=== PATIENT | female | born 1930 | race Caucasian/White ===

== ENCOUNTER 2016-10-25 15:52 | Emergency (ER) | payer MEDICARE, OTHER ==
[~2016-10-25 15:52] MED LIST: AMIT24CA5 PO; AMLO25TA PO; AMLO5TAB2 PO; BIMA01SOL OU; CARD120C3 PO; CEFD1CAP8 PO; COMB0.2S OU; COSO1SOL3 OU; DESM10SP; DILT120C82 PO; DOXY-278 PO; FERR32TA PO; FLON0.054; FLUT11IN INH; FURO20TA2 PO; FURO40TA2 PO; LEVO100T5 PO; LISI-538 PO; LISI-542 PO; MAG400TA PO; MIAC1SPR; NORT10CA2 PO; OMEP20CA3 PO; PAME25CA PO; PRED10TA PO; REQU0.5T PO; REST0.05 OU; SYMB80INH INH; SYNT88TA2 PO; TYLE325T5 PO; ULTR37.52 PO; VITA10002 PO; VITA100037 PO; [UNRECOGNIZED DRUG - CODE]; [UNRECOGNIZED DRUG - CODE] EX; [UNRECOGNIZED DRUG - CODE] OP; [UNRECOGNIZED DRUG - CODE] OS
[2016-10-25] MEDS ORDERED: traMADol 50 MG TAB As Ordered ONE (17:57)
--- NOTE | 2016-10-25 19:29 | REP ---
Left knee series: Five views. History: Anterior trauma. Findings: Five views of the left knee demonstrate a transversely oriented nondisplaced fracture of the patella. There is diffuse osteoporosis. No other fracture is seen. Impression: Transverse nondisplaced patellar fracture. Diffuse osteoporosis. Signed by Jayant Magana MD 10/25/2016 08:00 P
[2016-10-25] MEDS ORDERED: ACETAMINOPHEN/CODEINE #3 TABLET (BULK) As Ordered ONE (21:16)
--- NOTE | 2016-10-25 21:39 | EDDOCDS ---
Physician Documentation [facility] Name: Hilda Garcia Age: 85 yrs Sex: Female : 1930 Arrival Date: 10/25/2016 Time: 15:52 Bed PR Private MD: Jessica Chambers E Disposition: 10/25/16 20:59 Discharged to Home/Self Care. Impression: Other fracture of left patella - TRANVERSE, NONDISPLACED. - Condition is Stable. - Discharge Instructions: Patellar Fracture, Adult. - Prescriptions for Colace 100 mg Oral Tablet - take 1 tablet by ORAL route every 12 hours; 14 tablet. Tylenol- Codeine #3 300-30 mg Oral Tablet - take 2 tablet by ORAL route every 6 hours As needed MDD: 4 tabs; 30 tablet. - Medication Reconciliation, Local Pharmacy Hours form. - Follow up: [facility]; When: 2 - 3 days; Reason: Recheck today's complaints, Continuance of care. - Problem is new. - Symptoms have improved. - Notes: PLEASE CALL [facility] TOMORROW, PLEASE ADVISE THEM THAT YOU HAVE A NONDISPLACED PATELLA FRACTURE, THAT DR HEIN WAS CONSULTED AND THAT HE RECOMMENDED FOLLOW UP IN THE CLINIC TOMORROW. PLEASE USE MEDICATION AND COLACE INSTRUCTED, RETURN TO THE ER IF THE SYMPTOMS WORSEN OR BECOME CONCERNING Historical: - Allergies: Augmentin; Ciprofloxacin (Rash); Clindamycin (Rash); CT Dye (Rash); Diltiazem (heart block); GABAPENTIN (Rash); Ibuprofen (fluid retention); meloxicam (Rash); - Home Meds: 1. amlodipine 5 mg Oral tab 1 tab twice a day 2. Flovent Inhl 110 mcg twice a day 3. Lasix 40 mg Oral tab 1 tab once daily 4. levothyroxine 88 mcg Oral tab 1 tab once daily 5. lisinopril 20 mg Oral tab 1 tab 2 x daily 6. magnesium oxide 400 mg Oral tab 7. nortriptyline 25 mg Oral cap 1 cap daily 8. omeprazole 20 mg Oral cpDR 1 cap 2 times per day 9. Vitamin D Oral 1000 unit daily - PMHx: Depression; GERD; Hypertension; Hypothyroidism; - PSHx: Tonsillectomy; Hysterectomy; - Social history: Smoking status: Patient states former smoker of tobacco. No barriers to communication noted, The patient speaks fluent Ethiopian, Speaks appropriately for age. - Family history: Not pertinent. - : The pt / caregiver states he / she is not on anticoagulants. Home medication list is obtained from the patient. - Exposure Risk Screening:: None identified. Vital Signs: 10/25 15:58 BP 143 / 79; Pulse 76; Resp 18 S; Temp 96.7(O); Pulse Ox 97% on R/A; Weight 68.04 kg / gr2 150 lbs (R); Height 5 ft. 6 in. (167.64 cm) (R); Pain 8/10; 21:28 BP 152 / 89; Pulse 90; Resp 18; Temp 99.1(TE); Pulse Ox 97% on R/A; Pain 10/10; kmg1 15:58 Body Mass Index 24.21 (68.04 kg, 167.64 cm) gr2 Procedures: 20:58 Fracture care/splinting: Splint applied to left leg using knee immobilizer, applied by ck7 nurse. Examined by me, post splint application: neurovascular intact, 2+ distal pulses palpable, brisk capillary refill noted, Patient tolerated well. MDM: 17:49 traMADol 50 mg PO once ordered. ar2 17:50 Knee, Complete Ordered. EDMS 18:29 Financial registration complete. [facility] 18:38 [facility] Payment Agreement was scanned into [employer] and attached to record. b 20:29 Knee Immobilizer ordered. ck7 20:59 Knee, Complete Reviewed. ck7 21:00 Acetaminophen-Codeine, 4 pack- 300 mg-30 mg 1 packets PO once; Dispense with patient. ck7 Take per package instructions. ordered. Administered Medications: 18:01 Drug: traMADol 50 mg [tramadol 50 mg tablet (1 tabs)] Route: PO; ck1 21:37 Drug: Acetaminophen-Codeine, 4 pack- 1 packets [acetaminophen 300 mg-codeine 30 mg kmg1 tablet (1 tabs)] {Co-Signature: ttb (Uzma Wheeler RN).} Route: PO; Signatures: Dispatcher [employer]Host EDMS Tamera Mansfield RN RN kmg1 Shavon Hamm RN RN ck1 Isac Butt PA-C PA-C ar2 Sharon Lund RN RN hs1 Raymond Park, RPA-C RPA-Cck7 Awa López RN ttb The chart was reviewed and I authenticate all verbal orders and agree with the evaluation and treatment provided.Corrections: (The following items were deleted from the chart) 21:14 20:29 Crutches ordered. ck7 kmg1 Attachments: 18:38 [facility] [place] gjfrank MTDD
--- NOTE | 2016-10-25 21:39 | EDDOCDS ---
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 Patient states pain has continued to get worse. Adult Sepsis Screening: The patient does not have new or worsening altered mentation. Patient's respiratory rate is less than 22. Systolic blood pressure is greater than 100. Patient has a qSOFA score of 0- Negative Sepsis Screen. Suicide/Homicide risk assessment- the patient denies having any suicidal and/or homicidal ideations and does not present with any other emotional, behavioral or mental health complaints. Status: Patient is not a immigration services officer or dependent. Transition of care: patient was not received from another setting of care. 16:00 Acuity: NINOSKA Level 4 hs1 16:00 Method Of Arrival: Walkin/Carried/Asstd hs1 Triage Assessment: 16:08 General: Appears in no apparent distress, Behavior is appropriate for age, cooperative. hs1 Pain: Location: right knee and left knee Pain currently is 10 out of 10 on a pain scale. Neurological: No deficits noted. Respiratory: Airway is patent Respiratory effort is even, unlabored, Respiratory pattern is regular, symmetrical. Historical: - Allergies: Augmentin; Ciprofloxacin (Rash); Clindamycin (Rash); CT Dye (Rash); Diltiazem (heart block); GABAPENTIN (Rash); Ibuprofen (fluid retention); meloxicam (Rash); - Home Meds: 1. amlodipine 5 mg Oral tab 1 tab twice a day 2. Flovent Inhl 110 mcg twice a day 3. Lasix 40 mg Oral tab 1 tab once daily 4. levothyroxine 88 mcg Oral tab 1 tab once daily 5. lisinopril 20 mg Oral tab 1 tab 2 x daily 6. magnesium oxide 400 mg Oral tab 7. nortriptyline 25 mg Oral cap 1 cap daily 8. omeprazole 20 mg Oral cpDR 1 cap 2 times per day 9. Vitamin D Oral 1000 unit daily - PMHx: Depression; GERD; Hypertension; Hypothyroidism; - PSHx: Tonsillectomy; Hysterectomy; - Social history: Smoking status: Patient states former smoker of tobacco. No barriers to communication noted, The patient speaks fluent Khmer, Speaks appropriately for age. - Family history: Not pertinent. - : The pt / caregiver states he / she is not on anticoagulants. Home medication list is obtained from the patient. - Exposure Risk Screening:: None identified. Screenin:09 Screening information is obtained from the patient. Fall risk: No risks identified. hs1 Assistance ADL's: requires no assistance with activities of daily living. Abuse/DV Screen: The patient / caregiver reports he/she is: not in a situation that causes fear, pain or injury. Nutritional screening: No deficits noted. Advance Directives: There is no active DNR order. home support is adequate. Assessment: 18:01 General: Appears in no apparent distress, comfortable, Behavior is appropriate for age, ck1 cooperative. Pain: Location: left leg Pain currently is 10 out of 10 on a pain scale. Respiratory: No deficits noted. Derm: Skin is intact, Skin is pink, warm & dry. Musculoskeletal: Circulation, motion, and sensation intact. 21:28 Reassessment: Patient appears in no apparent distress at this time. Placed knee kmg1 immobilizer on LLE. Ambulated with walker and tolerated well. . Vital Signs: 15:58 BP 143 / 79; Pulse 76; Resp 18 S; Temp 96.7(O); Pulse Ox 97% on R/A; Weight 68.04 kg gr2 (R); Height 5 ft. 6 in. (167.64 cm) (R); Pain 8/10; 21:28 BP 152 / 89; Pulse 90; Resp 18; Temp 99.1(TE); Pulse Ox 97% on R/A; Pain 10/10; kmg1 15:58 Body Mass Index 24.21 (68.04 kg, 167.64 cm) gr2 Vitals: 15:58 Log In Time: October 25, 2016 at 15:58. gr2 ED Course: 15:57 Patient visited by Jackeline Shaw. gr2 15:57 Patient moved to Waiting gr2 15:58 Jessica Chambers is Private Physician. gr2 15:58 Patient visited by Jackeline Shaw. gr2 15:59 Patient moved to Pre RCE gr2 16:03 Triage Initiated hs1 17:28 Patient moved to Triage 2 ct3 17:39 Patient visited by Shavon Hamm,LEATHA. ck1 17:42 Isac Butt PA-C is PHCP. ar2 17:42 Kenji Metzger MD is Attending Physician. ar2 17:42 Patient visited by Isac Butt PA-C. ar2 18:00 Patient moved to TR1 ct3 18:01 Patient visited by Shavon Hamm,LEATHA. ck1 18:01 The patient / caregiver is instructed regarding the plan of care and ED course. ck1 18:23 PHCP role handed off by Isac Butt PA-C ck7 18:23 Raymond Park RPA-C is PHCP. ck7 18:38 [facility] Payment Agreement was scanned into Archive and attached to record. gjb 18:41 Patient visited by Raymond Park RPA-C. ck7 19:08 Patient name changed from Hilda\S\\S\Jose\S\ to Hilda\S\ \S\Jose. EDMS 19:11 Patient moved to PR 26 mo1 19:12 Patient visited by Raymond Park RPA-C. ck7 19:57 Patient visited by Raymond Park RPA-C. ck7 20:16 Knee, Complete Returned. EDMS 20:29 Patient visited by Raymond Park RPA-C. ck7 20:59 [facility] is Referral Physician. ck7 21:28 No IV's were initiated during this patient's visit. No procedures done that require kmg1 assistance. Knee immobilizer applied on left knee. Patient with positive distal sensation and brisk distal capillary refill after application. Administered Medications: 18:01 Drug: traMADol 50 mg [tramadol 50 mg tablet (1 tabs)] Route: PO; ck1 21:37 Drug: Acetaminophen-Codeine, 4 pack- 1 packets [acetaminophen 300 mg-codeine 30 mg kmg1 tablet (1 tabs)] {Co-Signature: ttb (Uzma Wheeler RN).} Route: PO; Output: 20:29 Urine: 100.00ml (Voided); Total: 100.00ml. dsf Order Results: Radiology Order: Knee, Complete Test: Knee, Complete REASON FOR EXAMINATION: anterior trauma; Left knee series: Five views.; ; History: Anterior trauma.; ; Findings: Five views of the left knee demonstrate a transversely oriented; nondisplaced fracture of the patella. There is diffuse osteoporosis. No other; fracture is seen.; ; Impression:; ; Transverse nondisplaced patellar fracture. Diffuse osteoporosis.; ; ; Signed by; Jayant Magana MD 10/25/2016 08:00 P; Outcome: 20:59 Discharge ordered by Provider. ck7 21:28 Discharge Assessment: Patient awake, alert and oriented x 3. No cognitive and/or kmg1 functional deficits noted. Patient verbalized understanding of disposition instructions. Patient awake and alert. patient administered narcotics - yes. Pt provided with safe discharge. The following High Risk Discharge criteria are identified: None. Discharged to home via wheelchair, with family. Condition: stable. Discharge instructions given to patient, family, Instructed on discharge instructions, follow up and referral plans. medication usage, Demonstrated understanding of instructions, medications, Pt was receptive of discharge instructions/ teaching. Prescriptions given X 1. No special radiology studies were completed. Property sent home with patient. 21:38 Patient left the ED. kmg1 Signatures: Dispatcher MedHost EDMS Tamera Mansfield, RN LEATHA kmg1 Shavon Hamm RN RN ck1 Isac Butt, PA-C PA-C ar2 Sharon Lund RN RN hs1 Catherine Torres, CYDNEY CASH REGISTER SERVICER ct3 Lorrie Perry RN RN dsf Raymond Park, RPA-C RPA-Cck7 Jackeline Shaw gr2 Ab Grant PA PA mo1 Awa López RN ttb [facility]
--- NOTE | 2016-10-27 22:40 | EDDOCDS ---
Physician Documentation [facility] Name: Hilda Garcia Age: 85 yrs Sex: Female : 1930 Arrival Date: 10/25/2016 Time: 15:52 Bed PR Private MD: Jessica Chambers E Disposition: 10/25/16 20:59 Discharged to Home/Self Care. Impression: Other fracture of left patella - TRANVERSE, NONDISPLACED. - Condition is Stable. - Discharge Instructions: Patellar Fracture, Adult. - Prescriptions for Colace 100 mg Oral Tablet - take 1 tablet by ORAL route every 12 hours; 14 tablet. Tylenol- Codeine #3 300-30 mg Oral Tablet - take 2 tablet by ORAL route every 6 hours As needed MDD: 4 tabs; 30 tablet. - Medication Reconciliation, Local Pharmacy Hours form. - Follow up: [facility]; When: 2 - 3 days; Reason: Recheck today's complaints, Continuance of care. - Problem is new. - Symptoms have improved. - Notes: PLEASE CALL [facility] TOMORROW, PLEASE ADVISE THEM THAT YOU HAVE A NONDISPLACED PATELLA FRACTURE, THAT DR HEIN WAS CONSULTED AND THAT HE RECOMMENDED FOLLOW UP IN THE CLINIC TOMORROW. PLEASE USE MEDICATION AND COLACE INSTRUCTED, RETURN TO THE ER IF THE SYMPTOMS WORSEN OR BECOME CONCERNING Historical: - Allergies: Augmentin; Ciprofloxacin (Rash); Clindamycin (Rash); CT Dye (Rash); Diltiazem (heart block); GABAPENTIN (Rash); Ibuprofen (fluid retention); meloxicam (Rash); - Home Meds: 1. amlodipine 5 mg Oral tab 1 tab twice a day 2. Flovent Inhl 110 mcg twice a day 3. Lasix 40 mg Oral tab 1 tab once daily 4. levothyroxine 88 mcg Oral tab 1 tab once daily 5. lisinopril 20 mg Oral tab 1 tab 2 x daily 6. magnesium oxide 400 mg Oral tab 7. nortriptyline 25 mg Oral cap 1 cap daily 8. omeprazole 20 mg Oral cpDR 1 cap 2 times per day 9. Vitamin D Oral 1000 unit daily - PMHx: Depression; GERD; Hypertension; Hypothyroidism; - PSHx: Tonsillectomy; Hysterectomy; - Social history: Smoking status: Patient states former smoker of tobacco. No barriers to communication noted, The patient speaks fluent Zambian, Speaks appropriately for age. - Family history: Not pertinent. - : The pt / caregiver states he / she is not on anticoagulants. Home medication list is obtained from the patient. - Exposure Risk Screening:: None identified. Vital Signs: 10/25 15:58 BP 143 / 79; Pulse 76; Resp 18 S; Temp 96.7(O); Pulse Ox 97% on R/A; Weight 68.04 kg / gr2 150 lbs (R); Height 5 ft. 6 in. (167.64 cm) (R); Pain 8/10; 21:28 BP 152 / 89; Pulse 90; Resp 18; Temp 99.1(TE); Pulse Ox 97% on R/A; Pain 10/10; kmg1 15:58 Body Mass Index 24.21 (68.04 kg, 167.64 cm) gr2 Procedures: 20:58 Fracture care/splinting: Splint applied to left leg using knee immobilizer, applied by ck7 nurse. Examined by me, post splint application: neurovascular intact, 2+ distal pulses palpable, brisk capillary refill noted, Patient tolerated well. MDM: 17:49 traMADol 50 mg PO once ordered. ar2 17:50 Knee, Complete Ordered. EDMS 18:29 Financial registration complete. [facility] 18:38 [facility] Payment Agreement was scanned into Pow[employer] and attached to record. b 20:29 Knee Immobilizer ordered. ck7 20:59 Knee, Complete Reviewed. ck7 21:00 Acetaminophen-Codeine, 4 pack- 300 mg-30 mg 1 packets PO once; Dispense with patient. ck7 Take per package instructions. ordered. 10/26 11:59 T-Sheet-- Draft Copy was scanned into Powered and attached to record. gb Administered Medications: 10/25 18:01 Drug: traMADol 50 mg [tramadol 50 mg tablet (1 tabs)] Route: PO; ck1 21:37 Drug: Acetaminophen-Codeine, 4 pack- 1 packets [acetaminophen 300 mg-codeine 30 mg kmg1 tablet (1 tabs)] {Co-Signature: ttb (Uzma Wheeler RN).} Route: PO; Signatures: Dispatcher MedHost EDAR Tamera Mansfield RN RN [facility] [place] Mary Falcon, Reg Reg gb Shavon HammRN RN ck1 Isac Butt PA-C PAJavier ar2 Sharon Lund RN RN hs1 Raymond Park RPA-C RPA-Demetrius7 Awa López b Uzma Wheeler RN ttb The chart was reviewed and I authenticate all verbal orders and agree with the evaluation and treatment provided.Corrections: (The following items were deleted from the chart) 21:14 20:29 Crutches ordered. ck7 kmg1 Attachments: 18:38 [facility] Payment Agreement gjb 10/26 11:59 T-Sheet-- Draft Copy gb Chart Complete MTDD
--- NOTE | 2016-10-27 22:40 | EDDOCDS ---
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 Patient states pain has continued to get worse. Adult Sepsis Screening: The patient does not have new or worsening altered mentation. Patient's respiratory rate is less than 22. Systolic blood pressure is greater than 100. Patient has a qSOFA score of 0- Negative Sepsis Screen. Suicide/Homicide risk assessment- the patient denies having any suicidal and/or homicidal ideations and does not present with any other emotional, behavioral or mental health complaints. Status: Patient is not a marine services technician or dependent. Transition of care: patient was not received from another setting of care. 16:00 Acuity: NINOSKA Level 4 hs1 16:00 Method Of Arrival: Walkin/Carried/Asstd hs1 Triage Assessment: 16:08 General: Appears in no apparent distress, Behavior is appropriate for age, cooperative. hs1 Pain: Location: right knee and left knee Pain currently is 10 out of 10 on a pain scale. Neurological: No deficits noted. Respiratory: Airway is patent Respiratory effort is even, unlabored, Respiratory pattern is regular, symmetrical. Historical: - Allergies: Augmentin; Ciprofloxacin (Rash); Clindamycin (Rash); CT Dye (Rash); Diltiazem (heart block); GABAPENTIN (Rash); Ibuprofen (fluid retention); meloxicam (Rash); - Home Meds: 1. amlodipine 5 mg Oral tab 1 tab twice a day 2. Flovent Inhl 110 mcg twice a day 3. Lasix 40 mg Oral tab 1 tab once daily 4. levothyroxine 88 mcg Oral tab 1 tab once daily 5. lisinopril 20 mg Oral tab 1 tab 2 x daily 6. magnesium oxide 400 mg Oral tab 7. nortriptyline 25 mg Oral cap 1 cap daily 8. omeprazole 20 mg Oral cpDR 1 cap 2 times per day 9. Vitamin D Oral 1000 unit daily - PMHx: Depression; GERD; Hypertension; Hypothyroidism; - PSHx: Tonsillectomy; Hysterectomy; - Social history: Smoking status: Patient states former smoker of tobacco. No barriers to communication noted, The patient speaks fluent Sami, Speaks appropriately for age. - Family history: Not pertinent. - : The pt / caregiver states he / she is not on anticoagulants. Home medication list is obtained from the patient. - Exposure Risk Screening:: None identified. Screenin:09 Screening information is obtained from the patient. Fall risk: No risks identified. hs1 Assistance ADL's: requires no assistance with activities of daily living. Abuse/DV Screen: The patient / caregiver reports he/she is: not in a situation that causes fear, pain or injury. Nutritional screening: No deficits noted. Advance Directives: There is no active DNR order. home support is adequate. Assessment: 18:01 General: Appears in no apparent distress, comfortable, Behavior is appropriate for age, ck1 cooperative. Pain: Location: left leg Pain currently is 10 out of 10 on a pain scale. Respiratory: No deficits noted. Derm: Skin is intact, Skin is pink, warm & dry. Musculoskeletal: Circulation, motion, and sensation intact. 21:28 Reassessment: Patient appears in no apparent distress at this time. Placed knee kmg1 immobilizer on LLE. Ambulated with walker and tolerated well. . Vital Signs: 15:58 BP 143 / 79; Pulse 76; Resp 18 S; Temp 96.7(O); Pulse Ox 97% on R/A; Weight 68.04 kg gr2 (R); Height 5 ft. 6 in. (167.64 cm) (R); Pain 8/10; 21:28 BP 152 / 89; Pulse 90; Resp 18; Temp 99.1(TE); Pulse Ox 97% on R/A; Pain 10/10; kmg1 15:58 Body Mass Index 24.21 (68.04 kg, 167.64 cm) gr2 Vitals: 15:58 Log In Time: October 25, 2016 at 15:58. gr2 ED Course: 15:57 Patient visited by Jackeline Shaw. gr2 15:57 Patient moved to Waiting gr2 15:58 Jessica Chambers is Private Physician. gr2 15:58 Patient visited by Jackeline Shaw. gr2 15:59 Patient moved to Pre RCE gr2 16:03 Triage Initiated hs1 17:28 Patient moved to Triage 2 ct3 17:39 Patient visited by Shavon Hamm,RN. ck1 17:42 Isac Butt PA-C is PHCP. ar2 17:42 Kenji Metzger MD is Attending Physician. ar2 17:42 Patient visited by Isac Butt PA-C. ar2 18:00 Patient moved to TR1 ct3 18:01 Patient visited by Shavon Hamm,LEATHA. ck1 18:01 The patient / caregiver is instructed regarding the plan of care and ED course. ck1 18:23 PHCP role handed off by Isac Butt PA-C ck7 18:23 Raymond Park RPA-C is PHCP. ck7 18:38 [facility] Payment Agreement was scanned into [employer] and attached to record. gjb 18:41 Patient visited by Raymond Park RPA-C. ck7 19:08 Patient name changed from Hilda\S\\S\Jose\S\ to Hilda\S\ \S\Jose. EDMS 19:11 Patient moved to PR mo1 19:12 Patient visited by Raymond Park RPA-C. ck7 19:57 Patient visited by Raymond Park RPA-C. ck7 20:16 Knee, Complete Returned. EDMS 20:29 Patient visited by Raymond Park RPA-C. ck7 20:59 [facility] is Referral Physician. ck7 21:28 No IV's were initiated during this patient's visit. No procedures done that require kmg1 assistance. Knee immobilizer applied on left knee. Patient with positive distal sensation and brisk distal capillary refill after application. 10/26 11:59 T-Sheet-- Draft Copy was scanned into [employer] and attached to record. gb Administered Medications: 10/25 18:01 Drug: traMADol 50 mg [tramadol 50 mg tablet (1 tabs)] Route: PO; ck1 21:37 Drug: Acetaminophen-Codeine, 4 pack- 1 packets [acetaminophen 300 mg-codeine 30 mg kmg1 tablet (1 tabs)] {Co-Signature: ttb (Uzma Wheeler RN).} Route: PO; Output: 20:29 Urine: 100.00ml (Voided); Total: 100.00ml. dsf Order Results: Radiology Order: Knee, Complete Test: Knee, Complete REASON FOR EXAMINATION: anterior trauma; Left knee series: Five views.; ; History: Anterior trauma.; ; Findings: Five views of the left knee demonstrate a transversely oriented; nondisplaced fracture of the patella. There is diffuse osteoporosis. No other; fracture is seen.; ; Impression:; ; Transverse nondisplaced patellar fracture. Diffuse osteoporosis.; ; ; Signed by; Jayant Magana MD 10/25/2016 08:00 P; Outcome: 20:59 Discharge ordered by Provider. ck7 21:28 Discharge Assessment: Patient awake, alert and oriented x 3. No cognitive and/or kmg1 functional deficits noted. Patient verbalized understanding of disposition instructions. Patient awake and alert. patient administered narcotics - yes. Pt provided with safe discharge. The following High Risk Discharge criteria are identified: None. Discharged to home via wheelchair, with family. Condition: stable. Discharge instructions given to patient, family, Instructed on discharge instructions, follow up and referral plans. medication usage, Demonstrated understanding of instructions, medications, Pt was receptive of discharge instructions/ teaching. Prescriptions given X 1. No special radiology studies were completed. Property sent home with patient. 21:38 Patient left the ED. kmg1 Signatures: Dispatcher [employer]Host EDMS Tamera Mansfield RN RN kmg1 Mary Falcon, Reg Reg gb Shavon Hamm RN RN ck1 Isac Butt, PA-C PA-C ar2 Sharon Lund RN RN hs1 Catherine Torres, COTTON GINNER COTTON GINNER ct3 Lorrie Perry RN RN dsf Raymond Park, RPA-C RPA-Cck7 Jackeline Shaw gr2 Ab Grant PA PA mo1 Awa López RN ttfrank Chart Complete MTDD
--- NOTE | 2016-10-27 22:40 | EDDOCDS ---
Physician Documentation [facility] Name: Hilda Garcia Age: 85 yrs Sex: Female : 1930 Arrival Date: 10/25/2016 Time: 15:52 Bed PR Private MD: Jessica Chambers E Disposition: 10/25/16 20:59 Discharged to Home/Self Care. Impression: Other fracture of left patella - TRANVERSE, NONDISPLACED. - Condition is Stable. - Discharge Instructions: Patellar Fracture, Adult. - Prescriptions for Colace 100 mg Oral Tablet - take 1 tablet by ORAL route every 12 hours; 14 tablet. Tylenol- Codeine #3 300-30 mg Oral Tablet - take 2 tablet by ORAL route every 6 hours As needed MDD: 4 tabs; 30 tablet. - Medication Reconciliation, Local Pharmacy Hours form. - Follow up: [facility]; When: 2 - 3 days; Reason: Recheck today's complaints, Continuance of care. - Problem is new. - Symptoms have improved. - Notes: PLEASE CALL [facility] TOMORROW, PLEASE ADVISE THEM THAT YOU HAVE A NONDISPLACED PATELLA FRACTURE, THAT DR HEIN WAS CONSULTED AND THAT HE RECOMMENDED FOLLOW UP IN THE CLINIC TOMORROW. PLEASE USE MEDICATION AND COLACE INSTRUCTED, RETURN TO THE ER IF THE SYMPTOMS WORSEN OR BECOME CONCERNING Historical: - Allergies: Augmentin; Ciprofloxacin (Rash); Clindamycin (Rash); CT Dye (Rash); Diltiazem (heart block); GABAPENTIN (Rash); Ibuprofen (fluid retention); meloxicam (Rash); - Home Meds: 1. amlodipine 5 mg Oral tab 1 tab twice a day 2. Flovent Inhl 110 mcg twice a day 3. Lasix 40 mg Oral tab 1 tab once daily 4. levothyroxine 88 mcg Oral tab 1 tab once daily 5. lisinopril 20 mg Oral tab 1 tab 2 x daily 6. magnesium oxide 400 mg Oral tab 7. nortriptyline 25 mg Oral cap 1 cap daily 8. omeprazole 20 mg Oral cpDR 1 cap 2 times per day 9. Vitamin D Oral 1000 unit daily - PMHx: Depression; GERD; Hypertension; Hypothyroidism; - PSHx: Tonsillectomy; Hysterectomy; - Social history: Smoking status: Patient states former smoker of tobacco. No barriers to communication noted, The patient speaks fluent Palestinian, Speaks appropriately for age. - Family history: Not pertinent. - : The pt / caregiver states he / she is not on anticoagulants. Home medication list is obtained from the patient. - Exposure Risk Screening:: None identified. Vital Signs: 10/25 15:58 BP 143 / 79; Pulse 76; Resp 18 S; Temp 96.7(O); Pulse Ox 97% on R/A; Weight 68.04 kg / gr2 150 lbs (R); Height 5 ft. 6 in. (167.64 cm) (R); Pain 8/10; 21:28 BP 152 / 89; Pulse 90; Resp 18; Temp 99.1(TE); Pulse Ox 97% on R/A; Pain 10/10; kmg1 15:58 Body Mass Index 24.21 (68.04 kg, 167.64 cm) gr2 Procedures: 20:58 Fracture care/splinting: Splint applied to left leg using knee immobilizer, applied by ck7 nurse. Examined by me, post splint application: neurovascular intact, 2+ distal pulses palpable, brisk capillary refill noted, Patient tolerated well. MDM: 17:49 traMADol 50 mg PO once ordered. ar2 17:50 Knee, Complete Ordered. EDMS 18:29 Financial registration complete. [facility] 18:38 [facility] Payment Agreement was scanned into [employer] and attached to record. b 20:29 Knee Immobilizer ordered. ck7 20:59 Knee, Complete Reviewed. ck7 21:00 Acetaminophen-Codeine, 4 pack- 300 mg-30 mg 1 packets PO once; Dispense with patient. ck7 Take per package instructions. ordered. 10/26 11:59 T-Sheet-- Draft Copy was scanned into [employer] and attached to record. gb Administered Medications: 10/25 18:01 Drug: traMADol 50 mg [tramadol 50 mg tablet (1 tabs)] Route: PO; ck1 21:37 Drug: Acetaminophen-Codeine, 4 pack- 1 packets [acetaminophen 300 mg-codeine 30 mg kmg1 tablet (1 tabs)] {Co-Signature: ttb (Uzma Wheeler RN).} Route: PO; Signatures: Dispatcher [employer] EDVA Tamera Mansfield RN RN [facility] [place], Reg Reg gb Shavon HammRN RN ck1 Isac Butt PA-C PAJavier ar2 Sharon Lund RN RN hs1 Raymond aPrk RPA-C [id number] Awa López b Uzma Wheeler RN ttb The chart was reviewed and I authenticate all verbal orders and agree with the evaluation and treatment provided.Corrections: (The following items were deleted from the chart) 21:14 20:29 Crutches ordered. ck7 kmg1 Attachments: 18:38 [facility] Payment Agreement gjb 10/26 11:59 T-Sheet-- Draft Copy gb Chart Complete MTDD
== END 2016-10-25 21:38 | disposition home or self-care (01) ==
LOC: M ED 15:52
DX: S82.035A Nondisplaced transverse fracture of left patella, initial encounter for closed fracture (principal); W18.30XA Fall on same level, unspecified, initial encounter; Y92.018 Other place in single-family (private) house as the place of occurrence of the external cause; Y93.89 Activity, other specified; Y99.8 Other external cause status; I10 Essential (primary) hypertension; E03.9 Hypothyroidism, unspecified; K21.9 Gastro-esophageal reflux disease without esophagitis; F32.9 Major depressive disorder, single episode, unspecified; Z79.899 Other long term (current) drug therapy; Z79.52 Long term (current) use of systemic steroids; Z79.51 Long term (current) use of inhaled steroids; Z88.0 Allergy status to penicillin; Z88.1 Allergy status to other antibiotic agents; Z88.6 Allergy status to analgesic agent; Z88.8 Allergy status to other drugs, medicaments and biological substances; Z87.891 Personal history of nicotine dependence

== ENCOUNTER → 2016-11-03 | Outpatient (CLI) | payer MEDICARE, OTHER ==
--- NOTE | 2016-11-03 18:57 | REP ---
Clinical: Pain and swelling. Recent patellar fracture. Technique: Lerma scale and color Doppler evaluation using linear high frequency transducer. Findings: Ultrasound examination of the left lower extremity deep venous structures from the common femoral vein to the popliteal vein demonstrates normal compressibility flow and wave patterns in response to respiration and augmentation. There is a small focus of nonocclusive thrombus in the mid superficial femoral vein which may reflect chronic DVT. Impression: Small focus of nonocclusive thrombus in the mid superficial femoral vein possibly chronic. Flow throughout the deep venous structures is not compromised and no further or contiguous areas of acute thrombus are identified. Signed by Arie Briones MD 11/03/2016 06:48 P
== END ==
LOC: M RAD 17:29
PROVIDERS: ATTEND Physician Assistant Surgical
DX: S82.035D Nondisplaced transverse fracture of left patella, subsequent encounter for closed fracture with routine healing (principal); M79.662 Pain in left lower leg; I74.3 Embolism and thrombosis of arteries of the lower extremities; X58.XXXD Exposure to other specified factors, subsequent encounter; Y93.9 Activity, unspecified; Y92.9 Unspecified place or not applicable; Y99.8 Other external cause status

== ENCOUNTER 2017-08-20 14:54 | Emergency (ER) | payer MEDICARE, OTHER ==
[~2017-08-20] VITALS: Ht 165.1 cm; Wt 63.6 kg
[2017-08-20 14:54] VITALS: BP 146/78
[~2017-08-20 14:54] MED LIST changes: -AMIT24CA5 PO; +AMIT24CA7 PO; -MIAC1SPR; +MIAC200S2; -REQU0.5T PO; +REQU1TAB15 PO; -ULTR37.52 PO; +ULTR37.54 PO; -VITA100037 PO; +VITA100067 PO
[2017-08-20] MEDS ORDERED: ONDANSETRON 4 MG ORAL DISINTEGRATING TAB (S0181) PO ONE (17:00)
[2017-08-20] MEDS ORDERED: ACETAMINOPH W/CODEINE #3 TAB UD PO ONE (17:00)
[2017-08-20] MEDS ORDERED: ADACEL/BOOSTRIX VACCINE (DIPHTH/PERTUSS/ACELL/TETANUS)0.5ML SYR (90715) IM ONE (17:00)
[2017-08-20] MEDS ORDERED: DERMABOND TOPICAL SKIN ADHESIVE TOP ONE (18:30)
== END 2017-08-20 19:10 | disposition home or self-care (01) ==
LOC: M ED 14:54
DX: S61.402A Unspecified open wound of left hand, initial encounter (principal); W01.198A Fall on same level from slipping, tripping and stumbling with subsequent striking against other object, initial encounter; Y92.094 Garage of other non-institutional residence as the place of occurrence of the external cause; Y93.01 Activity, walking, marching and hiking; Y99.9 Unspecified external cause status

== ENCOUNTER → 2017-11-08 | Outpatient (CLI) | payer MEDICARE, OTHER ==
[2017-11-08 16:12] LABS: BLOOD UREA NITROGEN 30 MG/DL (7-18)
[2017-11-08 16:12] LABS: CREATININE FOR GFR 1.18 MG/DL (0.55-1.30); GLOMERULAR FILTRATION RATE 46.5 (>32)
== END ==
LOC: M LAB 15:20
DX: M51.35 Other intervertebral disc degeneration, thoracolumbar region (principal)
CPT/HCPCS: 82565

== ENCOUNTER → 2017-11-19 | Outpatient (REF) | payer MEDICARE, OTHER ==
[2017-11-19 19:04] LABS: FERRITIN 88 NG/ML (8-252); IRON (FE) 96 UG/DL (50-170); PERCENT SATURATION 27.8 % (13.2-45.0); TOTAL IRON BINDING CAPACITY 345 UG/DL (250-450)
== END ==
LOC: M LAB REF 17:21
DX: D50.9 Iron deficiency anemia, unspecified (principal); M70.61 Trochanteric bursitis, right hip; M51.35 Other intervertebral disc degeneration, thoracolumbar region; M25.551 Pain in right hip
CPT/HCPCS: A9576

== ENCOUNTER → 2017-11-19 | Outpatient (CLI) | payer MEDICARE, OTHER ==
[~2017-11-19] MED LIST changes: -AMIT24CA7 PO; -AMLO25TA PO; -AMLO5TAB2 PO; -BIMA01SOL OU; -CARD120C3 PO; -CEFD1CAP8 PO; -COMB0.2S OU; -COSO1SOL3 OU; -DESM10SP; -DILT120C82 PO; -DOXY-278 PO; -FERR32TA PO; -FLON0.054; -FLUT11IN INH; -FURO20TA2 PO; -FURO40TA2 PO; -LEVO100T5 PO; -LISI-538 PO; -LISI-542 PO; -MAG400TA PO; -MIAC200S2; -NORT10CA2 PO; -OMEP20CA3 PO; -PAME25CA PO; -PRED10TA PO; +PROHANCE 279.3MG/ML 5ML VIAL (A9576) As Ordered; -REQU1TAB15 PO; -REST0.05 OU; -SYMB80INH INH; -SYNT88TA2 PO; -TYLE325T5 PO; -ULTR37.54 PO; -VITA10002 PO; -VITA100067 PO; -[UNRECOGNIZED DRUG - CODE]; -[UNRECOGNIZED DRUG - CODE] EX; -[UNRECOGNIZED DRUG - CODE] OP; -[UNRECOGNIZED DRUG - CODE] OS
== END ==
LOC: M RAD 10:18
DX: M70.61 Trochanteric bursitis, right hip (principal); M25.551 Pain in right hip; M51.35 Other intervertebral disc degeneration, thoracolumbar region

== ENCOUNTER → 2017-11-21 | Outpatient (CLI) | payer MEDICARE, OTHER ==
[~2017-11-21] MED LIST changes: +PROHANCE 279.3MG/ML 15ML VIAL (A9576) As Ordered; -PROHANCE 279.3MG/ML 5ML VIAL (A9576) As Ordered
== END ==
LOC: M RAD 10:25
DX: M51.37 Other intervertebral disc degeneration, lumbosacral region (principal); M51.35 Other intervertebral disc degeneration, thoracolumbar region; M25.551 Pain in right hip; I10 Essential (primary) hypertension
CPT/HCPCS: A9576

== ENCOUNTER 2018-01-28 07:59 | Outpatient (RCR) | payer MEDICARE, OTHER | END 2018-02-14 | LOC: M PT 07:59 | DX: Z51.89 Encounter for other specified aftercare (principal); M70.61 Trochanteric bursitis, right hip; M51.35 Other intervertebral disc degeneration, thoracolumbar region; M47.895 Other spondylosis, thoracolumbar region; M51.25 Other intervertebral disc displacement, thoracolumbar region; M51.37 Other intervertebral disc degeneration, lumbosacral region; M47.897 Other spondylosis, lumbosacral region | CPT/HCPCS: 97110 ==

== ENCOUNTER 2018-02-18 08:27 | Outpatient (RCR) | payer MEDICARE, OTHER | END 2018-03-16 | LOC: M PT 08:27 | DX: Z51.89 Encounter for other specified aftercare (principal); M51.35 Other intervertebral disc degeneration, thoracolumbar region; M47.895 Other spondylosis, thoracolumbar region; M51.25 Other intervertebral disc displacement, thoracolumbar region; M51.37 Other intervertebral disc degeneration, lumbosacral region; M47.897 Other spondylosis, lumbosacral region; M70.61 Trochanteric bursitis, right hip | CPT/HCPCS: 97110 ==

== ENCOUNTER 2018-02-23 10:05 | Emergency (ER) | payer MEDICARE, OTHER ==
[2018-02-23] MEDS: ASPIRIN 81 MG CHEW TABLET PO (11:00)
[2018-02-23 11:02] LABS: BASO % 0.4 % (0.0-1.0); EOS # 0.3 10^3/uL (0.0-0.50); EOS % 3.8 % (0.0-3.0); IMMATURE GRANULOCYTE % 0.3 % (0-3.0); LYMPH # 1.2 10^3/uL (1.5-4.5); LYMPH % 17.1 % (24.0-44.0); MEAN CORPUSCULAR HEMOGLOBIN 28.5 pg (27.0-33.0); MEAN CORPUSCULAR HGB CONC 32.5 g/dl (32.0-36.5); MEAN CORPUSCULAR VOLUME 87.7 fl (80.0-96.0); MONO # 0.8 10^3/uL (0.0-0.8); MONO % 11.2 % (0.0-5.0); NEUTROPHILS # 4.8 10^3/uL (1.8-7.7); NEUTROPHILS % 67.2 % (36.0-66.0); PLATELET COUNT, AUTOMATED 293 10^3/uL (150-450); RED BLOOD COUNT 4.56 10^6/uL (4.00-5.40); RED CELL DISTRIBUTION WIDTH 14.7 % (11.5-14.5); WHITE BLOOD COUNT 7.1 10^3/uL (4.0-10.0)
[2018-02-23 11:16] LABS: ALBUMIN 3.4 GM/DL (3.2-5.2); ALBUMIN/GLOBULIN RATIO 0.97 (1.00-1.93); ALKALINE PHOSPHATASE 83 U/L (45-117); ALT/SGPT 16 U/L (12-78); ANION GAP 6 MEQ/L (8-16); AST/SGOT 10 U/L (7-37); BILIRUBIN,DIRECT < 0.1 MG/DL (0.0-0.2); BILIRUBIN,TOTAL 0.4 MG/DL (0.2-1.0); BLOOD UREA NITROGEN 21 MG/DL (7-18); CALCIUM LEVEL 9.7 MG/DL (8.8-10.2); CARBON DIOXIDE LEVEL 26 MEQ/L (21-32); CHLORIDE LEVEL 108 MEQ/L (98-107); CK-MB VALUE MASS < 1.0 NG/ML (<3.6); CPK CREATINE PHOSPHOKINASE 46 U/L (26-192); CREATININE FOR GFR 0.87 MG/DL (0.55-1.30); GLOMERULAR FILTRATION RATE > 60.0 (>32); GLUCOSE, FASTING 97 MG/DL (70-100); MB/CK RELATIVE INDEX 2.17 (< OR =4); NT-PRO BNP 278 PG/ML (<450); POTASSIUM SERUM 4.3 MEQ/L (3.5-5.1); SODIUM LEVEL 140 MEQ/L (136-145); TOTAL PROTEIN 6.9 GM/DL (6.4-8.2); TROPONIN I < 0.02 NG/ML (< 0.10)
[2018-02-23] MEDS: NS 500 ML IV (12:47)
[2018-02-23] MEDS: NITROGLYCERIN 0.4 MG SUBL TABLET SL ×3 (12:54→13:05)
[2018-02-23] MEDS: MORPHINE 2 MG/ML 1ML SYRINGE (J2270) IV (13:42)
[2018-02-23 13:48] LABS: INR 1.06; PARTIAL THROMBOPLASTIN TIME 33.4 SECONDS (26.8-37.9); PROTHROMBIN TIME 13.9 SECONDS (12.4-14.5)
[2018-02-23] MEDS: NITROGLYCERIN 2% OINT 1 GM *U/D* PKT TOP (13:50)
[2018-02-23] MEDS: HEPARIN DRIP 25,000 UNITS in APPROPRIATE DILUENT 1 EA IV (13:50)
== END 2018-02-23 14:38 | disposition short-term general hospital (02) ==
LOC: M ED 10:05
DX: I20.0 Unstable angina (principal); R06.02 Shortness of breath; I12.9 Hypertensive chronic kidney disease with stage 1 through stage 4 chronic kidney disease, or unspecified chronic kidney disease; E78.5 Hyperlipidemia, unspecified; I25.2 Old myocardial infarction; N18.9 Chronic kidney disease, unspecified; C85.90 Non-Hodgkin lymphoma, unspecified, unspecified site; F32.9 Major depressive disorder, single episode, unspecified; H40.9 Unspecified glaucoma; K44.9 Diaphragmatic hernia without obstruction or gangrene; M48.00 Spinal stenosis, site unspecified; Z87.09 Personal history of other diseases of the respiratory system; Z87.891 Personal history of nicotine dependence; Z79.899 Other long term (current) drug therapy; Z91.041 Radiographic dye allergy status; Z88.0 Allergy status to penicillin; Z88.8 Allergy status to other drugs, medicaments and biological substances
CPT/HCPCS: 71045

== ENCOUNTER 2018-02-28 16:13 | Observation (INO) | payer MEDICARE, OTHER ==
[2018-02-28 17:45] LABS: BASO % 0.4 % (0.0-1.0); EOS # 0.4 10^3/uL (0.0-0.50); EOS % 5.1 % (0.0-3.0); HEMATOCRIT 41.7 % (36.0-47.0); HEMOGLOBIN 13.1 g/dl (12.0-15.5); IMMATURE GRANULOCYTE % 0.3 % (0-3.0); LYMPH # 1.6 10^3/uL (1.5-4.5); LYMPH % 20.1 % (24.0-44.0); MEAN CORPUSCULAR HEMOGLOBIN 28.1 pg (27.0-33.0); MEAN CORPUSCULAR HGB CONC 31.4 g/dl (32.0-36.5); MEAN CORPUSCULAR VOLUME 89.3 fl (80.0-96.0); MONO # 0.8 10^3/uL (0.0-0.8); MONO % 10.4 % (0.0-5.0); NEUTROPHILS % 63.7 % (36.0-66.0); PLATELET COUNT, AUTOMATED 249 10^3/uL (150-450); RED BLOOD COUNT 4.67 10^6/uL (4.00-5.40); RED CELL DISTRIBUTION WIDTH 15.1 % (11.5-14.5); WHITE BLOOD COUNT 7.9 10^3/uL (4.0-10.0)
[2018-02-28 18:27] LABS: ANION GAP 9 MEQ/L (8-16); BLOOD UREA NITROGEN 31 MG/DL (7-18); CALCIUM LEVEL 8.7 MG/DL (8.8-10.2); CARBON DIOXIDE LEVEL 26 MEQ/L (21-32); CHLORIDE LEVEL 108 MEQ/L (98-107); CPK CREATINE PHOSPHOKINASE 26 U/L (26-192); CREATININE FOR GFR 0.98 MG/DL (0.55-1.30); GLOMERULAR FILTRATION RATE 57.4 (>32); GLUCOSE, FASTING 95 MG/DL (70-100); LIPASE 277 U/L (73-393); POTASSIUM SERUM 4.8 MEQ/L (3.5-5.1); SODIUM LEVEL 143 MEQ/L (136-145); TROPONIN I < 0.02 NG/ML (< 0.10)
[2018-02-28 18:28] LABS: CK-MB VALUE MASS < 1.0 NG/ML (<3.6); MB/CK RELATIVE INDEX 3.84 (< OR =4); NT-PRO BNP 97 PG/ML (<450)
[2018-02-28] MEDS ORDERED: ACETAMINOPHEN TAB 650MG DOSE (2X325MG) PO ×3 (22:15)
[2018-02-28] MEDS ORDERED: ONDANSETRON 4MG/2ML VIAL (J2405) IV ×3 (22:15)
[2018-02-28] MEDS ORDERED: ALBUTEROL 90 MCG/ACT 8GM HFA INHALER INH ×3 (22:15)
[2018-02-28] MEDS ORDERED: NITROGLYCERIN 0.4 MG SUBL TABLET SL ×3 (22:15)
[2018-02-28 23:59] LABS: TROPONIN I < 0.02 NG/ML (< 0.10)
[2018-03-01] MEDS: LISINOPRIL 20 MG TAB PO ×9 (00:54→20:49)
[2018-03-01] MEDS: ATORVASTATIN 20 MG TAB PO ×6 (00:54→20:49)
[2018-03-01] MEDS: FERROUS GLUCONATE 324 MG TAB PO ×6 (00:55→20:49)
[2018-03-01] MEDS: NORTRIPTYLINE 25 MG CAP PO ×6 (01:25→20:49)
[2018-03-01 05:10] LABS: BASO % 0.4 % (0.0-1.0); EOS # 0.4 10^3/uL (0.0-0.50); EOS % 5.3 % (0.0-3.0); HEMATOCRIT 38.2 % (36.0-47.0); HEMOGLOBIN 12.3 g/dl (12.0-15.5); IMMATURE GRANULOCYTE % 0.3 % (0-3.0); LYMPH # 1.5 10^3/uL (1.5-4.5); LYMPH % 21.2 % (24.0-44.0); MEAN CORPUSCULAR HEMOGLOBIN 28.3 pg (27.0-33.0); MEAN CORPUSCULAR HGB CONC 32.2 g/dl (32.0-36.5); MONO # 0.8 10^3/uL (0.0-0.8); MONO % 10.5 % (0.0-5.0); NEUTROPHILS # 4.5 10^3/uL (1.8-7.7); NEUTROPHILS % 62.3 % (36.0-66.0); PLATELET COUNT, AUTOMATED 236 10^3/uL (150-450); RED BLOOD COUNT 4.34 10^6/uL (4.00-5.40); WHITE BLOOD COUNT 7.2 10^3/uL (4.0-10.0)
[2018-03-01] MEDS: LEVOTHYROXINE 88MCG TABLET (0.088 MG) PO ×3 (05:13)
[2018-03-01 05:14] LABS: ANION GAP 7 MEQ/L (8-16); BLOOD UREA NITROGEN 26 MG/DL (7-18); CALCIUM LEVEL 8.9 MG/DL (8.8-10.2); CARBON DIOXIDE LEVEL 27 MEQ/L (21-32); CHLORIDE LEVEL 108 MEQ/L (98-107); CREATININE FOR GFR 0.89 MG/DL (0.55-1.30); GLOMERULAR FILTRATION RATE > 60.0 (>32); GLUCOSE, FASTING 92 MG/DL (70-100); POTASSIUM SERUM 4.1 MEQ/L (3.5-5.1); SODIUM LEVEL 142 MEQ/L (136-145); TROPONIN I < 0.02 NG/ML (< 0.10)
[2018-03-01] MEDS: diphenhydrAMINE INJ 50MG/ML VIAL (J1200) IV ×6 (08:24→14:17)
[2018-03-01] MEDS ORDERED: ISOVUE-370 76% 100ML VIAL (Q9967) As Ordered ×3 (08:39)
[2018-03-01] MEDS: methylPREDNISolone INJ 40 MG/1 ML VIAL (J2920) IV ×9 (08:51→14:19)
[2018-03-01] MEDS: ENOXAPARIN 40 MG/0.4 ML SYRINGE (J1650) SC ×3 (09:26)
[2018-03-01] MEDS: ASPIRIN 81 MG ENTERIC TAB PO ×3 (09:27)
[2018-03-01] MEDS: CLOPIDOGREL 75 MG TAB PO ×3 (09:27)
[2018-03-01] MEDS: SPIRONOLACTONE 25 MG TAB PO ×3 (09:27)
[2018-03-01] MEDS: VITAMIN D 1,000 INTERNATIONAL UNITS TABLET PO ×3 (09:27)
[2018-03-01] MEDS ORDERED: SODIUM CHLORIDE 0.9% INJ 10 ML SYR IV ×3 (15:45)
[2018-03-01] MEDS: SODIUM CHLORIDE 0.9% INJ 10 ML SYR IV ×3 (16:14)
[2018-03-01] MEDS: TIMOLOL OU ×3 (20:49)
[2018-03-01] MEDS: DORZOLAMIDE OU ×3 (20:49)
[2018-03-01] MEDS: LUMIGAN (PATIENT'S OWN MED) OU ×3 (20:54)
[2018-03-02] MEDS: MAALOX 30 ML SUSP *UDC PO ×3 (02:23)
[2018-03-02] MEDS: LEVOTHYROXINE 88MCG TABLET (0.088 MG) PO ×3 (05:37)
[2018-03-02] MEDS: SODIUM CHLORIDE 0.9% INJ 10 ML SYR IV ×3 (05:37)
[2018-03-02 08:28] LABS: BASO % 0.3 % (0.0-1.0); EOS # 0.2 10^3/uL (0.0-0.50); EOS % 1.4 % (0.0-3.0); HEMATOCRIT 41.5 % (36.0-47.0); HEMOGLOBIN 13.3 g/dl (12.0-15.5); IMMATURE GRANULOCYTE % 0.4 % (0-3.0); LYMPH # 1.6 10^3/uL (1.5-4.5); LYMPH % 14.5 % (24.0-44.0); MEAN CORPUSCULAR HEMOGLOBIN 28.3 pg (27.0-33.0); MEAN CORPUSCULAR VOLUME 88.3 fl (80.0-96.0); MONO % 8.7 % (0.0-5.0); NEUTROPHILS # 8.3 10^3/uL (1.8-7.7); NEUTROPHILS % 74.7 % (36.0-66.0); PLATELET COUNT, AUTOMATED 303 10^3/uL (150-450); RED CELL DISTRIBUTION WIDTH 14.8 % (11.5-14.5); WHITE BLOOD COUNT 11.1 10^3/uL (4.0-10.0)
[2018-03-02] MEDS: ASPIRIN 81 MG ENTERIC TAB PO ×3 (08:52)
[2018-03-02] MEDS: LISINOPRIL 20 MG TAB PO ×3 (08:53)
[2018-03-02] MEDS: CLOPIDOGREL 75 MG TAB PO ×3 (08:53)
[2018-03-02] MEDS: VITAMIN D 1,000 INTERNATIONAL UNITS TABLET PO ×3 (08:53)
[2018-03-02] MEDS: SPIRONOLACTONE 25 MG TAB PO ×3 (08:53)
[2018-03-02] MEDS: ENOXAPARIN 40 MG/0.4 ML SYRINGE (J1650) SC ×3 (08:53)
[2018-03-02 08:54] LABS: ALBUMIN 3.4 GM/DL (3.2-5.2); ALBUMIN/GLOBULIN RATIO 1.03 (1.00-1.93); ALKALINE PHOSPHATASE 76 U/L (45-117); ALT/SGPT 18 U/L (12-78); ANION GAP 6 MEQ/L (8-16); AST/SGOT 9 U/L (7-37); BILIRUBIN,TOTAL 0.3 MG/DL (0.2-1.0); BLOOD UREA NITROGEN 30 MG/DL (7-18); CALCIUM LEVEL 9.6 MG/DL (8.8-10.2); CARBON DIOXIDE LEVEL 29 MEQ/L (21-32); CHLORIDE LEVEL 106 MEQ/L (98-107); CREATININE FOR GFR 0.97 MG/DL (0.55-1.30); GLOMERULAR FILTRATION RATE 58.1 (>32); GLUCOSE, FASTING 95 MG/DL (70-100); MAGNESIUM LEVEL 2.5 MG/DL (1.8-2.4); POTASSIUM SERUM 4.8 MEQ/L (3.5-5.1); SODIUM LEVEL 141 MEQ/L (136-145); TOTAL PROTEIN 6.7 GM/DL (6.4-8.2)
[2018-03-02] MEDS: TIMOLOL OU ×3 (08:54)
[2018-03-02] MEDS: DORZOLAMIDE OU ×3 (08:54)
== END 2018-03-02 18:40 | disposition home or self-care (01) ==
LOC: M ICU 03-01 00:48 → M ED 16:13 → M ED INP 22:13
DX: M54.2 Cervicalgia (principal); I25.10 Atherosclerotic heart disease of native coronary artery without angina pectoris; I11.9 Hypertensive heart disease without heart failure; Z98.61 Coronary angioplasty status; I50.30 Unspecified diastolic (congestive) heart failure; E78.4 Other hyperlipidemia; E03.9 Hypothyroidism, unspecified; J45.909 Unspecified asthma, uncomplicated; Z85.79 Personal history of other malignant neoplasms of lymphoid, hematopoietic and related tissues; Z92.21 Personal history of antineoplastic chemotherapy; F32.9 Major depressive disorder, single episode, unspecified; E55.9 Vitamin D deficiency, unspecified; E53.9 Vitamin B deficiency, unspecified; K21.9 Gastro-esophageal reflux disease without esophagitis; Z79.82 Long term (current) use of aspirin; Z79.01 Long term (current) use of anticoagulants; Z79.899 Other long term (current) drug therapy; Z88.1 Allergy status to other antibiotic agents; Z88.8 Allergy status to other drugs, medicaments and biological substances; Z87.891 Personal history of nicotine dependence
CPT/HCPCS: J1200

== ENCOUNTER 2018-06-06 08:27 | Inpatient (IN) | payer MEDICARE, OTHER ==
[2018-06-06 10:07] LABS: BASO # 0.1 10^3/uL (0.0-0.2); BASO % 0.4 % (0.0-1.0); EOS # 0.4 10^3/uL (0.0-0.50); EOS % 2.9 % (0.0-3.0); HEMATOCRIT 41.8 % (36.0-47.0); HEMOGLOBIN 13.1 g/dl (12.0-15.5); IMMATURE GRANULOCYTE % 0.5 % (0-3.0); LYMPH # 1.2 10^3/uL (1.5-4.5); LYMPH % 8.7 % (24.0-44.0); MEAN CORPUSCULAR HGB CONC 31.3 g/dl (32.0-36.5); MEAN CORPUSCULAR VOLUME 89.3 fl (80.0-96.0); MONO # 1.1 10^3/uL (0.0-0.8); MONO % 7.9 % (0.0-5.0); NEUTROPHILS # 11.1 10^3/uL (1.8-7.7); NEUTROPHILS % 79.6 % (36.0-66.0); PLATELET COUNT, AUTOMATED 314 10^3/uL (150-450); RED BLOOD COUNT 4.68 10^6/uL (4.00-5.40); RED CELL DISTRIBUTION WIDTH 14.3 % (11.5-14.5); WHITE BLOOD COUNT 13.9 10^3/uL (4.0-10.0)
[2018-06-06] MEDS: MORPHINE 2 MG/ML 1ML SYRINGE (J2270) IV ×2 (10:18→19:09)
[2018-06-06] MEDS: NITROGLYCERIN 0.4 MG SUBL TABLET SL ×2 (10:20→10:31)
[2018-06-06] MEDS: GI COCKTAIL 50ML BTL(HYOSCYAMINE/MAALOX/LIDOCAINE VISCOUS)(1:3:1) PO (10:57)
[2018-06-06] MEDS: LORazepam 2 MG/ML VIAL (J2060) IV (11:07)
[2018-06-06] MEDS: methylPREDNISolone INJ 125 MG/2 ML VIAL (J2930) IV (12:22)
[2018-06-06] MEDS ORDERED: ISOVUE-370 76% 100ML VIAL (Q9967) As Ordered (12:22)
[2018-06-06] MEDS: fentaNYL 100 MCG/2 ML INJECTION (J3010) IV (12:24)
[2018-06-06] MEDS: ONDANSETRON 4MG/2ML VIAL (J2405) IV (12:31)
[2018-06-06] MEDS: diphenhydrAMINE INJ 50MG/ML VIAL (J1200) IV (12:31)
[2018-06-06 12:54] LABS: ANION GAP 6 MEQ/L (8-16); BLOOD UREA NITROGEN 26 MG/DL (7-18); CALCIUM LEVEL 9.4 MG/DL (8.8-10.2); CARBON DIOXIDE LEVEL 27 MEQ/L (21-32); CHLORIDE LEVEL 108 MEQ/L (98-107); CK-MB VALUE MASS < 1.0 NG/ML (<3.6); CPK CREATINE PHOSPHOKINASE 34 U/L (26-192); CREATININE FOR GFR 0.99 MG/DL (0.55-1.30); GLOMERULAR FILTRATION RATE 56.8 (>32); GLUCOSE, FASTING 85 MG/DL (70-100); MB/CK RELATIVE INDEX 2.94 (< OR =4); NT-PRO BNP 435 PG/ML (<450); POTASSIUM SERUM 4.3 MEQ/L (3.5-5.1); SODIUM LEVEL 141 MEQ/L (136-145); TROPONIN I < 0.02 NG/ML (< 0.10)
[2018-06-06] MEDS: HYDROMORPHONE HCL 0.5 MG/ 0.5 ML SYRINGE (J1170 PER 1) IV ×2 (13:59→15:40)
[2018-06-06 16:33] LABS: CK-MB VALUE MASS < 1.0 NG/ML (<3.6); CPK CREATINE PHOSPHOKINASE 64 U/L (26-192); MB/CK RELATIVE INDEX 1.56 (< OR =4); TROPONIN I < 0.02 NG/ML (< 0.10)
[2018-06-06] MEDS ORDERED: NITROGLYCERIN 2% OINT 1 GM *U/D* PKT TOP (19:45)
[2018-06-06] MEDS ORDERED: ONDANSETRON 4MG/2ML VIAL (J2405) IV (19:45)
[2018-06-06] MEDS: NITROGLYCERIN 2% OINT 1 GM *U/D* PKT TOP (20:15)
[2018-06-06] MEDS ORDERED: INFLUENZA VIRUS VACCINE HIGH DOSE 0.5 ML SYRINGE (90662) IM (23:00)
[2018-06-06] MEDS: LISINOPRIL 20 MG TAB PO (23:04)
[2018-06-06] MEDS: FERROUS GLUCONATE 324 MG TAB PO (23:04)
[2018-06-06] MEDS: ATORVASTATIN 20 MG TAB PO (23:04)
[2018-06-06] MEDS: NORTRIPTYLINE 25 MG CAP PO (23:04)
[2018-06-07 02:42] LABS: CK-MB VALUE MASS < 1.0 NG/ML (<3.6); CPK CREATINE PHOSPHOKINASE 37 U/L (26-192); TROPONIN I < 0.02 NG/ML (< 0.10)
[2018-06-07 04:55] LABS: HEMATOCRIT 36.7 % (36.0-47.0); HEMOGLOBIN 11.9 g/dl (12.0-15.5); MEAN CORPUSCULAR HEMOGLOBIN 28.1 pg (27.0-33.0); MEAN CORPUSCULAR HGB CONC 32.4 g/dl (32.0-36.5); MEAN CORPUSCULAR VOLUME 86.6 fl (80.0-96.0); PLATELET COUNT, AUTOMATED 272 10^3/uL (150-450); RED BLOOD COUNT 4.24 10^6/uL (4.00-5.40); RED CELL DISTRIBUTION WIDTH 14.5 % (11.5-14.5); WHITE BLOOD COUNT 13.3 10^3/uL (4.0-10.0)
[2018-06-07 05:22] LABS: ANION GAP 8 MEQ/L (8-16); BLOOD UREA NITROGEN 22 MG/DL (7-18); CALCIUM LEVEL 8.8 MG/DL (8.8-10.2); CARBON DIOXIDE LEVEL 25 MEQ/L (21-32); CHLORIDE LEVEL 106 MEQ/L (98-107); CREATININE FOR GFR 0.89 MG/DL (0.55-1.30); GLOMERULAR FILTRATION RATE > 60.0 (>32); GLUCOSE, FASTING 132 MG/DL (70-100); MAGNESIUM LEVEL 2.4 MG/DL (1.8-2.4); POTASSIUM SERUM 4.6 MEQ/L (3.5-5.1); SODIUM LEVEL 139 MEQ/L (136-145)
[2018-06-07] MEDS: VITAMIN D 1,000 INTERNATIONAL UNITS TABLET PO (08:14)
[2018-06-07] MEDS: CLOPIDOGREL 75 MG TAB PO (08:14)
[2018-06-07] MEDS: ASPIRIN 81 MG ENTERIC TAB PO (08:14)
[2018-06-07] MEDS: METOPROLOL TART 25 MG TABLET PO ×2 (08:15→22:52)
[2018-06-07] MEDS: SPIRONOLACTONE 12.5MG PER 1/2 TABLET PO (08:15)
[2018-06-07] MEDS: LISINOPRIL 20 MG TAB PO ×2 (08:15→22:53)
[2018-06-07 09:03] LABS: CK-MB VALUE MASS < 1.0 NG/ML (<3.6); CPK CREATINE PHOSPHOKINASE 32 U/L (26-192); MB/CK RELATIVE INDEX 3.12 (< OR =4); TROPONIN I < 0.02 NG/ML (< 0.10)
[2018-06-07] MEDS: DOCUSATE SODIUM 100 MG CAP PO ×2 (10:56→22:51)
[2018-06-07] MEDS: LEVOTHYROXINE 88MCG TABLET (0.088 MG) PO (10:56)
[2018-06-07 11:00] LABS: THYROID STIMULATING HORMONE 0.311 uIU/ML (0.358-3.740)
[2018-06-07] MEDS: FERROUS GLUCONATE 324 MG TAB PO (22:50)
[2018-06-07] MEDS: NORTRIPTYLINE 25 MG CAP PO (22:50)
[2018-06-07] MEDS: ATORVASTATIN 20 MG TAB PO (22:50)
[2018-06-08 05:29] LABS: HEMOGLOBIN 12.3 g/dl (12.0-15.5); MEAN CORPUSCULAR HEMOGLOBIN 28.4 pg (27.0-33.0); MEAN CORPUSCULAR HGB CONC 32.4 g/dl (32.0-36.5); MEAN CORPUSCULAR VOLUME 87.8 fl (80.0-96.0); PLATELET COUNT, AUTOMATED 300 10^3/uL (150-450); RED BLOOD COUNT 4.33 10^6/uL (4.00-5.40); RED CELL DISTRIBUTION WIDTH 14.6 % (11.5-14.5); WHITE BLOOD COUNT 9.4 10^3/uL (4.0-10.0)
[2018-06-08] MEDS: LEVOTHYROXINE 88MCG TABLET (0.088 MG) PO (06:00)
[2018-06-08 06:07] LABS: ANION GAP 8 MEQ/L (8-16); BLOOD UREA NITROGEN 22 MG/DL (7-18); CARBON DIOXIDE LEVEL 25 MEQ/L (21-32); CHLORIDE LEVEL 109 MEQ/L (98-107); CREATININE FOR GFR 0.84 MG/DL (0.55-1.30); FREE THYROXINE INDEX 3.1 % (1.3-4.8); GLOMERULAR FILTRATION RATE > 60.0 (>32); GLUCOSE, FASTING 88 MG/DL (70-100); MAGNESIUM LEVEL 2.5 MG/DL (1.8-2.4); POTASSIUM SERUM 4.6 MEQ/L (3.5-5.1); SODIUM LEVEL 142 MEQ/L (136-145); T UPTAKE 36 % (30-39); THYROXINE (T4) 8.5 UG/DL (4.5-12.0)
[2018-06-08] MEDS: INFLUENZA VIRUS VACCINE HIGH DOSE 0.5 ML SYRINGE (90662) IM (07:35)
[2018-06-08] MEDS: LISINOPRIL 20 MG TAB PO ×2 (08:48→22:43)
[2018-06-08] MEDS: SPIRONOLACTONE 12.5MG PER 1/2 TABLET PO (08:48)
[2018-06-08] MEDS: ASPIRIN 81 MG ENTERIC TAB PO (08:48)
[2018-06-08] MEDS: VITAMIN D 1,000 INTERNATIONAL UNITS TABLET PO (08:48)
[2018-06-08] MEDS: CLOPIDOGREL 75 MG TAB PO (08:49)
[2018-06-08] MEDS: DOCUSATE SODIUM 100 MG CAP PO ×2 (08:49→22:44)
[2018-06-08] MEDS: METOPROLOL TART 25 MG TABLET PO ×2 (08:49→22:43)
[2018-06-08] MEDS: ACETAMINOPHEN TAB 650MG DOSE (2X325MG) PO (19:59)
[2018-06-08] MEDS ORDERED: NITROGLYCERIN 0.3 MG SUBL TAB SL (20:35)
[2018-06-08 20:50] LABS: CPK CREATINE PHOSPHOKINASE 48 U/L (26-192); MB/CK RELATIVE INDEX 3.96 (< OR =4); TROPONIN I 0.43 NG/ML (< 0.10)
[2018-06-08] MEDS: NITROGLYCERIN 0.4 MG SUBL TABLET SL ×2 (20:53→21:01)
[2018-06-08 21:18] LABS: INR 1.07
[2018-06-08 21:19] LABS: PARTIAL THROMBOPLASTIN TIME 32.6 SECONDS (25.4-37.6)
[2018-06-08] MEDS: FERROUS GLUCONATE 324 MG TAB PO (22:43)
[2018-06-08] MEDS: ENOXAPARIN 80 MG/0.8 ML SYRINGE (J1650) SC (22:44)
[2018-06-08] MEDS: ATORVASTATIN 20 MG TAB PO (22:44)
[2018-06-08] MEDS: NORTRIPTYLINE 25 MG CAP PO (22:44)
[2018-06-09 01:07] LABS: CPK CREATINE PHOSPHOKINASE 35 U/L (26-192); MB/CK RELATIVE INDEX 5.71 (< OR =4); TROPONIN I 0.55 NG/ML (< 0.10)
[2018-06-09 04:37] LABS: HEMATOCRIT 40.3 % (36.0-47.0); HEMOGLOBIN 12.8 g/dl (12.0-15.5); MEAN CORPUSCULAR HGB CONC 31.8 g/dl (32.0-36.5); MEAN CORPUSCULAR VOLUME 88.2 fl (80.0-96.0); PLATELET COUNT, AUTOMATED 305 10^3/uL (150-450); RED BLOOD COUNT 4.57 10^6/uL (4.00-5.40); RED CELL DISTRIBUTION WIDTH 14.5 % (11.5-14.5); WHITE BLOOD COUNT 7.5 10^3/uL (4.0-10.0)
[2018-06-09 05:08] LABS: ANION GAP 5 MEQ/L (8-16); BLOOD UREA NITROGEN 23 MG/DL (7-18); CALCIUM LEVEL 9.2 MG/DL (8.8-10.2); CARBON DIOXIDE LEVEL 29 MEQ/L (21-32); CHLORIDE LEVEL 107 MEQ/L (98-107); CREATININE FOR GFR 0.82 MG/DL (0.55-1.30); GLOMERULAR FILTRATION RATE > 60.0 (>32); GLUCOSE, FASTING 87 MG/DL (70-100); MAGNESIUM LEVEL 2.4 MG/DL (1.8-2.4); POTASSIUM SERUM 4.1 MEQ/L (3.5-5.1); SODIUM LEVEL 141 MEQ/L (136-145); TROPONIN I 0.44 NG/ML (< 0.10)
[2018-06-09] MEDS: SPIRONOLACTONE 12.5MG PER 1/2 TABLET PO (07:53)
[2018-06-09] MEDS: DOCUSATE SODIUM 100 MG CAP PO ×2 (07:53→21:10)
[2018-06-09] MEDS: ENOXAPARIN 80 MG/0.8 ML SYRINGE (J1650) SC ×2 (07:53→21:09)
[2018-06-09] MEDS: CLOPIDOGREL 75 MG TAB PO (07:53)
[2018-06-09] MEDS: LISINOPRIL 20 MG TAB PO ×2 (07:54→21:10)
[2018-06-09] MEDS: VITAMIN D 1,000 INTERNATIONAL UNITS TABLET PO (07:54)
[2018-06-09] MEDS: LEVOTHYROXINE 88MCG TABLET (0.088 MG) PO (07:54)
[2018-06-09] MEDS: METOPROLOL TART 25 MG TABLET PO ×2 (07:54→21:10)
[2018-06-09] MEDS: ASPIRIN 81 MG ENTERIC TAB PO (07:54)
[2018-06-09] MEDS ORDERED: CLOPIDOGREL 75 MG TAB PO (09:15)
[2018-06-09 12:30] LABS: CPK CREATINE PHOSPHOKINASE 53 U/L (26-192); MB/CK RELATIVE INDEX 2.45 (< OR =4); TROPONIN I 0.27 NG/ML (< 0.10)
[2018-06-09] MEDS: NITROGLYCERIN 0.4 MG SUBL TABLET SL (14:06)
[2018-06-09 18:49] LABS: CK-MB VALUE MASS < 1.0 NG/ML (<3.6); CPK CREATINE PHOSPHOKINASE 25 U/L (26-192); TROPONIN I 0.28 NG/ML (< 0.10)
[2018-06-09] MEDS: ATORVASTATIN 20 MG TAB PO (21:10)
[2018-06-09] MEDS: FERROUS GLUCONATE 324 MG TAB PO (21:10)
[2018-06-09] MEDS: NORTRIPTYLINE 25 MG CAP PO (22:03)
[2018-06-09] MEDS ORDERED: SLF 3 ML SYR IV (23:45)
[2018-06-10 03:08] LABS: BEDSIDE GLUCOSE 82 MG/DL (83-110)
[2018-06-10] MEDS: NITROGLYCERIN 0.4 MG SUBL TABLET SL ×5 (03:17→22:01)
[2018-06-10] MEDS: LEVOTHYROXINE 88MCG TABLET (0.088 MG) PO (05:46)
[2018-06-10] MEDS: SLF 3 ML SYR IV ×3 (05:46→22:14)
[2018-06-10 05:55] LABS: HEMOGLOBIN 12.2 g/dl (12.0-15.5); MEAN CORPUSCULAR HEMOGLOBIN 27.6 pg (27.0-33.0); MEAN CORPUSCULAR HGB CONC 31.3 g/dl (32.0-36.5); MEAN CORPUSCULAR VOLUME 88.2 fl (80.0-96.0); PLATELET COUNT, AUTOMATED 330 10^3/uL (150-450); RED BLOOD COUNT 4.42 10^6/uL (4.00-5.40); RED CELL DISTRIBUTION WIDTH 14.3 % (11.5-14.5); WHITE BLOOD COUNT 8.1 10^3/uL (4.0-10.0)
[2018-06-10 06:40] LABS: CK-MB VALUE MASS < 1.0 NG/ML (<3.6); CPK CREATINE PHOSPHOKINASE 22 U/L (26-192); MB/CK RELATIVE INDEX 4.55 (< OR =4); TROPONIN I 0.13 NG/ML (< 0.10)
[2018-06-10 06:59] LABS: ANION GAP 7 MEQ/L (8-16); BLOOD UREA NITROGEN 19 MG/DL (7-18); CARBON DIOXIDE LEVEL 29 MEQ/L (21-32); CHLORIDE LEVEL 106 MEQ/L (98-107); CK-MB VALUE MASS < 1.0 NG/ML (<3.6); CPK CREATINE PHOSPHOKINASE 26 U/L (26-192); CREATININE FOR GFR 0.86 MG/DL (0.55-1.30); GLOMERULAR FILTRATION RATE > 60.0 (>32); GLUCOSE, FASTING 91 MG/DL (70-100); MAGNESIUM LEVEL 2.2 MG/DL (1.8-2.4); MB/CK RELATIVE INDEX 3.85 (< OR =4); POTASSIUM SERUM 4.3 MEQ/L (3.5-5.1); SODIUM LEVEL 142 MEQ/L (136-145); TROPONIN I 0.12 NG/ML (< 0.10)
[2018-06-10] MEDS: SPIRONOLACTONE 12.5MG PER 1/2 TABLET PO (08:50)
[2018-06-10] MEDS: VITAMIN D 1,000 INTERNATIONAL UNITS TABLET PO (08:50)
[2018-06-10] MEDS: LISINOPRIL 20 MG TAB PO ×2 (08:50→20:21)
[2018-06-10] MEDS: ASPIRIN 81 MG ENTERIC TAB PO (08:50)
[2018-06-10] MEDS: METOPROLOL TART 25 MG TABLET PO ×2 (08:51→20:21)
[2018-06-10] MEDS: CLOPIDOGREL 75 MG TAB PO (08:51)
[2018-06-10] MEDS: DOCUSATE SODIUM 100 MG CAP PO ×2 (08:51→20:12)
[2018-06-10] MEDS: ENOXAPARIN 80 MG/0.8 ML SYRINGE (J1650) SC ×2 (08:52→20:14)
[2018-06-10 13:06] LABS: CK-MB VALUE MASS < 1.0 NG/ML (<3.6); CPK CREATINE PHOSPHOKINASE 38 U/L (26-192); MB/CK RELATIVE INDEX 2.63 (< OR =4); TROPONIN I 0.07 NG/ML (< 0.10)
[2018-06-10 19:03] LABS: CK-MB VALUE MASS < 1.0 NG/ML (<3.6); CPK CREATINE PHOSPHOKINASE 21 U/L (26-192); MB/CK RELATIVE INDEX 4.76 (< OR =4); TROPONIN I 0.05 NG/ML (< 0.10)
[2018-06-10] MEDS: FERROUS GLUCONATE 324 MG TAB PO (20:12)
[2018-06-10] MEDS: ATORVASTATIN 20 MG TAB PO (20:12)
[2018-06-10] MEDS: NORTRIPTYLINE 25 MG CAP PO (20:21)
[2018-06-10] MEDS: NS 1,000 ML IV (22:14)
[2018-06-10 22:51] LABS: CK-MB VALUE MASS < 1.0 NG/ML (<3.6); CPK CREATINE PHOSPHOKINASE 20 U/L (26-192); TROPONIN I 0.05 NG/ML (< 0.10)
[2018-06-10] MEDS: MORPHINE 4 MG/ML 1ML VIAL/SYRINGE (J2270) IV (22:59)
[2018-06-10] MEDS: NITROGLYCERIN/D5W 100MCG/ML 25 MG in APPROPRIATE DILUENT 1 EA IV (23:29)
[2018-06-11 05:55] LABS: HEMATOCRIT 38.4 % (36.0-47.0); MEAN CORPUSCULAR HGB CONC 31.3 g/dl (32.0-36.5); MEAN CORPUSCULAR VOLUME 89.5 fl (80.0-96.0); PLATELET COUNT, AUTOMATED 310 10^3/uL (150-450); RED BLOOD COUNT 4.29 10^6/uL (4.00-5.40); RED CELL DISTRIBUTION WIDTH 14.1 % (11.5-14.5); WHITE BLOOD COUNT 7.2 10^3/uL (4.0-10.0)
[2018-06-11 06:17] LABS: ANION GAP 4 MEQ/L (8-16); BLOOD UREA NITROGEN 15 MG/DL (7-18); CALCIUM LEVEL 8.8 MG/DL (8.8-10.2); CARBON DIOXIDE LEVEL 29 MEQ/L (21-32); CHLORIDE LEVEL 109 MEQ/L (98-107); CK-MB VALUE MASS < 1.0 NG/ML (<3.6); CPK CREATINE PHOSPHOKINASE 16 U/L (26-192); CREATININE FOR GFR 0.78 MG/DL (0.55-1.30); GLOMERULAR FILTRATION RATE > 60.0 (>32); GLUCOSE, FASTING 106 MG/DL (70-100); MB/CK RELATIVE INDEX 6.25 (< OR =4); POTASSIUM SERUM 4.1 MEQ/L (3.5-5.1); SODIUM LEVEL 142 MEQ/L (136-145); TROPONIN I 0.04 NG/ML (< 0.10)
[2018-06-11] MEDS: LEVOTHYROXINE 88MCG TABLET (0.088 MG) PO (06:50)
[2018-06-11] MEDS: SLF 3 ML SYR IV (06:51)
[2018-06-11] MEDS: LISINOPRIL 20 MG TAB PO (08:45)
[2018-06-11] MEDS: METOPROLOL TART 25 MG TABLET PO (08:45)
[2018-06-11] MEDS: ASPIRIN 81 MG ENTERIC TAB PO (08:45)
[2018-06-11] MEDS: SPIRONOLACTONE 12.5MG PER 1/2 TABLET PO (08:45)
[2018-06-11] MEDS: DOCUSATE SODIUM 100 MG CAP PO (08:45)
[2018-06-11] MEDS: VITAMIN D 1,000 INTERNATIONAL UNITS TABLET PO (08:45)
[2018-06-11] MEDS: CLOPIDOGREL 75 MG TAB PO (08:45)
[2018-06-11] MEDS: ENOXAPARIN 80 MG/0.8 ML SYRINGE (J1650) SC (08:46)
== END 2018-06-11 12:04 | disposition short-term general hospital (02) | DRG 315 ==
LOC: M MSPAV 06-08 16:16 → M PCU 06-07 18:43 → M ED 08:27 → M ED INP 19:33 → M ICU 22:09
DX: T82.855A Stenosis of coronary artery stent, initial encounter (principal); I25.110 Atherosclerotic heart disease of native coronary artery with unstable angina pectoris; I13.0 Hypertensive heart and chronic kidney disease with heart failure and stage 1 through stage 4 chronic kidney disease, or unspecified chronic kidney disease; I50.32 Chronic diastolic (congestive) heart failure; I31.3 Pericardial effusion (noninflammatory); I71.2 Thoracic aortic aneurysm, without rupture; J44.9 Chronic obstructive pulmonary disease, unspecified; K21.9 Gastro-esophageal reflux disease without esophagitis; E03.9 Hypothyroidism, unspecified; D50.9 Iron deficiency anemia, unspecified; E78.5 Hyperlipidemia, unspecified; N18.3 Chronic kidney disease, stage 3 (moderate); Z85.72 Personal history of non-Hodgkin lymphomas; Z90.710 Acquired absence of both cervix and uterus; I25.2 Old myocardial infarction; Z95.0 Presence of cardiac pacemaker; Z79.82 Long term (current) use of aspirin; Z79.51 Long term (current) use of inhaled steroids; Z88.1 Allergy status to other antibiotic agents; Z91.041 Radiographic dye allergy status; Z88.6 Allergy status to analgesic agent; Z88.8 Allergy status to other drugs, medicaments and biological substances; Z98.41 Cataract extraction status, right eye; Z98.42 Cataract extraction status, left eye; Z79.02 Long term (current) use of antithrombotics/antiplatelets; Z79.899 Other long term (current) drug therapy; Y82.9 Unspecified medical devices associated with adverse incidents

== ENCOUNTER 2018-06-22 15:55 | Inpatient (IN) | payer MEDICARE, OTHER ==
[2018-06-22 16:37] LABS: BASO % 0.3 % (0.0-1.0); EOS # 0.1 10^3/uL (0.0-0.50); EOS % 0.8 % (0.0-3.0); HEMATOCRIT 38.5 % (36.0-47.0); HEMOGLOBIN 12.3 g/dl (12.0-15.5); IMMATURE GRANULOCYTE % 0.4 % (0-3.0); LYMPH # 1.1 10^3/uL (1.5-4.5); LYMPH % 7.2 % (24.0-44.0); MEAN CORPUSCULAR HEMOGLOBIN 28.3 pg (27.0-33.0); MEAN CORPUSCULAR HGB CONC 31.9 g/dl (32.0-36.5); MEAN CORPUSCULAR VOLUME 88.5 fl (80.0-96.0); MONO # 1.6 10^3/uL (0.0-0.8); MONO % 10.4 % (0.0-5.0); NEUTROPHILS # 12.7 10^3/uL (1.8-7.7); NEUTROPHILS % 80.9 % (36.0-66.0); PLATELET COUNT, AUTOMATED 440 10^3/uL (150-450); RED BLOOD COUNT 4.35 10^6/uL (4.00-5.40); RED CELL DISTRIBUTION WIDTH 14.4 % (11.5-14.5); WHITE BLOOD COUNT 15.7 10^3/uL (4.0-10.0)
[2018-06-22] MEDS: GI COCKTAIL 50ML BTL(HYOSCYAMINE/MAALOX/LIDOCAINE VISCOUS)(1:3:1) PO (16:44)
[2018-06-22 16:50] LABS: INR 1.11; PROTHROMBIN TIME 14.5 SECONDS (12.1-14.4)
[2018-06-22 16:51] LABS: PARTIAL THROMBOPLASTIN TIME 31.9 SECONDS (25.4-37.6)
[2018-06-22 16:53] LABS: D-DIMER QUANT 3092.6 ng/ml (<500)
[2018-06-22 16:58] LABS: ALBUMIN/GLOBULIN RATIO 0.79 (1.00-1.93); ALKALINE PHOSPHATASE 95 U/L (45-117); ALT/SGPT 12 U/L (12-78); ANION GAP 7 MEQ/L (8-16); AST/SGOT 9 U/L (7-37); BILIRUBIN,DIRECT < 0.1 MG/DL (0.0-0.2); BILIRUBIN,TOTAL 0.4 MG/DL (0.2-1.0); BLOOD UREA NITROGEN 19 MG/DL (7-18); CALCIUM LEVEL 8.6 MG/DL (8.8-10.2); CARBON DIOXIDE LEVEL 30 MEQ/L (21-32); CHLORIDE LEVEL 104 MEQ/L (98-107); CK-MB VALUE MASS < 1.0 NG/ML (<3.6); CPK CREATINE PHOSPHOKINASE 20 U/L (26-192); CREATININE FOR GFR 1.43 MG/DL (0.55-1.30); GLOMERULAR FILTRATION RATE 37.1 (>32); GLUCOSE, FASTING 101 MG/DL (70-100); LIPASE 118 U/L (73-393); POTASSIUM SERUM 4.6 MEQ/L (3.5-5.1); SODIUM LEVEL 141 MEQ/L (136-145); TOTAL PROTEIN 6.8 GM/DL (6.4-8.2); TROPONIN I < 0.02 NG/ML (< 0.10)
[2018-06-22] MEDS: diphenhydrAMINE INJ 50MG/ML VIAL (J1200) IV (17:36)
[2018-06-22] MEDS: methylPREDNISolone INJ 125 MG/2 ML VIAL (J2930) IV (17:36)
[2018-06-22] MEDS ORDERED: ISOVUE-370 76% 100ML VIAL (Q9967) As Ordered (17:37)
[2018-06-22] MEDS ORDERED: zolPIDEM TARTRATE 5 MG TAB PO (20:30)
[2018-06-22] MEDS: NS 1,000 ML IV (23:08)
[2018-06-22] MEDS: ACETAMINOPHEN TAB 650MG DOSE (2X325MG) PO (23:08)
[2018-06-22] MEDS: MAGNESIUM OXIDE 400 MG TAB (MAG-OX) PO (23:09)
[2018-06-22] MEDS: FERROUS GLUCONATE 324 MG TAB PO (23:09)
[2018-06-22] MEDS: ATORVASTATIN 20 MG TAB PO (23:09)
[2018-06-22] MEDS: COLCHICINE 0.6 MG TAB PO (23:09)
[2018-06-22] MEDS: NORTRIPTYLINE 25 MG CAP PO (23:10)
[2018-06-23 05:26] LABS: TROPONIN I < 0.02 NG/ML (< 0.10)
[2018-06-23] MEDS: HEPARIN SOD (PORCINE) 5000 UNITS/ML VIAL SC ×3 (05:26→21:32)
[2018-06-23] MEDS: LEVOTHYROXINE 88MCG TABLET (0.088 MG) PO (05:26)
[2018-06-23] MEDS: NS 1,000 ML IV ×2 (09:46→18:26)
[2018-06-23] MEDS: COLCHICINE 0.6 MG TAB PO ×2 (09:47→20:32)
[2018-06-23] MEDS: ISOSORBIDE MON. (IMDUR) 60 MG XR TAB PO (09:47)
[2018-06-23] MEDS: SPIRONOLACTONE 12.5MG PER 1/2 TABLET PO (09:47)
[2018-06-23] MEDS: LISINOPRIL 20 MG TAB PO (09:47)
[2018-06-23] MEDS: PANTOPRAZOLE 40MG TAB (PROTONIX) PO (09:47)
[2018-06-23] MEDS: VITAMIN D 1,000 INTERNATIONAL UNITS TABLET PO (09:48)
[2018-06-23] MEDS: CLOPIDOGREL 75 MG TAB PO (09:48)
[2018-06-23] MEDS: ASPIRIN 81 MG ENTERIC TAB PO (09:48)
[2018-06-23] MEDS: MAGNESIUM OXIDE 400 MG TAB (MAG-OX) PO ×2 (09:48→20:32)
[2018-06-23] MEDS: MORPHINE 4 MG/ML 1ML VIAL/SYRINGE (J2270) IV (10:48)
[2018-06-23 11:25] LABS: HEMATOCRIT 36.8 % (36.0-47.0); HEMOGLOBIN 11.6 g/dl (12.0-15.5); MEAN CORPUSCULAR HEMOGLOBIN 28.1 pg (27.0-33.0); MEAN CORPUSCULAR HGB CONC 31.5 g/dl (32.0-36.5); MEAN CORPUSCULAR VOLUME 89.1 fl (80.0-96.0); PLATELET COUNT, AUTOMATED 410 10^3/uL (150-450); RED BLOOD COUNT 4.13 10^6/uL (4.00-5.40); RED CELL DISTRIBUTION WIDTH 14.5 % (11.5-14.5); WHITE BLOOD COUNT 13.9 10^3/uL (4.0-10.0)
[2018-06-23 11:55] LABS: ANION GAP 7 MEQ/L (8-16); BLOOD UREA NITROGEN 14 MG/DL (7-18); CALCIUM LEVEL 8.7 MG/DL (8.8-10.2); CARBON DIOXIDE LEVEL 28 MEQ/L (21-32); CHLORIDE LEVEL 108 MEQ/L (98-107); GLOMERULAR FILTRATION RATE 56.1 (>32); GLUCOSE, FASTING 107 MG/DL (70-100); POTASSIUM SERUM 4.2 MEQ/L (3.5-5.1); SODIUM LEVEL 143 MEQ/L (136-145); TROPONIN I < 0.02 NG/ML (< 0.10)
[2018-06-23] MEDS: ATORVASTATIN 20 MG TAB PO (20:32)
[2018-06-23] MEDS: FERROUS GLUCONATE 324 MG TAB PO (20:32)
[2018-06-23] MEDS: NORTRIPTYLINE 25 MG CAP PO (20:32)
[2018-06-24] MEDS ORDERED: SLF 3 ML SYR IV
[2018-06-24] MEDS: SLF 3 ML SYR IV ×3 (05:09→22:00)
[2018-06-24] MEDS: LEVOTHYROXINE 88MCG TABLET (0.088 MG) PO (05:23)
[2018-06-24] MEDS: HEPARIN SOD (PORCINE) 5000 UNITS/ML VIAL SC ×3 (05:24→22:00)
[2018-06-24] MEDS: ACETAMINOPHEN TAB 650MG DOSE (2X325MG) PO ×4 (07:36→22:18)
[2018-06-24] MEDS: MIRALAX *UNIT DOSE* 17GM PACKET PO (09:04)
[2018-06-24] MEDS: MAGNESIUM OXIDE 400 MG TAB (MAG-OX) PO ×2 (09:05→20:52)
[2018-06-24] MEDS: COLCHICINE 0.6 MG TAB PO ×2 (09:06→20:52)
[2018-06-24] MEDS: PANTOPRAZOLE 40MG TAB (PROTONIX) PO (09:06)
[2018-06-24] MEDS: LISINOPRIL 20 MG TAB PO (09:06)
[2018-06-24] MEDS: SPIRONOLACTONE 12.5MG PER 1/2 TABLET PO (09:06)
[2018-06-24] MEDS: ASPIRIN 81 MG ENTERIC TAB PO (09:07)
[2018-06-24] MEDS: VITAMIN D 1,000 INTERNATIONAL UNITS TABLET PO (09:07)
[2018-06-24] MEDS: ISOSORBIDE MON. (IMDUR) 60 MG XR TAB PO (09:07)
[2018-06-24] MEDS: CLOPIDOGREL 75 MG TAB PO (09:08)
[2018-06-24 09:33] LABS: HEMOGLOBIN 11.5 g/dl (12.0-15.5); MEAN CORPUSCULAR HEMOGLOBIN 27.8 pg (27.0-33.0); MEAN CORPUSCULAR HGB CONC 31.1 g/dl (32.0-36.5); MEAN CORPUSCULAR VOLUME 89.4 fl (80.0-96.0); PLATELET COUNT, AUTOMATED 398 10^3/uL (150-450); RED BLOOD COUNT 4.14 10^6/uL (4.00-5.40); RED CELL DISTRIBUTION WIDTH 14.6 % (11.5-14.5); WHITE BLOOD COUNT 10.9 10^3/uL (4.0-10.0)
[2018-06-24 10:13] LABS: ANION GAP 8 MEQ/L (8-16); BLOOD UREA NITROGEN 20 MG/DL (7-18); CALCIUM LEVEL 8.6 MG/DL (8.8-10.2); CARBON DIOXIDE LEVEL 24 MEQ/L (21-32); CHLORIDE LEVEL 110 MEQ/L (98-107); CREATININE FOR GFR 1.06 MG/DL (0.55-1.30); GLOMERULAR FILTRATION RATE 52.4 (>32); GLUCOSE, FASTING 100 MG/DL (70-100); POTASSIUM SERUM 4.9 MEQ/L (3.5-5.1); SODIUM LEVEL 142 MEQ/L (136-145)
[2018-06-24] MEDS: NORTRIPTYLINE 25 MG CAP PO (20:52)
[2018-06-24] MEDS: ATORVASTATIN 20 MG TAB PO (20:52)
[2018-06-24] MEDS: FERROUS GLUCONATE 324 MG TAB PO (20:52)
[2018-06-25] MEDS: SLF 3 ML SYR IV ×3 (05:39→21:08)
[2018-06-25] MEDS: HEPARIN SOD (PORCINE) 5000 UNITS/ML VIAL SC ×3 (05:40→21:08)
[2018-06-25] MEDS: LEVOTHYROXINE 88MCG TABLET (0.088 MG) PO (05:40)
[2018-06-25 06:03] LABS: HEMATOCRIT 39.5 % (36.0-47.0); HEMOGLOBIN 12.3 g/dl (12.0-15.5); MEAN CORPUSCULAR HEMOGLOBIN 27.8 pg (27.0-33.0); MEAN CORPUSCULAR HGB CONC 31.1 g/dl (32.0-36.5); MEAN CORPUSCULAR VOLUME 89.2 fl (80.0-96.0); PLATELET COUNT, AUTOMATED 419 10^3/uL (150-450); RED BLOOD COUNT 4.43 10^6/uL (4.00-5.40); RED CELL DISTRIBUTION WIDTH 14.5 % (11.5-14.5); WHITE BLOOD COUNT 12.7 10^3/uL (4.0-10.0)
[2018-06-25] MEDS: MORPHINE 4 MG/ML 1ML VIAL/SYRINGE (J2270) IV (06:03)
[2018-06-25 06:32] LABS: ANION GAP 4 MEQ/L (8-16); BLOOD UREA NITROGEN 18 MG/DL (7-18); CALCIUM LEVEL 9.5 MG/DL (8.8-10.2); CARBON DIOXIDE LEVEL 27 MEQ/L (21-32); CHLORIDE LEVEL 109 MEQ/L (98-107); CREATININE FOR GFR 0.94 MG/DL (0.55-1.30); GLOMERULAR FILTRATION RATE > 60.0 (>32); GLUCOSE, FASTING 91 MG/DL (70-100); POTASSIUM SERUM 4.7 MEQ/L (3.5-5.1); SODIUM LEVEL 140 MEQ/L (136-145)
[2018-06-25] MEDS: NITROGLYCERIN 0.4 MG SUBL TABLET SL (07:50)
[2018-06-25 09:08] LABS: CK-MB VALUE MASS < 1.0 NG/ML (<3.6); CPK CREATINE PHOSPHOKINASE 23 U/L (26-192); MB/CK RELATIVE INDEX 4.35 (< OR =4); TROPONIN I < 0.02 NG/ML (< 0.10)
[2018-06-25] MEDS: PANTOPRAZOLE 40MG TAB (PROTONIX) PO (09:34)
[2018-06-25] MEDS: MIRALAX *UNIT DOSE* 17GM PACKET PO (09:34)
[2018-06-25] MEDS: ISOSORBIDE MON. (IMDUR) 60 MG XR TAB PO (09:35)
[2018-06-25] MEDS: SPIRONOLACTONE 12.5MG PER 1/2 TABLET PO (09:35)
[2018-06-25] MEDS: COLCHICINE 0.6 MG TAB PO ×2 (09:35→21:07)
[2018-06-25] MEDS: LISINOPRIL 20 MG TAB PO (09:36)
[2018-06-25] MEDS: MAGNESIUM OXIDE 400 MG TAB (MAG-OX) PO ×2 (09:38→21:07)
[2018-06-25] MEDS: CLOPIDOGREL 75 MG TAB PO (09:38)
[2018-06-25] MEDS: ASPIRIN 81 MG ENTERIC TAB PO (09:38)
[2018-06-25] MEDS: VITAMIN D 1,000 INTERNATIONAL UNITS TABLET PO (09:39)
[2018-06-25] MEDS: hydrOXYzine 50 MG TAB PO ×2 (11:32→16:50)
[2018-06-25 15:17] LABS: CK-MB VALUE MASS < 1.0 NG/ML (<3.6); CPK CREATINE PHOSPHOKINASE 35 U/L (26-192); MB/CK RELATIVE INDEX 2.86 (< OR =4); TROPONIN I < 0.02 NG/ML (< 0.10)
[2018-06-25] MEDS: FERROUS GLUCONATE 324 MG TAB PO (21:07)
[2018-06-25] MEDS: ATORVASTATIN 20 MG TAB PO (21:07)
[2018-06-25] MEDS: NORTRIPTYLINE 25 MG CAP PO (21:07)
[2018-06-26] MEDS: LEVOTHYROXINE 88MCG TABLET (0.088 MG) PO (05:35)
[2018-06-26] MEDS: HEPARIN SOD (PORCINE) 5000 UNITS/ML VIAL SC ×3 (05:36→21:23)
[2018-06-26] MEDS: SLF 3 ML SYR IV ×3 (05:41→21:23)
[2018-06-26 06:20] LABS: HEMATOCRIT 38.6 % (36.0-47.0); HEMOGLOBIN 12.4 g/dl (12.0-15.5); MEAN CORPUSCULAR HGB CONC 32.1 g/dl (32.0-36.5); MEAN CORPUSCULAR VOLUME 87.1 fl (80.0-96.0); PLATELET COUNT, AUTOMATED 465 10^3/uL (150-450); RED BLOOD COUNT 4.43 10^6/uL (4.00-5.40); RED CELL DISTRIBUTION WIDTH 14.4 % (11.5-14.5); WHITE BLOOD COUNT 11.6 10^3/uL (4.0-10.0)
[2018-06-26 06:45] LABS: ANION GAP 6 MEQ/L (8-16); BLOOD UREA NITROGEN 23 MG/DL (7-18); CALCIUM LEVEL 9.6 MG/DL (8.8-10.2); CARBON DIOXIDE LEVEL 27 MEQ/L (21-32); CHLORIDE LEVEL 108 MEQ/L (98-107); CREATININE FOR GFR 1.02 MG/DL (0.55-1.30); GLOMERULAR FILTRATION RATE 54.8 (>32); GLUCOSE, FASTING 91 MG/DL (70-100); POTASSIUM SERUM 4.6 MEQ/L (3.5-5.1); SODIUM LEVEL 141 MEQ/L (136-145)
[2018-06-26] MEDS: PANTOPRAZOLE 40MG TAB (PROTONIX) PO (08:28)
[2018-06-26] MEDS: ISOSORBIDE MON. (IMDUR) 60 MG XR TAB PO (08:29)
[2018-06-26] MEDS: COLCHICINE 0.6 MG TAB PO (08:29)
[2018-06-26] MEDS: VITAMIN D 1,000 INTERNATIONAL UNITS TABLET PO (08:29)
[2018-06-26] MEDS: CLOPIDOGREL 75 MG TAB PO (08:29)
[2018-06-26] MEDS: SPIRONOLACTONE 12.5MG PER 1/2 TABLET PO (08:29)
[2018-06-26] MEDS: ASPIRIN 81 MG ENTERIC TAB PO (08:29)
[2018-06-26] MEDS: MAGNESIUM OXIDE 400 MG TAB (MAG-OX) PO ×2 (08:29→21:22)
[2018-06-26] MEDS: MIRALAX *UNIT DOSE* 17GM PACKET PO (08:29)
[2018-06-26] MEDS: LISINOPRIL 20 MG TAB PO (08:29)
[2018-06-26] MEDS: hydrOXYzine 25 MG TAB PO ×4 (09:13→21:23)
[2018-06-26] MEDS: ACETAMINOPHEN TAB 650MG DOSE (2X325MG) PO ×2 (14:15→21:23)
[2018-06-26] MEDS: NORTRIPTYLINE 25 MG CAP PO (21:22)
[2018-06-26] MEDS: FERROUS GLUCONATE 324 MG TAB PO (21:22)
[2018-06-26] MEDS: ATORVASTATIN 20 MG TAB PO (21:22)
[2018-06-26] MEDS: CALCIUM CARBONATE 500 MG CHEW U/D PO (23:04)
[2018-06-27] MEDS: hydrOXYzine 25 MG TAB PO ×6 (01:00→21:40)
[2018-06-27] MEDS: HEPARIN SOD (PORCINE) 5000 UNITS/ML VIAL SC ×3 (05:27→21:39)
[2018-06-27] MEDS: SLF 3 ML SYR IV ×3 (05:28→21:41)
[2018-06-27] MEDS: ACETAMINOPHEN TAB 650MG DOSE (2X325MG) PO ×3 (05:28→21:41)
[2018-06-27] MEDS: LEVOTHYROXINE 88MCG TABLET (0.088 MG) PO (05:28)
[2018-06-27 06:22] LABS: HEMATOCRIT 37.7 % (36.0-47.0); HEMOGLOBIN 12.2 g/dl (12.0-15.5); MEAN CORPUSCULAR HGB CONC 32.4 g/dl (32.0-36.5); MEAN CORPUSCULAR VOLUME 86.5 fl (80.0-96.0); PLATELET COUNT, AUTOMATED 478 10^3/uL (150-450); RED BLOOD COUNT 4.36 10^6/uL (4.00-5.40); RED CELL DISTRIBUTION WIDTH 14.6 % (11.5-14.5)
[2018-06-27 06:48] LABS: ANION GAP 7 MEQ/L (8-16); BLOOD UREA NITROGEN 23 MG/DL (7-18); CALCIUM LEVEL 9.2 MG/DL (8.8-10.2); CARBON DIOXIDE LEVEL 26 MEQ/L (21-32); CHLORIDE LEVEL 104 MEQ/L (98-107); GLOMERULAR FILTRATION RATE 45.5 (>32); GLUCOSE, FASTING 107 MG/DL (70-100); POTASSIUM SERUM 4.5 MEQ/L (3.5-5.1); SODIUM LEVEL 137 MEQ/L (136-145)
[2018-06-27] MEDS: LISINOPRIL 20 MG TAB PO (08:19)
[2018-06-27] MEDS: VITAMIN D 1,000 INTERNATIONAL UNITS TABLET PO (08:20)
[2018-06-27] MEDS: PANTOPRAZOLE 40MG TAB (PROTONIX) PO (08:20)
[2018-06-27] MEDS: CLOPIDOGREL 75 MG TAB PO (08:20)
[2018-06-27] MEDS: MAGNESIUM OXIDE 400 MG TAB (MAG-OX) PO ×2 (08:20→21:40)
[2018-06-27] MEDS: SPIRONOLACTONE 12.5MG PER 1/2 TABLET PO (08:20)
[2018-06-27] MEDS: ASPIRIN 81 MG ENTERIC TAB PO (08:21)
[2018-06-27] MEDS: MIRALAX *UNIT DOSE* 17GM PACKET PO (08:21)
[2018-06-27] MEDS: ISOSORBIDE MON. (IMDUR) 60 MG XR TAB PO (08:21)
[2018-06-27 08:33] LABS: C REACTIVE PROTEIN QUANTITATIV 4.97 MG/DL (0.00-0.30)
[2018-06-27 08:43] LABS: BASO % 0.2 % (0.0-1.0); EOS # 0.2 10^3/uL (0.0-0.50); EOS % 0.9 % (0.0-3.0); IMMATURE GRANULOCYTE # 0.1 10^3/uL (0-0); IMMATURE GRANULOCYTE % 0.4 % (0-3.0); LYMPH # 1.1 10^3/uL (1.5-4.5); LYMPH % 6.2 % (24.0-44.0); MONO # 1.6 10^3/uL (0.0-0.8); MONO % 8.6 % (0.0-5.0); NEUTROPHILS # 15.5 10^3/uL (1.8-7.7); NEUTROPHILS % 83.7 % (36.0-66.0)
[2018-06-27 08:54] LABS: DIFF SLIDE NUMBER 42
[2018-06-27] MEDS: cefTRIAXone SOD 1 GM in D5W MINI-BAG PLUS 50 ML IV (10:51)
[2018-06-27] MEDS: DOXYCYCLINE HYCLATE 100 MG in D5W MINI-BAG PLUS 100 ML IV ×2 (11:49→22:54)
[2018-06-27] MEDS: CALCIUM CARBONATE 500 MG CHEW U/D PO (17:29)
[2018-06-27] MEDS: NORTRIPTYLINE 25 MG CAP PO (21:40)
[2018-06-27] MEDS: ATORVASTATIN 20 MG TAB PO (21:40)
[2018-06-27] MEDS: FERROUS GLUCONATE 324 MG TAB PO (21:41)
[2018-06-28] MEDS: hydrOXYzine 25 MG TAB PO ×6 (00:09→20:28)
[2018-06-28 05:53] LABS: HEMATOCRIT 37.9 % (36.0-47.0); HEMOGLOBIN 12.2 g/dl (12.0-15.5); MEAN CORPUSCULAR HEMOGLOBIN 27.8 pg (27.0-33.0); MEAN CORPUSCULAR HGB CONC 32.2 g/dl (32.0-36.5); MEAN CORPUSCULAR VOLUME 86.3 fl (80.0-96.0); PLATELET COUNT, AUTOMATED 506 10^3/uL (150-450); RED BLOOD COUNT 4.39 10^6/uL (4.00-5.40); RED CELL DISTRIBUTION WIDTH 14.6 % (11.5-14.5); WHITE BLOOD COUNT 15.4 10^3/uL (4.0-10.0)
[2018-06-28] MEDS: SLF 3 ML SYR IV ×3 (06:00→21:56)
[2018-06-28] MEDS: HEPARIN SOD (PORCINE) 5000 UNITS/ML VIAL SC ×3 (06:01→21:19)
[2018-06-28] MEDS: LEVOTHYROXINE 88MCG TABLET (0.088 MG) PO (06:01)
[2018-06-28 06:14] LABS: ANION GAP 6 MEQ/L (8-16); BLOOD UREA NITROGEN 30 MG/DL (7-18); C REACTIVE PROTEIN QUANTITATIV 9.18 MG/DL (0.00-0.30); CALCIUM LEVEL 9.7 MG/DL (8.8-10.2); CARBON DIOXIDE LEVEL 26 MEQ/L (21-32); CHLORIDE LEVEL 108 MEQ/L (98-107); CREATININE FOR GFR 1.19 MG/DL (0.55-1.30); GLOMERULAR FILTRATION RATE 45.9 (>32); GLUCOSE, FASTING 106 MG/DL (70-100); SODIUM LEVEL 140 MEQ/L (136-145)
[2018-06-28] MEDS: ISOSORBIDE MON. (IMDUR) 60 MG XR TAB PO (08:31)
[2018-06-28] MEDS: ACETAMINOPHEN TAB 650MG DOSE (2X325MG) PO ×2 (08:31→21:58)
[2018-06-28] MEDS: LISINOPRIL 20 MG TAB PO (08:31)
[2018-06-28] MEDS: SPIRONOLACTONE 12.5MG PER 1/2 TABLET PO (08:32)
[2018-06-28] MEDS: MAGNESIUM OXIDE 400 MG TAB (MAG-OX) PO ×2 (08:32→20:28)
[2018-06-28] MEDS: MIRALAX *UNIT DOSE* 17GM PACKET PO (08:32)
[2018-06-28] MEDS: ASPIRIN 81 MG ENTERIC TAB PO (08:32)
[2018-06-28] MEDS: PANTOPRAZOLE 40MG TAB (PROTONIX) PO (08:32)
[2018-06-28] MEDS: VITAMIN D 1,000 INTERNATIONAL UNITS TABLET PO (08:32)
[2018-06-28] MEDS: CLOPIDOGREL 75 MG TAB PO (08:32)
[2018-06-28] MEDS: cefTRIAXone SOD 1 GM in D5W MINI-BAG PLUS 50 ML IV (10:00)
[2018-06-28] MEDS: DOXYCYCLINE HYCLATE 100 MG in D5W MINI-BAG PLUS 100 ML IV ×2 (11:17→22:17)
[2018-06-28] MEDS: ATORVASTATIN 20 MG TAB PO (20:28)
[2018-06-28] MEDS: FERROUS GLUCONATE 324 MG TAB PO (20:28)
[2018-06-28] MEDS: NORTRIPTYLINE 25 MG CAP PO (20:28)
[2018-06-28] MEDS: CALCIUM CARBONATE 500 MG CHEW U/D PO (21:38)
[2018-06-29] MEDS: hydrOXYzine 25 MG TAB PO ×3 (01:01→12:02)
[2018-06-29 05:18] LABS: HEMATOCRIT 34.1 % (36.0-47.0); MEAN CORPUSCULAR HEMOGLOBIN 27.6 pg (27.0-33.0); MEAN CORPUSCULAR HGB CONC 32.3 g/dl (32.0-36.5); MEAN CORPUSCULAR VOLUME 85.7 fl (80.0-96.0); PLATELET COUNT, AUTOMATED 474 10^3/uL (150-450); RED BLOOD COUNT 3.98 10^6/uL (4.00-5.40); RED CELL DISTRIBUTION WIDTH 14.8 % (11.5-14.5); WHITE BLOOD COUNT 11.9 10^3/uL (4.0-10.0)
[2018-06-29] MEDS: LEVOTHYROXINE 88MCG TABLET (0.088 MG) PO (05:24)
[2018-06-29] MEDS: SLF 3 ML SYR IV (05:25)
[2018-06-29] MEDS: HEPARIN SOD (PORCINE) 5000 UNITS/ML VIAL SC (05:25)
[2018-06-29 05:36] LABS: ANION GAP 8 MEQ/L (8-16); BLOOD UREA NITROGEN 36 MG/DL (7-18); CALCIUM LEVEL 9.6 MG/DL (8.8-10.2); CARBON DIOXIDE LEVEL 24 MEQ/L (21-32); CHLORIDE LEVEL 108 MEQ/L (98-107); CREATININE FOR GFR 1.19 MG/DL (0.55-1.30); GLOMERULAR FILTRATION RATE 45.9 (>32); GLUCOSE, FASTING 103 MG/DL (70-100); POTASSIUM SERUM 4.9 MEQ/L (3.5-5.1); SODIUM LEVEL 140 MEQ/L (136-145)
[2018-06-29 07:56] LABS: C REACTIVE PROTEIN QUANTITATIV 6.84 MG/DL (0.00-0.30)
[2018-06-29] MEDS: SPIRONOLACTONE 12.5MG PER 1/2 TABLET PO (08:45)
[2018-06-29] MEDS: PANTOPRAZOLE 40MG TAB (PROTONIX) PO (08:45)
[2018-06-29] MEDS: MIRALAX *UNIT DOSE* 17GM PACKET PO (08:45)
[2018-06-29] MEDS: cefTRIAXone SOD 1 GM in D5W MINI-BAG PLUS 50 ML IV (08:45)
[2018-06-29] MEDS: LISINOPRIL 20 MG TAB PO (08:46)
[2018-06-29] MEDS: CLOPIDOGREL 75 MG TAB PO (08:46)
[2018-06-29] MEDS: ASPIRIN 81 MG ENTERIC TAB PO (08:46)
[2018-06-29] MEDS: MAGNESIUM OXIDE 400 MG TAB (MAG-OX) PO (08:46)
[2018-06-29] MEDS: ISOSORBIDE MON. (IMDUR) 60 MG XR TAB PO (08:46)
[2018-06-29] MEDS: VITAMIN D 1,000 INTERNATIONAL UNITS TABLET PO (08:46)
[2018-06-29] MEDS: DOXYCYCLINE HYCLATE 100 MG in D5W MINI-BAG PLUS 100 ML IV (09:46)
[2018-06-29 14:11] LABS: BODY FLUID CULTURE Not Indicated (.); LEGIONELLA ANTIGEN URINE Negative (Negative); ORGANISM ID Not indicated. (.); SPECIMEN SOURCE Urine (.); URINE STREP PNEUMONIAE ANTIGEN Negative (Negative)
== END 2018-06-29 12:37 | disposition home or self-care (01) | DRG 311 ==
LOC: M ED 15:55 → M ED INP 20:27 → M PCU 22:38
DX: I20.1 Angina pectoris with documented spasm (principal); N17.9 Acute kidney failure, unspecified; I13.0 Hypertensive heart and chronic kidney disease with heart failure and stage 1 through stage 4 chronic kidney disease, or unspecified chronic kidney disease; I50.32 Chronic diastolic (congestive) heart failure; C85.90 Non-Hodgkin lymphoma, unspecified, unspecified site; E78.5 Hyperlipidemia, unspecified; Z95.0 Presence of cardiac pacemaker; E03.9 Hypothyroidism, unspecified; G47.00 Insomnia, unspecified; K21.9 Gastro-esophageal reflux disease without esophagitis; I25.2 Old myocardial infarction; Z95.2 Presence of prosthetic heart valve; Z79.899 Other long term (current) drug therapy; Z79.82 Long term (current) use of aspirin; Z91.041 Radiographic dye allergy status; Z88.8 Allergy status to other drugs, medicaments and biological substances; Z87.891 Personal history of nicotine dependence; Z88.0 Allergy status to penicillin; E86.0 Dehydration; N18.9 Chronic kidney disease, unspecified; D72.829 Elevated white blood cell count, unspecified; F41.9 Anxiety disorder, unspecified

== ENCOUNTER 2018-07-06 16:26 | Emergency (ER) | payer MEDICARE, OTHER ==
[2018-07-06] MEDS: NITROGLYCERIN 0.4 MG SUBL TABLET SL ×4 (18:35→21:54)
[2018-07-06] MEDS: NS 1,000 ML IV (18:49)
[2018-07-06 18:53] LABS: BASO # 0.1 10^3/uL (0.0-0.2); BASO % 0.5 % (0.0-1.0); EOS # 0.2 10^3/uL (0.0-0.50); EOS % 2.2 % (0.0-3.0); HEMATOCRIT 40.3 % (36.0-47.0); IMMATURE GRANULOCYTE % 0.7 % (0-3.0); LYMPH # 1.3 10^3/uL (1.5-4.5); LYMPH % 12.2 % (24.0-44.0); MEAN CORPUSCULAR HEMOGLOBIN 28.3 pg (27.0-33.0); MEAN CORPUSCULAR HGB CONC 32.3 g/dl (32.0-36.5); MEAN CORPUSCULAR VOLUME 87.8 fl (80.0-96.0); MONO # 1.1 10^3/uL (0.0-0.8); MONO % 10.6 % (0.0-5.0); NEUTROPHILS # 7.8 10^3/uL (1.8-7.7); NEUTROPHILS % 73.8 % (36.0-66.0); PLATELET COUNT, AUTOMATED 497 10^3/uL (150-450); RED BLOOD COUNT 4.59 10^6/uL (4.00-5.40); RED CELL DISTRIBUTION WIDTH 14.5 % (11.5-14.5); WHITE BLOOD COUNT 10.6 10^3/uL (4.0-10.0)
[2018-07-06 19:40] LABS: ALBUMIN 2.8 GM/DL (3.2-5.2); ALBUMIN/GLOBULIN RATIO 0.74 (1.00-1.93); ALKALINE PHOSPHATASE 108 U/L (45-117); ALT/SGPT 19 U/L (12-78); ANION GAP 8 MEQ/L (8-16); AST/SGOT 16 U/L (7-37); BILIRUBIN,DIRECT < 0.1 MG/DL (0.0-0.2); BILIRUBIN,TOTAL 0.3 MG/DL (0.2-1.0); BLOOD UREA NITROGEN 34 MG/DL (7-18); CALCIUM LEVEL 9.5 MG/DL (8.8-10.2); CARBON DIOXIDE LEVEL 24 MEQ/L (21-32); CHLORIDE LEVEL 106 MEQ/L (98-107); CK-MB VALUE MASS < 1.0 NG/ML (<3.6); CPK CREATINE PHOSPHOKINASE 41 U/L (26-192); CREATININE FOR GFR 1.25 MG/DL (0.55-1.30); GLOMERULAR FILTRATION RATE 43.4 (>32); GLUCOSE, FASTING 90 MG/DL (70-100); LIPASE 230 U/L (73-393); MB/CK RELATIVE INDEX 2.44 (< OR =4); NT-PRO BNP 360 PG/ML (<450); POTASSIUM SERUM 5.6 MEQ/L (3.5-5.1); SODIUM LEVEL 138 MEQ/L (136-145); TOTAL PROTEIN 6.6 GM/DL (6.4-8.2); TROPONIN I < 0.02 NG/ML (< 0.10)
[2018-07-06 22:18] LABS: CK-MB VALUE MASS < 1.0 NG/ML (<3.6); CPK CREATINE PHOSPHOKINASE 14 U/L (26-192); MB/CK RELATIVE INDEX 7.14 (< OR =4); TROPONIN I < 0.02 NG/ML (< 0.10)
== END 2018-07-06 23:22 | disposition home or self-care (01) ==
LOC: M ED 16:26
DX: I20.8 Other forms of angina pectoris (principal); I45.10 Unspecified right bundle-branch block; I44.4 Left anterior fascicular block; I25.10 Atherosclerotic heart disease of native coronary artery without angina pectoris; I50.9 Heart failure, unspecified; I25.2 Old myocardial infarction; I10 Essential (primary) hypertension; E78.5 Hyperlipidemia, unspecified; N18.9 Chronic kidney disease, unspecified; G43.909 Migraine, unspecified, not intractable, without status migrainosus; J44.9 Chronic obstructive pulmonary disease, unspecified; Z95.0 Presence of cardiac pacemaker; Z95.5 Presence of coronary angioplasty implant and graft; Z87.891 Personal history of nicotine dependence; Z79.82 Long term (current) use of aspirin; Z79.899 Other long term (current) drug therapy; Z88.0 Allergy status to penicillin; Z88.1 Allergy status to other antibiotic agents; Z88.6 Allergy status to analgesic agent; Z88.8 Allergy status to other drugs, medicaments and biological substances; Z91.041 Radiographic dye allergy status
CPT/HCPCS: 71045

== ENCOUNTER 2018-07-22 15:32 | Emergency (ER) | payer MEDICARE, OTHER ==
[2018-07-22 16:05] LABS: BASO % 0.2 % (0.0-1.0); EOS # 0.2 10^3/uL (0.0-0.50); EOS % 1.4 % (0.0-3.0); HEMATOCRIT 38.5 % (36.0-47.0); HEMOGLOBIN 12.4 g/dl (12.0-15.5); IMMATURE GRANULOCYTE % 0.4 % (0-3.0); LYMPH # 1.1 10^3/uL (1.5-4.5); LYMPH % 7.4 % (24.0-44.0); MEAN CORPUSCULAR HEMOGLOBIN 27.7 pg (27.0-33.0); MEAN CORPUSCULAR HGB CONC 32.2 g/dl (32.0-36.5); MEAN CORPUSCULAR VOLUME 86.1 fl (80.0-96.0); MONO # 1.4 10^3/uL (0.0-0.8); NEUTROPHILS # 12.4 10^3/uL (1.8-7.7); NEUTROPHILS % 81.6 % (36.0-66.0); PLATELET COUNT, AUTOMATED 356 10^3/uL (150-450); RED BLOOD COUNT 4.47 10^6/uL (4.00-5.40); RED CELL DISTRIBUTION WIDTH 15.2 % (11.5-14.5); WHITE BLOOD COUNT 15.2 10^3/uL (4.0-10.0)
[2018-07-22 16:19] LABS: INR 1.13; PROTHROMBIN TIME 14.7 SECONDS (12.1-14.4)
[2018-07-22] MEDS: ASPIRIN 325 MG TAB PO (16:30)
[2018-07-22 16:32] LABS: ALBUMIN/GLOBULIN RATIO 0.94 (1.00-1.93); ALKALINE PHOSPHATASE 111 U/L (45-117); ALT/SGPT 17 U/L (12-78); ANION GAP 6 MEQ/L (8-16); AST/SGOT 13 U/L (7-37); BILIRUBIN,DIRECT 0.1 MG/DL (0.0-0.2); BILIRUBIN,TOTAL 0.4 MG/DL (0.2-1.0); BLOOD UREA NITROGEN 24 MG/DL (7-18); CALCIUM LEVEL 9.6 MG/DL (8.8-10.2); CARBON DIOXIDE LEVEL 28 MEQ/L (21-32); CHLORIDE LEVEL 103 MEQ/L (98-107); CK-MB VALUE MASS < 1.0 NG/ML (<3.6); CPK CREATINE PHOSPHOKINASE 23 U/L (26-192); CREATININE FOR GFR 1.14 MG/DL (0.55-1.30); FREE T4 1.08 NG/DL (0.76-1.46); GLOMERULAR FILTRATION RATE 48.2 (>32); GLUCOSE, FASTING 97 MG/DL (70-100); LIPASE 156 U/L (73-393); MB/CK RELATIVE INDEX 4.35 (< OR =4); NT-PRO BNP 307 PG/ML (<450); POTASSIUM SERUM 4.9 MEQ/L (3.5-5.1); SODIUM LEVEL 137 MEQ/L (136-145); TOTAL PROTEIN 6.2 GM/DL (6.4-8.2); TROPONIN I < 0.02 NG/ML (< 0.10)
[2018-07-22 17:24] LABS: KETONE, URINE AUTO RFX NEGATIVE (NEGATIVE); MUCUS, URINE RFX SMALL (NEGATIVE); RBC, URINE AUTO RFX 6 /HPF (0-3); SPECIFIC GRAVITY UR AUTO RFX 1.018 (1.002-1.035); SQUAM EPITHELIAL CELL UR AURFX 1 /HPF (0-6)
[2018-07-22 17:25] LABS: LEUKOCYTE ESTERASE UR AUTO RFX 2+ (NEGATIVE); NITRITE, URINE AUTO RFX POSITIVE (NEGATIVE); WBC, URINE AUTO RFX 85 /HPF (0-3)
[2018-07-22] MEDS: cefTRIAXone SOD 1 GM in D5W MINI-BAG PLUS 50 ML IV (18:03)
== END 2018-07-22 19:00 | disposition home or self-care (01) ==
LOC: M ED 15:32
DX: I20.8 Other forms of angina pectoris (principal); N39.0 Urinary tract infection, site not specified; I12.9 Hypertensive chronic kidney disease with stage 1 through stage 4 chronic kidney disease, or unspecified chronic kidney disease; E78.5 Hyperlipidemia, unspecified; N18.3 Chronic kidney disease, stage 3 (moderate); Z88.0 Allergy status to penicillin; Z85.72 Personal history of non-Hodgkin lymphomas; Z95.0 Presence of cardiac pacemaker; Z79.899 Other long term (current) drug therapy; Z79.890 Hormone replacement therapy; Z79.82 Long term (current) use of aspirin; Z88.1 Allergy status to other antibiotic agents; Z88.8 Allergy status to other drugs, medicaments and biological substances; Z91.041 Radiographic dye allergy status; Z87.891 Personal history of nicotine dependence
CPT/HCPCS: J0696

== ENCOUNTER → 2018-08-02 | Outpatient (REF) | payer MEDICARE, OTHER | LOC: M LAB REF 15:54 | DX: N39.0 Urinary tract infection, site not specified (principal) | CPT/HCPCS: 87086 ==

== ENCOUNTER → 2018-09-20 | Outpatient (CLI) | payer MEDICARE, OTHER ==
[~2018-09-20] MED LIST changes: +ACET1TAB55 PO; +AMIT24CA7 PO; +AMLO2.5T3 PO; +AMLO25TA PO; +AMLO5TAB6 PO; +ASPI1TAB PO; +ASPI81CH PO; +ATOR1TAB21 PO; +BIMA01SOL OU; +CARD120C3 PO; +CEFD1CAP8 PO; +CLOP75TA2 PO; +COLA100C5 PO; +COMB0.2S OU; +COSO1SOL3 OU; +CRES10TA32 PO; +DESM10SP; +DILT120C77 PO; +DILT120C82 PO; +DILT60TA PO; +DORZ2OPD OU; +DORZ2SOL5 OU; +DOXY-350 PO; +FERR32TA PO; +FLON0.054; +FLUC150T PO; +FLUT11IN INH; +FURO20TA2 PO; +FURO40TA2 PO; +HYDR-3363 PO; +HYDR50TA70 PO; +ISOS60TA2 PO; +KEFL500C17 PO; +LEVO100T5 PO; +LISI-538 PO; +LISI-542 PO; +LOVE0.6I2 SC; +MAG400TA PO; +MAGN1TAB25 PO; +MAGN250T7 PO; +META1TAB19 PO; +METO1TAB87 PO; +MIAC200S2; +NITR4TASL SL; +NORT10CA2 PO; +OMEP20CA3 PO; +PAME25CA PO; +PANT-23 PO; +PRED10TA PO; +PRED10TA2 PO; +PRESCAP6 PO; +PROAAER10 INH; -PROHANCE 279.3MG/ML 15ML VIAL (A9576) As Ordered; +REQU0.5T PO; +REST0.05 OU; +SKEL800T97 PO; +SPIR-10 PO; +SYMB80INH INH; +SYNT88TA2 PO; +TYLE325T5 PO; +ULTR37.54 PO; +VITA10002 PO; +VITA100067 PO; +[UNRECOGNIZED DRUG - CODE]; +[UNRECOGNIZED DRUG - CODE] EX; +[UNRECOGNIZED DRUG - CODE] OP; +[UNRECOGNIZED DRUG - CODE] OS
--- NOTE | 2018-09-20 16:44 | REP ---
Chest two views HISTORY: Cough Comparison: 07/22/2018 An increase in interstitial markings is present in the lungs consistent with chronic interstitial fibrosis. Patchy density is present in the lower lobes consistent with infiltrates. As blunting of the costophrenic angles due to small pleural effusions. The heart is upper limits of normal in size. The pulmonary vasculature is normal in appearance. The bony structure is intact. A cardiac pacemaker is present. IMPRESSION: 1. Chronic interstitial fibrosis. 2. Bibasilar infiltrates. 3. Small bilateral pleural effusions. Electronically Signed by Og Briones MD 09/20/2018 04:35 P
== END ==
LOC: M WUC 16:14
PROVIDERS: ATTEND Physician Assistant
DX: J90 Pleural effusion, not elsewhere classified (principal); J20.9 Acute bronchitis, unspecified

== ENCOUNTER → 2018-11-07 | Outpatient (REF) | payer MEDICARE, OTHER ==
[2018-11-07 14:26] LABS: FOLATE > 24.0 NG/ML; VITAMIN B12 LEVEL 394 PG/ML
[2018-11-12 08:26] LABS: VITAMIN B1 LEVEL WHOLE BLOOD 141.3 nmol/L (66.5-200.0); VITAMIN B6,PYRIDOXAL PHOSPHATE 9.9 ug/L (2.0-32.8)
== END ==
LOC: M LABNEURO 13:17
PROVIDERS: ATTEND Psychiatry & Neurology Neurology
DX: R26.89 Other abnormalities of gait and mobility (principal); E53.8 Deficiency of other specified B group vitamins; E51.9 Thiamine deficiency, unspecified

== ENCOUNTER → 2018-11-11 | Outpatient (CLI) | payer MEDICARE, OTHER ==
[2018-11-14 10:18] LABS: VITAMIN E(GAMMA TOCOPHEROL) 0.3 mg/L (0.5-4.9)
== END ==
LOC: M LAB 14:24
PROVIDERS: ATTEND Psychiatry & Neurology Neurology
DX: E51.9 Thiamine deficiency, unspecified (principal); E53.8 Deficiency of other specified B group vitamins; R26.9 Unspecified abnormalities of gait and mobility

== ENCOUNTER → 2018-12-24 | Outpatient (REF) | payer MEDICARE, OTHER ==
[~2018-12-24] MED LIST changes: -ASPI1TAB PO; -ASPI81CH PO; +ASPI81CH49 PO; +ASPI81TA26 PO; +CRES10TA PO; -CRES10TA32 PO; -DILT120C82 PO; +DILT1CAP2 PO; -MAGN1TAB25 PO; +MAGN1TAB26 PO; -META1TAB19 PO; +META400T PO; +PRED-351 PO; -PRED10TA PO
[2018-12-24 18:01] LABS: PERCENT SATURATION 28.4 % (13.2-45.0)
== END ==
LOC: M LAB REF 17:05
PROVIDERS: ATTEND Internal Medicine
DX: D50.9 Iron deficiency anemia, unspecified (principal)

== ENCOUNTER → 2019-04-29 | Outpatient (REF) | payer MEDICARE, OTHER ==
[~2019-04-29] MED LIST changes: +CYAN100049 PO; +MIRA0.12 PO; +MIRA0.5T PO; -OMEP20CA3 PO; +OMEP20CA4 PO; +PRES10CA2 PO; +PRIL20TA2 PO; +SINE25TA5 PO; -VITA10002 PO; +VITA30004 PO; +VYZU0.02
== END ==
LOC: M LAB REF 17:22
PROVIDERS: ATTEND Internal Medicine
DX: D50.9 Iron deficiency anemia, unspecified (principal); N18.3 Chronic kidney disease, stage 3 (moderate)

== ENCOUNTER 2019-05-02 11:31 | Inpatient (IN) | payer MEDICARE, OTHER ==
[~2019-05-02] VITALS: Ht 167.6 cm; Wt 65.4 kg
[~2019-05-02 11:31] MED LIST changes: -MIRA0.12 PO; -MIRA0.5T PO; -PRES10CA2 PO; -PRIL20TA2 PO; -SINE25TA5 PO; -VITA30004 PO; -VYZU0.02
[2019-05-02] MEDS ORDERED: NS 1,000 ML IV ONE ×2 (12:45→14:45)
[2019-05-02] MEDS ORDERED: ONDANSETRON 4MG/2ML VIAL (J2405) IV ONE (12:45)
[2019-05-02] MEDS ORDERED: SPIR-10 PO (13:50)
[2019-05-02] MEDS ORDERED: HYDR-3363 PO (13:50)
[2019-05-02] MEDS ORDERED: MIRA0.12 PO (13:52)
[2019-05-02] MEDS ORDERED: SINE25TA5 PO ×2 (13:52→19:50)
[2019-05-02] MEDS ORDERED: DILT60TA PO (13:52)
[2019-05-02] MEDS ORDERED: PRIL20TA2 PO (13:52)
[2019-05-02 13:58] LABS: BASO % 0.4 % (0.0-1.0); EOS # 0.1 10^3/uL (0.0-0.50); EOS % 0.9 % (0.0-3.0); HEMATOCRIT 44.4 % (36.0-47.0); HEMOGLOBIN 14.8 g/dl (12.0-15.5); LYMPH # 0.7 10^3/uL (1.5-4.5); LYMPH % 9.8 % (24.0-44.0); MEAN CORPUSCULAR HGB CONC 33.3 g/dl (32.0-36.5); MEAN CORPUSCULAR VOLUME 90.1 fl (80.0-96.0); MONO # 0.6 10^3/uL (0.0-0.8); MONO % 8.4 % (0.0-5.0); NEUTROPHILS # 6.1 10^3/uL (1.8-7.7); NEUTROPHILS % 80.1 % (36.0-66.0); PLATELET COUNT, AUTOMATED 259 10^3/uL (150-450); RED BLOOD COUNT 4.93 10^6/uL (4.00-5.40); WHITE BLOOD COUNT 7.6 10^3/uL (4.0-10.0)
[2019-05-02 14:28] LABS: ALBUMIN 3.4 GM/DL (3.2-5.2); ALT/SGPT 6 U/L (12-78); AMYLASE 79 U/L (25-115); BILIRUBIN,DIRECT 0.1 MG/DL (0.0-0.2); BILIRUBIN,TOTAL 0.7 MG/DL (0.2-1.0); CK-MB VALUE MASS < 1.0 NG/ML (<3.6); CPK CREATINE PHOSPHOKINASE 77 U/L (26-192); LDH LACTATE DEHYDROGENASE 305 U/L (84-246); LIPASE 708 U/L (73-393); TOTAL PROTEIN 6.4 GM/DL (6.4-8.2); TROPONIN I < 0.02 NG/ML (< 0.10)
--- NOTE | 2019-05-02 15:01 | REP ---
HISTORY: Weakness. COMPARISON: 09/20/2018 The technique utilized in obtaining the radiograph has magnified the cardiac silhouette and accentuated the interstitial markings. There is interstitial fibrosis with basilar predominance, left greater than right, status quo. There is cardiomegaly accentuated by technique. The dual chamber bipolar pacemaker is unchanged. The osseous structure is stable. IMPRESSION: Stable appearing chronic changes without plain radiographic evidence of acute cardiopulmonary disease. Electronically Signed by Christian Queen DO 05/02/2019 03:20 P
[2019-05-02] MEDS ORDERED: methylPREDNISolone INJ 125 MG/2 ML VIAL (J2930) IV ONE (15:45)
[2019-05-02] MEDS ORDERED: diphenhydrAMINE INJ 50MG/ML VIAL (J1200) IV ONE (15:45)
[2019-05-02] MEDS ORDERED: ISOVUE-370 76% 100ML VIAL (Q9967) As Ordered ONE (16:24)
--- NOTE | 2019-05-02 18:00 | REP ---
CT abdomen and pelvis with IV without oral contrast: History: Elevated lipase. Malaise. No comparison abdomen CT. CT contrast dose: 100 ml of intravenous Isovue [address] findings: Preliminary digital nursing administrator radiograph demonstrates moderate stool throughout the colon. There is evidence of chronic atelectasis and pleuroparenchymal fibrosis in the left lower lobe. There is extensive calcific pleural plaquing along the left diaphragm. These findings are chronic and unchanged from June 27, [address] Mild interstitial fibrosis is seen in both lung bases. No adrenal lesion is observed. There is an accessory splenule in the left upper quadrant. There are three to four small hepatic cysts. The largest of these is in the right lobe posteriorly measuring 2.2 cm in diameter. Kidneys enhance symmetrically and appeared somewhat atrophic but otherwise morphologically intact. No mass or hydronephrosis is seen. There is an infrarenal abdominal aortic aneurysm measuring 4.1 cm in greatest anteroposterior dimension. There is fairly heavy vascular calcification. No retroperitoneal mass or adenopathy is seen. Small and large intestinal bowel loops are normal in the upper abdomen. No pancreatic abnormality is noted. No abnormalities noted in the gallbladder. There is moderate stool throughout the colon as seen on the nursing administrator view. A normal appendix is seen medial to the cecum. There is no evidence of large or small bowel obstruction. No free air is seen. Uterus is surgically absent. Urinary bladder is unremarkable. No abdominal wall defect is seen. Bone window settings show degenerative spondylosis changes in the spine. Impression: Pleural plaquing and calcification in the left lung base. Small hepatic cysts. 4.1 cm infrarenal abdominal aortic aneurysm. Moderate stool throughout the colon. Otherwise negative. Electronically Signed by Jayant Magana MD 05/05/2019 08:23 A
[2019-05-02] MEDS ORDERED: MIRA0.5T PO (19:50)
[2019-05-02] MEDS ORDERED: PRES10CA2 PO (19:50)
[2019-05-02] MEDS ORDERED: VYZU0.02 (19:50)
[2019-05-02] MEDS ORDERED: VITA30004 PO (19:50)
[2019-05-02] MEDS ORDERED: ISOS60TA2 PO (19:50)
[2019-05-02] MEDS ORDERED: ASPI81TA26 PO (19:50)
--- NOTE | 2019-05-02 20:06 | HPEPDOC ---
[facility] Medical History & Physical Date of Admission May 02, 2019 Date of Service: May 02, 2019 Primary Care Physician: LEYLA SZYMANSKI DO Attending Physician: MARY PATEL MD History and Physical Time of service 11:54 PM CHIEF COMPLAINT: Weakness HISTORY OF PRESENT ILLNESS: This patient is a poor historian. The majority of history was obtained from the ED attending. This is a patient who when asked why she came to the hospital said "I really don't know I felt so sick...I could hardly stand up..." Per discussion with the ED attending she was started on Mirapex this week and shortly thereafter developed weeakness, malise, anorexia. Orthostats were positive and she was symptomatic despite receiving 2 L of IV fluids. Lipase was high, but she did not complain of abdominal pain and the CT of the abdomen was negative REVIEW OF SYSTEMS: Unobtainable because patient is a poor historian PAST MEDICAL / SURGERY HISTORY: 1. Coronary artery disease status post KEN in RCA 2. Chronic Hypertension. 3. Dyslipidemia. 4. 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 5. Chronic diastolic congestive heart failure (CHF). 6. NHL 7. Hysterectomy. 8. Tonsillectomy. SOCIAL HISTORY: Quit smoking FAMILY HISTORY: brain cancer and lung cancer. ALLERGIES: Please see below. HOME MEDICATIONS: Please see below. PHYSICAL EXAMINATION: VITAL SIGNS: Please see below GENERAL APPEARANCE: Well-nourished, well-developed, not in apparent distress HEENT: Normocephalic, atraumatic. Mucous members moist and pink CARDIOVASCULAR: Regular rate and rhythm. No murmurs, rubs or gallops LUNGS: Clear to escalation bilaterally on room air ABDOMEN: Positive bowel sounds, soft and nontender on palpation INTEGUMENT: Varicose veins NEUROLOGICAL: CN II to 12 grossly intact. Speech not dysarthric PSYCHIATRIC: Alert and oriented, able to answer some questions appropriately LABORATORY DATA: See below. IMAGING: Chest x-ray unremarkable CT of the abdomen and pelvis unremarkable MICROBIOLOGY: Please see below. ASSESSMENT: Ms. Garcia is an 88 old female the past medical history of chronic coronary artery disease, chronic hypertension, chronic diastolic congestive heart failure dyslipidemia, and non-Hodgkin's lymphoma who will be admitted for evaluation of weakness. . PLAN: 1. Weakness/ Malaise / Anorexia Suspect this may be secondary to medications Plan: admit to general medical floor/hold statin & 2 Orthostatic Hypotension 2/2 pramipexol Plan: c/w IVF / monitor vitals 3 Hyperkalemia EKG showed paced rhythm Plan: repeat BMP tonight 4 Elevated Lipase cause TBD Plan: Serial abdominal exams 5. Chronic HTN / Chronic diastolic congestive heart failure. Clinically compensated Plan: Continue with home meds 6 NHL Plan: Follow-up with fast food shift supervisor oncologist on an outpatient basis 7. Chronic Coronary artery disease / dyslipidemia Plan: Continue with home meds DVT prophylaxis Heparin Disposition pending clinical course Late entry 6:20 AM Called the lab to inquire about BMP that was ordered at 8 PM p.m. last night. They said the specimen that was collected yesterday was done on hemolyzed blood. Vital Signs Vital Signs Date Time Temp Pulse Resp B/P (MAP) Pulse Ox O2 Delivery O2 Flow Rate FiO2 05/02/19 19:02 89 170/77 (108) 92 182/90 (120) 111 177/103 (127) 05/02/19 18:01 95 05/02/19 12:44 99.1 05/02/19 11:46 18 Room Air Laboratory Data CBC/BMP Laboratory Tests 05/02/19 12:40 Red Blood Count 4.93, Mean Corpuscular Volume 90.1, Mean Corpuscular Hemoglobin 30.0, Mean Corpuscular Hemoglobin Concent 33.3, Red Cell Distribution Width 14.4, Neutrophils (%) (Auto) 80.1 H, Lymphocytes (%) (Auto) 9.8 L, Monocytes (%) (Auto) 8.4 H, Eosinophils (%) (Auto) 0.9, Basophils (%) (Auto) 0.4, Neutrophils # (Auto) 6.1, Lymphocytes # (Auto) 0.7 L, Monocytes # (Auto) 0.6, Eosinophils # (Auto) 0.1, Basophils # (Auto) 0.0 Home Medications Scheduled Aspirin (Aspirin EC) 81 Mg Tablet.dr, 81 MG PO DAILY Atorvastatin Calcium (Atorvastatin Calcium) 20 Mg Tab, 20 MG PO DAILY Carbidopa/Levodopa (Sinemet 25-100 mg Tablet) 1 Each Tablet, 1.5 TAB PO QID Cholecalciferol (Vitamin D3) (Vitamin D3) 3,000 Unit Tablet, 3,000 UNIT PO DAILY Cyclosporine (Restasis) 0.05 % Emu, 1 DROP OU BID Diltiazem Hcl (Diltiazem HCl) 60 Mg Tablet, 60 MG PO TID Dorzolamide HCl/Timolol Maleat (Dorzolamide-Timolol Eye Drops) 1 Nenita Nenita, 1 DROP OU BID Furosemide (Furosemide) 20 Mg Tab, 20 MG PO DAILY Hydroxyzine HCl (Hydroxyzine HCl) 25 Mg Tablet, 25 MG PO TID Isosorbide Mononitrate (Isosorbide Mononitrate ER) 60 Mg Tab.er.24h, 120 MG PO DAILY Latanoprostene Bunod (Vyzulta) 0.024% 5ML Drops, 1 DROP QHS Levothyroxine Sodium (Synthroid) 88 Mcg Tab, 88 MCG PO DAILY Nortriptyline Hcl (Pamelor) 25 Mg Cap, 25 MG PO DAILY Omeprazole Magnesium (Prilosec Otc) 20 Mg Tablet.dr, 20 MG PO DAILY Pramipexole Di-HCl (Mirapex) 0.5 Mg Tablet, 0.5 MG PO BID Spironolactone (Spironolactone) 25 Mg Tablet, 12.5 MG PO DAILY Vit C/E/Zn/Coppr/Lutein/Zeaxan (Preservision Areds 2 Softgel) 1 Each Capsule, 1 EACH PO BID Scheduled PRN Acetaminophen (Acetaminophen) 325 Mg Tab, 650 MG PO Q4H PRN for PAIN Albuterol Sulfate (Proair Hfa) 108 Mcg/Act Aer, 2 PUFF INH QID PRN for SHORTNESS OF BREATH Nitroglycerin (Nitrostat) 0.4 Mg Subl, 0.4 MG SL NITRO PRN for CHEST PAIN Allergies Coded Allergies: clindamycin (Verified Allergy, Severe, Chest pressure, 01/14/19) Contrast Media (Verified Allergy, Intermediate, HIVES, 11/30/14) ciprofloxacin (Verified Allergy, Intermediate, ERYTHEMA, 01/14/19) gabapentin (Verified Allergy, Intermediate, ERYTHEMA, 01/14/19) ketoconazole (Verified Allergy, Intermediate, 05/02/19) meloxicam (Verified Allergy, Intermediate, ERYTHEMA, 01/14/19) amoxicillin (Verified Adverse Reaction, Severe, Renal Failure, 01/14/19) clavulanic acid (Verified Adverse Reaction, Severe, Renal Failure, 01/14/19) ibuprofen (Verified Adverse Reaction, Severe, MS, 01/14/19) A-FIB/CHADSVASC A-FIB History Current/History of A-Fib/PAF?: No Current PO Anticoag Therapy: No MARY PATEL MD May 02, 2019 20:06
[2019-05-02] MEDS ORDERED: ONDANSETRON 4MG/2ML VIAL (J2405) IV PRN (20:15)
--- NOTE | 2019-05-02 20:16 | ECGEPIP ---
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
[2019-05-02] MEDS ORDERED: NS 1,000 ML IV SCH (21:00)
[2019-05-02 22:45] VITALS: BP 140/97
[2019-05-02] MEDS: HEPARIN SOD (PORCINE) 5000 UNITS/ML VIAL SC SCH (23:10)
[2019-05-03] VITALS (10 sets, daily range): BP systolic 106–152; BP diastolic 55–90
[2019-05-03] MEDS ORDERED: ACETAMINOPHEN TAB 650MG DOSE (2X325MG) PO PRN (06:15)
[2019-05-03] MEDS ORDERED: ALBUTEROL 90 MCG/ACT 8GM HFA INHALER INH PRN (06:15)
[2019-05-03] MEDS ORDERED: CALCIUM GLUCONATE 1,000 MG in D5W MINI-BAG PLUS 100 ML IV ONE (06:30)
[2019-05-03 07:17] LABS: HEMATOCRIT 40.9 % (36.0-47.0); HEMOGLOBIN 13.5 g/dl (12.0-15.5); MEAN CORPUSCULAR HEMOGLOBIN 29.1 pg (27.0-33.0); MEAN CORPUSCULAR VOLUME 88.1 fl (80.0-96.0); PLATELET COUNT, AUTOMATED 296 10^3/uL (150-450); RED BLOOD COUNT 4.64 10^6/uL (4.00-5.40)
[2019-05-03 07:40] LABS: BLOOD UREA NITROGEN 18 MG/DL (7-18); CARBON DIOXIDE LEVEL 22 MEQ/L (21-32); CHLORIDE LEVEL 107 MEQ/L (98-107); CREATININE FOR GFR 0.87 MG/DL (0.55-1.30); GLOMERULAR FILTRATION RATE > 60.0 (>32); GLUCOSE, FASTING 107 MG/DL (70-100); SODIUM LEVEL 141 MEQ/L (136-145)
[2019-05-03] MEDS ORDERED: PRAMIPEXOLE 0.25 MG TAB PO SCH (09:00)
[2019-05-03] MEDS: SPIRONOLACTONE 25 MG TAB PO SCH (09:57)
[2019-05-03] MEDS: hydrOXYzine 25 MG TAB PO SCH ×3 (09:58→21:50)
[2019-05-03] MEDS: VITAMIN D 1,000 INTERNATIONAL UNITS TABLET PO SCH (09:58)
[2019-05-03] MEDS: NORTRIPTYLINE 25 MG CAP PO SCH (09:59)
[2019-05-03] MEDS: SINEMET 25-100 MG TAB PO SCH ×4 (09:59→21:49)
[2019-05-03] MEDS: ISOSORBIDE MON. (IMDUR) 60 MG XR TAB PO SCH (10:00)
[2019-05-03] MEDS: FUROSEMIDE 20 MG TAB PO SCH (10:00)
[2019-05-03] MEDS: LEVOTHYROXINE 88MCG TABLET (0.088 MG) PO SCH (10:00)
[2019-05-03] MEDS: OMEPRAZOLE 20 MG CAP PO SCH (10:01)
[2019-05-03] MEDS: HEPARIN SOD (PORCINE) 5000 UNITS/ML VIAL SC SCH ×2 (10:01→21:50)
--- NOTE | 2019-05-03 13:33 | IPNPDOC ---
Subjective Date Seen The patient was seen on 05/03/19. Subjective Chief Complaint/HPI She says she is very weak and dizzy when she gets up. Her walking has been getting bad. She also complained of pounding of her heart after getting up which last for several hours. Says she cannot eat any thing in the morning as all the mediations make her feel nauseous . She eats better in the afternoon. she also complained of tingling and numbess of ther feet and soreness in the low legs. She complained of puffiness of her finders so Gastrointestinal: Denies: Nausea, Vomiting, Abdominal Pain, Diarrhea, Constipation Genitourinary: Denies: Dysuria, Frequency, Incontinence Objective Physical Examination General Exam: Positive: Alert, Cooperative, No Acute Distress Eye Exam: Positive: PERRLA, Conjunctiva & lids normal, EOMI; Negative: Sclera icteric ENT Exam: Positive: Atraumatic, Mucous membr. moist/pink, Pharynx Normal Neck Exam: Positive: Supple; Negative: JVD, thyromegaly Chest Exam: Positive: Normal air movement, Diminished, Other (basal crackles.) Heart Exam: Positive: Rate Normal, Regular Rhythm, Normal S1, Normal S2; Negative: Murmurs, Rubs Abdomen Exam: Positive: Normal bowel sounds, Soft; Negative: Tenderness, Hepatospenomegaly Extremity Exam: Negative: Clubbing, Cyanosis, Edema Skin Exam: Positive: Nl turgor and temperature; Negative: Rash, Breakdown Psych Exam: Positive: Anxiety, Memory Intact, Oriented x 3 Assessment /Plan Assessment 88 year old frail lady wit PMH of Coronary artery disease status post KEN in RCA , Hypertension, Dyslipidemia, 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 She was found to have orthostatic hypotension which did not improve even after 2 l of fluids. She was admitted for further evalua tion. She also complained of pounding of her heart after getting up which last for several hours. Says she cannot eat any thing in the morning as all the mediations make her feel nauseous . She eats better in the afternoon. Weakness/ Malaise / Anorexia Suspect this may be secondary to medications Orthostatic Hypotension 2/2 pramipexol improved Hyperkalemia resolved Elevated Lipase could be due to gastritis/ duodenitis no abdominal signs of pancreatitis. HTN / Chronic diastolic congestive heart failure. mild fluid overload will give 1 dose of lasix continue lasix and spironolactone on verapamil Vit b12 deficiency willl give IM and oral supplementation NHL Follow-up with analog ic design engineer oncologist prn on an outpatient basis Chronic Coronary artery disease / dyslipidemia asa, statin, verapamil hypothyroid Synthroid Parkinson disease sinemet PT eval GERD PPI Plan/VTE VTE Prophylaxis Ordered?: Yes VS, I&O, 24H, Fishbone Vital Signs/I&O Vital Signs Date Time Temp Pulse Resp B/P (MAP) Pulse Ox O2 Delivery O2 Flow Rate FiO2 05/03/19 10:00 98.3 86 17 152/60 (90) 96 05/02/19 11:46 Room Air I&O- Last 24 Hours up to 6 AM 05/03/19 05:59 Intake Total 2360 ml Output Total 400 ml Balance 1960 ml Laboratory Data 24H LABS Laboratory Tests 2 05/02/19 13:51: POC Glucose (Misc Panel) 82, POC Sodium (Misc Panel) 133L, POC Potassium (Misc Panel) 6.1*H, POC Chloride (Misc Panel) 100, POC Total CO2 (Misc Panel) 24.0, POC Blood Urea Nitrogen (Misc Panel 22, POC Ionized Calcium (Misc Panel) 4.5, POC Creatinine (Misc Panel) 1.1, POC Hematocrit (Misc Panel) 44.0 05/03/19 06:11: Nucleated Red Blood Cells % (auto) 0.0, Anion Gap 12, Glomerular Filtration Rate > 60.0, Blood Urea Nitrogen 18, Creatinine 0.87, Sodium Level 141, Potassium Level 4.0, Chloride Level 107, Carbon Dioxide Level 22, Calcium Level 9.0 CBC/BMP Laboratory Tests 05/03/19 06:11 Red Blood Count 4.64, Mean Corpuscular Volume 88.1, Mean Corpuscular Hemoglobin 29.1, Mean Corpuscular Hemoglobin Concent 33.0, Red Cell Distribution Width 14.4, Calcium Level 9.0 FOZIA LOPEZ MD May 03, 2019 13:33
[2019-05-03] MEDS: ASPIRIN 81 MG ENTERIC TAB PO SCH (13:46)
[2019-05-03] MEDS: ATORVASTATIN 20 MG TAB PO SCH (13:46)
[2019-05-03] MEDS ORDERED: FUROSEMIDE 40 MG/4 ML VIAL (J1940) IV ONE (14:00)
[2019-05-03] MEDS: CYANOCOBALAMIN 1,000 MCG/ML VIAL (J3420) IM SCH (17:32)
[2019-05-04] VITALS (12 sets, daily range): BP systolic 107–137; BP diastolic 59–85
[2019-05-04 07:50] LABS: BASO % 0.6 % (0.0-1.0); EOS # 0.1 10^3/uL (0.0-0.50); EOS % 0.8 % (0.0-3.0); HEMATOCRIT 41.5 % (36.0-47.0); HEMOGLOBIN 13.8 g/dl (12.0-15.5); LYMPH # 1.2 10^3/uL (1.5-4.5); LYMPH % 16.3 % (24.0-44.0); MEAN CORPUSCULAR HEMOGLOBIN 30.1 pg (27.0-33.0); MEAN CORPUSCULAR HGB CONC 33.3 g/dl (32.0-36.5); MEAN CORPUSCULAR VOLUME 90.4 fl (80.0-96.0); MONO # 0.8 10^3/uL (0.0-0.8); MONO % 10.6 % (0.0-5.0); NEUTROPHILS # 5.1 10^3/uL (1.8-7.7); NEUTROPHILS % 71.4 % (36.0-66.0); PLATELET COUNT, AUTOMATED 250 10^3/uL (150-450); RED BLOOD COUNT 4.59 10^6/uL (4.00-5.40); WHITE BLOOD COUNT 7.2 10^3/uL (4.0-10.0)
[2019-05-04 08:27] LABS: CALCIUM LEVEL 9.3 MG/DL (8.8-10.2); CREATININE FOR GFR 1.04 MG/DL (0.55-1.30); GLOMERULAR FILTRATION RATE 53.5 (>32)
[2019-05-04] MEDS: CYANOCOBALAMIN 1,000 MCG/ML VIAL (J3420) IM SCH (09:04)
[2019-05-04] MEDS: SINEMET 25-100 MG TAB PO SCH ×4 (09:06→21:48)
[2019-05-04] MEDS: ASPIRIN 81 MG ENTERIC TAB PO SCH (09:07)
[2019-05-04] MEDS: ATORVASTATIN 20 MG TAB PO SCH (09:08)
[2019-05-04] MEDS: SPIRONOLACTONE 25 MG TAB PO SCH (09:08)
[2019-05-04] MEDS: FUROSEMIDE 20 MG TAB PO SCH (09:08)
[2019-05-04] MEDS: OMEPRAZOLE 20 MG CAP PO SCH (09:08)
[2019-05-04] MEDS: hydrOXYzine 25 MG TAB PO SCH ×3 (09:09→21:48)
[2019-05-04] MEDS: LEVOTHYROXINE 88MCG TABLET (0.088 MG) PO SCH (09:09)
[2019-05-04] MEDS: VITAMIN D 1,000 INTERNATIONAL UNITS TABLET PO SCH (09:09)
[2019-05-04] MEDS: ISOSORBIDE MON. (IMDUR) 60 MG XR TAB PO SCH (09:09)
[2019-05-04] MEDS: NORTRIPTYLINE 25 MG CAP PO SCH (09:09)
[2019-05-04] MEDS: CYANOCOBALAMIN 500 MCG TAB PO SCH (09:09)
[2019-05-04] MEDS: HEPARIN SOD (PORCINE) 5000 UNITS/ML VIAL SC SCH ×2 (09:10→21:49)
--- NOTE | 2019-05-04 12:37 | IPNPDOC ---
Subjective Date Seen The patient was seen on 05/04/19. Subjective Chief Complaint/HPI Continues to complain of weakness, difficulty in walking. also complains of poor appetite, food does not taste good, complains of soreness in both the lower legs. No fever or chills, no chest pain. does complain of intermittent p alpitation but notachycardia documented here. Objective Physical Examination General Exam: Positive: Alert, Cooperative, No Acute Distress Eye Exam: Positive: PERRLA, Conjunctiva & lids normal, EOMI; Negative: Sclera icteric ENT Exam: Positive: Atraumatic, Mucous membr. moist/pink, Pharynx Normal Neck Exam: Positive: Supple; Negative: JVD, thyromegaly Chest Exam: Positive: Normal air movement, Diminished, Other (basal crackles.) Heart Exam: Positive: Rate Normal, Regular Rhythm, Normal S1, Normal S2; Negative: Murmurs, Rubs Abdomen Exam: Positive: Normal bowel sounds, Soft; Negative: Tenderness, Hepatospenomegaly Extremity Exam: Negative: Clubbing, Cyanosis, Edema Skin Exam: Positive: Nl turgor and temperature; Negative: Rash, Breakdown Psych Exam: Positive: Memory Intact, Oriented x 3 Assessment /Plan Assessment 88 year old frail lady wit H of Coronary artery disease status post KEN in RCA , Hypertension, Dyslipidemia, 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 She was found to have orthostatic hypotension which did not improve even after 2 l of fluids. She was admitted for further evaluation. She also complained of pounding of her heart after getting up which last for several hours. Says she cannot eat any thing in the morning as all the mediations make her feel nauseous . She eats better in the afternoon. Weakness/ Malaise / Anorexia Suspect this may be secondary to medications Orthostatic Hypotension 2/2 pramipexol Now improved. pramipexole stopped. Hyperkalemia resolved Elevated Lipase could be due to gastritis/ duodenitis no abdominal signs of pancreatitis. HTN / Chronic diastolic congestive heart failure. mild fluid overload will give 1 dose of lasix continue lasix and spironolactone on verapamil Vit b12 deficiency willl give IM and oral supplementation NHL Follow-up with portfolio mgr oncologist prn on an outpatient basis Chronic Coronary artery disease / dyslipidemia asa, statin, verapamil hypothyroid Synthroid Parkinson disease sinemet PT eval GERD PPI Plan/VTE VTE Prophylaxis Ordered?: Yes VS, I&O, 24H, Fishbone Vital Signs/I&O Vital Signs Date Time Temp Pulse Resp B/P (MAP) Pulse Ox O2 Delivery O2 Flow Rate FiO2 05/04/19 05:41 68 126/69 (88) 71 131/72 (91) 81 130/83 (99) 05/03/19 22:00 97.1 18 95 05/02/19 11:46 Room Air I&O- Last 24 Hours up to 6 AM 05/04/19 06:00 Intake Total 560 ml Output Total 2100 ml Balance -1540 ml FOZIA LOPEZ MD May 04, 2019 06:59
[2019-05-05] MEDS: SENNA 8.6 MG TAB (SENOKOT) PO SCH ×2 (00:08→21:12)
[2019-05-05 06:00] VITALS: BP 117/68
[2019-05-05 06:10] VITALS: BP_SYST 127; BP_SYST 129; BP_SYST 132; BP_DIAS 70; BP_DIAS 72; BP_DIAS 88
[2019-05-05 06:14] LABS: BASO # 0.1 10^3/uL (0.0-0.2); BASO % 0.7 % (0.0-1.0); EOS # 0.2 10^3/uL (0.0-0.50); HEMATOCRIT 41.5 % (36.0-47.0); HEMOGLOBIN 13.3 g/dl (12.0-15.5); LYMPH # 1.5 10^3/uL (1.5-4.5); LYMPH % 21.6 % (24.0-44.0); MEAN CORPUSCULAR HEMOGLOBIN 28.7 pg (27.0-33.0); MEAN CORPUSCULAR VOLUME 89.4 fl (80.0-96.0); MONO # 0.7 10^3/uL (0.0-0.8); MONO % 10.5 % (0.0-5.0); NEUTROPHILS # 4.3 10^3/uL (1.8-7.7); NEUTROPHILS % 63.8 % (36.0-66.0); PLATELET COUNT, AUTOMATED 267 10^3/uL (150-450); RED BLOOD COUNT 4.64 10^6/uL (4.00-5.40); WHITE BLOOD COUNT 6.8 10^3/uL (4.0-10.0)
[2019-05-05 06:36] LABS: CALCIUM LEVEL 9.5 MG/DL (8.8-10.2); CREATININE FOR GFR 1.1 MG/DL (0.55-1.30); GLOMERULAR FILTRATION RATE 50.1 (>32); POTASSIUM SERUM 3.8 MEQ/L (3.5-5.1)
[2019-05-05] MEDS: VITAMIN D 1,000 INTERNATIONAL UNITS TABLET PO SCH (08:31)
[2019-05-05] MEDS: NORTRIPTYLINE 25 MG CAP PO SCH (08:32)
[2019-05-05] MEDS: FUROSEMIDE 20 MG TAB PO SCH (08:32)
[2019-05-05] MEDS: LEVOTHYROXINE 88MCG TABLET (0.088 MG) PO SCH (08:32)
[2019-05-05] MEDS: ASPIRIN 81 MG ENTERIC TAB PO SCH (08:32)
[2019-05-05] MEDS: SINEMET 25-100 MG TAB PO SCH ×4 (08:33→21:11)
[2019-05-05] MEDS: OMEPRAZOLE 20 MG CAP PO SCH (08:33)
[2019-05-05] MEDS: ISOSORBIDE MON. (IMDUR) 60 MG XR TAB PO SCH (08:33)
[2019-05-05] MEDS: SPIRONOLACTONE 25 MG TAB PO SCH (08:33)
[2019-05-05] MEDS: CYANOCOBALAMIN 500 MCG TAB PO SCH (08:34)
[2019-05-05] MEDS: HEPARIN SOD (PORCINE) 5000 UNITS/ML VIAL SC SCH ×2 (08:34→21:11)
[2019-05-05] MEDS: CYANOCOBALAMIN 1,000 MCG/ML VIAL (J3420) IM SCH (08:34)
[2019-05-05] MEDS: ATORVASTATIN 20 MG TAB PO SCH (08:34)
[2019-05-05] MEDS: hydrOXYzine 25 MG TAB PO SCH ×3 (08:34→21:12)
[2019-05-05 10:00] VITALS: BP 133/71
--- NOTE | 2019-05-05 11:16 | IPNPDOC ---
Subjective Date Seen The patient was seen on 05/05/19. Subjective Chief Complaint/HPI Feels a little better today, working with PT. Still does not have much appetite. No fevr or chills, orthostats now negative. Objective Physical Examination General Exam: Positive: Alert, Cooperative, No Acute Distress Eye Exam: Positive: PERRLA, Conjunctiva & lids normal, EOMI; Negative: Sclera icteric ENT Exam: Positive: Atraumatic, Mucous membr. moist/pink, Pharynx Normal Neck Exam: Positive: Supple; Negative: JVD, thyromegaly Chest Exam: Positive: Normal air movement, Diminished, Other (basal crackles.) Heart Exam: Positive: Rate Normal, Regular Rhythm, Normal S1, Normal S2; Negative: Murmurs, Rubs Abdomen Exam: Positive: Normal bowel sounds, Soft; Negative: Tenderness, Hepatospenomegaly Extremity Exam: Negative: Clubbing, Cyanosis, Edema Skin Exam: Positive: Nl turgor and temperature; Negative: Rash, Breakdown Psych Exam: Positive: Anxiety, Memory Intact, Oriented x 3 Assessment /Plan Assessment 88 year old frail lady wit PMH of Coronary artery disease status post KEN in RCA , Hypertension, Dyslipidemia, 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 She was found to have orthostatic hypotension which did not improve even after 2 l of fluids. She was admitted for further melvi luation. She also complained of pounding of her heart after getting up which last for several hours. Says she cannot eat any thing in the morning as all the mediations make her feel nauseous . She eats better in the afternoon. Weakness/ Malaise / Anorexia Suspect this may be secondary to medications now improving. Orthostatic Hypotension 2/2 pramipexole Now improved. pramipexole stopped. Hyperkalemia resolved Elevated Lipase could be due to gastritis/ duodenitis no abdominal signs of pancreatitis. HTN / Chronic diastolic congestive heart failure. continue lasix and spironolactone on verapamil dose reduced as bp lowish Vit b12 deficiency willl give IM and oral supplementation NHL Follow-up with linux systems administrator oncologist prn on an outpatient basis Chronic Coronary artery disease / dyslipidemia asa, statin, verapamil hypothyroid Synthroid Parkinson disease sinemet PT eval GERD PPI infrarenal AAA 4.1 cm in diameter. Plan/VTE VTE Prophylaxis Ordered?: Yes VS, I&O, 24H, Fishbone Vital Signs/I&O Vital Signs Date Time Temp Pulse Resp B/P (MAP) Pulse Ox O2 Delivery O2 Flow Rate FiO2 05/05/19 08:32 76 132/88 05/05/19 06:00 96.7 17 96 05/02/19 11:46 Room Air I&O- Last 24 Hours up to 6 AM 05/05/19 06:00 Intake Total 1040 ml Output Total 1860 ml Balance -820 ml Laboratory Data 24H LABS Laboratory Tests 2 05/05/19 05:34: Immature Granulocyte % (Auto) 0.4, White Blood Count 6.8, Red Blood Count 4.64, Hemoglobin 13.3, Hematocrit 41.5, Mean Corpuscular Volume 89.4, Mean Corpuscular Hemoglobin 28.7, Mean Corpuscular Hemoglobin Concent 32.0, Red Cell Distribution Width 15.3H, Platelet Count 267, Neutrophils (%) (Auto) 63.8, Lymphocytes (%) (Auto) 21.6L, Monocytes (%) (Auto) 10.5H, Eosinophils (%) (Auto) 3.0, Basophils (%) (Auto) 0.7, Neutrophils # (Auto) 4.3, Lymphocytes # (Auto) 1.5, Monocytes # (Auto) 0.7, Eosinophils # (Auto) 0.2, Basophils # (Auto) 0.1, Nucleated Red Blood Cells % (auto) 0.0, Anion Gap 5L, Glomerular Filtration Rate 50.1, Blood Urea Nitrogen 20H, Creatinine 1.10, Sodium Level 145, Potassium Level 3.8, Chloride Level 110H, Carbon Dioxide Level 30, Calcium Level 9.5 CBC/BMP Laboratory Tests 05/05/19 05:34 Red Blood Count 4.64, Mean Corpuscular Volume 89.4, Mean Corpuscular Hemoglobin 28.7, Mean Corpuscular Hemoglobin Concent 32.0, Red Cell Distribution Width 15.3 H, Neutrophils (%) (Auto) 63.8, Lymphocytes (%) (Auto) 21.6 L, Monocytes (%) (Auto) 10.5 H, Eosinophils (%) (Auto) 3.0, Basophils (%) (Auto) 0.7, Neutrophils # (Auto) 4.3, Lymphocytes # (Auto) 1.5, Monocytes # (Auto) 0.7, Eosinophils # (Auto) 0.2, Basophils # (Auto) 0.1, Calcium Level 9.5 FOZIA LOPEZ MD May 05, 2019 11:16
[2019-05-05 14:00] VITALS: BP 130/72
[2019-05-05] MEDS ORDERED: GABAPENTIN 100 MG CAP PO SCH (21:00)
[2019-05-05] MEDS: PREGABALIN 75 MG CAP(LYRICA) PO SCH (21:11)
[2019-05-05 22:00] VITALS: BP 107/69
[2019-05-06 06:00] VITALS: BP 124/68
[2019-05-06 06:14] LABS: BASO % 0.5 % (0.0-1.0); EOS # 0.3 10^3/uL (0.0-0.50); EOS % 4.6 % (0.0-3.0); HEMATOCRIT 39.7 % (36.0-47.0); HEMOGLOBIN 13.1 g/dl (12.0-15.5); LYMPH # 1.3 10^3/uL (1.5-4.5); LYMPH % 21.5 % (24.0-44.0); MEAN CORPUSCULAR HEMOGLOBIN 30.3 pg (27.0-33.0); MEAN CORPUSCULAR VOLUME 91.7 fl (80.0-96.0); MONO # 0.7 10^3/uL (0.0-0.8); MONO % 11.3 % (0.0-5.0); NEUTROPHILS # 3.7 10^3/uL (1.8-7.7); NEUTROPHILS % 61.6 % (36.0-66.0); PLATELET COUNT, AUTOMATED 238 10^3/uL (150-450); RED BLOOD COUNT 4.33 10^6/uL (4.00-5.40)
[2019-05-06 06:40] LABS: CALCIUM LEVEL 9.3 MG/DL (8.8-10.2); CREATININE FOR GFR 1.06 MG/DL (0.55-1.30); GLOMERULAR FILTRATION RATE 52.3 (>32); POTASSIUM SERUM 3.8 MEQ/L (3.5-5.1)
[2019-05-06] MEDS: NITROGLYCERIN 0.4 MG SUBL TABLET SL PRN ×2 (08:05→08:57)
[2019-05-06 08:06] VITALS: BP 143/86
[2019-05-06 08:45] VITALS: BP 141/81
[2019-05-06] MEDS: HEPARIN SOD (PORCINE) 5000 UNITS/ML VIAL SC SCH ×2 (08:57→20:57)
[2019-05-06] MEDS: ASPIRIN 81 MG ENTERIC TAB PO SCH (08:58)
[2019-05-06] MEDS: OMEPRAZOLE 20 MG CAP PO SCH (08:58)
[2019-05-06] MEDS: hydrOXYzine 25 MG TAB PO SCH ×3 (08:58→20:56)
[2019-05-06] MEDS: PREGABALIN 75 MG CAP(LYRICA) PO SCH (08:58)
[2019-05-06] MEDS: ISOSORBIDE MON. (IMDUR) 60 MG XR TAB PO SCH (08:58)
[2019-05-06] MEDS: SPIRONOLACTONE 25 MG TAB PO SCH (08:59)
[2019-05-06] MEDS: CYANOCOBALAMIN 500 MCG TAB PO SCH (09:00)
[2019-05-06] MEDS: LEVOTHYROXINE 88MCG TABLET (0.088 MG) PO SCH (09:00)
[2019-05-06] MEDS: FUROSEMIDE 20 MG TAB PO SCH (09:00)
[2019-05-06] MEDS: ATORVASTATIN 20 MG TAB PO SCH (09:00)
[2019-05-06] MEDS: VITAMIN D 1,000 INTERNATIONAL UNITS TABLET PO SCH (09:01)
[2019-05-06] MEDS: NORTRIPTYLINE 25 MG CAP PO SCH (09:01)
[2019-05-06] MEDS: SINEMET 25-100 MG TAB PO SCH ×4 (09:01→20:57)
[2019-05-06 10:29] LABS: CK-MB VALUE MASS 1.3 NG/ML (<3.6); CPK CREATINE PHOSPHOKINASE 65 U/L (26-192); TROPONIN I < 0.02 NG/ML (< 0.10)
[2019-05-06 14:00] VITALS: BP 134/79
--- NOTE | 2019-05-06 14:31 | IPNPDOC ---
Subjective Date Seen The patient was seen on 05/06/19. Subjective Chief Complaint/HPI last night she was feeling very goood and was feeling almost ready to go home. This morning she was feeling a little weak and was haivng some difficulty in walking . her legs feeling very weak. the she complain of jaw pain and pain going to the left and right arms and she felt she was confused and felt very weak. No fever orchills, no chest pain or son. Noabdominal pain , nausea or vomiting . Objective Physical Examination General Exam: Positive: Alert, Cooperative, No Acute Distress Eye Exam: Positive: PERRLA, Conjunctiva & lids normal, EOMI; Negative: Sclera icteric ENT Exam: Positive: Atraumatic, Mucous membr. moist/pink, Pharynx Normal Neck Exam: Positive: Supple; Negative: JVD, thyromegaly Chest Exam: Positive: Normal air movement, Diminished, Other (basal crackles.) Heart Exam: Positive: Rate Normal, Regular Rhythm, Normal S1, Normal S2; Negative: Murmurs, Rubs Abdomen Exam: Positive: Normal bowel sounds, Soft; Negative: Tenderness, Hepatospenomegaly Extremity Exam: Negative: Clubbing, Cyanosis, Edema Skin Exam: Positive: Nl turgor and temperature; Negative: Rash, Breakdown Psych Exam: Positive: Anxiety, Memory Intact, Oriented x 3 Assessment /Plan Assessment 88 year old frail lady wit H of Coronary artery disease status post KEN in RCA , Hypertension, Dyslipidemia, 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 She was found to have orthostatic hypotension which did not improve even after 2 l of fluids. She was admitted for further evaluation. She also complained of pounding of her heart after getting up which last for several hours. Says she cannot eat any thing in the morning as all the mediations make her feel nauseous . She eats better in the afternoon. Jaw pain and arm pain this am probably angina EKG no acute changes, Cardiac enzymes first set nagative will repeat EKFg and cardiac enzymes in 6 hours. improved with 2 doses of nitro. Chronic Coronary artery disease / dyslipidemia Coronary artery disease with DUS of the RCA in february 2018 with stable angina asa, statin, verapamil, on imdur and nitro prn. Weakness/ Malaise / Anorexia Suspect this may be secondary to medications now improved. Orthostatic Hypotension 2/2 pramipexole Now improved. pramipexole stopped. Hyperkalemia resolved Elevated Lipase could be due to gastritis/ duodenitis no abdominal signs of pancreatitis. HTN / Chronic diastolic congestive heart failure. 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 History of AVB with pacemaker placement in February 2018 hypothyroid Synthroid Parkinson disease sinemet PT eval GERD PPI Thoracic aortic aneurysm 4 cm infrarenal AAA 4.1 cm in diameter. Plan/VTE VTE Prophylaxis Ordered?: Yes VS, I&O, 24H, Fishbone Vital Signs/I&O Vital Signs Date Time Temp Pulse Resp B/P (MAP) Pulse Ox O2 Delivery O2 Flow Rate FiO2 05/06/19 08:57 141/84 05/06/19 08:45 97.8 71 20 95 05/02/19 11:46 Room Air I&O- Last 24 Hours up to 6 AM 05/06/19 05:59 Intake Total 1480 ml Output Total 325 ml Balance 1155 ml Laboratory Data 24H LABS Laboratory Tests 2 05/06/19 05:49: Immature Granulocyte % (Auto) 0.5, White Blood Count 6.0, Red Blood Count 4.33, Hemoglobin 13.1, Hematocrit 39.7, Mean Corpuscular Volume 91.7, Mean Corpuscular Hemoglobin 30.3, Mean Corpuscular Hemoglobin Concent 33.0, Red Cell Distribution Width 15.0H, Platelet Count 238, Neutrophils (%) (Auto) 61.6, Lymphocytes (%) (Auto) 21.5L, Monocytes (%) (Auto) 11.3H, Eosinophils (%) (Auto) 4.6H, Basophils (%) (Auto) 0.5, Neutrophils # (Auto) 3.7, Lymphocytes # (Auto) 1.3L, Monocytes # (Auto) 0.7, Eosinophils # (Auto) 0.3, Basophils # (Auto) 0.0, Nucleated Red Blood Cells % (auto) 0.0, Anion Gap 6L, Glomerular Filtration Rate 52.3, Blood Urea Nitrogen 25H, Creatinine 1.06, Sodium Level 142, Potassium Level 3.8, Chloride Level 107, Carbon Dioxide Level 29, Calcium Level 9.3 05/06/19 09:34: Total Creatine Kinase 65, Creatine Kinase MB 1.3, Creatine Kinase MB Relative Index 2.00, Troponin I < 0.02 CBC/BMP Laboratory Tests 05/06/19 05:49 Red Blood Count 4.33, Mean Corpuscular Volume 91.7, Mean Corpuscular Hemoglobin 30.3, Mean Corpuscular Hemoglobin Concent 33.0, Red Cell Distribution Width 15.0 H, Neutrophils (%) (Auto) 61.6, Lymphocytes (%) (Auto) 21.5 L, Monocytes (%) (Auto) 11.3 H, Eosinophils (%) (Auto) 4.6 H, Basophils (%) (Auto) 0.5, Neutro phils # (Auto) 3.7, Lymphocytes # (Auto) 1.3 L, Monocytes # (Auto) 0.7, Eosinophils # (Auto) 0.3, Basophils # (Auto) 0.0, Calcium Level 9.3 FOZIA LOPEZ MD May 06, 2019 14:31
[2019-05-06 16:47] LABS: CK-MB VALUE MASS 1.5 NG/ML (<3.6); CPK CREATINE PHOSPHOKINASE 54 U/L (26-192); MB/CK RELATIVE INDEX 2.78 (< OR =4); TROPONIN I < 0.02 NG/ML (< 0.10)
--- NOTE | 2019-05-06 17:57 | ECGEPIP ---
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
--- NOTE | 2019-05-06 17:58 | ECGEPIP ---
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
[2019-05-06] MEDS: AMITRIPTYLINE 10 MG TAB PO SCH (20:56)
[2019-05-06] MEDS: SENNA 8.6 MG TAB (SENOKOT) PO SCH (20:57)
[2019-05-06 22:00] VITALS: BP 126/70
[2019-05-07 05:56] LABS: BASO % 0.3 % (0.0-1.0); EOS # 0.3 10^3/uL (0.0-0.50); HEMATOCRIT 40.4 % (36.0-47.0); HEMOGLOBIN 12.9 g/dl (12.0-15.5); LYMPH # 1.2 10^3/uL (1.5-4.5); LYMPH % 19.9 % (24.0-44.0); MEAN CORPUSCULAR HEMOGLOBIN 28.8 pg (27.0-33.0); MEAN CORPUSCULAR HGB CONC 31.9 g/dl (32.0-36.5); MEAN CORPUSCULAR VOLUME 90.2 fl (80.0-96.0); MONO # 0.6 10^3/uL (0.0-0.8); MONO % 9.9 % (0.0-5.0); NEUTROPHILS % 64.4 % (36.0-66.0); PLATELET COUNT, AUTOMATED 262 10^3/uL (150-450); RED BLOOD COUNT 4.48 10^6/uL (4.00-5.40); WHITE BLOOD COUNT 6.2 10^3/uL (4.0-10.0)
[2019-05-07 06:00] VITALS: BP 130/68
[2019-05-07 06:17] LABS: CALCIUM LEVEL 9.5 MG/DL (8.8-10.2); CREATININE FOR GFR 1.03 MG/DL (0.55-1.30); GLOMERULAR FILTRATION RATE 54.1 (>32); POTASSIUM SERUM 3.9 MEQ/L (3.5-5.1)
[2019-05-07] MEDS: HEPARIN SOD (PORCINE) 5000 UNITS/ML VIAL SC SCH ×2 (09:26→20:56)
[2019-05-07] MEDS: VITAMIN D 1,000 INTERNATIONAL UNITS TABLET PO SCH (09:31)
[2019-05-07] MEDS: NORTRIPTYLINE 25 MG CAP PO SCH (09:31)
[2019-05-07] MEDS: ASPIRIN 81 MG ENTERIC TAB PO SCH (09:31)
[2019-05-07] MEDS: hydrOXYzine 25 MG TAB PO SCH ×3 (09:32→20:56)
[2019-05-07] MEDS: FUROSEMIDE 20 MG TAB PO SCH (09:32)
[2019-05-07] MEDS: LEVOTHYROXINE 88MCG TABLET (0.088 MG) PO SCH (09:32)
[2019-05-07] MEDS: SINEMET 25-100 MG TAB PO SCH ×4 (09:32→20:57)
[2019-05-07] MEDS: ISOSORBIDE MON. (IMDUR) 60 MG XR TAB PO SCH (09:33)
[2019-05-07] MEDS: CYANOCOBALAMIN 500 MCG TAB PO SCH (09:33)
[2019-05-07] MEDS: ATORVASTATIN 20 MG TAB PO SCH (09:33)
[2019-05-07] MEDS: OMEPRAZOLE 20 MG CAP PO SCH (09:36)
[2019-05-07] MEDS: SPIRONOLACTONE 25 MG TAB PO SCH (09:36)
[2019-05-07] MEDS: MIRALAX *UNIT DOSE* 17GM PACKET PO SCH (12:30)
[2019-05-07 14:00] VITALS: BP 110/63
[2019-05-07] MEDS: SENNA 8.6 MG TAB (SENOKOT) PO SCH (20:53)
[2019-05-07] MEDS: AMITRIPTYLINE 10 MG TAB PO SCH (20:57)
--- NOTE | 2019-05-07 21:45 | IPNPDOC ---
Subjective Date Seen The patient was seen on 05/07/19. 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 She was found to have orthostatic hypotension which did not improve even after 2 l of fluids. She was admitted for further evalua tion. She also complained of pounding of her heart after getting up which last for several hours. Says she cannot eat any thing in the morning as all the mediations make her feel nauseous . She eats better in the afternoon. Today patient saying that she is feeling much better.No more jaw pain.Also reporting that she did good with physical therapy.She will like to go to rehab. Constitutional: Denies: Chills, Fever, Night Sweats Eyes: Denies: Pain, Vision change Pulmonary: Denies: Dyspnea, Cough Cardiovascular: Denies: Chest Pain, Palpitations, Orthopnea, Paroxysmal Noc. Dyspnea, Lt Headedness Gastrointestinal: Reports: Constipation Musculoskeletal: Denies: Neck Pain, Back Pain, Joint Pain, Muscle Pain, Spasms Neurological: Denies: Weakness, Numbness, Change in speech, Confusion Psych: Reports: Mood Normal; Denies: Depression, Memory Issues Objective Physical Examination General Exam: Positive: Alert, Cooperative, No Acute Distress Eye Exam: Positive: PERRLA, Conjunctiva & lids normal, EOMI; Negative: Sclera icteric ENT Exam: Positive: Atraumatic, Mucous membr. moist/pink, Pharynx Normal Neck Exam: Positive: Supple; Negative: JVD, thyromegaly Chest Exam: Positive: Normal air movement, Diminished, Other (basal crackles.) Heart Exam: Positive: Rate Normal, Regular Rhythm, Normal S1, Normal S2; Negative: Murmurs, Rubs Abdomen Exam: Positive: Normal bowel sounds, Soft; Negative: Tenderness, Hepatospenomegaly Extremity Exam: Negative: Clubbing, Cyanosis, Edema Skin Exam: Positive: Nl turgor and temperature; Negative: Rash, Breakdown Psych Exam: Positive: Anxiety, Memory Intact, Oriented x 3 Assessment /Plan Problems (1) Jaw pain Problem Text: Resolved.Suspected of being angina.EKG and cardiac enzymes without evidence of acute process. 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 (4) Thoracic aortic aneurysm Problem Text: Stable,4.1 (5) Hyperkalemia Problem Text: resolved (6) Weakness Problem Text: Improved,tolerating PT and feeling better today (7) Parkinson disease Problem Text: Continue sinemet.Satble (8) Vitamin B12 deficiency Problem Text: Supplementing (9) Chronic diastolic (congestive) heart failure Problem Text: On lasix,Stable (10) Orthostatic hypotension Status: Acute Problem Text: Due to pramipexole which has been stopped.Now BP improved. Plan/VTE VTE Prophylaxis Ordered?: Yes Plan Diet: Continue Current Rehab vs SNF Disposition POSSIBLY TOMORROW VS, I&O, 24H, [facility] Vital Signs/I&O Vital Signs Date Time Temp Pulse Resp B/P (MAP) Pulse Ox O2 Delivery O2 Flow Rate FiO2 05/07/19 20:56 88 100/68 05/07/19 14:00 98.2 18 97 05/02/19 11:46 Room Air I&O- Last 24 Hours up to 6 AM 05/07/19 06:00 Intake Total 1810 ml Output Total 2250 ml Balance -440 ml Laboratory Data 24H LABS Laboratory Tests 2 05/07/19 05:30: Immature Granulocyte % (Auto) 0.5, White Blood Count 6.2, Red Blood Count 4.48, Hemoglobin 12.9, Hematocrit 40.4, Mean Corpuscular Volume 90.2, Mean Corpuscular Hemoglobin 28.8, Mean Corpuscular Hemoglobin Concent 31.9L, Red Cell Distribution Width 15.2H, Platelet Count 262, Neutrophils (%) (Auto) 64.4, Lymphocytes (%) (Auto) 19.9L, Monocytes (%) (Auto) 9.9H, Eosinophils (%) (Auto) 5.0H, Basophils (%) (Auto) 0.3, Neutrophils # (Auto) 4.0, Lymphocytes # (Auto) 1.2L, Monocytes # (Auto) 0.6, Eosinophils # (Auto) 0.3, Basophils # (Auto) 0.0, Nucleated Red Blood Cells % (auto) 0.0, Anion Gap 5L, Glomerular Filtration Rate 54.1, Blood Urea Nitrogen 23H, Creatinine 1.03, Sodium Level 142, Potassium Level 3.9, Chloride Level 106, Carbon Dioxide Level 31, Calcium Level 9.5 CBC/BMP Laboratory Tests 05/07/19 05:30 Red Blood Count 4.48, Mean Corpuscular Volume 90.2, Mean Corpuscular Hemoglobin 28.8, Mean Corpuscular Hemoglobin Concent 31.9 L, Red Cell Distribution Width 15.2 H, Neutrophils (%) (Auto) 64.4, Lymphocytes (%) (Auto) 19.9 L, Monocytes (%) (Auto) 9.9 H, Eosinophils (%) (Auto) 5.0 H, Basophils (%) (Auto) 0.3, Neutrophils # (Auto) 4.0, Lymphocytes # (Auto) 1.2 L, Monocytes # (Auto) 0.6, Eosinophils # (Auto) 0.3, Basophils # (Auto) 0.0, Calcium Level 9.5 ROSA PARRY MD May 07, 2019 21:45
[2019-05-07 22:00] VITALS: BP 105/61
[2019-05-08 06:00] VITALS: BP 121/66
[2019-05-08 06:41] LABS: BASO % 0.5 % (0.0-1.0); EOS # 0.4 10^3/uL (0.0-0.50); EOS % 5.3 % (0.0-3.0); LYMPH # 1.4 10^3/uL (1.5-4.5); LYMPH % 19.3 % (24.0-44.0); MEAN CORPUSCULAR HEMOGLOBIN 29.1 pg (27.0-33.0); MEAN CORPUSCULAR HGB CONC 31.7 g/dl (32.0-36.5); MEAN CORPUSCULAR VOLUME 91.9 fl (80.0-96.0); MONO # 0.8 10^3/uL (0.0-0.8); MONO % 10.8 % (0.0-5.0); NEUTROPHILS # 4.7 10^3/uL (1.8-7.7); NEUTROPHILS % 63.7 % (36.0-66.0); PLATELET COUNT, AUTOMATED 256 10^3/uL (150-450); RED BLOOD COUNT 4.46 10^6/uL (4.00-5.40); WHITE BLOOD COUNT 7.4 10^3/uL (4.0-10.0)
[2019-05-08 07:00] LABS: CALCIUM LEVEL 9.2 MG/DL (8.8-10.2); CREATININE FOR GFR 1.19 MG/DL (0.55-1.30); GLOMERULAR FILTRATION RATE 45.8 (>32); POTASSIUM SERUM 4.1 MEQ/L (3.5-5.1)
[2019-05-08] MEDS: FUROSEMIDE 20 MG TAB PO SCH (09:00)
[2019-05-08] MEDS: VITAMIN D 1,000 INTERNATIONAL UNITS TABLET PO SCH (09:14)
[2019-05-08] MEDS: ASPIRIN 81 MG ENTERIC TAB PO SCH (09:15)
[2019-05-08] MEDS: NORTRIPTYLINE 25 MG CAP PO SCH (09:15)
[2019-05-08] MEDS: hydrOXYzine 25 MG TAB PO SCH (09:15)
[2019-05-08] MEDS: CYANOCOBALAMIN 500 MCG TAB PO SCH (09:15)
[2019-05-08] MEDS: SINEMET 25-100 MG TAB PO SCH ×2 (09:15→13:47)
[2019-05-08] MEDS: OMEPRAZOLE 20 MG CAP PO SCH (09:15)
[2019-05-08] MEDS: ATORVASTATIN 20 MG TAB PO SCH (09:15)
[2019-05-08] MEDS: SPIRONOLACTONE 25 MG TAB PO SCH (09:16)
[2019-05-08] MEDS: MIRALAX *UNIT DOSE* 17GM PACKET PO SCH (09:17)
[2019-05-08] MEDS: HEPARIN SOD (PORCINE) 5000 UNITS/ML VIAL SC SCH (09:17)
[2019-05-08] MEDS: LEVOTHYROXINE 88MCG TABLET (0.088 MG) PO SCH (09:17)
[2019-05-08 09:19] VITALS: BP 107/62
[2019-05-08] MEDS: ISOSORBIDE MON. (IMDUR) 60 MG XR TAB PO SCH (09:19)
--- NOTE | 2019-05-08 12:42 | DS.PDOC ---
Discharge Summary General Date of Admission May 04, 2019 at 07:13 Date of Discharge 05/08/19 at 12:44 Primary Care Physician: LEYLA SZYMANSKI DO Attending Physician: ROSA PARRY MD Discharge Summary PROCEDURES PERFORMED DURING STAY: [None]. 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 She was found to have orthostatic hypotension which did not improve even after 2 l of fluids. She was admitted for further evaluation. She also complained of pounding of her heart after getting up which last for several hours. Says she cannot eat any thing in the morning as all the mediations make her feel nauseous . She eats better in the afternoon. 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 She was found to have orthostatic hypotension which did not improve even after 2 l of fluids. She was admitted for further evaluation.It wasa determined that the hypotension was due to pramipexole which was discontinued and since then patient's bloopd pressure has improved.Patient also complained of poor appetite however this has improved during her hospitalization.Patient complained of jaw pain on 05/04.Cardiac work-up was initiated and the was no evidence of acute cardiac event.The jaw pain has since resolved.Physical therapy has worked with patient and patient has progressively done well.Today she is clinically stable,feeling stronger,walking around without difficulty.She will be discharged home and will continue with outpatient physical therapy. DISCHARGE MEDICATIONS: Please see below. ALLERGIES: Please see below. PHYSICAL EXAMINATION ON DISCHARGE: VITAL SIGNS: Please see below. GENERAL:well nourished,well; built HEENT:at/nc,mouth moist NECK:supple,no jvd CARDIOVASCULAR EXAMINATION:s1s2 nl,no m/g RESPIRATORY EXAMINATION:ctab ABDOMINAL EXAMINATION:soft,not tender EXTREMITIES:no edema. SKIN:no rash NEUROLOGICAL EXAMINATION:aaox3,grossly intact PSYCHIATRIC EXAMINATION:calm,not anxious LABORATORY DATA: Please see below. PROGNOSIS:good ACTIVITY: [As tolerated]. DIET:cardiac diet DISCHARGE PLAN: Follow up with pcp Takes medications as prescribed Seek medical attention if recurrence of symptoms DISPOSITION: . DISCHARGE INSTRUCTIONS: 1. . DISCHARGE CONDITION: [Stable]. TIME SPENT ON DISCHARGE: Greater than 35 minutes. Vital Signs/I&Os Vital Signs Date Time Temp Pulse Resp B/P (MAP) Pulse Ox O2 Delivery O2 Flow Rate FiO2 05/08/19 09:19 107/62 05/08/19 09:00 75 05/08/19 06:00 97.3 15 97 05/02/19 11:46 Room Air I&O- Last 24 Hours up to 6 AM 05/08/19 06:00 Intake Total 770 ml Output Total 600 ml Balance 170 ml Laboratory Data Labs 24H Laboratory Tests 2 05/08/19 06:21: Immature Granulocyte % (Auto) 0.4, White Blood Count 7.4, Red Blood Count 4.46, Hemoglobin 13.0, Hematocrit 41.0, Mean Corpuscular Volume 91.9, Mean Corpuscular Hemoglobin 29.1, Mean Corpuscular Hemoglobin Concent 31.7L, Red Cell Distribution Width 15.2H, Platelet Count 256, Neutrophils (%) (Auto) 63.7, Lymphocytes (%) (Auto) 19.3L, Monocytes (%) (Auto) 10.8H, Eosinophils (%) (Auto) 5.3H, Basophils (%) (Auto) 0.5, Neutrophils # (Auto) 4.7, Lymphocytes # (Auto) 1.4L, Monocytes # (Auto) 0.8, Eosinophils # (Auto) 0.4, Basophils # (Auto) 0.0, Nucleated Red Blood Cells % (auto) 0.0, Anion Gap 7L, Glomerular Filtration Rate 45.8, Blood Urea Nitrogen 34H, Creatinine 1.19, Sodium Level 142, Potassium Level 4.1, Chloride Level 107, Carbon Dioxide Level 28, Calcium Level 9.2 CBC/BMP Laboratory Tests 05/08/19 06:21 Red Blood Count 4.46, Mean Corpuscular Volume 91.9, Mean Corpuscular Hemoglobin 29.1, Mean Corpuscular Hemoglobin Concent 31.7 L, Red Cell Distribution Width 15.2 H, Neutrophils (%) (Auto) 63.7, Lymphocytes (%) (Auto) 19.3 L, Monocytes (%) (Auto) 10.8 H, Eosinophils (%) (Auto) 5.3 H, Basophils (%) (Auto) 0.5, Neutrophils # (Auto) 4.7, Lymphocytes # (Auto) 1.4 L, Monocytes # (Auto) 0.8, Eosinophils # (Auto) 0.4, Basophils # (Auto) 0.0, Calcium Level 9.2 Discharge Medications Scheduled Aspirin (Aspirin EC) 81 Mg Tablet.dr, 81 MG PO DAILY, (Reported) Atorvastatin Calcium (Atorvastatin Calcium) 20 Mg Tab, 20 MG PO DAILY, (Reported) Carbidopa/Levodopa (Sinemet 25-100 mg Tablet) 1 Each Tablet, 1.5 TAB PO QID, (Reported) Cholecalciferol (Vitamin D3) (Vitamin D3) 3,000 Unit Tablet, 3,000 UNIT PO DAILY, (Reported) Cyclosporine (Restasis) 0.05 % Emu, 1 DROP OU BID, (Reported) Diltiazem Hcl (Diltiazem HCl) 60 Mg Tablet, 60 MG PO TID, (Reported) Dorzolamide HCl/Timolol Maleat (Dorzolamide-Timolol Eye Drops) 1 Nenita Nenita, 1 DROP OU BID, (Reported) Furosemide (Furosemide) 20 Mg Tab, 20 MG PO DAILY, (Reported) Hydroxyzine HCl (Hydroxyzine HCl) 25 Mg Tablet, 25 MG PO TID, (Reported) Isosorbide Mononitrate (Isosorbide Mononitrate ER) 60 Mg Tab.er.24h, 120 MG PO DAILY, (Reported) Latanoprostene Bunod (Vyzulta) 0.024% 5ML Drops, 1 DROP QHS, (Reported) Levothyroxine Sodium (Synthroid) 88 Mcg Tab, 88 MCG PO DAILY, (Reported) Nortriptyline Hcl (Pamelor) 25 Mg Cap, 25 MG PO DAILY, (Reported) Omeprazole Magnesium (Prilosec Otc) 20 Mg Tablet.dr, 20 MG PO DAILY, (Reported) Spironolactone (Spironolactone) 25 Mg Tablet, 12.5 MG PO DAILY, (Reported) Vit C/E/Zn/Coppr/Lutein/Zeaxan (Preservision Areds 2 Softgel) 1 Each Capsule, 1 EACH PO BID, (Reported) Scheduled PRN Acetaminophen (Acetaminophen) 325 Mg Tab, 650 MG PO Q4H PRN for PAIN, (Reported) Albuterol Sulfate (Proair Hfa) 108 Mcg/Act Aer, 2 PUFF INH QID PRN for SHORTNESS OF BREATH, (Reported) Nitroglycerin (Nitrostat) 0.4 Mg Subl, 0.4 MG SL NITRO PRN for CHEST PAIN, (Reported) Allergies Coded Allergies: clindamycin (Verified Allergy, Severe, Chest pressure, 01/14/19) Contrast Media (Verified Allergy, Intermediate, HIVES, 11/30/14) ciprofloxacin (Verified Allergy, Intermediate, ERYTHEMA, 01/14/19) gabapentin (Verified Allergy, Intermediate, ERYTHEMA, 01/14/19) ketoconazole (Verified Allergy, Intermediate, 05/02/19) meloxicam (Verified Allergy, Intermediate, ERYTHEMA, 01/14/19) amoxicillin (Verified Adverse Reaction, Severe, Renal Failure, 01/14/19) clavulanic acid (Verified Adverse Reaction, Severe, Renal Failure, 01/14/19) ibuprofen (Verified Adverse Reaction, Severe, GA, 01/14/19) ROSA PARRY MD May 08, 2019 12:42
[2019-05-08 14:00] VITALS: BP 101/59
== END 2019-05-08 14:55 | disposition home or self-care (01) | DRG 312 ==
LOC: M ED 11:31 → M ED INP 11:32 → M MSPAV 22:53 → OBSVTOIN 05-04 07:13
PROVIDERS: ADMIT Internal Medicine; ATTEND Internal Medicine
DX: I95.1 Orthostatic hypotension (principal); I50.32 Chronic diastolic (congestive) heart failure; I11.0 Hypertensive heart disease with heart failure; E78.5 Hyperlipidemia, unspecified; E03.9 Hypothyroidism, unspecified; I83.90 Asymptomatic varicose veins of unspecified lower extremity; T44.995A Adverse effect of other drug primarily affecting the autonomic nervous system, initial encounter; I71.2 Thoracic aortic aneurysm, without rupture; R63.0 Anorexia; G20 Parkinson's disease; R26.2 Difficulty in walking, not elsewhere classified; R53.1 Weakness; E53.8 Deficiency of other specified B group vitamins; G62.9 Polyneuropathy, unspecified; R53.81 Other malaise; I25.119 Atherosclerotic heart disease of native coronary artery with unspecified angina pectoris; E87.5 Hyperkalemia; Z79.82 Long term (current) use of aspirin; Z79.899 Other long term (current) drug therapy; Z85.79 Personal history of other malignant neoplasms of lymphoid, hematopoietic and related tissues; Z95.0 Presence of cardiac pacemaker; Z92.3 Personal history of irradiation

== ENCOUNTER 2019-05-11 14:41 | Observation (INO) | payer MEDICARE, OTHER ==
[~2019-05-11] VITALS: Ht 167.6 cm; Wt 65.4 kg
[~2019-05-11 14:41] MED LIST changes: +MIRA0.12 PO; +MIRA0.5T PO; +PRES10CA2 PO; +PRIL20TA2 PO; +SINE25TA5 PO; +VITA30004 PO; +VYZU0.02
[2019-05-11] MEDS ORDERED: NS 1,000 ML IV ONE (17:45)
[2019-05-11 17:56] LABS: BASO % 0.6 % (0.0-1.0); EOS # 0.2 10^3/uL (0.0-0.50); EOS % 3.1 % (0.0-3.0); HEMATOCRIT 48.5 % (36.0-47.0); HEMOGLOBIN 15.8 g/dl (12.0-15.5); LYMPH # 1.3 10^3/uL (1.5-4.5); LYMPH % 18.5 % (24.0-44.0); MEAN CORPUSCULAR HEMOGLOBIN 29.9 pg (27.0-33.0); MEAN CORPUSCULAR HGB CONC 32.6 g/dl (32.0-36.5); MEAN CORPUSCULAR VOLUME 91.9 fl (80.0-96.0); MONO # 0.8 10^3/uL (0.0-0.8); NEUTROPHILS # 4.4 10^3/uL (1.8-7.7); NEUTROPHILS % 65.2 % (36.0-66.0); PLATELET COUNT, AUTOMATED 296 10^3/uL (150-450); RED BLOOD COUNT 5.28 10^6/uL (4.00-5.40); WHITE BLOOD COUNT 6.8 10^3/uL (4.0-10.0)
[2019-05-11 18:25] LABS: BLOOD UREA NITROGEN 21 MG/DL (7-18); CALCIUM LEVEL 10.1 MG/DL (8.8-10.2); CARBON DIOXIDE LEVEL 29 MEQ/L (21-32); CHLORIDE LEVEL 100 MEQ/L (98-107); CK-MB VALUE MASS < 1.0 NG/ML (<3.6); CPK CREATINE PHOSPHOKINASE 30 U/L (26-192); CREATININE FOR GFR 1.13 MG/DL (0.55-1.30); FREE T4 1.19 NG/DL (0.76-1.46); GLOMERULAR FILTRATION RATE 48.6 (>32); GLUCOSE, FASTING 91 MG/DL (70-100); MAGNESIUM LEVEL 2.8 MG/DL (1.8-2.4); MB/CK RELATIVE INDEX 3.33 (< OR =4); POTASSIUM SERUM 4.6 MEQ/L (3.5-5.1); SODIUM LEVEL 137 MEQ/L (136-145); TROPONIN I < 0.02 NG/ML (< 0.10)
[2019-05-11] MEDS ORDERED: FUROSEMIDE 20 MG TAB PO SCH (21:00)
[2019-05-11] MEDS ORDERED: ACETAMINOPHEN TAB 650MG DOSE (2X325MG) PO PRN (21:15)
[2019-05-11] MEDS ORDERED: NITROGLYCERIN 0.4 MG SUBL TABLET SL PRN (22:30)
[2019-05-11] MEDS ORDERED: OMEPRAZOLE 20 MG CAP PO PRN (22:30)
[2019-05-11] MEDS ORDERED: PILL CUTTER 1 EACH XX PRN (23:00)
--- NOTE | 2019-05-11 23:09 | HPEPDOC ---
[facility] Medical History & Physical Date of Admission May 11, 2019 Date of Service: May 11, 2019 History and Physical CHIEF COMPLAINT: [lower extremity weakness HISTORY OF PRESENT ILLNESS: [This is an 88 yo female who recently was discharged home, who presented to the ed for weakness below her knees with hypersensitivity to her skin with numbness and tingling. She said she feels as if she is going to fall when she stands because her legs feel so weak. ] PAST MEDICAL / SURGERY HISTORY: 1. Coronary artery disease status post KEN in RCA 2. Chronic Hypertension. 3. Dyslipidemia. 4. 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 5. Chronic diastolic congestive heart failure (CHF). 6. NHL 7. Hysterectomy. 8. Tonsillectomy. SOCIAL HISTORY: Quit smoking FAMILY HISTORY: brain cancer and lung cancer. ALLERGIES: Please see below. HOME MEDICATIONS: Please see below. LABORATORY DATA: See below. IMAGING: MICROBIOLOGY: Please see below. ROS - all 10 point review of system is negative except for whats listed in HPI Physical exam Gen: NAD, healthy appearing , HEENT: normocephalic, atraumatic, no discharge from ears or nose, no oropharyngeal erythema or exudate, neck is supple, no lymphadenopathy, trachea midline CVS: RRR, normal S1n S2, no murmur, rubs, or gallops, no edema, no jvd Resp: LCTAB, no rhonchi, or crackles Abd : soft nontender, normal bowel sounds, no rebound tenderness or guarding MSK: no swelling, or deformity, full range of motion, strength 5/5, very sensitive to touch below the knees b/l Neuro: AOA, no confusion, no focal deficit Psych: normal mood and affect, good judgment ASSESSMENT and plan weakness and possibly peripheral neuropathy -PT eval ordered -orthostatic positive in ed per endorsement -gentle hydration - hold lasix for now -allergic to gabapentin -f/u ua c/w home meds Vital Signs Vital Signs Date Time Temp Pulse Resp B/P (MAP) Pulse Ox O2 Delivery O2 Flow Rate FiO2 05/11/19 21:23 96.1 79 20 143/73 (96) 97 Room Air Laboratory Data Labs 24H Laboratory Tests 2 05/11/19 17:47: Immature Granulocyte % (Auto) 0.6, White Blood Count 6.8, Red Blood Count 5.28, Hemoglobin 15.8H, Hematocrit 48.5H, Mean Corpuscular Volume 91.9, Mean Corpuscular Hemoglobin 29.9, Mean Corpuscular Hemoglobin Concent 32.6, Red Cell Distribution Width 14.9H, Platelet Count 296, Neutrophils (%) (Auto) 65.2, Lymphocytes (%) (Auto) 18.5L, Monocytes (%) (Auto) 12.0H, Eosinophils (%) (Auto) 3.1H, Basophils (%) (Auto) 0.6, Neutrophils # (Auto) 4.4, Lymphocytes # (Auto) 1.3L, Monocytes # (Auto) 0.8, Eosinophils # (Auto) 0.2, Basophils # (Auto) 0.0, Nucleated Red Blood Cells % (auto) 0.0, D-Dimer, Quantitative 1531.87H, Anion Gap 8, Glomerular Filtration Rate 48.6, Blood Urea Nitrogen 21H, Creatinine 1.1 3, Sodium Level 137, Potassium Level 4.6, Chloride Level 100, Carbon Dioxide Level 29, Calcium Level 10.1, Total Creatine Kinase 30, Magnesium Level 2.8H, Creatine Kinase MB < 1.0, Creatine Kinase MB Relative Index 3.33, Troponin I < 0.02, Thyroid Stimulating Hormone (TSH) 1.460, Free Thyroxine 1.19 05/11/19 20:39: Bedside Glucose (Misc Panel) 82L CBC/BMP Laboratory Tests 05/11/19 17:47 Red Blood Count 5.28, Mean Corpuscular Volume 91.9, Mean Corpuscular Hemoglobin 29.9, Mean Corpuscular Hemoglobin Concent 32.6, Red Cell Distribution Width 14.9 H, Neutrophils (%) (Auto) 65.2, Lymphocytes (%) (Auto) 18.5 L, Monocytes (%) (Auto) 12.0 H, Eosinophils (%) (Auto) 3.1 H, Basophils (%) (Auto) 0.6, Neutrophils # (Auto) 4.4, Lymphocytes # (Auto) 1.3 L, Monocytes # (Auto) 0.8, Eosinophils # (Auto) 0.2, Basophils # (Auto) 0.0, Calcium Level 10.1, Total Creatine Kinase 30 Microbiology Microbiology 05/11/19 Blood Culture, Received Pending 05/11/19 Blood Culture, Received Pending Home Medications Scheduled Aspirin (Aspirin EC) 81 Mg Tablet.dr, 81 MG PO DAILY Atorvastatin Calcium (Atorvastatin Calcium) 20 Mg Tab, 20 MG PO DAILY Carbidopa/Levodopa (Sinemet 25-100 mg Tablet) 1 Each Tablet, 1.5 TAB PO QID Cholecalciferol (Vitamin D3) (Vitamin D3) 3,000 Unit Tablet, 3,000 UNIT PO DAILY Cyclosporine (Restasis) 0.05 % Emu, 1 DROP OU BID Diltiazem Hcl (Diltiazem HCl) 60 Mg Tablet, 60 MG PO TID Dorzolamide HCl/Timolol Maleat (Dorzolamide-Timolol Eye Drops) 1 Nenita Nenita, 1 DROP OU BID Furosemide (Furosemide) 20 Mg Tab, 20 MG PO QHS Isosorbide Mononitrate (Isosorbide Mononitrate ER) 60 Mg Tab.er.24h, 120 MG PO DAILY Latanoprostene Bunod (Vyzulta) 0.024% 5ML Drops, 1 DROP QHS Levothyroxine Sodium (Synthroid) 88 Mcg Tab, 88 MCG PO DAILY Nortriptyline Hcl (Pamelor) 25 Mg Cap, 25 MG PO DAILY Spironolactone (Spironolactone) 25 Mg Tablet, 12.5 MG PO DAILY Vit C/E/Zn/Coppr/Lutein/Zeaxan (Preservision Areds 2 Softgel) 1 Each Capsule, 1 EACH PO BID Scheduled PRN Acetaminophen (Acetaminophen) 325 Mg Tab, 650 MG PO Q4H PRN for PAIN Albuterol Sulfate (Proair Hfa) 108 Mcg/Act Aer, 2 PUFF INH QID PRN for SHORTNESS OF BREATH Nitroglycerin (Nitrostat) 0.4 Mg Subl, 0.4 MG SL NITRO PRN for CHEST PAIN Omeprazole Magnesium (Prilosec Otc) 20 Mg Tablet.dr, 20 MG PO DAILY PRN for INDIGESTION Allergies Coded Allergies: Contrast Media (Verified Allergy, Intermediate, HIVES, 05/11/19) ciprofloxacin (Verified Allergy, Intermediate, ERYTHEMA, 05/11/19) gabapentin (Verified Allergy, Intermediate, ERYTHEMA, 05/11/19) ketoconazole (Verified Allergy, Intermediate, 05/11/19) meloxicam (Verified Allergy, Intermediate, ERYTHEMA, 05/11/19) pramipexole (Verified Allergy, Unknown, 05/11/19) amoxicillin (Verified Adverse Reaction, Severe, Renal Failure, 05/11/19) clavulanic acid (Verified Adverse Reaction, Severe, Renal Failure, 05/11/19) clindamycin (Verified Adverse Reaction, Severe, Chest pressure, 05/11/19) ibuprofen (Verified Adverse Reaction, Severe, PR, 05/11/19) A-FIB/CHADSVASC A-FIB History Current/History of A-Fib/PAF?: No Age/Risk Factor Scoring CHADSVASC: CHADSVASC Response (Comments) Value Age Risk Factor Age >/= 75 years old 2 Gender Risk Factor Female 1 Hx of CHF Yes 1 Hx of HTN Yes 1 Hx of Stroke/TIA/or VTE No 0 Hx of Diabetes No 0 Hx of Vascular Disease No 0 Total 5 Treatment Treatment ordered: NONE Reason Anticoagulant not given: Not indicated/[id number] TAMMI WYNN MD May 11, 2019 22:55
[2019-05-12 00:05] VITALS: BP 127/69
[2019-05-12] MEDS: SINEMET 25-100 MG TAB PO SCH ×5 (00:11→21:00)
[2019-05-12 06:00] VITALS: BP 138/65
[2019-05-12] MEDS: HEPARIN SOD (PORCINE) 5000 UNITS/ML VIAL SC SCH ×2 (06:05→17:13)
[2019-05-12] MEDS: LEVOTHYROXINE 88MCG TABLET (0.088 MG) PO SCH (06:05)
[2019-05-12 06:51] LABS: HEMATOCRIT 45.7 % (36.0-47.0); MEAN CORPUSCULAR HEMOGLOBIN 30.3 pg (27.0-33.0); MEAN CORPUSCULAR HGB CONC 32.8 g/dl (32.0-36.5); MEAN CORPUSCULAR VOLUME 92.3 fl (80.0-96.0); PLATELET COUNT, AUTOMATED 280 10^3/uL (150-450); RED BLOOD COUNT 4.95 10^6/uL (4.00-5.40); WHITE BLOOD COUNT 6.6 10^3/uL (4.0-10.0)
[2019-05-12 07:17] LABS: CALCIUM LEVEL 9.5 MG/DL (8.8-10.2); CREATININE FOR GFR 1.02 MG/DL (0.55-1.30); GLOMERULAR FILTRATION RATE 54.7 (>32); MAGNESIUM LEVEL 2.4 MG/DL (1.8-2.4); POTASSIUM SERUM 4.3 MEQ/L (3.5-5.1)
[2019-05-12] MEDS: NORTRIPTYLINE 25 MG CAP PO SCH (09:43)
[2019-05-12] MEDS: ATORVASTATIN 20 MG TAB PO SCH (09:43)
[2019-05-12] MEDS: DOCUSATE SODIUM 100 MG CAP PO SCH ×2 (09:43→21:00)
[2019-05-12] MEDS: SPIRONOLACTONE 12.5MG PER 1/2 TABLET PO SCH (09:44)
[2019-05-12] MEDS: ISOSORBIDE MON. (IMDUR) 60 MG XR TAB PO SCH (09:46)
[2019-05-12] MEDS: ASPIRIN 81 MG ENTERIC TAB PO SCH (09:50)
[2019-05-12 14:00] VITALS: BP 127/75
[2019-05-12] MEDS ORDERED: VANICREAM MOISTURIZING SKIN CREAM 113GM TUBE TOP PRN (16:30)
--- NOTE | 2019-05-12 20:11 | ECGEPIP ---
[facility] - ED Test Date: 2019-05-11 Pat Name: ANDREW FAN Department: Room: - Gender: Female Rn Recruitment: BLAIR : 1930 Requested By: DANA Sarabia Order Number: [id number] Reading MD: Deacon Armando Measurements Intervals Blanco Rate: 68 P: 73 MD: 184 QRS: -73 QRSD: 186 T: 105 QT: 439 QTc: 469 Interpretive Statements ELECTRONIC VENTRICULAR PACEMAKER SIMILAR TO 05/06/19 Electronically Signed on 05-12-2019 20:10:45 EDT by Deacon Armando
--- NOTE | 2019-05-12 21:39 | IPNPDOC ---
Text Note Date of Service The patient was seen on 05/12/19. NOTE SUBJECTIVE: States she feels weak and still has b/l knee pain with numbness/tingling. OBJECTIVE: See vital signs below General: Awake, speaking freely, NAD HENT: Neck is supple to passive motion Cardiovascular: RRR, S1/S2 present. Respiratory: CTA b/l, good air entry. Abdomen: Soft, non-tender, non-distended. Bowel sounds present. Extremities: b/l knee tenderness to palpation, moving all extremities spontaneously, good ROM. Pedal pulses are palpable and there is no distal pedal edema. Skin: distal skin varicosities. Psych: Normal mood/affect. ASSESSMENT/PLAN: This is an 88 yo female who recently was discharged home, who presented to the ed for weakness below her knees with hypersensitivity to her skin with numbness and tingling. weakness and possibly peripheral neuropathy -PT and OT eval ordered, will follow up -orthostatic positive in ED, continue IVF hydration, encourage PO intake. - hold lasix for now -allergic to gabapentin Continue chronic home medications. Vital Signs Date Time Temp Pulse Resp B/P (MAP) Pulse Ox O2 Delivery O2 Flow Rate FiO2 05/12/19 21:01 80 110/64 05/12/19 17:11 83 112/69 05/12/19 14:00 97.6 78 18 127/75 (92) 97 05/12/19 09:46 124/69 05/12/19 09:45 77 124/69 05/12/19 06:00 97.0 69 19 138/65 (89) 94 05/12/19 00:54 72 127/69 05/12/19 00:05 96.9 72 18 127/69 (88) 96 05/11/19 23:48 96.1 71 18 139/82 (101) 95 Room Air Intake & Output 05/12/19 06:00 Intake Total 300 ml Output Total 0 ml Balance 300 ml Laboratory Tests 05/12/19 06:38: White Blood Count 6.6, Red Blood Count 4.95, Hemoglobin 15.0, Hematocrit 45.7, Mean Corpuscular Volume 92.3, Mean Corpuscular Hemoglobin 30.3, Mean Corpuscular Hemoglobin Concent 32.8, Red Cell Distribution Width 14.8H, Platelet Count 280, Nucleated Red Blood Cells % (auto) 0.0, Blood Urea Nitrogen 18, Creatinine 1.02, Sodium Level 139, Potassium Level 4.3, Chloride Level 103, Carbon Dioxide Level 30, Calcium Level 9.5, Anion Gap 6L, Glomerular Filtration Rate 54.7, Fasting Glucose 90, Magnesium Level 2.4 Current Medications Medications (Trade) Dose Ordered Sig/Lázaro Route PRN Reason Start Time Stop Time Status Last Admin Dose Admin Aspirin (Ecotrin) 81 mg DAILY PO 05/12/19 09:00 05/12/19 09:50 81 MG Atorvastatin Calcium (Lipitor) 20 mg DAILY PO 05/12/19 09:00 05/12/19 09:43 20 MG Carbidopa/Levodopa (Sinemet 25/100) 1.5 tab QID PO 05/11/19 21:00 05/12/19 21:00 1.5 TAB Diltiazem HCl (Cardizem) 60 mg TID PO 05/11/19 21:00 05/12/19 21:01 60 MG Docusate Sodium (Colace) 100 mg BID PO 05/12/19 09:00 05/12/19 21:00 100 MG Heparin Sodium (Porcine) (Heparin) 5,000 units Q12H SC 05/12/19 06:00 05/12/19 17:13 5,000 UNITS Isosorbide Mononitrate (Imdur) 120 mg DAILY PO 05/12/19 09:00 05/12/19 09:46 120 MG Levothyroxine Sodium (Synthroid) 88 mcg DAILY@0600 PO 05/12/19 06:00 05/12/19 06:05 88 MCG Nortriptyline HCl (Pamelor) 25 mg DAILY PO 05/12/19 09:00 05/12/19 09:43 25 MG Spironolactone (Aldactone) 12.5 mg DAILY PO 05/12/19 09:00 05/12/19 09:44 12.5 MG VS,Fishbone, I+O VS, Fishbone, I+O Laboratory Tests 05/12/19 06:38 Red Blood Count 4.95, Mean Corpuscular Volume 92.3, Mean Corpuscular Hemoglobin 30.3, Mean Corpuscular Hemoglobin Concent 32.8, Red Cell Distribution Width 14.8 H, Calcium Level 9.5 Vital Signs Date Time Temp Pulse Resp B/P (MAP) Pulse Ox O2 Delivery O2 Flow Rate FiO2 05/12/19 21:01 80 110/64 05/12/19 14:00 97.6 18 97 05/11/19 23:48 Room Air I&O- Last 24 Hours up to 6 AM 05/12/19 06:00 Intake Total 300 ml Output Total 0 ml Balance 300 ml GABBIE CLARK MD May 12, 2019 21:39
[2019-05-12 22:00] VITALS: BP 110/64
[2019-05-13] MEDS: LEVOTHYROXINE 88MCG TABLET (0.088 MG) PO SCH (05:49)
[2019-05-13] MEDS: HEPARIN SOD (PORCINE) 5000 UNITS/ML VIAL SC SCH ×2 (05:50→17:01)
[2019-05-13 06:00] VITALS: BP 129/72
--- NOTE | 2019-05-13 08:37 | REP ---
Portable chest, AP view with the patient sitting, 04:22 p.m.: Comparisons are 07/22/2018, 09/20/2018, and 05/02/2019. There is chronic effacement of the left costophrenic angle, possibly pleural adhesion. There is chronic diffuse interstitial coarsening compatible with chronic interstitial lung disease. There is a dual-chamber pacemaker, unchanged. Cardiac size is upper normal, unchanged. The kim, mediastinum, skeletal structures are unremarkable. Impression: There are chronic findings as described. There are no acute cardiopulmonary findings. Electronically Signed by Justin Hughes MD 05/11/2019 04:50 P
[2019-05-13] MEDS: SPIRONOLACTONE 12.5MG PER 1/2 TABLET PO SCH (09:49)
[2019-05-13] MEDS: ASPIRIN 81 MG ENTERIC TAB PO SCH (09:49)
[2019-05-13] MEDS: ISOSORBIDE MON. (IMDUR) 60 MG XR TAB PO SCH (09:50)
[2019-05-13] MEDS: ATORVASTATIN 20 MG TAB PO SCH (09:50)
[2019-05-13] MEDS: SINEMET 25-100 MG TAB PO SCH ×4 (09:50→20:22)
[2019-05-13] MEDS: NORTRIPTYLINE 25 MG CAP PO SCH (09:51)
[2019-05-13] MEDS: DOCUSATE SODIUM 100 MG CAP PO SCH ×2 (09:51→20:21)
[2019-05-13 14:00] VITALS: BP 140/68
--- NOTE | 2019-05-13 19:07 | IPNPDOC ---
Text Note Date of Service The patient was seen on 05/13/19. NOTE S: patient states she is feeling stronger. walked with nursing staff and PT today using walker. Daughter is preparing patient home to fit walker. She states no more hypersensitivity to skin, numbness or tingling. O: Vitals as below General: pleasant NAD AAOx3 HRRR LCTA Ext: no edema, no skin mottling A/P: weakness and possibly peripheral neuropathy - improving -PT and OT eval ordered, possible d/c in AM with home services Orthostatic hypotension - IVF initially, now euvolemic - d/c IVF; lasix on hold Continue chronic home medications. VS,Fishbone, I+O VS, Fishbone, I+O Vital Signs Date Time Temp Pulse Resp B/P (MAP) Pulse Ox O2 Delivery O2 Flow Rate FiO2 05/13/19 14:00 97.1 78 20 140/68 (92) 99 05/11/19 23:48 Room Air I&O- Last 24 Hours up to 6 AM 05/13/19 06:00 Intake Total 1260 ml Balance 1260 ml LACEY SAWN DO May 13, 2019 19:07
[2019-05-13 22:00] VITALS: BP 125/71
[2019-05-14] MEDS: LEVOTHYROXINE 88MCG TABLET (0.088 MG) PO SCH (05:39)
[2019-05-14] MEDS: HEPARIN SOD (PORCINE) 5000 UNITS/ML VIAL SC SCH (05:40)
[2019-05-14 06:00] VITALS: BP 144/80
[2019-05-14] MEDS: ISOSORBIDE MON. (IMDUR) 60 MG XR TAB PO SCH (09:03)
[2019-05-14] MEDS: SPIRONOLACTONE 12.5MG PER 1/2 TABLET PO SCH (09:03)
[2019-05-14] MEDS: ATORVASTATIN 20 MG TAB PO SCH (09:03)
[2019-05-14] MEDS: DOCUSATE SODIUM 100 MG CAP PO SCH (09:03)
[2019-05-14] MEDS: ASPIRIN 81 MG ENTERIC TAB PO SCH (09:03)
[2019-05-14 09:04] VITALS: BP 138/70
[2019-05-14] MEDS: NORTRIPTYLINE 25 MG CAP PO SCH (09:04)
[2019-05-14] MEDS: SINEMET 25-100 MG TAB PO SCH ×2 (09:04→12:23)
--- NOTE | 2019-05-14 17:40 | DS.PDOC ---
Discharge Summary General Date of Admission May 11, 2019 at 14:42 Date of Discharge 05/14/19 Primary Care Physician: LEYLA SZYMANSKI DO Discharge Summary PROCEDURES PERFORMED DURING STAY: none ADMITTING DIAGNOSES: weakness and possibly peripheral neuropathy DISCHARGE DIAGNOSES: weakness / debility peripheral neuropathy Orthostatic hypotension COMPLICATIONS/CHIEF COMPLAINT: Weakness. HISTORY OF PRESENT ILLNESS: This is an 88 yo female who recently was discharged home, who presented to the ed for weakness below her knees with hypersensitivity to her skin with numbness and tingling. She said she feels as if she is going to fall when she stands because her legs feel so weak. See H&P for details. HOSPITAL COURSE: patient placed under observation, lab evaluation negative. Given IVF and PT/OT consulted. She continued to improved and cleared by PT/OT for home . She is being discharge in stable condition with a wheeled walker DISCHARGE MEDICATIONS: Please see below. ALLERGIES: Please see below. PHYSICAL EXAMINATION ON DISCHARGE: VITAL SIGNS: Please see below. GENERAL: Pleasant NAD AAOx3 HRRR LCTA LABORATORY DATA: Please see below. ACTIVITY: as tolerated DIET: regular DISCHARGE PLAN: discharge home DISCHARGE INSTRUCTIONS: 1. follow up with Dr Szymanski as previous scheduled 2. Resume outpatient physical therapy 3. use wheeled walker in house at all times DISCHARGE CONDITION: stable TIME SPENT ON DISCHARGE: 20 minutes. Vital Signs/I&Os Vital Signs Date Time Temp Pulse Resp B/P (MAP) Pulse Ox O2 Delivery O2 Flow Rate FiO2 05/14/19 09:04 82 138/70 05/14/19 06:00 96.7 18 98 05/11/19 23:48 Room Air I&O- Last 24 Hours up to 6 AM 05/14/19 05:59 Intake Total 1186 ml Balance 1186 ml Microbiology Microbiology 05/11/19 Blood Culture - Preliminary, Resulted No Growth after 48 hours. All Specime... 05/11/19 Blood Culture - Preliminary, Resulted No Growth after 48 hours. All Specime... Discharge Medications Scheduled Aspirin (Aspirin EC) 81 Mg Tablet., 81 MG PO DAILY, (Reported) Atorvastatin Calcium (Atorvastatin Calcium) 20 Mg Tab, 20 MG PO DAILY, (Reported) Carbidopa/Levodopa (Sinemet 25-100 mg Tablet) 1 Each Tablet, 1.5 TAB PO QID, (Reported) Cholecalciferol (Vitamin D3) (Vitamin D3) 3,000 Unit Tablet, 3,000 UNIT PO DAILY, (Reported) Cyclosporine (Restasis) 0.05 % Emu, 1 DROP OU BID, (Reported) Diltiazem Hcl (Diltiazem HCl) 60 Mg Tablet, 60 MG PO TID, (Reported) Dorzolamide HCl/Timolol Maleat (Dorzolamide-Timolol Eye Drops) 1 Nenita Nenita, 1 DROP OU BID, (Reported) Furosemide (Furosemide) 20 Mg Tab, 20 MG PO QHS, (Reported) Isosorbide Mononitrate (Isosorbide Mononitrate ER) 60 Mg Tab.er.24h, 120 MG PO DAILY, (Reported) Latanoprostene Bunod (Vyzulta) 0.024% 5ML Drops, 1 DROP QHS, (Reported) Levothyroxine Sodium (Synthroid) 88 Mcg Tab, 88 MCG PO DAILY, (Reported) Nortriptyline Hcl (Pamelor) 25 Mg Cap, 25 MG PO DAILY, (Reported) Spironolactone (Spironolactone) 25 Mg Tablet, 12.5 MG PO DAILY, (Reported) Vit C/E/Zn/Coppr/Lutein/Zeaxan (Preservision Areds 2 Softgel) 1 Each Capsule, 1 EACH PO BID, (Reported) Scheduled PRN Acetaminophen (Acetaminophen) 325 Mg Tab, 650 MG PO Q4H PRN for PAIN, (Reported) Albuterol Sulfate (Proair Hfa) 108 Mcg/Act Aer, 2 PUFF INH QID PRN for SHORTNESS OF BREATH, (Reported) Nitroglycerin (Nitrostat) 0.4 Mg Subl, 0.4 MG SL NITRO PRN for CHEST PAIN, (Reported) Omeprazole Magnesium (Prilosec Otc) 20 Mg Tablet.dr, 20 MG PO DAILY PRN for INDIGESTION, (Reported) Allergies Coded Allergies: Contrast Media (Verified Allergy, Intermediate, HIVES, 05/11/19) ciprofloxacin (Verified Allergy, Intermediate, ERYTHEMA, 05/11/19) gabapentin (Verified Allergy, Intermediate, ERYTHEMA, 05/11/19) ketoconazole (Verified Allergy, Intermediate, 05/11/19) meloxicam (Verified Allergy, Intermediate, ERYTHEMA, 05/11/19) pramipexole (Verified Allergy, Unknown, 05/11/19) amoxicillin (Verified Adverse Reaction, Severe, Renal Failure, 05/11/19) clavulanic acid (Verified Adverse Reaction, Severe, Renal Failure, 05/11/19) clindamycin (Verified Adverse Reaction, Severe, Chest pressure, 05/11/19) ibuprofen (Verified Adverse Reaction, Severe, MD, 05/11/19) LACEY SWAN DO May 14, 2019 13:07
== END 2019-05-14 16:13 | disposition home health service (06) ==
LOC: M ED 14:41 → M ED INP 14:42 → M MSPAV 23:56
PROVIDERS: ADMIT Internal Medicine; ATTEND Family Medicine
DX: R53.1 Weakness (principal); R53.81 Other malaise; G62.9 Polyneuropathy, unspecified; I95.1 Orthostatic hypotension; I11.0 Hypertensive heart disease with heart failure; E78.5 Hyperlipidemia, unspecified; I44.2 Atrioventricular block, complete; Z95.0 Presence of cardiac pacemaker; I50.32 Chronic diastolic (congestive) heart failure; C85.90 Non-Hodgkin lymphoma, unspecified, unspecified site; Z87.891 Personal history of nicotine dependence; Z79.899 Other long term (current) drug therapy; Z79.82 Long term (current) use of aspirin; Z91.041 Radiographic dye allergy status; Z88.1 Allergy status to other antibiotic agents; Z88.8 Allergy status to other drugs, medicaments and biological substances; Z88.0 Allergy status to penicillin; Z88.6 Allergy status to analgesic agent
CPT/HCPCS: 36415; 71045; 80048; 82550; 82553; 83735; 84439; 84443; 84484; 85025; 85027; 85379; 87040; 93005; 93041; 94760; 96372; 97116; 97161; 97530; 99285; G0378

== ENCOUNTER 2019-05-15 14:05 | Outpatient (RCR) | payer MEDICARE, OTHER | END 2019-05-17 | LOC: M PT 14:05 | PROVIDERS: ATTEND Internal Medicine | DX: Z51.89 Encounter for other specified aftercare (principal); R26.89 Other abnormalities of gait and mobility ==

== ENCOUNTER 2019-06-11 13:00 | Outpatient (RCR) | payer MEDICARE, OTHER | END 2019-06-16 | LOC: M PT 13:00 | PROVIDERS: ATTEND Internal Medicine | DX: Z51.89 Encounter for other specified aftercare (principal); R26.89 Other abnormalities of gait and mobility; M62.81 Muscle weakness (generalized) ==

== ENCOUNTER 2019-07-10 13:45 | Outpatient (RCR) | payer MEDICARE, OTHER | END 2019-07-17 | LOC: M PT 13:45 | PROVIDERS: ATTEND Internal Medicine | DX: M62.81 Muscle weakness (generalized) (principal) ==

== ENCOUNTER 2019-07-22 12:34 | Inpatient (IN) | payer MEDICARE, OTHER ==
[~2019-07-22] VITALS: Ht 167.6 cm; Wt 62.8 kg
[~2019-07-22 12:34] MED LIST changes: -VYZU0.02; +VYZU0.02 OU
--- NOTE | 2019-07-22 13:35 | REP ---
PORTABLE CHEST X-RAY: Single view. HISTORY: Dyspnea and cough. COMPARISON STUDY: May 11, 2019. FINDINGS: Monitoring electrodes overlie the chest. Bipolar pacemaker is seen in place. There is evidence of a hiatal hernia behind the heart. The lungs are symmetrically aerated and free of focal infiltrate. Interstitial markings are somewhat prominent diffusely. Heart is not enlarged unchanged. IMPRESSION: Hiatal hernia. Mildly prominent heart unchanged with pacemaker. No acute infiltrate is appreciated. Electronically Signed by Jayant Magana MD 07/22/2019 03:30 P
[2019-07-22] MEDS ORDERED: CVS5000S2 PO (13:41)
[2019-07-22] MEDS ORDERED: IPRATROPIUM 0.5MG/ALBUTEROL 2.5MG INH SOL UD 3ML (DUONEB)(J7620) NEB ONE (13:45)
[2019-07-22 15:19] LABS: BASO # 0.1 10^3/uL (0.0-0.2); BASO % 0.4 % (0.0-1.0); EOS % 0.1 % (0.0-3.0); HEMOGLOBIN 15.2 g/dl (12.0-15.5); LYMPH # 0.9 10^3/uL (1.5-5.0); LYMPH % 4.7 % (24.0-44.0); MEAN CORPUSCULAR HEMOGLOBIN 29.6 pg (27.0-33.0); MEAN CORPUSCULAR HGB CONC 31.7 g/dl (32.0-36.5); MEAN CORPUSCULAR VOLUME 93.4 fl (80.0-96.0); MONO # 1.7 10^3/uL (0.0-0.8); MONO % 8.4 % (0.0-5.0); NEUTROPHILS # 16.9 10^3/uL (1.5-8.5); NEUTROPHILS % 85.9 % (36.0-66.0); PLATELET COUNT, AUTOMATED 303 10^3/uL (150-450); RED BLOOD COUNT 5.14 10^6/uL (4.00-5.40); WHITE BLOOD COUNT 19.7 10^3/uL (4.0-10.0)
[2019-07-22 15:32] LABS: INR 1.22; PROTHROMBIN TIME 15.1 SECONDS (11.8-14.0)
[2019-07-22 15:46] LABS: ALBUMIN 3.5 GM/DL (3.2-5.2); ALT/SGPT 7 U/L (12-78); BILIRUBIN,DIRECT 0.2 MG/DL (0.0-0.2); BILIRUBIN,TOTAL 1.1 MG/DL (0.2-1.0); BLOOD UREA NITROGEN 21 MG/DL (7-18); CALCIUM LEVEL 10.3 MG/DL (8.8-10.2); CARBON DIOXIDE LEVEL 23 MEQ/L (21-32); CHLORIDE LEVEL 102 MEQ/L (98-107); CK-MB VALUE MASS < 1.0 NG/ML (<3.6); CPK CREATINE PHOSPHOKINASE 52 U/L (26-192); CREATININE FOR GFR 1.17 MG/DL (0.55-1.30); GLOMERULAR FILTRATION RATE 46.7 (>32); GLUCOSE, FASTING 100 MG/DL (70-100); MB/CK RELATIVE INDEX 1.92 (< OR =4); POTASSIUM SERUM 4.8 MEQ/L (3.5-5.1); SODIUM LEVEL 136 MEQ/L (136-145); TOTAL PROTEIN 7.3 GM/DL (6.4-8.2); TROPONIN I < 0.02 NG/ML (< 0.10)
[2019-07-22 16:55] LABS: VENOUS BASE EXCESS 0.5 (-2.0-2.0); VENOUS HCO3 21.8 MEQ/L (23.0-27.0); VENOUS O2 SATURATION 99.3 % (60.0-80.0); VENOUS PARTIAL PRESSURE CO2 27.2 mmHg (38.0-50.0); VENOUS PARTIAL PRESSURE O2 181.5 mmHg (30.0-50.0); VENOUS PH 7.521 UNITS (7.330-7.430); VENOUS TOTAL CO2 22.6 MEQ/L (24.0-28.0)
--- NOTE | 2019-07-22 17:00 | REP ---
CT of the chest without IV contrast for chest pain and shortness of breath: Comparison is 06/27/2018. There is chronic consolidation inferomedially in the lobe and a small left pleural effusion. There are calcifications within the chronic consolidation. These left lower lobe findings are unchanged from the prior study. There is a new infiltrate in the lateral, posterior and medial basilar segments of the right lower lobe, not present previously. There is a large calcific pleural plaque anteriorly in the left upper lobe, unchanged. There are small calcific pleural plaques posteriorly bilaterally, unchanged. The ascending thoracic aorta measures 3.7 cm in diameter at the level of the pulmonary bifurcation and is not dilated. There is calcified atheroma in the aortic isthmus. The descending thoracic aorta maximally measures 3.8 cm short axis diameter. This is at the diaphragm. There is no aneurysmal dilatation of the descending thoracic aorta. There is no periaortic hematoma. Cardiac size is enlarged. This is unchanged. There is no pericardial effusion. There is no mediastinal adenopathy or mass. No axillary adenopathy or mass. The study is insensitive for hilar adenopathy in the absence of IV contrast. There is a pacemaker. This is unchanged. Impression: There are chronic changes as described. In addition, there is a new right lower lobe infiltrate. Electronically Signed by Justin Hughes MD 07/22/2019 04:52 P
[2019-07-22] MEDS ORDERED: cefTRIAXone SOD 2 GM in D5W MINI-BAG PLUS 50 ML IV ONE (18:00)
[2019-07-22] MEDS ORDERED: VANCOMYCIN HCL 1,000 MG, VIAL MATE ADAPTER 1 EACH in D5W 250 ML IV ONE (18:30)
[2019-07-22] MEDS ORDERED: NS 1,000 ML IV SCH (18:30)
--- NOTE | 2019-07-22 18:34 | HPEPDOC ---
[facility] [place] Medical History & Physical Date of Admission Jul 22, 2019 Date of Service: Jul 22, 2019 Attending Physician: FAIZA QUEZADA MD History and Physical CHIEF COMPLAINT: Shortness of breath, cough HISTORY OF PRESENT ILLNESS: 88-year-old female with past medical history of Parkinson's disease, coronary artery disease status post stent 1, [place], hypothyroidism, GERD, presents with shortness of breath and coughing for the past few days. She reports her symptoms started 4 days ago with cough, nonpro ductive, followed by shortness of breath with associated chills, fatigue, and arthralgia over the past few nights. She had a doctor's appointment earlier today, but felt so poorly that she decided to come to the emergency room instead. In the ED, she's found to have a right lower lobe infiltrate along with respiratory viral panel positive for human rhinovirus. She denies any chest pain, vomiting, abdominal pain or diarrhea. PAST MEDICAL HISTORY: 1. Parkinson's disease. 2. Coronary artery disease. 3. NM. 4. Hypothyroidism 5. GERD PAST SURGICAL HISTORY: 1. Hysterectomy. 2. Tonsillectomy. SOCIAL HISTORY: Never smoker. Denies alcohol Denies drug use FAMILY HISTORY: Noncontributory ALLERGIES: Please see below. HOME MEDICATIONS: Please see below. PHYSICAL EXAMINATION: VITAL SIGNS: Please see below. GENERAL: No distress, frail HEENT: Normocephalic, atraumatic, moist mucous membranes NECK: Supple CARDIOVASCULAR EXAMINATION: Tachycardic RESPIRATORY EXAMINATION: Bibasilar rhonchi, no wheezing ABDOMINAL EXAMINATION: Soft, nontender, nondistended, positive bowel sounds EXTREMITIES: Range of motion intact SKIN: No rash NEUROLOGICAL EXAMINATION: Alert and oriented 3, no focal deficits PSYCHIATRIC EXAMINATION: Calm and cooperative LABORATORY DATA: See below. IMAGING: CT with right lower lobe infiltrate MICROBIOLOGY: Please see below. ASSESSMENT: 88-year-old female with past medical history of Parkinson's disease, coronary artery disease, GERD and hypothyroidism presents with human rhino virus infection with superimposed bacterial pneumonia. . PLAN: 1. Community-acquired pneumonia. Respiratory viral panel positive for human rhinovirus, CT with right lower lobe infiltrate, likely superimposed bacterial infection. Ceftriaxone and Zithromax for community-acquired pneumonia, add vancomycin for MRSA coverage until MRSA PCR is negative. Supplemental oxygen as needed to maintain O2 sats of 90%. 2. Coronary artery disease. Status post [place], stent placement 1, 1-2 years ago. Continue optimal medical management with aspirin, statin, beta sam. 3. Parkinson's disease. Continue levodopa carbidopa. 4. Hypothyroidism. Continue levothyroxine. 5. GERD. Continue Protonix. DVT prophylaxis: Heparin subcutaneous GI prophylaxis: Home Protonix Vital Signs Vital Signs Date Time Temp Pulse Resp B/P (MAP) Pulse Ox O2 Delivery O2 Flow Rate FiO2 07/22/19 17:34 95 18 92 07/22/19 17:30 144/62 (89) 07/22/19 14:49 97.6 07/22/19 13:44 Room Air Laboratory Data Labs 24H Laboratory Tests 2 07/22/19 14:57: Immature Granulocyte % (Auto) 0.5, Neutrophils (%) (Auto) 85.9H, Lymphocytes (%) (Auto) 4.7L, Monocytes (%) (Auto) 8.4H, Eosinophils (%) (Auto) 0.1, Basophils (%) (Auto) 0.4, Neutrophils # (Auto) 16.9H, Lymphocytes # (Auto) 0.9L, Monocytes # (Auto) 1.7H, Eosinophils # (Auto) 0.0, Basophils # (Auto) 0.1, Nucleated Red Blood Cells % (auto) 0.0, Prothrombin Time 15.1H, Prothromb Time International Ratio 1.22, Lactic Acid Level 1.5 07/22/19 14:58: Anion Gap 11, Glomerular Filtration Rate 46.7, Calcium Level 10.3H, Total Bilirubin 1.1H, Direct Bilirubin 0.2, Aspartate Amino Transf (AST/SGOT) 14, Alanine Aminotransferase (ALT/SGPT) 7L, Alkaline Phosphatase 143H, Total Creatine Kinase 52, Creatine Kinase MB < 1.0, Creatine Kinase MB Relative Index 1.92, Troponin I < 0.02, Total Protein 7.3, Albumin 3.5, Albumin/Globulin Ratio 0.92L, Thyroid Stimulating Hormone (TSH) 0.230L 07/22/19 16:48: Blood Gas Bicarbonate Standard 25.0, Venous Blood pH 7.521H, Venous Blood Partial Pressure CO2 27.2L, Venous Blood Partial Pressure O2 181.5H, Venous Blood Total Carbon Dioxide 22.6L, Venous Blood HCO3 21.8L, Venous Blood Oxygen Saturation 99.3H, Venous Blood Base Excess 0.5 CBC/BMP Laboratory Tests 07/22/19 14:57 07/22/19 14:58 Microbiology Microbiology 07/22/19 Blood Culture, Received Pending 07/22/19 Blood Culture, Received Pending 07/22/19 Respiratory Virus Panel (PCR) ([facility]) - Final, Complete Human Rhinovirus/Enterovirus Home Medications Scheduled Aspirin (Aspirin EC) 81 Mg Tablet.dr, 81 MG PO DAILY Atorvastatin Calcium (Atorvastatin Calcium) 20 Mg Tab, 20 MG PO DAILY Carbidopa/Levodopa (Sinemet 25-100 mg Tablet) 1 Each Tablet, 1.5 TAB PO QID Cholecalciferol (Vitamin D3) (Vitamin D3) 3,000 Unit Tablet, 3,000 UNIT PO DAILY Cyanocobalamin (Vitamin B-12) (Vitamin B12) 5,000 Mcg Tab.rapdis, 1 TAB PO DAILY Cyclosporine (Restasis) 0.05 % Emu, 1 DROP OU BID Diltiazem Hcl (Diltiazem HCl) 60 Mg Tablet, 60 MG PO TID Dorzolamide HCl/Timolol Maleat (Dorzolamide-Timolol Eye Drops) 1 Nenita Nenita, 1 DROP OU BID Furosemide (Furosemide) 20 Mg Tab, 20 MG PO QHS Isosorbide Mononitrate (Isosorbide Mononitrate ER) 60 Mg Tab.er.24h, 120 MG PO DAILY Latanoprostene Bunod (Vyzulta) 0.024% 5ML Drops, 1 DROP QHS Levothyroxine Sodium (Synthroid) 88 Mcg Tab, 88 MCG PO DAILY Nortriptyline Hcl (Pamelor) 25 Mg Cap, 25 MG PO DAILY Spironolactone (Spironolactone) 25 Mg Tablet, 12.5 MG PO DAILY Vit C/E/Zn/Coppr/Lutein/Zeaxan (Preservision Areds 2 Softgel) 1 Each Capsule, 1 EACH PO BID Scheduled PRN Acetaminophen (Acetaminophen) 325 Mg Tab, 650 MG PO Q4H PRN for PAIN Albuterol Sulfate (Proair Hfa) 108 Mcg/Act Aer, 2 PUFF INH QID PRN for SHORTNESS OF BREATH Nitroglycerin (Nitrostat) 0.4 Mg Subl, 0.4 MG SL NITRO PRN for CHEST PAIN Omeprazole Magnesium (Prilosec Otc) 20 Mg Tablet.dr, 20 MG PO DAILY PRN for INDIGESTION Allergies Coded Allergies: Contrast Media (Verified Allergy, Intermediate, HIVES, 05/11/19) ciprofloxacin (Verified Allergy, Intermediate, ERYTHEMA, 05/11/19) gabapentin (Verified Allergy, Intermediate, ERYTHEMA, 05/11/19) ketoconazole (Verified Allergy, Intermediate, 05/11/19) meloxicam (Verified Allergy, Intermediate, ERYTHEMA, 05/11/19) pramipexole (Verified Allergy, Unknown, 05/11/19) amoxicillin (Verified Adverse Reaction, Severe, Renal Failure, 05/11/19) clavulanic acid (Verified Adverse Reaction, Severe, Renal Failure, 05/11/19) clindamycin (Verified Adverse Reaction, Severe, Chest pressure, 05/11/19) ibuprofen (Verified Adverse Reaction, Severe, NM, 05/11/19) A-FIB/CHADSVASC A-FIB History Current/History of A-Fib/PAF?: No FAIZA QUEZADA MD Jul 22, 2019 18:34
[2019-07-22] MEDS ORDERED: FLUT11IN INH (18:58)
[2019-07-22] MEDS ORDERED: OMEP-221 PO (18:58)
[2019-07-22] MEDS ORDERED: NS 1,000 ML IV ONE (20:15)
[2019-07-22] MEDS: cefTRIAXone SOD 1 GM in D5W MINI-BAG PLUS 50 ML IV SCH (20:49)
[2019-07-22 20:50] VITALS: BP 132/74
[2019-07-22] MEDS ORDERED: ACETAMINOPHEN TAB 650MG DOSE (2X325MG) PO ONE (21:15)
[2019-07-22 21:59] VITALS: BP 109/57
[2019-07-22] MEDS ORDERED: FUROSEMIDE 20 MG TAB PO SCH (22:15)
[2019-07-22] MEDS ORDERED: PILL CUTTER 1 EACH XX PRN (22:30)
[2019-07-22 22:59] VITALS: BP 115/57
[2019-07-22] MEDS: ISOSORBIDE MON. (IMDUR) 60 MG XR TAB PO SCH (22:59)
[2019-07-22] MEDS: SINEMET 25-100 MG TAB PO SCH (22:59)
[2019-07-22] MEDS: AZITHROMYCIN INJ 500 MG, VIAL MATE ADAPTER 1 EACH in D5W 250 ML IV SCH (23:00)
[2019-07-22] MEDS ORDERED: MAALOX 30 ML SUSP *UDC PO PRN (23:30)
[2019-07-23] VITALS (12 sets, daily range): BP systolic 90–120; BP diastolic 51–57
[2019-07-23] MEDS ORDERED: ACETAMINOPHEN TAB 650MG DOSE (2X325MG) PO ONE (02:00)
--- NOTE | 2019-07-23 05:40 | ECGEPIP ---
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
[2019-07-23] MEDS: LEVOTHYROXINE 88MCG TABLET (0.088 MG) PO SCH (05:41)
[2019-07-23 05:56] LABS: HEMATOCRIT 38.4 % (36.0-47.0); MEAN CORPUSCULAR HEMOGLOBIN 28.8 pg (27.0-33.0); MEAN CORPUSCULAR HGB CONC 31.8 g/dl (32.0-36.5); MEAN CORPUSCULAR VOLUME 90.8 fl (80.0-96.0); PLATELET COUNT, AUTOMATED 284 10^3/uL (150-450); RED BLOOD COUNT 4.23 10^6/uL (4.00-5.40); WHITE BLOOD COUNT 19.7 10^3/uL (4.0-10.0)
[2019-07-23 06:01] LABS: HEMOGLOBIN 12.2 g/dl (12.0-15.5)
[2019-07-23 06:29] LABS: ALBUMIN 2.5 GM/DL (3.2-5.2); CALCIUM LEVEL 8.9 MG/DL (8.8-10.2); CREATININE FOR GFR 1.17 MG/DL (0.55-1.30); GLOMERULAR FILTRATION RATE 46.7 (>32); MAGNESIUM LEVEL 1.9 MG/DL (1.8-2.4); PHOSPHORUS LEVEL 3.2 MG/DL (2.5-4.9); POTASSIUM SERUM 4.2 MEQ/L (3.5-5.1); TOTAL PROTEIN 5.6 GM/DL (6.4-8.2)
[2019-07-23] MEDS ORDERED: SODIUM CHLORIDE 0.9% 1000ML IV ONE (08:00)
--- NOTE | 2019-07-23 08:07 | REP ---
Single view chest: 07/23/2019. Indication: Dyspnea. Comparison: Yesterday. Findings: Compared to the previous study, no significant changes are present. Borderline prominent cardiac silhouette, aortic atherosclerotic disease and mildly increased interstitial markings are stable. Left-sided dual lead pacer is unchanged. Small left pleural effusion is present. Impression: Stable examination compared to the previous day. Electronically Signed by Nico Serra DO 07/23/2019 07:58 A
[2019-07-23] MEDS: OMEPRAZOLE 20 MG CAP PO SCH (10:09)
[2019-07-23] MEDS: SPIRONOLACTONE 25 MG TAB PO SCH (10:09)
[2019-07-23] MEDS: NS 1,000 ML IV SCH ×3 (10:09→20:10)
[2019-07-23] MEDS: ATORVASTATIN 20 MG TAB PO SCH (10:09)
[2019-07-23] MEDS: SINEMET 25-100 MG TAB PO SCH ×4 (10:10→20:11)
[2019-07-23] MEDS: ISOSORBIDE MON. (IMDUR) 60 MG XR TAB PO SCH ×2 (10:10→14:17)
[2019-07-23] MEDS: HEPARIN SOD (PORCINE) 5000 UNITS/ML VIAL SC SCH ×2 (10:11→20:11)
--- NOTE | 2019-07-23 11:51 | IPNPDOC ---
Date Seen The patient was seen on 07/23/19. Progress Note HISTORY OF PRESENT ILLNESS: 88-year-old female with past medical history of Parkinson's disease, coronary artery disease status post stent 1, [place], hypothyroidism, GERD, presents with shortness of breath and coughing for the past few days. She reports her symptoms started 4 days ago with cough, n onproductive, followed by shortness of breath with associated chills, fatigue, and arthralgia over the past few nights. She had a doctor's appointment earlier today, but felt so poorly that she decided to come to the emergency room instead. In the ED, she's found to have a right lower lobe infiltrate along with respiratory viral panel positive for human rhinovirus. She denies any chest pain, vomiting, abdominal pain or diarrhea. 07/23/2019 Respiratory the ICU overnight due to hypoxemia and hypotension. Patient doing well in the morning, reports improvement in dyspnea from last night, continues to have dry cough and arthralgia. She denies any chest pain, vomiting, abdominal pain or diarrhea 10 point review of systems negative except for above HOME MEDICATIONS: Please see below. PHYSICAL EXAMINATION: VITAL SIGNS: Please see below. GENERAL: No distress, frail HEENT: Normocephalic, atraumatic, moist mucous membranes NECK: Supple CARDIOVASCULAR EXAMINATION: S1, S2 RESPIRATORY EXAMINATION: Bibasilar rhonchi, no wheezing ABDOMINAL EXAMINATION: Soft, nontender, nondistended, positive bowel sounds EXTREMITIES: Range of motion intact SKIN: No rash NEUROLOGICAL EXAMINATION: Alert and oriented 3, no focal deficits PSYCHIATRIC EXAMINATION: Calm and cooperative LABORATORY DATA: See below. IMAGING: CT with right lower lobe infiltrate MICROBIOLOGY: Please see below. ASSESSMENT: 88-year-old female with past medical history of Parkinson's disease, coronary artery disease, GERD and hypothyroidism presents with human rhino virus infection with likely superimposed bacterial pneumonia. PLAN: 1. Community-acquired pneumonia. Respiratory viral panel positive for human rhinovirus, CT with right lower lobe infiltrate, likely superimposed bacterial infection. Ceftriaxone and Zithromax for community-acquired pneumonia Supplemental oxygen as needed to maintain O2 sats of 90%. Continue IV fluids, clinically dry. Pro-calcitonin blood cultures pending. 2. Coronary artery disease. Status post [place], stent placement 1, 1-2 years ago. Continue optimal medical management with aspirin, statin, beta sam. 3. Parkinson's disease. Continue levodopa carbidopa. 4. Hypothyroidism. Continue levothyroxine. 5. GERD. Continue Protonix. DVT prophylaxis: Heparin subcutaneous GI prophylaxis: Home Protonix VS, I&O, 24H, Trevor Vital Signs/I&O Vital Signs Date Time Temp Pulse Resp B/P (MAP) Pulse Ox O2 Delivery O2 Flow Rate FiO2 07/23/19 10:10 91 109/54 07/23/19 09:23 100.1 07/23/19 09:00 22 93 Nasal Cannula 4.0 I&O- Last 24 Hours up to 6 AM 07/23/19 05:59 Intake Total 815 ml Output Total 250 ml Balance 565 ml Laboratory Data 24H LABS Laboratory Tests 2 07/22/19 14:57: Immature Granulocyte % (Auto) 0.5, Neutrophils (%) (Auto) 85.9H, Lymphocytes (%) (Auto) 4.7L, Monocytes (%) (Auto) 8.4H, Eosinophils (%) (Auto) 0.1, Basophils (%) (Auto) 0.4, Neutrophils # (Auto) 16.9H, Lymphocytes # (Auto) 0.9L, Monocytes # (Auto) 1.7H, Eosinophils # (Auto) 0.0, Basophils # (Auto) 0.1, Nucleated Red Blood Cells % (auto) 0.0, Prothrombin Time 15.1H, Prothromb Time International Ratio 1.22, Lactic Acid Level 1.5 07/22/19 14:58: Anion Gap 11, Glomerular Filtration Rate 46.7, Calcium Level 10.3H, Total Bilirubin 1.1H, Direct Bilirubin 0.2, Aspartate Amino Transf (AST/SGOT) 14, Alanine Aminotransferase (ALT/SGPT) 7L, Alkaline Phosphatase 143H, Total Creatine Kinase 52, Creatine Kinase MB < 1.0, Creatine Kinase MB Relative Index 1.92, Troponin I < 0.02, Total Protein 7.3, Albumin 3.5, Albumin/Globulin Ratio 0.92L, Thyroid Stimulating Hormone (TSH) 0.230L 07/22/19 16:48: Blood Gas Bicarbonate Standard 25.0, Venous Blood pH 7.521H, Venous Blood Par tial Pressure CO2 27.2L, Venous Blood Partial Pressure O2 181.5H, Venous Blood Total Carbon Dioxide 22.6L, Venous Blood HCO3 21.8L, Venous Blood Oxygen Saturation 99.3H, Venous Blood Base Excess 0.5 07/22/19 21:14: Methicillin-Resist S.aureus DNA PCR NOT DETECTED 07/22/19 21:50: JZ-Xhr-D-Type Natriuretic Peptide 793H 07/23/19 05:39: Nucleated Red Blood Cells % (auto) 0.0, Anion Gap 9, Glomerular Filtration Rate 46.7, Calcium Level 8.9, Phosphorus Level 3.2, Magnesium Level 1.9, Total Bilirubin 1.0, Aspartate Amino Transf (AST/SGOT) 10, Alanine Aminotransferase (ALT/SGPT) 6L, Alkaline Phosphatase 105, Total Protein 5.6#L, Albumin 2.5#L, Albumin/Globulin Ratio 0.81L CBC/BMP Laboratory Tests 07/22/19 14:57 07/22/19 14:58 07/23/19 05:39 Microbiology Microbiology 07/22/19 Blood Culture, Received Pending 07/22/19 Blood Culture, Received Pending 07/22/19 Respiratory Virus Panel (PCR) ([facility]) - Final, Complete Human Rhinovirus/Enterovirus FAIZA QUEZADA MD Jul 23, 2019 11:50
[2019-07-23] MEDS ORDERED: cefTRIAXone SOD 1 GM in D5W MINI-BAG PLUS 50 ML IV SCH (20:00)
[2019-07-23] MEDS: cefTRIAXone SOD 1 GM in D5W MINI-BAG PLUS 50 ML IV SCH (20:09)
[2019-07-23] MEDS: ACETAMINOPHEN TAB 650MG DOSE (2X325MG) PO PRN (20:45)
[2019-07-23] MEDS: AZITHROMYCIN INJ 500 MG, VIAL MATE ADAPTER 1 EACH in D5W 250 ML IV SCH (21:21)
[2019-07-24 03:00] VITALS: BP 115/72
[2019-07-24] MEDS: SODIUM CHLORIDE 0.9% INJ 10 ML SYR IV PRN ×2 (05:59→22:39)
[2019-07-24] MEDS: LEVOTHYROXINE 88MCG TABLET (0.088 MG) PO SCH (05:59)
[2019-07-24] MEDS: SODIUM CHLORIDE 0.9% INJ 10 ML SYR IV SCH ×3 (05:59→22:38)
[2019-07-24 06:00] VITALS: BP 114/66
[2019-07-24 06:22] LABS: HEMATOCRIT 34.8 % (36.0-47.0); HEMOGLOBIN 11.3 g/dl (12.0-15.5); MEAN CORPUSCULAR HEMOGLOBIN 29.5 pg (27.0-33.0); MEAN CORPUSCULAR HGB CONC 32.5 g/dl (32.0-36.5); MEAN CORPUSCULAR VOLUME 90.9 fl (80.0-96.0); PLATELET COUNT, AUTOMATED 264 10^3/uL (150-450); RED BLOOD COUNT 3.83 10^6/uL (4.00-5.40); WHITE BLOOD COUNT 14.6 10^3/uL (4.0-10.0)
[2019-07-24 06:55] LABS: BLOOD UREA NITROGEN 17 MG/DL (7-18); CALCIUM LEVEL 8.3 MG/DL (8.8-10.2); CARBON DIOXIDE LEVEL 25 MEQ/L (21-32); CHLORIDE LEVEL 108 MEQ/L (98-107); CREATININE FOR GFR 0.81 MG/DL (0.55-1.30); GLOMERULAR FILTRATION RATE > 60.0 (>32); GLUCOSE, FASTING 101 MG/DL (70-100); MAGNESIUM LEVEL 2.1 MG/DL (1.8-2.4); PHOSPHORUS LEVEL 2.2 MG/DL (2.5-4.9); POTASSIUM SERUM 4.1 MEQ/L (3.5-5.1); SODIUM LEVEL 140 MEQ/L (136-145)
[2019-07-24] MEDS: ATORVASTATIN 20 MG TAB PO SCH (10:11)
[2019-07-24] MEDS: HEPARIN SOD (PORCINE) 5000 UNITS/ML VIAL SC SCH ×2 (10:11→21:07)
[2019-07-24] MEDS: OMEPRAZOLE 20 MG CAP PO SCH (10:11)
[2019-07-24] MEDS: SINEMET 25-100 MG TAB PO SCH ×4 (10:12→21:07)
[2019-07-24] MEDS: ISOSORBIDE MON. (IMDUR) 60 MG XR TAB PO SCH (10:15)
[2019-07-24] MEDS: SPIRONOLACTONE 25 MG TAB PO SCH (10:16)
[2019-07-24 11:05] VITALS: BP 118/72
[2019-07-24] MEDS: K-PHOS NEUTRAL 250MG TABLET (SOD.PHOSPHATE/POT.PHOSPHATE) PO SCH ×2 (11:29→15:02)
--- NOTE | 2019-07-24 13:28 | IPNPDOC ---
Date Seen The patient was seen on 07/24/19. Progress Note HISTORY OF PRESENT ILLNESS: 88-year-old female with past medical history of Parkinson's disease, coronary artery disease status post stent 1, [place], hypothyroidism, GERD, presents with shortness of breath and coughing for the past few days. She reports her symptoms started 4 days ago with cough, n onproductive, followed by shortness of breath with associated chills, fatigue, and arthralgia over the past few nights. She had a doctor's appointment earlier today, but felt so poorly that she decided to come to the emergency room instead. In the ED, she's found to have a right lower lobe infiltrate along with respiratory viral panel positive for human rhinovirus. She denies any chest pain, vomiting, abdominal pain or diarrhea. 07/23/2019 Respiratory the ICU overnight due to hypoxemia and hypotension. Patient doing well in the morning, reports improvement in dyspnea from last night, continues to have dry cough and arthralgia. She denies any chest pain, vomiting, abdominal pain or diarrhea 07/24/2019 Diverticular regular floor, reports improvement in dyspnea and cough, slight improvement in ambulation compared to yesterday, continues to have cough with green sputum production. She denies any chest pain, vomiting, abdominal pain or diarrhea. 10 point review of systems negative except for above HOME MEDICATIONS: Please see below. PHYSICAL EXAMINATION: VITAL SIGNS: Please see below. GENERAL: No distress, frail HEENT: Normocephalic, atraumatic, moist mucous membranes NECK: Supple CARDIOVASCULAR EXAMINATION: S1, S2 RESPIRATORY EXAMINATION: Bibasilar rhonchi, no wheezing ABDOMINAL EXAMINATION: Soft, nontender, nondistended, positive bowel sounds EXTREMITIES: Range of motion intact SKIN: No rash NEUROLOGICAL EXAMINATION: Alert and oriented 3, no focal deficits PSYCHIATRIC EXAMINATION: Calm and cooperative LABORATORY DATA: See below. IMAGING: CT with right lower lobe infiltrate MICROBIOLOGY: Please see below. ASSESSMENT: 88-year-old female with past medical history of Parkinson's disease, coronary artery disease, GERD and hypothyroidism presents with human rhino virus infection with likely superimposed bacterial pneumonia. PLAN: 1. Community-acquired pneumonia. Respiratory viral panel positive for human rhinovirus, CT with right lower lobe infiltrate, likely superimposed bacterial infection. Ceftriaxone and Zithromax for community-acquired pneumonia Supplemental oxygen as needed to maintain O2 sats of 90%. Pro-calcitonin and blood cultures pending. Having pleuritic right mid back pain, will get chest x-ray to evaluate for pleural effusion. 2. Coronary artery disease. Status post [place], stent placement 1, 1-2 years ago. Continue optimal medical management with aspirin, statin, beta sam. 3. Parkinson's disease. Continue levodopa carbidopa. 4. Hypothyroidism. Continue levothyroxine. 5. GERD. Continue Protonix. DVT prophylaxis: Heparin subcutaneous GI prophylaxis: Home Protonix VS, I&O, 24H, Fishbone Vital Signs/I&O Vital Signs Date Time Temp Pulse Resp B/P (MAP) Pulse Ox O2 Delivery O2 Flow Rate FiO2 07/24/19 11:05 98.0 80 24 118/72 (87) 94 Nasal Cannula 1.0 I&O- Last 24 Hours up to 6 AM 07/24/19 06:00 Intake Total 3040 ml Output Total 1250 ml Balance 1790 ml Laboratory Data 24H LABS Laboratory Tests 2 07/24/19 06:08: Anion Gap 7L, Glomerular Filtration Rate > 60.0, Calcium Level 8.3L, Phosphorus Level 2.2#L, Magnesium Level 2.1 07/24/19 06:09: Nucleated Red Blood Cells % (auto) 0.0 CBC/BMP Laboratory Tests 07/24/19 06:08 07/24/19 06:09 Microbiology Microbiology 07/22/19 Blood Culture - Preliminary, Resulted No growth after 24 hours . All specim... 07/22/19 Blood Culture - Preliminary, Resulted No growth after 24 hours . All specim... 07/22/19 Respiratory Virus Panel (PCR) ([facility]) - Final, Complete Human Rhinovirus/Enterovirus FAIZA QUEZADA MD Jul 24, 2019 13:28
[2019-07-24 14:00] VITALS: BP 115/62
[2019-07-24] MEDS: cefTRIAXone SOD 1 GM in D5W MINI-BAG PLUS 50 ML IV SCH (21:07)
[2019-07-24] MEDS: ACETAMINOPHEN TAB 650MG DOSE (2X325MG) PO PRN (21:08)
[2019-07-24 22:00] VITALS: BP 113/62
[2019-07-24] MEDS: AZITHROMYCIN INJ 500 MG, VIAL MATE ADAPTER 1 EACH in D5W 250 ML IV SCH (22:07)
[2019-07-25] MEDS: SODIUM CHLORIDE 0.9% INJ 10 ML SYR IV PRN ×3 (00:27→05:29)
[2019-07-25] MEDS: SODIUM CHLORIDE 0.9% INJ 10 ML SYR IV SCH ×2 (05:25→14:58)
[2019-07-25] MEDS: LEVOTHYROXINE 88MCG TABLET (0.088 MG) PO SCH (05:40)
[2019-07-25 06:00] VITALS: BP 128/69
[2019-07-25 06:10] LABS: HEMATOCRIT 34.8 % (36.0-47.0); HEMOGLOBIN 11.2 g/dl (12.0-15.5); MEAN CORPUSCULAR HEMOGLOBIN 29.4 pg (27.0-33.0); MEAN CORPUSCULAR HGB CONC 32.2 g/dl (32.0-36.5); MEAN CORPUSCULAR VOLUME 91.3 fl (80.0-96.0); PLATELET COUNT, AUTOMATED 296 10^3/uL (150-450); RED BLOOD COUNT 3.81 10^6/uL (4.00-5.40); WHITE BLOOD COUNT 10.4 10^3/uL (4.0-10.0)
[2019-07-25 06:27] LABS: BLOOD UREA NITROGEN 12 MG/DL (7-18); CALCIUM LEVEL 8.5 MG/DL (8.8-10.2); CARBON DIOXIDE LEVEL 26 MEQ/L (21-32); CHLORIDE LEVEL 110 MEQ/L (98-107); CREATININE FOR GFR 0.75 MG/DL (0.55-1.30); GLOMERULAR FILTRATION RATE > 60.0 (>32); GLUCOSE, FASTING 94 MG/DL (70-100); PHOSPHORUS LEVEL 2.7 MG/DL (2.5-4.9); POTASSIUM SERUM 4.1 MEQ/L (3.5-5.1); SODIUM LEVEL 142 MEQ/L (136-145)
[2019-07-25] MEDS: ISOSORBIDE MON. (IMDUR) 60 MG XR TAB PO SCH (10:12)
[2019-07-25] MEDS: SPIRONOLACTONE 25 MG TAB PO SCH (10:13)
[2019-07-25] MEDS: ATORVASTATIN 20 MG TAB PO SCH (10:13)
[2019-07-25] MEDS: OMEPRAZOLE 20 MG CAP PO SCH (10:13)
[2019-07-25] MEDS: SINEMET 25-100 MG TAB PO SCH ×4 (10:13→20:46)
[2019-07-25] MEDS: HEPARIN SOD (PORCINE) 5000 UNITS/ML VIAL SC SCH ×2 (10:14→20:46)
[2019-07-25] MEDS: CEFDINIR 300 MG CAP (OMNICEF) PO SCH ×2 (12:55→20:44)
[2019-07-25 14:00] VITALS: BP 126/69
--- NOTE | 2019-07-25 15:25 | REP ---
Chest x-ray: Two views. History: Assess for pleural effusion. Comparison chest x-ray July 23, 2019. Findings: There is a fairly large dense infiltrate in the left lower lobe consistent with pneumonia. Very slight blunting of the pleural angles is visible on the lateral radiograph and the left pleural angle is slightly blunted on the frontal view as before. No significant effusion is seen. There are increased markings in the right base as well. These are more prominent than on the earlier chest x-ray. Impression: Increased density right base new from the prior study. Persistent infiltrate left base. Slight blunting of the left lateral and posterior pleural angles. Pacemaker in place. Electronically Signed by Jayant Magana MD 07/25/2019 03:16 P
--- NOTE | 2019-07-25 17:16 | IPNPDOC ---
Date Seen The patient was seen on 07/25/19. Progress Note HISTORY OF PRESENT ILLNESS: 88-year-old female with past medical history of Parkinson's disease, coronary artery disease status post stent 1, [place], hypothyroidism, GERD, presents with shortness of breath and coughing for the past few days. She reports her symptoms started 4 days ago with cough, n onproductive, followed by shortness of breath with associated chills, fatigue, and arthralgia over the past few nights. She had a doctor's appointment earlier today, but felt so poorly that she decided to come to the emergency room instead. In the ED, she's found to have a right lower lobe infiltrate along with respiratory viral panel positive for human rhinovirus. She denies any chest pain, vomiting, abdominal pain or diarrhea. 07/23/2019 Respiratory the ICU overnight due to hypoxemia and hypotension. Patient doing well in the morning, reports improvement in dyspnea from last night, continues to have dry cough and arthralgia. She denies any chest pain, vomiting, abdominal pain or diarrhea 07/24/2019 Downgraded to regular floor, reports improvement in dyspnea and cough, slight improvement in ambulation compared to yesterday, continues to have cough with green sputum production. She denies any chest pain, vomiting, abdominal pain or diarrhea. 07/25/2019 Patient reports improvement in dyspnea, continues to have cough with productive sputum, worked with physical therapy, improving daily. 10 point review of systems negative except for above HOME MEDICATIONS: Please see below. PHYSICAL EXAMINATION: VITAL SIGNS: Please see below. GENERAL: No distress, frail HEENT: Normocephalic, atraumatic, moist mucous membranes NECK: Supple CARDIOVASCULAR EXAMINATION: S1, S2 RESPIRATORY EXAMINATION: Bibasilar rhonchi, no wheezing ABDOMINAL EXAMINATION: Soft, nontender, nondistended, positive bowel sounds EXTREMITIES: Range of motion intact SKIN: No rash NEUROLOGICAL EXAMINATION: Alert and oriented 3, no focal deficits PSYCHIATRIC EXAMINATION: Calm and cooperative LABORATORY DATA: See below. IMAGING: CT with right lower lobe infiltrate MICROBIOLOGY: Please see below. ASSESSMENT: 88-year-old female with past medical history of Parkinson's disease, coronary artery disease, GERD and hypothyroidism presents with human rhino virus infection with likely superimposed bacterial pneumonia. PLAN: 1. Community-acquired pneumonia. Respiratory viral panel positive for human rhinovirus, CT with right lower lobe infiltrate, likely superimposed bacterial infection. Switch antibiotics to Cefdinir Supplemental oxygen as needed to maintain O2 sats of 90%. Blood cultures negative Chest x-ray with left pleural effusion, CT to assess for loculated effusion/empyema. 2. Coronary artery disease. Status post [place], stent placement 1, 1-2 years ago. Continue optimal medical management with aspirin, statin, beta sam. 3. Parkinson's disease. Continue levodopa carbidopa. 4. Hypothyroidism. Continue levothyroxine. 5. GERD. Continue Protonix. DVT prophylaxis: Heparin subcutaneous GI prophylaxis: Home Protonix VS, I&O, 24H, Fishbone Vital Signs/I&O Vital Signs Date Time Temp Pulse Resp B/P (MAP) Pulse Ox O2 Delivery O2 Flow Rate FiO2 07/25/19 10:12 125/55 07/25/19 10:12 75 07/25/19 08:33 2.0 07/25/19 06:00 97.4 22 94 Nasal Cannula I&O- Last 24 Hours up to 6 AM 07/25/19 06:00 Intake Total 1060 ml Output Total 1800 ml Balance -740 ml Laboratory Data 24H LABS Laboratory Tests 2 07/25/19 05:48: Nucleated Red Blood Cells % (auto) 0.0, Anion Gap 6L, Glomerular Filtration Rate > 60.0, Calcium Level 8.5L, Phosphorus Level 2.7# CBC/BMP Laboratory Tests 07/25/19 05:48 Microbiology Microbiology 07/22/19 Blood Culture - Preliminary, Resulted No Growth after 72 hours. All specime... 07/22/19 Blood Culture - Preliminary, Resulted No Growth after 72 hours. All specime... 07/22/19 Respiratory Virus Panel (PCR) ([facility]) - Final, Complete Human Rhinovirus/Enterovirus FAIZA QUEZADA MD Jul 25, 2019 17:16
--- NOTE | 2019-07-25 18:41 | REPVR ---
PROCEDURE INFORMATION: Exam: CT Chest Without Contrast Exam date and time: 07/25/2019 5:14 PM Clinical history: 88 years old, female; Other: Pleural effusion; Additional info: Assess for loculated pleural effusion TECHNIQUE: Imaging protocol: Computed tomography of the chest without contrast. 3D rendering: MIP reconstructed images were created and reviewed. Radiation optimization: All CT scans at this facility use at least one of these dose optimization techniques: automated exposure control; mA and/or kV adjustment per patient size (includes targeted exams where dose is matched to clinical indication); or iterative reconstruction. COMPARISON: CT Chest without contrast 07/22/2019 4:24 PM FINDINGS: Lungs: There is alveolar infiltrate right upper lung following the major fissure and this has increased in 3 days. 4.5 CM multilobular area of alveolar infiltrate at the right lung base and this has developed in 3 days. There is a small right pleural effusion that is new. Continued consolidation of lung left lower lobe contiguous with the heart. Heart: The heart is top normal in size. Mediastinum: There is a small hiatal hernia. 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 Lymph nodes: Unremarkable. No enlarged lymph nodes. Liver: There is a 2.8 CM low density lesion in the posterior aspect of the liver very similar to the examination of 2018. Adrenals: There is a 1.6 CM nodular area of the left adrenal gland and this is seen on the examination of the 2018 probably an adrenal adenoma. There are pleural plaques with calcification anterior left thorax similar to the prior exams. Bones/joints: Unremarkable. No acute fracture. Soft tissues: Unremarkable. IMPRESSION: 1. 4.5 CM area of lobulated round alveolar pneumonic infiltrate at the right lung base new over a 3 day interval. Small right pleural effusion as well. 2. Continued extensive consolidation of lung in the left lower lobe contiguous with the aorta. Electronically signed by: Tevin Razo On 07/25/2019 18:41:15 PM
[2019-07-25 22:00] VITALS: BP 127/69
[2019-07-26] MEDS: LEVOTHYROXINE 88MCG TABLET (0.088 MG) PO SCH (05:47)
[2019-07-26 06:00] VITALS: BP 128/71
[2019-07-26 06:09] LABS: HEMATOCRIT 38.2 % (36.0-47.0); HEMOGLOBIN 12.1 g/dl (12.0-15.5); MEAN CORPUSCULAR HEMOGLOBIN 29.6 pg (27.0-33.0); MEAN CORPUSCULAR HGB CONC 31.7 g/dl (32.0-36.5); MEAN CORPUSCULAR VOLUME 93.4 fl (80.0-96.0); PLATELET COUNT, AUTOMATED 214 10^3/uL (150-450); RED BLOOD COUNT 4.09 10^6/uL (4.00-5.40); WHITE BLOOD COUNT 8.9 10^3/uL (4.0-10.0)
[2019-07-26 06:28] LABS: BLOOD UREA NITROGEN 11 MG/DL (7-18); CALCIUM LEVEL 9.2 MG/DL (8.8-10.2); CARBON DIOXIDE LEVEL 22 MEQ/L (21-32); CHLORIDE LEVEL 111 MEQ/L (98-107); CREATININE FOR GFR 0.63 MG/DL (0.55-1.30); GLOMERULAR FILTRATION RATE > 60.0 (>32); GLUCOSE, FASTING 92 MG/DL (70-100); MAGNESIUM LEVEL 1.9 MG/DL (1.8-2.4); PHOSPHORUS LEVEL 2.9 MG/DL (2.5-4.9); POTASSIUM SERUM 4.1 MEQ/L (3.5-5.1); SODIUM LEVEL 139 MEQ/L (136-145)
[2019-07-26] MEDS: SINEMET 25-100 MG TAB PO SCH ×4 (09:51→22:05)
[2019-07-26] MEDS: ACETAMINOPHEN TAB 650MG DOSE (2X325MG) PO PRN ×2 (09:51→16:49)
[2019-07-26] MEDS: HEPARIN SOD (PORCINE) 5000 UNITS/ML VIAL SC SCH ×2 (09:51→22:05)
[2019-07-26] MEDS: CEFDINIR 300 MG CAP (OMNICEF) PO SCH ×2 (09:52→22:05)
[2019-07-26] MEDS: OMEPRAZOLE 20 MG CAP PO SCH (09:52)
[2019-07-26] MEDS: ATORVASTATIN 20 MG TAB PO SCH (09:52)
[2019-07-26] MEDS: SPIRONOLACTONE 25 MG TAB PO SCH (09:53)
[2019-07-26] MEDS: ISOSORBIDE MON. (IMDUR) 60 MG XR TAB PO SCH (09:56)
[2019-07-26 14:00] VITALS: BP 105/56
--- NOTE | 2019-07-26 14:20 | IPNPDOC ---
Date Seen The patient was seen on 07/26/19. Progress Note HISTORY OF PRESENT ILLNESS: 88-year-old female with past medical history of Parkinson's disease, coronary artery disease status post stent 1, [place], hypothyroidism, GERD, presents with shortness of breath and coughing for the past few days. She reports her symptoms started 4 days ago with cough, n onproductive, followed by shortness of breath with associated chills, fatigue, and arthralgia over the past few nights. She had a doctor's appointment earlier today, but felt so poorly that she decided to come to the emergency room instead. In the ED, she's found to have a right lower lobe infiltrate along with respiratory viral panel positive for human rhinovirus. She denies any chest pain, vomiting, abdominal pain or diarrhea. 07/23/2019 Respiratory the ICU overnight due to hypoxemia and hypotension. Patient doing well in the morning, reports improvement in dyspnea from last night, continues to have dry cough and arthralgia. She denies any chest pain, vomiting, abdominal pain or diarrhea 07/24/2019 Downgraded to regular floor, reports improvement in dyspnea and cough, slight improvement in ambulation compared to yesterday, continues to have cough with green sputum production. She denies any chest pain, vomiting, abdominal pain or diarrhea. 07/25/2019 Patient reports improvement in dyspnea, continues to have cough with productive sputum, worked with physical therapy, improving daily. 07/26/2019 Patient comfortable in chair, reports improvement in dyspnea, continues to have cough productive of yellow sputum, ambulating with physical therapy, reports that she lives alone, is not close to baseline yet, would like to gain more strength prior to discharge. CT scan yesterday with new right lower lobe lesion, no significant pleural effusion is appreciated. Patient denies any chest pain, nausea, vomiting, abdominal pain or Diarrhea 10 point review of systems negative except for above HOME MEDICATIONS: Please see below. PHYSICAL EXAMINATION: VITAL SIGNS: Please see below. GENERAL: No distress, frail HEENT: Normocephalic, atraumatic, moist mucous membranes NECK: Supple CARDIOVASCULAR EXAMINATION: S1, S2 RESPIRATORY EXAMINATION: Bibasilar rhonchi, no wheezing ABDOMINAL EXAMINATION: Soft, nontender, nondistended, positive bowel sounds EXTREMITIES: Range of motion intact SKIN: No rash NEUROLOGICAL EXAMINATION: Alert and oriented 3, no focal deficits PSYCHIATRIC EXAMINATION: Calm and cooperative LABORATORY DATA: See below. IMAGING: CT with right lower lobe infiltrate MICROBIOLOGY: Please see below. ASSESSMENT: 88-year-old female with past medical history of Parkinson's disease, coronary artery disease, GERD and hypothyroidism presents with human rhino virus infection with likely superimposed bacterial pneumonia. PLAN: 1. Community-acquired pneumonia. Respiratory viral panel positive for human rhinovirus, CT with bibasilar infiltrates, likely superimposed bacterial infection. Continue Cefdinir Supplemental oxygen as needed to maintain O2 sats of 90%. Blood cultures negative Tentatively plan for discharge tomorrow 2. Coronary artery disease. Status post [place], stent placement 1, 1-2 years ago. Continue optimal medical management with aspirin, statin, beta sam. 3. Parkinson's disease. Continue levodopa carbidopa. 4. Hypothyroidism. Continue levothyroxine. 5. GERD. Continue Protonix. DVT prophylaxis: Heparin subcutaneous GI prophylaxis: Home Protonix VS, I&O, 24H, Fishbone Vital Signs/I&O Vital Signs Date Time Temp Pulse Resp B/P (MAP) Pulse Ox O2 Delivery O2 Flow Rate FiO2 07/26/19 09:56 128/73 07/26/19 09:55 75 07/26/19 06:00 98.1 17 93 Room Air 07/25/19 08:33 2.0 I&O- Last 24 Hours up to 6 AM 07/26/19 06:00 Intake Total 820 ml Output Total 450 ml Balance 370 ml Laboratory Data 24H LABS Laboratory Tests 2 07/26/19 05:31: Nucleated Red Blood Cells % (auto) 0.0, Anion Gap 6L, Glomerular Filtration Rate > 60.0, Calcium Level 9.2, Phosphorus Level 2.9, Magnesium Level 1.9 CBC/BMP Laboratory Tests 07/26/19 05:31 Microbiology Microbiology 07/22/19 Blood Culture - Preliminary, Resulted No Growth after 72 hours. All specime... 07/22/19 Blood Culture - Preliminary, Resulted No Growth after 72 hours. All specime... 07/22/19 Respiratory Virus Panel (PCR) ([facility]) - Final, Complete Human Rhinovirus/Enterovirus FAIZA QUEZADA MD Jul 26, 2019 14:20
[2019-07-26 22:00] VITALS: BP 125/72
[2019-07-27 05:56] LABS: HEMATOCRIT 40.1 % (36.0-47.0); HEMOGLOBIN 12.2 g/dl (12.0-15.5); MEAN CORPUSCULAR HEMOGLOBIN 28.6 pg (27.0-33.0); MEAN CORPUSCULAR HGB CONC 30.4 g/dl (32.0-36.5); MEAN CORPUSCULAR VOLUME 94.1 fl (80.0-96.0); PLATELET COUNT, AUTOMATED 263 10^3/uL (150-450); RED BLOOD COUNT 4.26 10^6/uL (4.00-5.40); WHITE BLOOD COUNT 10.4 10^3/uL (4.0-10.0)
[2019-07-27 06:00] VITALS: BP 132/74
[2019-07-27] MEDS: LEVOTHYROXINE 88MCG TABLET (0.088 MG) PO SCH (06:19)
[2019-07-27 06:23] LABS: BLOOD UREA NITROGEN 13 MG/DL (7-18); CALCIUM LEVEL 9.5 MG/DL (8.8-10.2); CARBON DIOXIDE LEVEL 22 MEQ/L (21-32); CHLORIDE LEVEL 111 MEQ/L (98-107); CREATININE FOR GFR 0.78 MG/DL (0.55-1.30); GLOMERULAR FILTRATION RATE > 60.0 (>32); GLUCOSE, FASTING 97 MG/DL (70-100); MAGNESIUM LEVEL 1.9 MG/DL (1.8-2.4); PHOSPHORUS LEVEL 3.1 MG/DL (2.5-4.9); POTASSIUM SERUM 4.2 MEQ/L (3.5-5.1); SODIUM LEVEL 139 MEQ/L (136-145)
[2019-07-27] MEDS: ATORVASTATIN 20 MG TAB PO SCH (09:49)
[2019-07-27] MEDS: SPIRONOLACTONE 25 MG TAB PO SCH (09:49)
[2019-07-27] MEDS: OMEPRAZOLE 20 MG CAP PO SCH (09:49)
[2019-07-27 09:50] VITALS: BP 126/76
[2019-07-27] MEDS: HEPARIN SOD (PORCINE) 5000 UNITS/ML VIAL SC SCH (09:50)
[2019-07-27] MEDS: CEFDINIR 300 MG CAP (OMNICEF) PO SCH (09:50)
[2019-07-27] MEDS: SINEMET 25-100 MG TAB PO SCH ×2 (09:50→13:16)
[2019-07-27] MEDS: ISOSORBIDE MON. (IMDUR) 60 MG XR TAB PO SCH (09:50)
[2019-07-27] MEDS: ACETAMINOPHEN TAB 650MG DOSE (2X325MG) PO PRN (09:51)
[2019-07-27] MEDS ORDERED: CEFD300CAP PO (11:38)
--- NOTE | 2019-07-27 12:06 | DS.PDOC ---
Discharge Summary General Date of Admission Jul 22, 2019 at 18:22 Date of Discharge 07/27/2019 Attending Physician: FAIZA QUEZADA MD Discharge Summary PROCEDURES PERFORMED DURING STAY: None. ADMITTING DIAGNOSES: 1. Multifocal pneumonia. DISCHARGE DIAGNOSES: 1. Multifocal pneumonia. COMPLICATIONS/CHIEF COMPLAINT: Chronic Diastolic Chf Cad Pneumonia. HISTORY OF PRESENT ILLNESS: 88-year-old female with past medical history of CHF, coronary artery disease and hypertension who was admitted for multifocal pneumonia. Patient likely had an initial viral pneumonia (respiratory viral panel was positive for human rhinovirus), with superimposed bacterial pneumonia in bilateral lower lobes. She was treated with supplemental oxygen, ceftriaxone, azithromycin, which were later switched to Cefdinir due to lack of IV access. She has improved significantly over the past few days, no longer requiring supplemental oxygen, ambulating at her baseline with physical therapy, continues to have cough, which is expected, and patient is advised to cough may linger for weeks. She is clinically hemodynamically stable for discharge home with outpatient follow-up. HOSPITAL COURSE: As above. DISCHARGE MEDICATIONS: Please see below. PHYSICAL EXAMINATION: VITAL SIGNS: Please see below. GENERAL: No distress, frail HEENT: Normocephalic, atraumatic, moist mucous membranes NECK: Supple CARDIOVASCULAR EXAMINATION: S1, S2 RESPIRATORY EXAMINATION: Bibasilar rhonchi, no wheezing ABDOMINAL EXAMINATION: Soft, nontender, nondistended, positive bowel sounds EXTREMITIES: Range of motion intact SKIN: No rash NEUROLOGICAL EXAMINATION: Alert and oriented 3, no focal deficits PSYCHIATRIC EXAMINATION: Calm and cooperative ALLERGIES: Please see below. LABORATORY DATA: Please see below. IMAGING: CT with multifocal pneumonia PROGNOSIS: Fair ACTIVITY: As tolerated. DIET: Cardiac DISCHARGE PLAN: Patient will follow with PCP 1-2 weeks DISPOSITION: Home. DISCHARGE INSTRUCTIONS: 1. As above. DISCHARGE CONDITION: Stable. TIME SPENT ON DISCHARGE: Greater than 35 minutes. Vital Signs/I&Os Vital Signs Date Time Temp Pulse Resp B/P (MAP) Pulse Ox O2 Delivery O2 Flow Rate FiO2 07/27/19 09:50 76 126/76 07/27/19 06:00 98.2 17 93 Room Air 07/25/19 08:33 2.0 I&O- Last 24 Hours up to 6 AM 07/27/19 05:59 Intake Total 1060 ml Output Total 0 ml Balance 1060 ml Laboratory Data Labs 24H Laboratory Tests 2 07/27/19 05:39: Nucleated Red Blood Cells % (auto) 0.0, Anion Gap 6L, Glomerular Filtration Rate > 60.0, Calcium Level 9.5, Phosphorus Level 3.1, Magnesium Level 1.9 CBC/BMP Laboratory Tests 07/27/19 05:39 Microbiology Microbiology 07/22/19 Blood Culture - Preliminary, Resulted No Growth after 72 hours. All specime... 07/22/19 Blood Culture - Preliminary, Resulted No Growth after 72 hours. All specime... 07/22/19 Respiratory Virus Panel (PCR) ([facility]) - Final, Complete Human Rhinovirus/Enterovirus Discharge Medications Scheduled Aspirin (Aspirin EC) 81 Mg Tablet.dr, 81 MG PO DAILY, (Reported) Atorvastatin Calcium (Atorvastatin Calcium) 20 Mg Tab, 20 MG PO DAILY, (Reported) Carbidopa/Levodopa (Sinemet 25-100 mg Tablet) 1 Each Tablet, 1.5 TAB PO QID, (Reported) 0900, 1300, 1700, 2100 Cefdinir (Cefdinir) 300 Mg Capsule, 300 MG PO BID Cholecalciferol (Vitamin D3) (Vitamin D3) 3,000 Unit Tablet, 3,000 UNIT PO DAILY, (Reported) Cyanocobalamin (Vitamin B-12) (Vitamin B12) 5,000 Mcg Tab.rapdis, 5,000 TAB PO DAILY, (Reported) Cyclosporine (Restasis) 0.05 % Emu, 1 DROP OU BID, (Reported) Diltiazem Hcl (Diltiazem HCl) 60 Mg Tablet, 60 MG PO TID, (Reported) 0900, 1600, 2100 Dorzolamide HCl/Timolol Maleat (Dorzolamide-Timolol Eye Drops) 1 Nenita Nenita, 1 DROP OU BID, (Reported) Fluticasone Propionate (Flovent Hfa) 110 Mcg/Act Aer.w.adap, 2 PUFF INH BID, (Reported) Furosemide (Furosemide) 20 Mg Tab, 20 MG PO QHS, (Reported) Isosorbide Mononitrate (Isosorbide Mononitrate ER) 60 Mg Tab.er.24h, 120 MG PO DAILY, (Reported) Latanoprostene Bunod (Vyzulta) 0.024% 5ML Drops, 1 DROP OU QHS, (Reported) Levothyroxine Sodium (Synthroid) 88 Mcg Tab, 88 MCG PO DAILY, (Reported) Nortriptyline Hcl (Pamelor) 25 Mg Cap, 25 MG PO DAILY, (Reported) Spironolactone (Spironolactone) 25 Mg Tablet, 12.5 MG PO DAILY, (Reported) Vit C/E/Zn/Coppr/Lutein/Zeaxan (Preservision Areds 2 Softgel) 1 Each Capsule, 1 EACH PO BID, (Reported) Scheduled PRN Acetaminophen (Acetaminophen) 325 Mg Tab, 650 MG PO Q4H PRN for PAIN, (Reported) Albuterol Sulfate (Proair Hfa) 108 Mcg/Act Aer, 2 PUFF INH QID PRN for SHORTNESS OF BREATH, (Reported) Nitroglycerin (Nitrostat) 0.4 Mg Subl, 0.4 MG SL NITRO PRN for CHEST PAIN, (Reported) Omeprazole (Omeprazole) 40 Mg Capsule.dr, 40 MG PO DAILY PRN for HEARTBURN, (Reported) Allergies Coded Allergies: Contrast Media (Verified Allergy, Intermediate, HIVES, 05/11/19) ciprofloxacin (Verified Allergy, Intermediate, ERYTHEMA, 05/11/19) gabapentin (Verified Allergy, Intermediate, ERYTHEMA, 05/11/19) ketoconazole (Verified Allergy, Intermediate, 05/11/19) meloxicam (Verified Allergy, Intermediate, ERYTHEMA, 05/11/19) pramipexole (Verified Allergy, Unknown, 05/11/19) amoxicillin (Verified Adverse Reaction, Severe, Renal Failure, 05/11/19) clavulanic acid (Verified Adverse Reaction, Severe, Renal Failure, 05/11/19) clindamycin (Verified Adverse Reaction, Severe, Chest pressure, 05/11/19) ibuprofen (Verified Adverse Reaction, Severe, [place], 05/11/19) FAIZA QUEZADA MD Jul 27, 2019 12:06
== END 2019-07-27 15:21 | disposition home or self-care (01) | DRG 178 ==
LOC: M ED 12:34 → M ED INP 18:22 → M PCU 20:42 → M ICU 20:53 → M MSPAV 07-24 02:46
PROVIDERS: ADMIT Internal Medicine; ATTEND Internal Medicine
DX: J15.8 Pneumonia due to other specified bacteria (principal); I50.32 Chronic diastolic (congestive) heart failure; B34.8 Other viral infections of unspecified site; I25.10 Atherosclerotic heart disease of native coronary artery without angina pectoris; I11.0 Hypertensive heart disease with heart failure; Z79.899 Other long term (current) drug therapy; Z79.82 Long term (current) use of aspirin; Z91.041 Radiographic dye allergy status; Z88.0 Allergy status to penicillin; Z88.8 Allergy status to other drugs, medicaments and biological substances; G20 Parkinson's disease; Z95.2 Presence of prosthetic heart valve; I25.2 Old myocardial infarction; E03.9 Hypothyroidism, unspecified; K21.9 Gastro-esophageal reflux disease without esophagitis

== ENCOUNTER → 2019-07-31 | Outpatient (REF) | payer MEDICARE, OTHER ==
[~2019-07-31] MED LIST changes: +CEFD300CAP PO; +CVS5000S2 PO; +OMEP-221 PO; +PROA1AER2 INH
== END ==
LOC: M LAB REF 12:44
PROVIDERS: ATTEND Internal Medicine
DX: J18.9 Pneumonia, unspecified organism (principal)

== ENCOUNTER 2020-03-04 16:32 | Emergency (ER) | payer MEDICARE, OTHER ==
[~2020-03-04] VITALS: Ht 167.6 cm; Wt 64.1 kg
[~2020-03-04 16:32] MED LIST changes: +OMEP1CAP73 PO; -OMEP20CA4 PO
[2020-03-04] MEDS ORDERED: NORCO, ANEXSIA 5/325MG TABLET (HYDROcodone/ACETAMINOPHEN) PO ONE (18:45)
[2020-03-04] MEDS ORDERED: ACETAMINOPH W/CODEINE #3 TAB UD PO ONE (19:45)
[2020-03-04 20:13] VITALS: BP 121/69
--- NOTE | 2020-03-04 23:14 | REP ---
FOUR VIEWS LEFT WRIST, TWO VIEWS LEFT FOREARM, AND TWO VIEWS LEFT HUMERUS, 03/04/2020: INDICATION: Left arm pain following trauma. COMPARISON: None. FINDINGS: Nondisplaced distal radial and ulnar fractures are present without significant angulation or fracture extension to the articulating surface. No additional fractures are present. There is no evidence of subluxation or dislocation. No lytic or blastic lesions are present. IMPRESSION: Distal radial and ulnar fractures. Electronically Signed by Nico Serra DO 03/05/2020 08:44 A
== END 2020-03-04 20:15 | disposition home or self-care (01) ==
LOC: M ED 16:32
DX: S52.502A Unspecified fracture of the lower end of left radius, initial encounter for closed fracture (principal); S52.602A Unspecified fracture of lower end of left ulna, initial encounter for closed fracture; W19.XXXA Unspecified fall, initial encounter; Y92.099 Unspecified place in other non-institutional residence as the place of occurrence of the external cause; Y93.9 Activity, unspecified; Y99.9 Unspecified external cause status; I25.2 Old myocardial infarction; I11.0 Hypertensive heart disease with heart failure; E78.5 Hyperlipidemia, unspecified; F41.9 Anxiety disorder, unspecified; F32.9 Major depressive disorder, single episode, unspecified; G43.909 Migraine, unspecified, not intractable, without status migrainosus; J44.9 Chronic obstructive pulmonary disease, unspecified; N18.3 Chronic kidney disease, stage 3 (moderate); E03.9 Hypothyroidism, unspecified; M54.9 Dorsalgia, unspecified; Z85.72 Personal history of non-Hodgkin lymphomas; Z79.82 Long term (current) use of aspirin; Z79.899 Other long term (current) drug therapy; Z91.041 Radiographic dye allergy status; Z88.0 Allergy status to penicillin; Z88.1 Allergy status to other antibiotic agents; Z88.6 Allergy status to analgesic agent; Z88.8 Allergy status to other drugs, medicaments and biological substances

== ENCOUNTER 2020-03-06 13:01 | Emergency (ER) | payer MEDICARE, OTHER ==
[~2020-03-06] VITALS: Ht 167.6 cm; Wt 64.1 kg
[~2020-03-06 13:01] MED LIST changes: +AMLO1TAB24 PO; -AMLO5TAB6 PO
[2020-03-06] MEDS ORDERED: PYRI1TAB5 PO (14:09)
[2020-03-06] MEDS ORDERED: FOSFOMYCIN TROMETHAMINE 3 GM POWDER PACKET (MONUROL) PO ONE (14:15)
[2020-03-06] MEDS ORDERED: PHENAZOPYRIDINE 100 MG TAB PO ONE (14:15)
[2020-03-06 14:22] VITALS: BP 120/65
== END 2020-03-06 14:41 | disposition home or self-care (01) ==
LOC: M ED 13:01
DX: N39.0 Urinary tract infection, site not specified (principal); I50.9 Heart failure, unspecified; I25.2 Old myocardial infarction; Z79.82 Long term (current) use of aspirin; Z79.899 Other long term (current) drug therapy; Z91.040 Latex allergy status; Z88.0 Allergy status to penicillin; Z88.1 Allergy status to other antibiotic agents; Z88.6 Allergy status to analgesic agent; Z88.8 Allergy status to other drugs, medicaments and biological substances

== ENCOUNTER 2020-05-03 10:47 | Emergency (ER) | payer MEDICARE, OTHER ==
[~2020-05-03 10:47] MED LIST changes: +PYRI1TAB5 PO
[2020-05-03] MEDS ORDERED: NORCO, ANEXSIA 5/325MG TABLET (HYDROcodone/ACETAMINOPHEN) ONE (12:04)
[2020-05-03] MEDS ORDERED: ISOVUE-370 76% 100ML VIAL ONE (14:21)
[2020-05-03] MEDS ORDERED: methylPREDNISolone 125MG 2ML VIAL ONE (14:34)
[2020-05-03] MEDS ORDERED: diphenhydrAMINE 50MG/ML VIAL (J1200) ONE (14:34)
[2020-05-03] MEDS ORDERED: FAMOTIDINE INJ 20MG/2ML VIAL (S0028 PER 1) ONE (14:34)
--- NOTE | 2020-06-01 15:31 | ECGEPIP ---
[facility] - ED Test Date: 2020-05-03 Pat Name: ANDREW FAN Department: Room: - Gender: Female Senior Bi Developer: GINA : [id number] Requested By: Tiera Gasca Order Number: [id number] Reading MD: Tiera Gasca Measurements Intervals [place] Rate: 76 P: 69 [place]: 197 QRS: -71 QRSD: 180 T: 97 QT: 432 QTc: 488 Interpretive Statements ELECTRONIC VENTRICULAR PACEMAKER ABNORMAL RHYTHM ECG SEE SCANNED DOWNTIME REPORT
[2020-06-17 11:13] LABS: HEMATOCRIT 40.5 % (36.0-47.0); MEAN CORPUSCULAR HEMOGLOBIN 30.1 pg (27.0-33.0); MEAN CORPUSCULAR HGB CONC 32.1 g/dl (32.0-36.5); MEAN CORPUSCULAR VOLUME 93.8 fl (80.0-96.0); PLATELET COUNT, AUTOMATED 273 10^3/uL (150-450); RED BLOOD COUNT 4.32 10^6/uL (4.00-5.40); WHITE BLOOD COUNT 5.4 10^3/uL (4.0-10.0)
[2020-07-25 16:16] LABS: BLOOD UREA NITROGEN 28 MG/DL (7-18); CALCIUM LEVEL 9.4 MG/DL (8.8-10.2); CARBON DIOXIDE LEVEL 30 MEQ/L (21-32); CHLORIDE LEVEL 106 MEQ/L (98-107); CREATININE FOR GFR 1.03 MG/DL (0.55-1.30); GLUCOSE, FASTING 101 MG/DL (70-100); POTASSIUM SERUM 4.5 MEQ/L (3.5-5.1); SODIUM LEVEL 139 MEQ/L (136-145); TROPONIN I < 0.02 NG/ML (< 0.10)
[2020-07-29] MEDS ORDERED: ACET650T61 PO (13:30)
[2020-07-29] MEDS ORDERED: VITA500T40 PO (13:30)
[2020-07-29] MEDS ORDERED: LEVO112T2 PO (13:30)
[2020-07-29] MEDS ORDERED: RANO500T7 PO (13:41)
[2020-07-29] MEDS ORDERED: SM STAB3 PO (13:41)
[2020-07-29] MEDS ORDERED: VITA1CAP25 PO (13:41)
[2020-07-29] MEDS ORDERED: HYDR50TA70 PO (13:41)
[2020-07-29] MEDS ORDERED: MYSO50TA5 PO (13:41)
[2020-07-29] MEDS ORDERED: APAP325T4 PO (13:41)
== END 2020-05-03 16:40 | disposition home or self-care (01) ==
LOC: M ED 10:47
DX: B02.9 Zoster without complications (principal); I71.9 Aortic aneurysm of unspecified site, without rupture; R91.8 Other nonspecific abnormal finding of lung field; R94.31 Abnormal electrocardiogram [ECG] [EKG]; J44.9 Chronic obstructive pulmonary disease, unspecified; Q44.6 Cystic disease of liver; I70.0 Atherosclerosis of aorta; I25.10 Atherosclerotic heart disease of native coronary artery without angina pectoris; I10 Essential (primary) hypertension; E78.5 Hyperlipidemia, unspecified; Z95.5 Presence of coronary angioplasty implant and graft; Z95.0 Presence of cardiac pacemaker; Z87.448 Personal history of other diseases of urinary system; Z87.891 Personal history of nicotine dependence
CPT/HCPCS: 71046; 71250; 80048; 84484; 85027; 93005; 96374; 96375; 99284; J1200; J2930; Q9967

== ENCOUNTER → 2020-07-12 | Outpatient (CLI) | payer MEDICARE, OTHER ==
--- NOTE | 2020-07-12 12:55 | REP ---
INDICATION: PVD COMPARISON: None. TECHNIQUE: Real time lerma scale and Duplex Doppler evaluation of the bilateral lower extremity arterial vasculature using linear high frequency transducer. FINDINGS: Lerma scale and duplex doppler images demonstrate moderate to severe amounts of atheromatous plaquing bilaterally. MORAIMA bilaterally is 0.86. There are diffuse monophasic waveforms throughout the right lower extremity arterial structures. Diffuse biphasic waveforms are seen in the left lower extremity with monophasic waveforms in the profundus and distal posterior tibial artery.. Increased velocities seen in the common femoral artery on the right, and I suspect stenosis of the distal external iliac artery. Multilevel stenosis is suspected throughout the superficial femoral artery approximately 2-1. I suspect multifocal mild stenoses throughout the left superficial femoral artery and popliteal artery in the range of 2-1. Peak systolic velocities (cm/sec) Common femoral artery: Right 262; Left 157 Profunda femoris: Right 125; Left 230 SFA (proximal): Right 212; Left 117 SFA (mid): Right 198; Left 220 SFA (distal): Right 93; Left 67 Popliteal artery: Right 56; Left 58 RAFAEL (prox.): Right 30; Left 17 Tibioperoneal trunk: Right 26; Left 43 AUTOMOBILE BODY REPAIRER HELPER (prox.): Right 53; Left 83 AUTOMOBILE BODY REPAIRER HELPER (distal): Right 53; Left 43 RAFAEL (distal): Right 36; Left 55 IMPRESSION: Atheromatous changes with areas of narrowing and stenosis as discussed above.. <Electronically signed by Justin Lerma > 07/12/20 [id number]
== END ==
LOC: M RAD 10:28
PROVIDERS: ATTEND Podiatrist Foot & Ankle Surgery
DX: I73.9 Peripheral vascular disease, unspecified (principal)

== ENCOUNTER 2020-09-27 11:56 | Inpatient (IN) | payer MEDICARE, OTHER ==
[~2020-09-27] VITALS: Ht 167.6 cm; Wt 63.6 kg
[~2020-09-27 11:56] MED LIST changes: +ACET650T61 PO; +APAP325T4 PO; +LEVO112T2 PO; +MYSO50TA5 PO; +RANO500T7 PO; +SM STAB3 PO; +VITA1CAP25 PO; +VITA500T40 PO
[2020-09-27] MEDS ORDERED: MORPHINE 4 MG/ML 1ML VIAL/SYRINGE (J2270) IV ONE ×3 (12:45→17:45)
--- NOTE | 2020-09-27 13:24 | REP ---
INDICATION: fell/pain/dec rom COMPARISON: None. TECHNIQUE: Frontal view of the pelvis with neutral and frog lateral views of the right hip. FINDINGS: Visualized osseous structures demonstrate age-related degenerative changes. No evidence for acute fracture or dislocation. IMPRESSION: Age-related changes. No acute fracture or dislocation. <Electronically signed by Arie Briones > 09/27/20 [id number]
--- NOTE | 2020-09-27 13:28 | REP ---
INDICATION: fell/pain/dec rom COMPARISON: None. TECHNIQUE: AP, lateral, bilateral oblique views. FINDINGS: Lateral view demonstrates calcaneal fracture along with generalized soft tissue swelling. Ankle mortise appears intact. IMPRESSION: Acute nondisplaced calcaneal fracture. <Electronically signed by Arie Briones > 09/27/20 [id number]
--- NOTE | 2020-09-27 13:29 | REP ---
INDICATION: fell/pain/dec rom COMPARISON: None. TECHNIQUE: AP, lateral, bilateral oblique views right foot. FINDINGS: There is an acute nondisplaced fracture of the calcaneus with generalized soft tissue swelling through the ankle and hindfoot. Remainder of the examination demonstrates age-related osteopenia and degenerative changes. IMPRESSION: Acute nondisplaced fracture of the calcaneus with overlying soft tissue swelling. <Electronically signed by Arie Briones > 09/27/20 [id number]
--- NOTE | 2020-09-27 14:45 | REP ---
INDICATION: hip pain/fell down stairs. COMPARISON: None. TECHNIQUE: Axial noncontrast images through the right hip with coronal and sagittal reformations. FINDINGS: Osseous structures demonstrate age-related osteopenia and degenerative changes. There is no evidence for acute fracture or dislocation. Age-related atrophic changes to the surrounding musculature noted without hematoma or obvious effusion. Visualized subcutaneous tissues are relatively normal. IMPRESSION: No acute fracture or dislocation. <Electronically signed by Arie Briones > 09/27/20 [id number]
[2020-09-27] MEDS ORDERED: MORPHINE 4 MG/ML 1ML VIAL/SYRINGE (J2270) IV PRN (16:15)
--- OUTSIDE RECORDS SUMMARY | 2020-09-27 16:24 | CCD ---
Author Author [facility] Organization [facility] Address Unknown Phone Unavailable Care Team Providers Care Gallery Intern Name Role Phone Trish, Jsesica DO Unavailable Unavailable Trish, Jessica DO Unavailable Unavailable Trish, Jessica DO Unavailable Unavailable Trish, Jessica DO Unavailable Unavailable Trish, Jessica DO Unavailable Unavailable Trish, Jessica DO Unavailable Unavailable Trish, Jessica DO Unavailable Unavailable Trish, Jessica DO Unavailable Unavailable Trish, Jessica DO Unavailable Unavailable Trish, Jessica DO Unavailable Unavailable Trish, Jessica DO Unavailable Unavailable Trish, Jessica DO Unavailable Unavailable Trish, Jessica DO Unavailable Unavailable Trish, Jessica DO Unavailable Unavailable Trish, Jessica DO Unavailable Unavailable Trish, Jessica DO Unavailable Unavailable Trish, Jessica DO Unavailable Unavailable Trish, Jessica DO Unavailable Unavailable Trish, Jessica DO Unavailable Unavailable Trish, Jessica DO Unavailable Unavailable Trish, Jessica DO Unavailable Unavailable Trish, Jessica DO Unavailable Unavailable Trish, Jessica DO Unavailable Unavailable Trish, Jessica DO Unavailable Unavailable Trish, Jessica DO Unavailable Unavailable Trish, Jessica DO Unavailable Unavailable Trish, Jessica DO Unavailable Unavailable Trish, Jessica DO Unavailable Unavailable Trish, Jessica DO Unavailable Unavailable Trish, Jessica DO Unavailable Unavailable Trish, Jessica DO Unavailable Unavailable Trish, Jessica DO Unavailable Unavailable Trish, Jessica DO Unavailable Unavailable Trish, Jessica DO Unavailable Unavailable Trish, Jessica DO Unavailable Unavailable Trish, Jessica DO Unavailable Unavailable Trish, Jessica DO Unavailable Unavailable Trish, Jessica DO Unavailable Unavailable Trish, Jessica DO Unavailable Unavailable Trish, Jessica DO Unavailable Unavailable Trish, Jessica DO Unavailable Unavailable Trish, Jessica DO Unavailable Unavailable Trish, Jessica DO Unavailable Unavailable Trish, Jessica DO Unavailable Unavailable Trish, Jessica DO Unavailable Unavailable Trish, Jessica DO Unavailable Unavailable Trish, Jessica DO Unavailable Unavailable Trish, Jessica DO Unavailable Unavailable Trish, Jessica DO Unavailable Unavailable Trish, Jessica DO Unavailable Unavailable Trish, Jessica DO Unavailable Unavailable Trish, Jessica DO Unavailable Unavailable Trish, Jessica DO Unavailable Unavailable Trish, Jessica DO Unavailable Unavailable Trish, Jessica DO Unavailable Unavailable Trish, Jessica DO Unavailable Unavailable Trish, Jessica DO Unavailable Unavailable Trish, Jessica DO Unavailable Unavailable Trish, Jessica DO Unavailable Unavailable Trish, Jessica DO Unavailable Unavailable Trish, Jessica DO Unavailable Unavailable Trish, Jessica DO Unavailable Unavailable Trish, Jessica DO Unavailable Unavailable Trish, Jessica DO Unavailable Unavailable Trish, Jessica DO Unavailable Unavailable Trish, Jessica DO Unavailable Unavailable Trish, Jessica DO Unavailable Unavailable Trish, Jessica DO Unavailable Unavailable Trish, Jessica DO Unavailable Unavailable Trish, Jessica DO Unavailable Unavailable Trish, Jessica DO Unavailable Unavailable Trish, Jessica DO Unavailable Unavailable Fons, M Ludivina TABLE ATTENDANT Unavailable Unavailable Fons, M Ludivina TABLE ATTENDANT Unavailable Unavailable Fons, M Ludivina TABLE ATTENDANT Unavailable Unavailable Fons, M Ludivina TABLE ATTENDANT Unavailable Unavailable Fons, M Ludivina TABLE ATTENDANT Unavailable Unavailable Fons, M Ludivina TABLE ATTENDANT Unavailable Unavailable Fons, M Ludivina TABLE ATTENDANT Unavailable Unavailable Fons, M Ludivina TABLE ATTENDANT Unavailable Unavailable Fons, M Ludivina TABLE ATTENDANT Unavailable Unavailable Fons, M Ludivina TABLE ATTENDANT Unavailable Unavailable Fons, M Ludivina TABLE ATTENDANT Unavailable Unavailable Fons, M Ludivina TABLE ATTENDANT Unavailable Unavailable Fons, M Ludivina TABLE ATTENDANT Unavailable Unavailable Fons, M Ludivina TABLE ATTENDANT Unavailable Unavailable Fons, M Ludivina TABLE ATTENDANT Unavailable Unavailable Fons, M Ludivina TABLE ATTENDANT Unavailable Unavailable Fons, M Ludivina TABLE ATTENDANT Unavailable Unavailable Fons, M Ludivina TABLE ATTENDANT Unavailable Unavailable Fons, M Ludivina TABLE ATTENDANT Unavailable Unavailable Fons, M Ludivina TABLE ATTENDANT Unavailable Unavailable Fons, M Ludivina TABLE ATTENDANT Unavailable Unavailable Fons, M Ludivina TABLE ATTENDANT Unavailable Unavailable Fons, M Ludivina TABLE ATTENDANT Unavailable Unavailable Fons, M Ludivina TABLE ATTENDANT Unavailable Unavailable Fons, M Ludivina TABLE ATTENDANT Unavailable Unavailable Fons, M Ludivina TABLE ATTENDANT Unavailable Unavailable Fons, M Ludivina TABLE ATTENDANT Unavailable Unavailable Fons, M Ludivina TABLE ATTENDANT Unavailable Unavailable Fons, M Ludivina TABLE ATTENDANT Unavailable Unavailable Fons, M Ludivina TABLE ATTENDANT Unavailable Unavailable Fons, M Ludivina TABLE ATTENDANT Unavailable Unavailable Fons, M Ludivina TABLE ATTENDANT Unavailable Unavailable Fons, M Ludivina TABLE ATTENDANT Unavailable Unavailable Fons, M Ludivina TABLE ATTENDANT Unavailable Unavailable Fons, M Ludivina TABLE ATTENDANT Unavailable Unavailable Fons, M Ludivina TABLE ATTENDANT Unavailable Unavailable Fons, M Ludivina TABLE ATTENDANT Unavailable Unavailable Fons, M Ludivina TABLE ATTENDANT Unavailable Unavailable Fons, M Ludivina TABLE ATTENDANT Unavailable Unavailable Fons, M Ludivina TABLE ATTENDANT Unavailable Unavailable Fons, M Ludivina TABLE ATTENDANT Unavailable Unavailable Fons, M Ludivina TABLE ATTENDANT Unavailable Unavailable Fons, M Ludivina TABLE ATTENDANT Unavailable Unavailable Fons, M Ludivina TABLE ATTENDANT Unavailable Unavailable Fons, M Ludivina TABLE ATTENDANT Unavailable Unavailable Fons, M Ludivina TABLE ATTENDANT Unavailable Unavailable Fons, M Ludivina TABLE ATTENDANT Unavailable Unavailable Fons, M Ludivina TABLE ATTENDANT Unavailable Unavailable Fons, M Ludivina TABLE ATTENDANT Unavailable Unavailable Fons, M Ludivina TABLE ATTENDANT Unavailable Unavailable Fons, M Ludivina TABLE ATTENDANT Unavailable Unavailable Fons, M Ludivina TABLE ATTENDANT Unavailable Unavailable Fons, M Ludivina TABLE ATTENDANT Unavailable Unavailable Fons, M Ludivina TABLE ATTENDANT Unavailable Unavailable Yung BLAKELY DPM Unavailable Unavailable Yung BLAKELY DPM Unavailable Unavailable Yung BLAKELY DPM Unavailable Unavailable Yung BLAKELY DPM Unavailable Unavailable Yung BLAKELY DPM Unavailable Unavailable Yung BLAKELY DPM Unavailable Unavailable Yung BLAKELY DPM Unavailable Unavailable Yung BLAKELY DPM Unavailable Unavailable Yung BLAKELY DPM Unavailable Unavailable Yung BLAKELY DPM Unavailable Unavailable Yung BLAKELY DPM Unavailable Unavailable Yung BLAKELY DPM Unavailable Unavailable Yung BLAKELY DPM Unavailable Unavailable Yung BLAKELY DPM Unavailable Unavailable Yung BLAKELY DPM Unavailable Unavailable Yung BLAKELY DPM Unavailable Unavailable MAJAK, R CHILANGO DPM Unavailable Unavailable MAJAK, R CHILANGO DPM Unavailable Unavailable MAJAK, R CHILANGO DPM Unavailable Unavailable MAJAK, R CHILANGO DPM Unavailable Unavailable MAJAK, R CHILANGO DPM Unavailable Unavailable MAJAK, R CHILANGO DPM Unavailable Unavailable MAJAK, R CHILANGO DPM Unavailable Unavailable MAJAK, R CHILANGO DPM Unavailable Unavailable MAJAK, R CHILANGO DPM Unavailable Unavailable MAJAK, R CHILANGO DPM Unavailable Unavailable MAJAK, R CHILANGO DPM Unavailable Unavailable MAJAK, R CHILANGO DPM Unavailable Unavailable MAJAK, R CHILANGO DPM Unavailable Unavailable MAJAK, R CHILANGO DPM Unavailable Unavailable Trish, Jessica DO Unavailable Unavailable Trish, Jessica DO Unavailable Unavailable Trish, Jessica DO Unavailable Unavailable Trish, Jessica DO Unavailable Unavailable Trish, Jessica DO Unavailable Unavailable Trish, Jessica DO Unavailable Unavailable Trish, Jessica DO Unavailable Unavailable Trish, Jessica DO Unavailable Unavailable Trish, Jessica DO Unavailable Unavailable Trish, Jessica DO Unavailable Unavailable Trish, Jessica DO Unavailable Unavailable Trish, Jessica DO Unavailable Unavailable Trish, Jessica DO Unavailable Unavailable Trish, Jessica DO Unavailable Unavailable Trish, Jessica DO Unavailable Unavailable Trish, Jessica DO Unavailable Unavailable Trish, Jessica DO Unavailable Unavailable Trish, Jessica DO Unavailable Unavailable Trish, Jessica DO Unavailable Unavailable Trish, Jessica DO Unavailable Unavailable Trish, Jessica DO Unavailable Unavailable Trish, Jessica DO Unavailable Unavailable Trish, Jessica DO Unavailable Unavailable Trish, Jessica DO Unavailable Unavailable Trish, Jessica DO Unavailable Unavailable Trish, Jessica DO Unavailable Unavailable Trish, Jessica DO Unavailable Unavailable Trish, Jessica DO Unavailable Unavailable Trish, Jessica DO Unavailable Unavailable Trish, Jessica DO Unavailable Unavailable Trish, Jessica DO Unavailable Unavailable Trish, Jessica DO Unavailable Unavailable Trish, Jessica DO Unavailable Unavailable Trish, Jessica DO Unavailable Unavailable Trish, Jessica DO Unavailable Unavailable Trish, Jessica DO Unavailable Unavailable Trish, Jessica DO Unavailable Unavailable Trish, Jessica DO Unavailable Unavailable Trish, Jessica DO Unavailable Unavailable Trish, Jessica DO Unavailable Unavailable Trish, Jessica DO Unavailable Unavailable Trish, Jessica DO Unavailable Unavailable Trish, Jessica DO Unavailable Unavailable Trish, Jessica DO Unavailable Unavailable Trish, Jessica DO Unavailable Unavailable Trish, Jessica DO Unavailable Unavailable Trish, Jessica DO Unavailable Unavailable Trish, Jessica DO Unavailable Unavailable Trish, Jessica DO Unavailable Unavailable Trish, Jessica DO Unavailable Unavailable Trish, Jessica DO Unavailable Unavailable Trish, Jessica DO Unavailable Unavailable Trish, Jessica DO Unavailable Unavailable Trish, Jessica DO Unavailable Unavailable Trish, Jessica DO Unavailable Unavailable Trish, Jessica DO Unavailable Unavailable Trish, Jessica DO Unavailable Unavailable Trish, Jessica DO Unavailable Unavailable Trish, Jessica DO Unavailable Unavailable Trish, Jessica DO Unavailable Unavailable Trish, Jessica DO Unavailable Unavailable Trish, Jessica DO Unavailable Unavailable Trish, Jessica DO Unavailable Unavailable Trish, Jessica DO Unavailable Unavailable Trish, Jessica DO Unavailable Unavailable Trish, Jessica DO Unavailable Unavailable Trish, Jessica DO Unavailable Unavailable Trish, Jessica DO Unavailable Unavailable Trish, Jessica DO Unavailable Unavailable Trish, Jessica DO Unavailable Unavailable Trish, Jessica DO Unavailable Unavailable Trish, Jessica DO Unavailable Unavailable Jolley, L Tamica PA Unavailable Unavailable Jolley, L Tamica PA Unavailable Unavailable Jolley, L Tamica PA Unavailable Unavailable Jolley, L Tamica PA Unavailable Unavailable Jolley, L Tamica PA Unavailable Unavailable Jolley, L Tamica PA Unavailable Unavailable Jolley, L Tamica PA Unavailable Unavailable Jolley, L Tamica PA Unavailable Unavailable Jolley, L Tamica PA Unavailable Unavailable Jolley, L Tamica PA Unavailable Unavailable Jolley, L Tamica PA Unavailable Unavailable Jolley, L Tamica PA Unavailable Unavailable Jolley, L Tamica PA Unavailable Unavailable Jolley, L Tamica PA Unavailable Unavailable Jolley, L Tamica PA Unavailable Unavailable Jolley, L Tamica PA Unavailable Unavailable Jolley, L Tamica PA Unavailable Unavailable Jolley, L Tamica PA Unavailable Unavailable Jolley, L Tamica PA Unavailable Unavailable Jolley, L Tamica PA Unavailable Unavailable Jolley, L Tamica PA Unavailable Unavailable Jolley, L Tamica PA Unavailable Unavailable Jolley, L Tamica PA Unavailable Unavailable Jolley, L Tamica PA Unavailable Unavailable Jolley, L Tamica PA Unavailable Unavailable Jolley, L Tamica PA Unavailable Unavailable Jolley, L Tamica PA Unavailable Unavailable Jolley, L Tamica PA Unavailable Unavailable Jolley, L Tamica PA Unavailable Unavailable Jolley, L Tamica PA Unavailable Unavailable Jolley, L Tamica PA Unavailable Unavailable Jolley, L Tamica PA Unavailable Unavailable Jolley, L Tamica PA Unavailable Unavailable Jolley, L Tamica PA Unavailable Unavailable Jolley, L Tamica PA Unavailable Unavailable Jolley, L Tamica PA Unavailable Unavailable PICKERAL JR, J MIREYA PA-C Unavailable Unavailable PICKERAL JR, J MIREYA PA-C Unavailable Unavailable PICKERAL JR, J MIREYA PA-C Unavailable Unavailable PICKERAL JR, J MIREYA PA-C Unavailable Unavailable PICKERAL JR, J MIREYA PA-C Unavailable Unavailable PICKERAL JR, J MIREYA PA-C Unavailable Unavailable PICKERAL JR, J MIREYA PA-C Unavailable Unavailable PICKERAL JR, J MIREYA PA-C Unavailable Unavailable PICKERAL JR, J MIREYA PA-C Unavailable Unavailable PICKERAL JR, J MIREYA PA-C Unavailable Unavailable PICKERAL JR, J MIREYA PA-C Unavailable Unavailable PICKERAL JR, J MIREYA PA-C Unavailable Unavailable PICKERAL JR, J MIREYA PA-C Unavailable Unavailable PICKERAL JR, J MIREYA PA-C Unavailable Unavailable PICKERAL JR, J MIREYA PA-C Unavailable Unavailable PICKERAL JR, J MIREYA PA-C Unavailable Unavailable PICKERAL JR, J MIREYA PA-C Unavailable Unavailable PICKERAL JR, J MIREYA PA-C Unavailable Unavailable Antoine, M Barratt PA Unavailable Unavailable Antoine, M Barratt PA Unavailable Unavailable Antoine, M Barratt PA Unavailable Unavailable Antoine, M Barratt PA Unavailable Unavailable Antoine, M Barratt PA Unavailable Unavailable Antoine, M Barratt PA Unavailable Unavailable Antoine, M Barratt PA Unavailable Unavailable Antoine, M Barratt PA Unavailable Unavailable Antoine, M Barratt PA Unavailable Unavailable Antoine, M Barratt PA Unavailable Unavailable Antoine, M Barratt PA Unavailable Unavailable Antoine, M Barratt PA Unavailable Unavailable Antoine, M Barratt PA Unavailable Unavailable Antoine, M Barratt PA Unavailable Unavailable Antoine, M Barratt PA Unavailable Unavailable Antoine, M Barratt PA Unavailable Unavailable Antoine, M Barratt PA Unavailable Unavailable Antoine, M Barratt PA Unavailable Unavailable Antoine, M Barratt PA Unavailable Unavailable Antoine, M Barratt PA Unavailable Unavailable Antoine, M Barratt PA Unavailable Unavailable Antoine, M Barratt PA Unavailable Unavailable Antoine, M Barratt PA Unavailable Unavailable Antoine, M Barratt PA Unavailable Unavailable Antoine, M Barratt PA Unavailable Unavailable Antoine, M Barratt PA Unavailable Unavailable SARAH, M ISAIAH PA Unavailable Unavailable SARAH, M ISAIAH PA Unavailable Unavailable SARAH, M ISAIAH PA Unavailable Unavailable SARAH, M ISAIAH PA Unavailable Unavailable SARAH, M ISAIAH PA Unavailable Unavailable SARAH, M ISAIAH PA Unavailable Unavailable SARAH, M ISAIAH PA Unavailable Unavailable SARAH, M ISAIAH PA Unavailable Unavailable SARAH, M ISAIAH PA Unavailable Unavailable SARAH, M ISAIAH PA Unavailable Unavailable SARAH, M ISAIAH PA Unavailable Unavailable SARAH, M ISAIAH PA Unavailable Unavailable SARAH, M ISAIAH PA Unavailable Unavailable SARAH, M ISAIAH PA Unavailable Unavailable SARAH, M ISAIAH PA Unavailable Unavailable SARAH, M ISAIAH PA Unavailable Unavailable SARAH, M ISAIAH PA Unavailable Unavailable SARAH, M ISAIAH PA Unavailable Unavailable SARAH, M ISAIAH PA Unavailable Unavailable SARAH, M ISAIAH PA Unavailable Unavailable SARAH, M ISAIAH PA Unavailable Unavailable SARAH, M ISAIAH PA Unavailable Unavailable SARAH, M ISAIAH PA Unavailable Unavailable SARAH, M ISAIAH PA Unavailable Unavailable Doremus, E Larissa PA Unavailable Unavailable Doremus, E Larissa PA Unavailable Unavailable Doremus, E Larissa PA Unavailable Unavailable Doremus, E Larissa PA Unavailable Unavailable Doremus, E Larissa PA Unavailable Unavailable Doremus, E Larissa PA Unavailable Unavailable Doremus, E Larissa PA Unavailable Unavailable Doremus, E Larissa PA Unavailable Unavailable Doremus, E Larissa PA Unavailable Unavailable Doremus, E Larissa PA Unavailable Unavailable Doremus, E Larissa PA Unavailable Unavailable Doremus, E Larissa PA Unavailable Unavailable Doremus, E Larissa PA Unavailable Unavailable Doremus, E Larissa PA Unavailable Unavailable Doremus, E Larissa PA Unavailable Unavailable Doremus, E Larissa PA Unavailable Unavailable Doremus, E Larissa PA Unavailable Unavailable Doremus, E Larissa PA Unavailable Unavailable Doremus, E Larissa PA Unavailable Unavailable Kendell Todd MD Unavailable Unavailable Kendell Todd MD Unavailable Unavailable Kendell Todd MD Unavailable Unavailable Kendell Todd MD Unavailable Unavailable Kendell Todd MD Unavailable Unavailable Kendell Todd MD Unavailable Unavailable Kendell Todd MD Unavailable Unavailable Kendell Todd MD Unavailable Unavailable Kendell Todd MD Unavailable Unavailable Kendell Todd MD Unavailable Unavailable Kendell Todd MD Unavailable Unavailable Kendell Todd MD Unavailable Unavailable Kendell Todd MD Unavailable Unavailable Kendell Todd MD Unavailable Unavailable Kendell Todd MD Unavailable Unavailable Ali, Kendell MD Unavailable Unavailable Ali, Kendell MD Unavailable Unavailable Ali, Kendell MD Unavailable Unavailable Ali, Kendell MD Unavailable Unavailable Ali, Kendell MD Unavailable Unavailable Ali, Kendell MD Unavailable Unavailable Ali, Kendell MD Unavailable Unavailable Ali, Kendell MD Unavailable Unavailable Ali, Kendell MD Unavailable Unavailable Ali, Kendell MD Unavailable Unavailable Ali, Kendell MD Unavailable Unavailable Ali, Kednell MD Unavailable Unavailable Ali, Kendell MD Unavailable Unavailable Ali, Kendell MD Unavailable Unavailable Ali, Kendell MD Unavailable Unavailable Ali, Kendell MD Unavailable Unavailable Ali, Kendell MD Unavailable Unavailable Ali, Kendell MD Unavailable Unavailable Ali, Kendell MD Unavailable Unavailable Ali, Kendell MD Unavailable Unavailable Ali, Kendell MD Unavailable Unavailable Ali, Kendell MD Unavailable Unavailable Ali, Kendell MD Unavailable Unavailable Ali, Kendell MD Unavailable Unavailable Ali, Kendell MD Unavailable Unavailable Ali, Kendell MD Unavailable Unavailable Ali, Kendell MD Unavailable Unavailable Ali, Kendell MD Unavailable Unavailable Ali, Kendell MD Unavailable Unavailable Ali, Kendell MD Unavailable Unavailable Ali, Kendell MD Unavailable Unavailable Ali, Kendell MD Unavailable Unavailable Ali, Kendell MD Unavailable Unavailable Ali, Kendell MD Unavailable Unavailable Ali, Kendell MD Unavailable Unavailable Ali, Kendell MD Unavailable Unavailable Ali, Kendell MD Unavailable Unavailable Re-disclosure Warning The records that you are about to access may contain information from federally-assisted alcohol or drug abuse programs. If such information is present, then the following federally mandated warning applies: This information has been disclosed to you from records protected by federal confidentiality rules (42 CFR part 2). The federal rules prohibit you from making any further disclosure of this information unless further disclosure is expressly permitted by the written consent of the person to whom it pertains or as otherwise permitted by 42 CFR part 2. A general authorization for the release of medical or other information is NOT sufficient for this purpose. The Federal rules restrict any use of the information to criminally investigate or prosecute any alcohol or drug abuse patient.The records that you are about to access may contain highly sensitive health information, the redisclosure of which is protected by Article 27-F of the [facility] Public Health law. If you continue you may have access to information: Regarding HIV / AIDS; Provided by facilities licensed or operated by the [facility] Office of Mental Health; or Provided by the [facility] Office for People With Developmental Disabilities. If such information is present, then the following [place] mandated warning applies: This information has been disclosed to you from confidential records which are protected by state law. State law prohibits you from making any further disclosure of this information without the specific written consent of the person to whom it pertains, or as otherwise permitted by law. Any unauthorized further disclosure in violation of state law may result in a fine or custodial sentence or both. A general authorization for the release of medical or other information is NOT sufficient authorization for further disc losure. Allergies and Adverse Reactions Type Description Substance Reaction Status Data Source(s ) Propensity to adverse reactions NSAIDS Nsaids Anaphylaxis Hig h Active [facility] High Propensity to adverse reactions KETOCONAZOLE Ketoconazole Active [facility] Family History Family Member Name Family Member Gender Family Member Status Date o f Status Description Data Source(s) Unknown Unknown Problem [facility] ([facility] Unknown Unknown Problem [facility] ([facility] Unknown Female Problem [facility] ([facility]) Unknown Unknown Encounters Encounter Providers Location Date Indications Data Source(s ) Outpatient Attender: CHILANGO BLAKELY [facility] Office 12/2020 12:15:00 PM EST [facility] ([facility] Outpatient [facility] 08/20/2020 08:53:44 AM [facility] Outpatient [facility].NESHA-SJP.NESHA 08/19/2020 12:00:00 AM [facility] Office Visit Attender: Kendell Todd MD Main office - [place] 08/04/2020 10:30:00 AM EST [facility] ([facility]) Outpatient Attender: Ludivina HUNTER [facility].NESHA-SJP.NESHA 0 12:00:00 AM EST - 07/26/2020 02:25:31 PM [facility] Outpatient Attender: Carmina WIGGINS Physical Therapy 02:45:00 PM EDT [facility] ([facility]) Outpatient Attender: Jessica Block 06/22 02:15:00 PM EDT [facility] ([facility] ) Outpatient SJP.[email or web address].SYR 06/11/2020 07:57:29 AM EDT [facility] Office Visit Attender: Larissa WIGGINS Physical Therapy 01:00:00 PM EDT [facility] ([facility]) Office Visit Attender: Kendell Todd MD Main office - [place] 04/22/2020 02:15:00 PM EDT [facility] ([facility]) Outpatient Attender: Jessica Block 03/23 11:20:00 AM EDT [facility] ([facility] ) Outpatient Attender: MIREYA Dewey 0 03/17/2020 09:00:00 AM EDT [facility] ([facility] ) Outpatient Attender: Jessica Block 03/05 01:00:00 PM EDT [facility] ([facility] ) Outpatient SJP.CT-[email or web address].SYR 03/05/2020 08:47:25 AM EDT [facility] Outpatient Attender: Tamica WIGGINS SJP.NESHA-SJP.NESHA 04/2020 12:00:00 AM EDT [facility] Outpatient Referrer: ISAIAH WIGGINS 12/18/2019 01:22:00 PM EDT [facility] Outpatient SJP.CT-SJP.SYR 12/02/2019 01:59:28 PM EDT [facility] Outpatient Referrer: ISAIAH WIGGINS 11/10/2019 05:20:00 PM EST [facility] Outpatient Referrer: ISAIAH WIGGINS 11/07/2019 08:19:00 AM EST [facility] Outpatient Referrer: ISAIAH WIGGINS 11/03/2019 03:29:00 PM EST [facility] Outpatient Referrer: ISAIAH WIGGINS 11/03/2019 03:28:00 PM EST [facility] Outpatient Referrer: ISAIAH WIGGINS 11/03/2019 03:27:00 PM EST [facility] Outpatient Referrer: ISAIAH WIGGINS 11/03/2019 01:14:00 PM EST [facility] Outpatient Referrer: ISAIAH WIGGINS 10/31/2019 01:17:00 PM EST [facility] Outpatient Referrer: Jessica Chambers DO 10/31/2019 12:53:00 PM EST [facility] Outpatient Attender: Jessica Block 10/28 12:00:00 PM EST [facility] ([facility] ) Outpatient Attender: Tamica KHANNESHA-SJP.NESHA 04/2020 12:00:00 AM EST - 09/24/2019 03:01:19 PM EST [facility] Outpatient NESHA-SJP 08/21/2019 01:18:32 PM EST [facility] Outpatient Attender: Jessica Block 08/19 10:20:00 AM EST [facility] ([facility] ) Outpatient Attender: Jessica Block 07/31 07:00:00 AM EST [facility] ([facility] ) Immunizations Vaccine Date Status Description Data Source(s) Influenza, injectable, MDCK, preservative free, ulan valent 06/22/2020 03:25:00 PM EDT completed [facility] ([facility]) Medications Medication Brand Name Start Date Product Form Dose Route Admi nistrative Instructions Pharmacy Instructions Status Indications Reaction Description Data Source(s) Nitroglycerin 0.4 MG Sublingual Tablet n itroglycerin (NITROSTAT) 0.4 MG SL tablet nitroglycerin (NITROSTAT) 0.4 MG SL tablet 07/26/2020 12:00:00 A M EST 0.4 mg Sublingual active 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 Place 1 tablet (0.4 mg total) under the tongue every 5 (five) minutes as needed for chest pain [facility] 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 Levothyroxine Sodium 0.112 MG Oral Tablet [Synthroid] SYNTHROID 112 MCG tablet SYNTHROID 112 MCG tablet 07/18/2020 12:00:00 AM EDT active [facility] Levothyroxine Sodium 0.112 MG Oral Tablet Levothyroxine Sodi um 06/23/2020 12:00:00 AM EDT ORAL active M [facility]ENT ([facility]) Administration Of Flu Vaccine 06/22/2020 12:00:00 AM EDT completed [facility] ([facility]) Medication administered onsite Primidone 50 MG Oral Tablet primidone (MYSOLINE) 50 MG tablet primidone (MYSOLINE) 50 MG tablet 06/21/2020 12:00:00 AM EDT 1.5 {tbl} Oral active Take 1.5 tablets by mouth 2 (two) times a day [facility] Diltiazem Hydrochloride 60 MG Oral Tablet diltiazem (C ARDIZEM) 60 MG tablet diltiazem (CARDIZEM) 60 MG tablet 04/12/2020 12:00:00 AM EDT 60 mg Oral active Hypertension, benign Take 1 tablet (60 m g total) by mouth 3 (three) times a day [facility] Hypertension, benign 12 HR ranolazine 500 MG Extended Release Oral Tablet ranolazine (RANEXA) 500 MG 12 hr tablet ranolazine (RANEXA) 500 MG 12 hr tablet 03/23/2020 12:00:00 AM EDT 500 mg Oral active Coronary arter y disease involving pala coronary artery 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 Take 1 tablet (500 mg total) by mouth 2 (two) times a day [facility] 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 Methocarbamol 500 MG Oral Tablet Methocarbamol 03/10/2020 12:00:00 AM EDT ORAL active [facility] ([facility]) Acetaminophen 325 MG / Oxycodone Hydrochloride 5 MG Or al Tablet Oxycodone-Acetaminophen 03/05/2020 12:00:00 AM EDT active [facility] ([facility]) 8 HR Acetaminophen 650 MG Extended Release Oral Tablet [Tylenol] Tylenol 8 Hour Arthritis Pain 03/05/2020 12:00:00 AM EDT ORAL active [facility] ([facility]) Furosemide 20 MG Oral Tablet furosemide (LASIX) 20 MG tablet furosemide (LASIX) 20 MG tablet 12/30/2019 12:00:00 AM EDT activ e 1-2 tabs daily as needed for LE swelling or SOB. [facility] Primidone 50 MG Oral Tablet Primidone 10/23/2019 12:00:00 AM EST ORAL active [facility] ([facility]) B Complex 10/07/2019 12:00:00 AM EST ORAL active [facility] ([facility] Nitroglycerin 0.4 MG Sublingual Tablet n itroglycerin (NITROSTAT) 0.4 MG SL tablet nitroglycerin (NITROSTAT) 0.4 MG SL tablet 09/25/2019 12:00:00 A M EST 0.4 mg Sublingual aborted 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 Place 1 tablet (0.4 mg total) under the tongue every 5 (five) minutes as needed for chest pain [facility] 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 Carbidopa 25 MG / Levodopa 100 MG Oral T ablet carbidopa-levodopa (SINEMET) 25- 100 MG per tablet carbidopa-levodopa (SINEMET) 25-100 MG per tablet 01/2019 12:00:00 AM EST 1.5 {tbl} Oral active Take 1.5 tablets by mouth 4 (four) times a day [facility] Acetaminophen 325 MG Oral Tablet acetaminophen (TYLENO L) 325 MG tablet acetaminophen (TYLENOL) 325 MG tablet 08/01/2019 12:00:00 AM EST active [facility] 200 ACTUAT Albuterol 0.09 MG/ACTUAT Dry Powder Inhaler [ProAir] PROAIR RESPICLICK 108 (90 Base) MCG/ACT AEPB PROAIR RESPICLICK 108 (90 Base) MCG/ACT AEPB 07/31/2019 12:00:00 AM EST active [facility] Levothyroxine Sodium 0.088 MG Oral Table t levothyroxine (SYNTHROID, LEVOTHROID) 88 MCG tablet levothyroxine (SYNTHROID, LEVOTHROID) 88 MCG tablet 88 ug Oral aborted Take 88 mcg by mouth daily [facility] Insurance Providers Payer name Policy type / Coverage type Policy ID Covered libertarian ID Covered libertarian's relationship to garduno Policy Garduno Plan Information MEDICARE [id number] SP [id number] [id number] FOR LIFE [id number] SP [id number] MEDICARE C [id number] S [id number] F71 FOR LIFE O [id number] S [id number] Poly [id number] MEDICARE [id number] Poly [id number] MEDICARE [id number] Poly [id number] WPS For Life Medigap Part B [id number] Family Depende nt [id number] Medicare Natl Govt Servic Medicare Primary [id number] Self [id number] [place] Medigap Part B [id number] Self [id number] Medicare Dme Supplies Medigap Part B [id number] Self [id number] [place] [id number] Self [id number] MEDICARE PI PI For Life Commercial [id number] Family Dependent [id number] Medicare Medicare Primary [id number] Self [id number] WPS For Life Medigap Part B [id number] Family Depende nt [id number] Medicare [place] Govt Servic Medicare Primary [id number] Self [id number] FOR LIFE [id number] MEDICARE [id number] SP [id number] A For Life WPS Medigap Part B [id number] Family Depende nt [id number] Medicare Natl Gov't Servi Medicare Primary [id number] Self [id number] WPS For Life Medigap Part B [id number] Family Depende nt [id number] Medicare [place] Govt Servic Medicare Primary [id number] Self [id number] [place] Medigap Part B [id number] Self [id number] Medicare Dme Supplies Medigap Part B [id number] Self [id number] [place] Primary [id number] Self [id number] WPS For Life Medigap Part B [id number] Family Depende nt [id number] Medicare [place] Govt Servic Medicare Primary [id number] Self [id number] WPS For Life Medigap Part B [id number] Family Depende nt [id number] Medicare [place] Govt Servic Medicare Primary [id number] Self [id number] WPS For Life Medigap Part B [id number] Family Depende nt [id number] Medicare [place] Govt Servic Medicare Primary [id number] Self [id number] [place]) Medigap Part B [id number] Self [id number] Medicare Dme Supplies Medigap Part B [id number] Self [id number] [place] Primary [id number] Self [id number] WPS For Life Medigap Part B [id number] Family Depende nt [id number] Medicare [place] Govt Servic Medicare Primary [id number] Self [id number] MEDICARE [id number] Poly [id number] A WPS For Life Medigap Part B [id number] Family Depende nt [id number] Medicare Natl Govt Servic Medicare Primary [id number] Self [id number] MEDICARE C [id number] S [id number] A NORIDIAN JE PART B C [id number] S [id number] PI PI WPS For Life Medigap Part B [id number] Family Depende nt [id number] Medicare Natl Govt Servic Medicare Primary [id number] Self [id number] For Life Commercial [id number] Family Dependent [id number] Medicare Medicare Primary [id number] Self [id number] WPS For Life Medigap Part B [id number] Family Depende nt [id number] Medicare Natl Govt Servic Medicare Primary [id number] Self [id number] [place]) Medigap Part B [id number] Self [id number] Medicare Dme Supplies Medigap Part B [id number] Self [id number] [place] Primary [id number] Self [id number] WPS For Life Medigap Part B [id number] Family Depende nt [id number] Medicare Natl Govt Servic Medicare Primary [id number] Self [id number] For Life - WPS Medigap Part B [id number] Family Depen dent [id number] Medicare (Part B) Medicare Primary [id number] Self [id number] Poly [id number] [place]) Medigap Part B [id number] Self [id number] Medicare Dme Supplies Medigap Part B [id number] Self [id number] [place] Primary [id number] Self [id number] For Life Commercial [id number] Family Dependent [id number] Medicare Medicare Primary [id number] Self [id number] [place]) Medigap Part B [id number] Self [id number] Medicare Dme Supplies Medigap Part B [id number] Self [id number] [place] Primary [id number] Self [id number] WPS For Life Medigap Part B [id number] Family Depende nt [id number] Medicare [place] Govt Servic Medicare Primary [id number] Self [id number] [place]) Medigap Part B [id number] Self [id number] Medicare Dme Supplies Medigap Part B [id number] Self [id number] [place] Primary [id number] Self [id number] WPS For Life Medigap Part B [id number] Family Depende nt [id number] Medicare [place] Govt Servic Medicare Primary [id number] Self [id number] MEDICARE [id number] SP [id number] A For Life Commercial [id number] Family Dependent [id number] Medicare Medicare Primary [id number] Self [id number] WPS For Life Medigap Part B [id number] Family Depende nt [id number] Medicare [place] Govt Servic Medicare Primary [id number] Self [id number] WPS For Life Medigap Part B [id number] Family Depende nt [id number] Medicare [place] Govt Servic Medicare Primary [id number] Self [id number] WPS For Life Medigap Part B [id number] Family Depende nt [id number] Medicare [place]l Govt Servic Medicare Primary [id number] Self [id number] For Life Commercial [id number] Family Dependent [id number] Medicare Medicare Primary [id number] Self [id number] [place]) Medigap Part B [id number] Self [id number] Medicare Dme Supplies Medigap Part B [id number] Self [id number] [place] Primary [id number] Self [id number] [place]) Medigap Part B [id number] Self [id number] Medicare Dme Supplies Medigap Part B [id number] Self [id number] [place] Primary [id number] Self [id number] [place]) Medigap Part B [id number] Self [id number] Medicare Dme Supplies Medigap Part B [id number] Self [id number] [place] Primary [id number] Self [id number] WPS For Life Medigap Part B [id number] Family Depende nt [id number] Medicare Natl Govt Serv Medicare Primary [id number] Self [id number] [place]) Medigap Part B [id number] Self [id number] Medicare Dme Supplies Medigap Part B [id number] Self [id number] [place] Primary [id number] Self [id number] For Life Commercial [id number] Family Dependent [id number] Medicare Medicare Primary [id number] Self [id number] [place] ([place]) Medigap Part B [id number] Self [id number] Medicare Dme Supplies Medigap Part B [id number] Self [id number] [place] Primary [id number] Self [id number] [place] ([place]) Medigap Part B [id number] Self [id number] Medicare Dme Supplies Medigap Part B [id number] Self [id number] [place] Primary [id number] Self [id number] [place] ([place]) Medigap Part B [id number] Self [id number] Medicare Dme Supplies Medigap Part B [id number] Self [id number] [place] Primary [id number] Self [id number] [place] ([place]) Medigap Part B [id number] Self [id number] Medicare Dme Supplies Medigap Part B [id number] Self [id number] [place] Primary [id number] Self [id number] MEDICARE [id number] SP [id number] A For Life Commercial Family Dependent Medicare Medicare Primary Self WPS For Life Medigap Part B Family Depende nt Medicare [place] Govt Servic [place] Primary Self [place] ([place]) Medigap Part B Self [place] Primary Self For Life Medigap Part B [place] Primary Self MEDICARE -O/P [id number] FOR LIFE-O/P [id number] Problems, Conditions, and Diagnoses Code Display Name Description Problem Type Effective Dates Data Source(s) R60.9 Peripheral edema Peripheral edema [id number] 12/24/2019 12 :00:00 AM EDT [facility] I48.0 Paroxysmal atrial fibrillation Paroxysmal atrial fibri llation [id number] 09/24/2019 12:00:00 AM EST [facility] R60.9 Edema, unspecified Edema, unspecified Diagnosis 05/2020 01:31:46 PM EST [facility] I48.0 Paroxysmal atrial fibrillation Paroxysmal atrial fibri llation Diagnosis 07/26/2020 01:31:46 PM EST [facility] 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, second degree At rioventricular block, second degree Diagnosis 07/26/2020 01:31:46 PM EST [facility] E78.2 Mixed hyperlipidemia Mixed hyperlipidemia Diagnosis 07/26/2020 01:31:46 PM EST [facility] 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 pala Diagnosis 07/26/2020 01:31:46 PM EST [facility] I10 Essential (primary) hypertension Essential (primary) h ypertension Diagnosis 07/26/2020 01:31:46 PM EST [facility] Surgeries/Procedures Procedure Description Date Indications Data Source(s) THERAPEUTIC PX 1/> AREAS EACH 15 MIN EXERCISES 021 12:00:00 AM EST [facility] ([facility] ) MANUAL THERAPY TQS 1/> REGIONS EACH 15 MINUTES 12:00:00 AM EST [facility] ([facility] ) DEBRIDEMENT NAIL ANY METHOD /09/20/2020 12:00:00 AM EST [facility] ([facility] THERAPEUTIC PX 1/> AREAS EACH 15 MIN EXERCISES 12:00:00 AM EST [facility] ([facility] ) MANUAL THERAPY TQS 1/> REGIONS EACH 15 MINUTES 12:00:00 AM EST [facility] ([facility] ) THERAPEUTIC PX 1/> AREAS EACH 15 MIN EXERCISES 12:00:00 AM EST [facility] ([facility] ) MANUAL THERAPY TQS 1/> REGIONS EACH 15 MINUTES 12:00:00 AM EST [facility] ([facility] ) Physical Therapy Eval - Low Complexity 09/01/2020 12:0 0:00 AM EST [facility] ([facility] ) THERAPEUTIC PX 1/> AREAS EACH 15 MIN EXERCISES 12:00:00 AM EST [facility] ([facility] ) Duplex Scan Aorta/Inf Vena Cava/Iliac Vasc/Bypass GR LTD/F ol-Up 08/23/2020 12:00:00 AM EST [facility] ([facility]) X-Ray Spine Lumbosacral Complete Inc Bending Views Min Of 6 08/19/2020 12:00:00 AM EST [facility] ([facility] ) RADEX WRIST 2 VIEWS 08/18/2020 12:00:00 AM EST [facility] ([facility] ) THERAPEUTIC PX 1/> AREAS EACH 15 MIN EXERCISES 12:00:00 AM EST [facility] ([facility] ) THERAPEUTIC PX 1/> AREAS EACH 15 MIN EXERCISES 12:00:00 AM EST [facility] ([facility] ) APPLICATION MODALITY 1/> AREAS HOT/COLD PACKS 08/04/20 12:00:00 AM EST [facility] ([facility] ) THERAPEUTIC PX 1/> AREAS EACH 15 MIN EXERCISES 12:00:00 AM EST [facility] ([facility] ) MANUAL THERAPY TQS 1/> REGIONS EACH 15 MINUTES 12:00:00 AM EST [facility] ([facility]) THERAPEUTIC PX 1/> AREAS EACH 15 MIN EXERCISES 12:00:00 AM EST [facility] ([facility] ) POCT AMB EKG POCT AMB EKG Routine 07/26/2020 2:26 PM EST 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 07/26/2020 07:26:00 PM EST Coronary ronald ry disease involving pala coronary artery 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 [facility] 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 THERAPEUTIC PX 1/> AREAS EACH 15 MIN EXERCISES 12:00:00 AM EST [facility] ([facility] ) MANUAL THERAPY TQS 1/> REGIONS EACH 15 MINUTES 12:00:00 AM EST [facility] ([facility] ) THERAPEUTIC PX 1/> AREAS EACH 15 MIN EXERCISES 12:00:00 AM EST [facility] ([facility] ) RADEX WRIST 2 VIEWS 07/16/2020 12:00:00 AM EDT [facility] ([facility] ) THERAPEUTIC PX 1/> AREAS EACH 15 MIN EXERCISES 12:00:00 AM EDT [facility] ([facility] ) THERAPEUTIC PX 1/> AREAS EACH 15 MIN EXERCISES 12:00:00 AM EDT [facility] ([facility] ) THERAPEUTIC PX 1/> AREAS EACH 15 MIN EXERCISES 12:00:00 AM EDT [facility] ([facility] ) Physical Therapy Eval - Low Complexity 07/05/2020 12:0 0:00 AM EDT [facility] ([facility] ) DEBRIDEMENT NAIL ANY METHOD 6/> 07/05/2020 12:00:00 AM EDT [facility] ([facility] RADEX WRIST 2 VIEWS 06/24/2020 12:00:00 AM EDT [facility] ([facility] ) BLOOD COUNT COMPLETE AUTO&AUTO DIFRNTL WBC COUNT CBC AND DIFFER ENTIAL Routine 06/22/2020 06/22/2020 12:00:00 AM EDT [facility] HEPATIC FUNCTION PANEL HEPATIC FUNCTION PANEL Routine 06/22/2020 06/22/2020 12:00:00 AM EDT [facility] BASIC METABOLIC PANEL CALCIUM TOTAL BASIC METABOLIC PANEL Routine 06/22/2020 06/22/2020 12:00:00 AM EDT [facility] RADEX WRIST 2 VIEWS 05/06/2020 12:00:00 AM EDT [facility] ([facility] ) Needle electromyography, each extremity, with related paraspinal areas, when performed, done with nerve conduction, amplitude and latency/velocity study; complete, five or more muscles studied, innervated by three or more nerves or four or more spinal levels (list separately in addition to the code for primary procedure). 05/03/2020 12:00:00 AM EDT [facility] T ([facility] ) Needle electromyography, each extremity, with related paraspinal areas, when performed, done with nerve conduction, amplitude and latency/velocity study; complete, five or more muscles studied, innervated by three or more nerves or four or more spinal levels (list separately in addition to the code for primary procedure). 05/03/2020 12:00:00 AM EDT [facility] T ([facility] ) Nerve Conduction 11-12 Studies 05/03/2020 12:00:00 AM EDT [facility] ([facility] ) DEBRIDEMENT NAIL ANY METHOD 6/> 04/30/2020 12:00:00 AM EDT [facility] ([facility] RADEX WRIST 2 VIEWS 04/08/2020 12:00:00 AM EDT [facility] ([facility] ) X-Ray Elbow Ap & Lateral 2 Views 04/08/2020 12:00:00 A M EDT [facility] ([facility] ) RADEX WRIST 2 VIEWS 04/08/2020 12:00:00 AM EDT [facility] ([facility] ) X-Ray Elbow Ap & Lateral 2 Views 03/25/2020 12:00:00 A M EDT [facility] ([facility] ) RADEX WRIST 2 VIEWS 03/25/2020 12:00:00 AM EDT [facility] ([facility] ) APPLICATION CAST ELBOW FINGER SHORT ARM 03/10/2020 12: 00:00 AM EDT [facility] ([facility] ) RADEX ELBOW COMPLETE MINIMUM 3 VIEWS 03/10/2020 12:00: 00 AM EDT [facility] ([facility] ) RADEX WRIST 2 VIEWS 03/10/2020 12:00:00 AM EDT [facility] ([facility] ) CLTX DSTL RDL FX/EPIPHYSL SEP W/MANJ WHEN PERF 020 12:00:00 AM EDT [facility] ([facility] ) RADEX WRIST 2 VIEWS 03/05/2020 12:00:00 AM EDT [facility] ([facility]) DEBRIDEMENT NAIL ANY METHOD 02/20/2020 12:00:00 AM EDT [facility] ([facility] DEBRIDEMENT NAIL ANY METHOD 10/07/2019 12:00:00 AM EST [facility] ([facility] Results ID Date Data Source [id number] 08/25/2020 12:00:00 AM EST [facility] Patient Name: DELMIS FAN [facility] Date of : 1930[address] Date of Exam: 08/25/2020TAMIKA Moore [id number]#: Fax: [phone] EXAM: CT LUMBAR SPINE WITHOUT CONTRASTAddendum created by Jose Mcginnis MD on 08/25/2020 5:10 PM Eastern Time ([place]& Autumn): THIS REPORT CONTAINS FINDINGS THAT MAY BE CRITICAL TO PATIENTCARE. The findings were verbally communicated via telephone conference withDr. Lerma at 5:10 PM EST on 08/25/2020. The findings were acknowledged andunderstood. Initial Report created on 08/25/2020 4:40 PM Eastern Time ([place] &Autumn):PROCEDURE INFORMATION:Exam: CT Lumbar Spine Without ContrastExam date and time: 08/25/2020 2:08 PM Age: 89 years oldClinical indication: Numbness and weakness; Patient HX: T- PT has had pinsand needles feelings in her lower legs and cannot walk well. PT also haspain in her mid back on down her back.TECHNIQUE: Imaging protocol: Computed tomography images of the lumbar spinewithout contrast. Radiation optimization: All CT scans at this facility useat least one of these dose optimization techniques: automated exposurecontrol; mA and/or kV adjustment per patient size (includes targeted examswhere dose is matched to clinical indication); or iterative reconstruction.COMPARISON: MRI LUMBAR SPINE WITHOUT&WITH CONTRAST 03/08/2016 10:49 AMFINDINGS:Vertebrae: Lumbar lordosis is preserved. Vertebral body heights aremaintained. Multilevel facet arthropathy. No acute lumbar spine fracture.0.4 cm retrolisthesis of L1 on L2. Stepwise 0.4 cm grade 1 anterolisthesisof L3 on L4 and L4 on L5. Discs/Spinal canal/Neural foramina: Multileveldegenerative changes with intervertebral disc height loss and osteophyteformation. Multilevel areas of moderate osseous canal stenosis.Liver: 3 cm fluid density cyst in the right hepatic lobe.Vasculature: Incidentally noted infrarenal abdominal aortic aneurysmmeasuring 4.8 cm in maximal transverse diameter.Soft tissues: Unremarkable.IMPRESSION:1. Incidentally noted infrarenal abdominal aortic aneurysm measuring 4.8 cmin maximal transverse diameter. Recommend vascular surgery consultation.2. No acute findings in the lumbar spine.3. Other chronic findings, as above.Thank you for allowing us to participate in the care of your patient.Dictated and Authenticated by: Jose Mcginnis MD 08/25/2020 4:40 PMEastern Time ([place] & Autumn)MarianaV/Julian you for referring ANDREW FAN to our office. Electronically Signed - [facility] 08/26/20 11:42 Name Value Range Interpretation Code Description Data Chelsea rce(s) Supporting Document(s) ID Date Data Source [id number] 08/23/2020 12:07:00 PM EST [facility] ([facility] Name Value Range Interpretation Code Description Data Chelsea rce(s) Supporting Document(s) Abdominal Aortic Aneurysm Ultrasound Laboratory test result [facility] ([facility]) ID Date Data Source [id number] 08/20/2020 08:53:21 AM EST [facility] Name Value Range Interpretation Code Description Data Chelsea rce(s) Supporting Document(s) &PDF [facility] YKMCIs9cRaBEXyKm11/HOApuSPLfu3OjFQehGMl0NLitWJTjC3UxxNkyJG3TEKSJHreKMZHXINWdMHSe waW [file] UqyMKpoPkFlF5Afnj7Du7mVli7u8TtwB5lS/AouIMG3yiWQxOYkQaqP8gup/6isYC/X2EY6EyRNO6+DOMESTIC TRAVEL CONSULTANT [file] AgICAgICAgICAgICAgICAgICAgICAgICAgICAgICAg HQRfCLNmSLQiLVIwXBVwCOIeZWVoMALoIOCcBDDpKUUbZZMjCVMwMOLnYU9LWHSsKWGnRSDqZSHaGBQv ICAgICAgICAgICAgICAgICAgICAgICAgICAgICAgICAgICAgICAgICAgICAgICAgICAgICAgICAgICAg KZLgIINeFIQxXYXaNBCvLGJvJNMzHIUzNW6PTLZmTF AgICAgICAgICAgICAgICAgICAgICAgICAgICAgICAgICAgICAgICAgICAgICAgICAgICAgICAgICAgIC BvKWQbDXHkJFFkSXIyUNBeMULtPDEhULAcWJCmHVEhKVSgWN2LYJZlKLJoKZXpGRLeOGYkRDWlWZXnKR AgICAgICAgICAgICAgICAgICAgICAgICAgICAgICAg YRKrXCQmSRJjBCKiDXXzORIzWTOuVBDhQIIbKNDuVQFwDUOgIKOnPQAfWHSbYH5BAJHvPIVlXBTqYXQh ICAgICAgICAgICAgICAgICAgICAgICAgICAgICAgICAgICAgICAgICAgICAgICAgICAgICAgICAgICAg HNSpTHEjQKArAFLyDNDkBWQqKGLyMZFqURHbHQ5QKC AgICAgICAgICAgICAgICAgICAgICAgICAgICAgICAgICAgICAgICAgICAgICAgICAgICAgICAgICAgIC WfQGEjCXJcTMZtTBLeMJSsGJFqOKRnCINaBYWoCFZsSLZtMXCnCO2ZIVMfABBfGNPmWUClQPJaCBLxRU AgICAgICAgICAgICAgICAgICAgICAgICAgICAgICAg EFSdPPRtCKVpYLJvCCPvDIScTKPeKULmCWSeOESpEORmJXWfBCStATUpQRZpSAZoPG8TSALvSNXuWEZt ICAgICAgICAgICAgICAgICAgICAgICAgICAgICAgICAgICAgICAgICAgICAgICAgICAgICAgICAgICAg ICAgICAgICAgICAgICAgICAgICAgICAgICAgICAgIA 0KICAgICAgICAgICAgICAgICAgICAgICAgICAgICAgICAgICAgICAgICAgICAgICAgICAgICAgICAgIC NpTFQcQASpGXZmXCUnDJQlLGRbCRDmMZLsAULgFEEaEVStKDBgHWLjNC2UVWFhBRIjIEWdDBWjRSDxOO AgICAgICAgICAgICAgICAgICAgICAgICAgICAgICAg JJKwHVGyGACuUFQaZKSmANGgHGJcTAZeLSCeKNEnKPXpUNSvMZHtKAAjEYLzCLLjZZVsLN7PDZ01nQSf d3G9OZAbXL4fxlu/Bl8OZOujwfFdcLZpHT1SBfToOD8dtq8XSoRgDV9myg4DPHxABqJjZ6K6qUWxMIGp VWVXIsOlL35oOXdcZx54ADrfRSKsEdWqWAx4Ii4MYa TvE0kaNFUdLhR4ESXrQoCwTNuaBL4Nl4JsiJQgYIv+Ra3ZBV4gr7XkVTlnQjHzID4hfv6YCEjWLdTtE7 C8nXJzY6R8RUylXf8XWUNcRSBaVOYvIXRRHKkcEE9FKG3ncdZ0ZG2GjLWeSABfRYRjuLYvWGh7F49ibA MdZWvhKE1TMYY+Elma+Np0PFESrOHAjWFEuWoVlGJKL DzLsG95iqZJnKFYvPKM5SQDtZb4DJZGwU5EeleRiaFviodWqWWOqCSWRVH7RAPxupaAoaWGxzMwcMD27 dUxhJG4NWg5UHqLwAZ8oej0RvPBoSp8UBDLsPs6DCHKyAJYqXUIqAYP7YRAwDwVoGYxrCBPqJMEoNIZ1 IUXuAWPqXM2SJpFoLFRqMTS3XdScHHVuXOYssx5BKG LxOKDkIvT7FZThJNFpCKCtPQifYQWoBBRrCDr3KUZtWKXwTH1TYkRtEJPgNQN4DNErZMVjMDZjgs7NPR JiLWIaWxSdNVUbYYKyPFBaPQnoCULaRUZgOAV8IQVdHXEpPI2PFpEcUATfWYVmIiGjUXDeAVZbjm2MWF TfDCKzVZU6GIQaNWWsVZYwCTynLEMkSYH9AhBbUMIm XMHxRD5MYkAkQTPyBOR6BNGkVVYcIYIjbm4ZSMCjNDUbMOO6XEMdQKRuMHPsLZzlUYBcANDnDcypBKOl JFNxNP9VTpTiUJPfRQC2LZOgNVKhBIVhwd3KXVNsIIPuWCnvWQWcXBZsCXVpWAmtWGNlYQP9GsDfJQAe ERAbZN7KTjRoKKpqQSXGPxy4FGzmG5j5VLXaLg7WO1 Qms3KdJBJvTGECLMjvQF6rsmDjUHBfUc3WC4nHLehhJWMxCEMvXcQzWzBySfi9QBS7Pzv1HXIkMVwoTR w4WL6fBFYqWlQlDsNlBdO3CqS1RhA0FFXdVHIiOXTiSFRbCaKnUdGtBL9YIk1BUvO8SQY3gAWrQv6FVO Z2CJEERzAbHQ0YHLe= ID Date Data Source [id number] 07/29/2020 01:04:00 PM EST [facility] ([facility]) Name Value Range Interpretation Code Description Data Chelsea rce(s) Supporting Document(s) Psbq-0-Jxmutuaebkods [Mass/volume] in Serum or Plasma 2.9 mg/L 0.6- 2.4 [facility] ([facility]) Siemens Immulite 2000 Immunochemiluminom etric assay (ICMA) . Values obtained with different assay methods or kits cannot be used interchangeably. Results cannot be interpreted as absolute evidence of the presence or absence of malignant disease. Performed at: [address] [id number] Fueler: Fay Rider MD, Phone: [phone] ID Date Data Source [id number] 07/29/2020 01:04:00 PM EST [facility] ([facility]) Name Value Range Interpretation Code Description Data Chelsea rce(s) Supporting Document(s) Immunoglobulin A 110.0 mg/dL 70-400 [facility] ([facility]) Immunoglobulin G 777 mg/dL 681-1648 [facility] ([facility]) Immunoglobulin M 80.1 mg/dL 40-230 [facility] ([facility]) ID Date Data Source [id number] 07/29/2020 01:04:00 PM EST [facility] Name Value Range Interpretation Code Description Data Chelsea rce(s) Supporting Document(s) Lactate dehydrogenase [Enzymatic activit y/volume] in Serum or Plasma by Lactate to pyruvate reaction 163 U/L 84-246 [facility] ([facility]) ID Date Data Source [id number] 07/29/2020 01:04:00 PM EST [facility] ([facility] Name Value Range Interpretation Code Description Data Chelsea rce(s) Supporting Document(s) Glucose, Fasting 88 mg/dL 70-100 [facility] ([facility]) Blood Urea Nitrogen 21 mg/dL 7-18 [facility] ([facility]) Creatinine For GFR 1.17 mg/dL 0.55-1.30 [facility] ([facility]) Glomerular Filtration Rate 46.6 [facility] ([facility]) <content>Units are mL/min/1.73 m2</content>
<content></content>
<content>Chronic Kidney Disease Staging per NKF:</content>
<content></content>
<content>Stage I & II GFR >=60 Normal to Mildly Decreased</content>
<content>Stage III GFR 30-59 Moderately Decreased</content>
<content>Stage IV GFR 15-29 Severely Decreased</content>
<content>Stage V GFR <15 Very Little GFR Left</content>
<content>ESRD GFR <15 on LEGAL BILLING SPECIALIST</content>
<content></content> Sodium Level 137 meq/L 136-145 [facility] ([facility]) Chloride Level 101 meq/L 98-107 [facility] ([facility]) Potassium Serum 4.5 meq/L 3.5-5.1 [facility] ([facility]) Carbon Dioxide Level 31 meq/L 21-32 [facility] ([facility]) Anion Gap 5 meq/L 8-16 [facility] [facility] Calcium Level 10.3 mg/dL 8.8-10.2 [facility] ([facility]) Ast/Sgot 8 U/L 7-37 [facility] ([place] [facility] Alt/SGPT Laboratory test result 12-78 [facility] ([facility]) Bilirubin,Total 0.5 mg/dL 0.2-1.0 [facility] ([facility]) Alkaline Phosphatase 97 U/L 45-117 [facility] ([facility]) Albumin 3.7 GM/DL 3.2-5.2 [facility] [facility] Total Protein 6.8 GM/DL 6.4-8.2 [facility] ([facility]) Albumin/Globulin Ratio 1.2 1.2-2.2 [facility] ([facility]) ID Date Data Source [id number] 07/29/2020 01:04:00 PM EST [facility] ([facility]) Name Value Range Interpretation Code Description Data Chelsea rce(s) Supporting Document(s) White Blood Count 7.4 10 4.0-10.0 [facility] ([facility]) Red Blood Count 4.89 10 4.00-5.40 [facility] ([facility]) Hemoglobin 14.4 g/dL 12.0-15.5 [facility] Mean Corpuscular Volume 94.3 fl 80.0-96.0 [facility] ([facility]) Hematocrit 46.1 % 36.0-47.0 [facility] [facility] Mean Corpuscular Hemoglobin 29.4 pg 27.0-33.0 [place] [facility] ([facility]) Red Cell Distribution Width 14.0 % 11.5-14.5 [facility] ([facility]) Mean Corpuscular HGB Conc 31.2 g/dL 32.0-36.5 [facility]E NT ([facility]) Platelet Count, Automated 313 10 150-450 [facility] ([facility]) Robertson % 10.4 % 0.0-5.0 [facility] [facility]) Neutrophils % 73.4 % 36.0-66.0 [facility] Lymph % 13.2 % 24.0-44.0 [facility] [facility]) Eos % 2.2 % 0.0-3.0 [facility] [facility]) Baso % 0.5 % 0.0-1.0 [facility] [facility]) Immature Granulocyte % 0.3 % 0-3.0 [facility] ([facility]) Nucleated Red Blood Cell % 0.0 % 0-0 [facility] ([facility]) Lymph # 1.0 10 1.5-5.0 [facility] [facility]) Neutrophils # 5.4 10 1.5-8.5 [facility]) Eos # 0.2 10 0.0-0.5 [facility] [facility]) Robertson # 0.8 10 0.0-0.8 [facility] [facility]) Baso # 0.0 10 0.0-0.2 [facility] [facility]) ID Date Data Source [id number] 06/22/2020 03:20:00 PM EDT [facility] ([facility]) Name Value Range Interpretation Code Description Data Chelsea rce(s) Supporting Document(s) Thyrotropin [Units/volume] in Serum or Plasma by Detec tion limit <= 0.05 mIU/L 9.61 uIU/mL 0.36-3.74 [facility] ([facility] ) ID Date Data Source [id number] 06/22/2020 01:34:[facility] [address] [facility] Name Value Range Interpretation Code Description Data Chelsea rce(s) Supporting Document(s) Glucose [Mass/volume] in Serum or Plasma 98 mg/dL 74-99 [facility] ([facility]) 100-125 mg/dL PRE-DIABETES/FASTING >126 mg/dL DIABETES/FASTING Urea nitrogen [Mass/volume] in Serum or Plasma 18 mg/dL 7-18 [facility] ([facility]) Creatinine 1.3 mg/dL 0.6-1.3 [facility] ([facility]) Sodium [Moles/volume] in Serum or Plasma 141 meq/L 136-145 [facility] ([facility]) Potassium [Moles/volume] in Serum or Plasma 4.0 meq/L 3.5-5.1 [facility] ([facility]) Chloride [Moles/volume] in Serum or Plasma 103 meq/L 98-107 [facility] ([facility]) Calcium [Mass/volume] in Serum or Plasma 9.7 mg/dL 8.5-10.1 [facility] ([facility]) Alkaline phosphatase isoenzyme [Units/volume] in Serum or Pl asma 86 mg/dL 46-116 [facility] ([facility]) Carbon dioxide, total [Moles/volume] in Serum or Plasma 29 meq/L 21 -32 [facility] ([facility]) Total Bilirubin 0.4 mg/dL 0.2-1.0 [facility] ([facility]) Aspartate aminotransferase [Enzymatic activity/volume] in Serum or Plasma 10 U/L 15-37 [facility] ([facility] ) Proteinase 3 Ab [Units/volume] in Serum 7.1 g/dL 6.4-8.2 [facility] ([facility]) Alanine aminotransferase [Enzymatic activity/volume] in Seru m or Plasma 9 U/L 12-78 [facility] ([facility]) Albumin [Mass/volume] in Serum or Plasma 3.7 g/dL 3.4-5.0 [facility] ([facility]) Glomerular filtration rate/1.73 sq M pre dicted among non-blacks [Volume Rate/Area] in Serum or Plasma by Creatinine-based formula (MDRD) 39 mL/min [facility] ([facility]) Glomerular filtration rate/1.73 sq M pre dicted among blacks [Volume Rate/Area] in Serum or Plasma by Creatinine-based formula (MDRD) 47 mL/min [facility] ([facility]) <content>CHRONIC KIDNEY DISEASE STAGING PER NKF</content>
<content></content>
<content>STAGE I & II GFR >= 60 NORMAL TO MILDLY DECREASED</content>
<content>STAGE III GFR 30-59 MODERATELY DECREASED</content>
<content>STAGE IV GFR 15-29 SEVERELY DECREASED</content>
<content>STAGE V GFR <15 VERY LITTLE GFR LEFT</content>
<content>ESRD GFR <15 ON LEGAL BILLING SPECIALIST</content>
<content></content> A/G Ratio 1.09 [facility]C [facility].00-[facility] [facility] ID Date Data Source [id number] 06/22/2020 01:34:00 PM EDT [facility] ([facility]) Name Value Range Interpretation Code Description Data Chelsea rce(s) Supporting Document(s) Leukocytes [#/volume] in Blood by Automated count 6.4 x10*3/UL 4.1-10 .9 [facility] ([facility]) Hemoglobin [Mass/volume] in Blood 13.2 g/dL 12.0-18.0 [facility] ([facility]) Erythrocytes [#/volume] in Blood by Automated count 4.36 x10*6/UL 4.2 0-6.30 [facility] Hematocrit [Volume Fraction] of Blood by Automated count 38.9 % 3 7.0-51.0 [facility] ([facility]) MCV 89.1 fL 80.0-97.0 [facility] [facility]) MCHC 34.0 g/dL 31.0-38.0 [facility] [facility]) MCH 30.3 pg 26.0-32.0 [facility] [facility]) Erythrocyte distribution width [Ratio] by Automated count 13.9 % 11.6-13.7 [facility] ([facility]) Platelets [#/volume] in Blood by Automated count 316 x10*3/UL 140-440 [facility] ([facility]) MPV 8.2 FL 7.8-11.0 [facility] [facility]) Lymph % 17.8 % 10.0-58.5 [facility] [facility]) Mid % 6.7 % 1.7-9.3 [facility] [facility]) Neut % 75.5 % 37.0-92.0 [facility] [facility]) Lymph # 1.1 x10*3/UL 0.6-4.1 [facility] ([facility]) Neut # 4.8 x10*3/UL 2.0-7.8 [facility] ([facility]) Mid # 0.5 x10*3/UL 0.1-0.6 [facility] ([facility]) ID Date Data Source [id number] 05/18/2020 12:00:00 AM EDT [facility] Mu[facility] MD Patient Name: ANDREW [id number] [facility] Date of : [address] [address] Date of Exam: 05/18/2020#: Fax: [phone] EXAM: CT UPPER LEFT EXTREMITY WITHOUT CONTRASTCLINICAL INFORMATION: Evaluate bony healing.COMPARISON: Plain film study dated 03/04/2020.There are impacted fractures of the distal radius and ulna, similar to theprior study. At the distal radius the major fracture fragments medially andlaterally demonstrate diastasis along the articular surface of up to 7 mm.The major anterior and posterior fracture fragments demonstrate diastasisalong the articular surface of up to 4 mm.There is diffuse demineralization. There is no dislocation.The impacted fracture of the distal ulna appears to be healing insatisfactory position and alignment.Accredited by the [employer] in [place].Justin Portillo, MDDJJonelle/slmTcalos you for referring ANDREW FAN to our office. Electronically Signed - JUSTIN PORTILLO MD 05/19/20 21:54 Name Value Range Interpretation Code Description Data Chelsea rce(s) Supporting Document(s) ID Date Data Source [id number] 05/03/2020 11:30:00 AM EDT [facility] ([facility]) Name Value Range Interpretation Code Description Data Chelsea rce(s) Supporting Document(s) Troponin I.cardiac [Mass/volume] in Serum or Plasma Laboratory test result [facility] ([facility]) <content>Troponin I Reference Interval f or Siemens [place] LOCI:</content>
<content></content>
<content>99th Percentile= 0.00-0.045 ng/ml</content>
<content></content>
<content>Risk Stratification:</content>
<content><= 0.10 ng/ml Decreased Risk for Adverse Clinical</content>
<content>Events.</content>
<content>0.10-1.50 ng/ml Increased Risk for Adverse Clinical</content>
<content>Events. Evaluation of additional</content>
<content>criterion and/or repeat testing in 2-6</content>
<content>hours is suggested to rule out myocardial</content>
<content>damage.</content>
<content>>= 1.50 ng/ml Indicative of Myocardial Injury.</content>
<content></content> ID Date Data Source [id number] 05/03/2020 11:30:00 AM EDT [facility] ([facility]) Name Value Range Interpretation Code Description Data Chelsea rce(s) Supporting Document(s) Glucose, Fasting 101 mg/dL 70-100 [facility] ([facility]) Glomerular Filtration Rate 54.0 [facility] ([facility]) <content>Units are mL/min/1.73 m2</content>
<content></content>
<content>Chronic Kidney Disease Staging per NKF:</content>
<content></content>
<content>Stage I & II GFR >=60 Normal to Mildly Decreased</content>
<content>Stage III GFR 30- 59 Moderately Decreased</content>
<content>Stage IV GFR 15-29 Severely Decreased</content>
<content>Stage V GFR <15 Very Little GFR Left</content>
<content>ESRD GFR <15 on LEGAL BILLING SPECIALIST</content>
<content></content> Blood Urea Nitrogen 28 mg/dL 7-18 [facility] ([facility]) Creatinine For GFR 1.03 mg/dL 0.55-1.30 [facility] ([facility]) Sodium Level 139 meq/L 136-145 [facility] ([facility]) Chloride Level 106 meq/L 98-107 [facility] ([facility]) Carbon Dioxide Level 30 meq/L 21-32 [facility] ([facility]) Potassium Serum 4.5 meq/L 3.5-5.1 [facility] ([facility]) Calcium Level 9.4 mg/dL 8.8-10.2 [facility] ([facility]) Anion Gap 3 meq/L 8-[facility] [facility] ID Date Data Source [id number] 05/03/2020 11:30:00 AM EDT [facility] Name Value Range Interpretation Code Description Data Chelsea rce(s) Supporting Document(s) White Blood Count 5.4 10 4.0-10.0 [facility] ([facility]) Red Blood Count 4.32 10 4.00-5.40 [facility] ([facility]) Hemoglobin 13.0 g/dL 12.0-15.5 [facility] [facility] Hematocrit 40.5 % 36.0-47.0 [facility] Mean Corpuscular Volume 93.8 fl 80.0-96.0 [facility] ([facility]) Mean Corpuscular Hemoglobin 30.1 pg 27.0-33.0 [place] [facility] ([facility]) Mean Corpuscular HGB Conc 32.1 g/dL 32.0-36.5 [facility] ([facility]) Platelet Count, Automated 273 10 150-450 [facility] ([facility]) Red Cell Distribution Width 14.0 % 11.5-14.5 [place] [facility] ([facility]) ID Date Data Source [id number] 03/17/2020 09:04:00 AM EDT [facility] Name Value Range Interpretation Code Description Data Chelsea rce(s) Supporting Document(s) Urine Color Laboratory test result [facility] T ([facility]) Urine PH 5.0 units 5.0-9.0 [facility] [facility] Specific gravity of Urine 1.025 1.005-1.030 [place] [facility] ([facility]) Urine Appearance Laboratory test result Abnormal (applies to non-numeric results) [facility] ([facility]) Urine Protein Laboratory test result 0-0 [facility] ([facility]) Urine Blood Laboratory test result [facility] ([facility]) Urine Leukocytes Laboratory test result [facility] ([facility]) Glucose [Presence] in Urine [facility] Urine Ketone Laboratory test result [facility] ([facility]) Urine Nitrite Laboratory test result [facility] ([facility]) Bilirubin.total [Mass/volume] in Serum or Plasma Laboratory test resu lt [facility] ([facility]) Urine Urobilinogen 0.2 mg/dL 0.2-1.0 [facility] ([facility]) ID Date Data Source [id number] 03/06/2020 01:38:00 PM EDT [facility] Name Value Range Interpretation Code Description Data Chelsea rce(s) Supporting Document(s) Laboratory test finding (navigational concept) 44.0 % 38.0-51.0 [facility] ([facility]) Laboratory test finding (navigational concept) 97 mg/dL 70-105 [facility] ([facility]) Laboratory test finding (navigational concept) 100 meq/L 98-109 [facility] ([facility]) Laboratory test finding (navigational concept) 138 meq/L 136-145 [facility] ([facility]) Laboratory test finding (navigational concept) 5.1 mg/dL 4.5-5.3 [facility] ([facility]) Laboratory test finding (navigational concept) 4.0 meq/L 3.5-5.1 [facility] ([facility]) Laboratory test finding (navigational concept) 17 mg/dL 8-26 [facility] [facility] Laboratory test finding (navigational concept) 1.2 mg/dL 0.6-1.3 [facility] [facility] Laboratory test finding (navigational concept) 24.0 MM/L 23.0-27.0 [facility] [facility] ID Date Data Source [id number] 03/06/2020 01:10:00 PM EDT [facility] ([facility] Name Value Range Interpretation Code Description Data Chelsea rce(s) Supporting Document(s) Reflex Urine Culture Laboratory test result [facility] ([facility]) <content>FULL REPORT IN LAB NOTES ([facility] a nd [facility]).</content>
<content></content>
<content>ORGANISM 1: PROTEUS MIRABILIS</content>
<content></content>
<content>COLONY COUNT >100,000</content>
<content></content>
<content></content>
<content> ORGANISM 1: PROTEUS MIRABILIS</content>
<content></content>
<content> PROTEUS MIRABILIS: REACTION</content>
<content>TRIMETHOPRIM/SULFAMETHOXAZOLE IV 160mg TMP & 800mg SMXq6h >=320 R</content>
<content> TRIMETHOPRIM/SULFAMETHOXAZOLE PO Bactrim DS Bid >=320 R</content>
<content>AMPICILLIN IV 500mg q6h <=2 S</content>
<content>AMPICILLIN PO 500mg q6h fasting <=2 S</content>
<content>GENTAMICIN IV 80mg q8h <=1 S</content>
<content>NITROFURANTOIN PO 100mg BID 128 R</content>
<content>CEFAZOLIN IV 1gm q8h 8 S</content>
<content>LEVOFLOXACIN IV 500mg qd 4 I</content>
<content>LEVOFLOXACIN PO 250mg qd 4 I</content>
<content>LEVOFLOXACIN PO 500mg qd 4 I</content>
<content>TOBRAMYCIN IV 80mg q8h <=1 S</content>
<content>CEFTRIAXONE IV 1gm q24h <=1 S</content>
<content>CEFTAZIDIME IV 1gm q8h <=1 S</content>
<content>AMPICILLIN/SULBACTAM IV 1.5g q6h <=2 S</content>
<content>PIPERACILLIN/TAZOBACTAM IV 2.25 gm q6h <=4 S</content>
<content>AZTREONAM IV 1gm q8h <=1 S</content>
<content>ERTAPENEM IV 1gm qd <=0.5 S</content>
<content> MEROPENEM IV 1 gm q8h <=0.25 S</content>
<content>MEROPENEM IV 500 mg q8h <=0.25 S</content>
<content>TIGECYCLINE IV 50mg q12h 4 R</content>
<content>CEFEPIME IV 1 gm q12h <=1 S</content>
<content>CEFEPIME IV 2 gm q12h <=1 S</content>
<content></content> ID Date Data Source [id number] 03/06/2020 01:10:00 PM ED[facility] Name Value Range Interpretation Code Description Data Chelsea rce(s) Supporting Document(s) Appearance, Urine RFX [facility] Specific [place] Ur Auto RFX 1.025 1.002-1.035 [facility] [facility] PH,Urine RFX 5.0 units 5.0-9.0 [facility] ([place] [facility]) Color, Urine RFX Laboratory test result [facility] ([place] [facility]) Protein, Urine Auto RFX Laboratory test result [facility] ([place] [facility]) Glucose, Urine (Ua) Auto RFX Laboratory test result [facility] ([place] [facility]) Bilirubin, Urine Auto RFX [facility] [facility] Urobilinogen, Urine Auto RFX 2.0 mg/dL 0.0-2.0 [facility] ([place] [facility]) Ketone, Urine Auto RFX Laboratory test result [facility] ([place] [facility]) Leukocyte Esterase Ur Auto RFX Laboratory test result [facility] ([place] [facility]) Blood, Urine Blood RFX Laboratory test result [facility] ([place] [facility]) Nitrite, Urine Auto RFX Laboratory test result [facility] ([place] [facility]) WBC, Urine Auto RFX Laboratory test result 0-3 [facility] ([place] [facility]) Squam Epithelial Cell Ur Aurfx 4 /HPF 0-6 [facility] [facility]) Bacteria, Urine Auto RFX Laboratory test result [facility] ([facility]) RBC, Urine Auto RFX Laboratory test result 0-[facility] [facility]) Hyaline Cast, Urine Auto RFX 0 /LPF [facility] ID Date Data Source [id number] 01/28/2020 01:35:00 PM EDT [facility] Name Value Range Interpretation Code Description Data Chelsea rce(s) Supporting Document(s) Klnh-1-Hjhetzsjsvnkd [Mass/volume] in Serum or Plasma 2.7 mg/L 0.6- 2.[address] [facility] [facility] Siemens Immulite 2000 Immunochemiluminom etric assay (ICMA) . Values obtained with different assay methods or kits cannot be used interchangeably. Results cannot be interpreted as absolute evidence of the presence or absence of malignant disease. Performed at: [address] [id number] Fueler: Fay Rider MD, Phone: [phone] Lactate dehydrogenase [Enzymatic activit y/volume] in Serum or Plasma by Lactate to pyruvate reaction 160 U/L 84-246 [facility] ID Date Data Source [id number] 01/28/2020 01:35:00 PM EDT [facility] ([facility]) Name Value Range Interpretation Code Description Data Chelsea rce(s) Supporting Document(s) Glucose, Fasting 99 mg/dL 70-100 [facility] ([facility]) Blood Urea Nitrogen 23 mg/dL 7-18 [facility] ([facility]) Glomerular Filtration Rate 53.4 [facility] ([place] [facility]) <content>Units are mL/min/1.73 m2</content>
<content></content>
<content>Chronic Kidney Disease Staging per NKF:</content>
<content></content>
<content>Stage I & II GFR >=60 Normal to Mildly Decreased</content>
<content>Stage III GFR 30-59 Moderately Decreased</content>
<content>Stage IV GFR 15-29 Severely Decreased</content>
<content>Stage V GFR <15 Very Little GFR Left</content>
<content>ESRD GFR <15 on LEGAL BILLING SPECIALIST</content>
<content></content> Creatinine For GFR 1.04 mg/dL 0.55-1.30 [facility] ([facility]) Sodium Level 136 meq/L 136-145 [facility] ([facility]) Carbon Dioxide Level 24 meq/L 21-32 [facility] ([facility]) Chloride Level 104 meq/L 98-107 [facility] ([facility]) Potassium Serum 4.6 meq/L 3.5-5.1 [facility] ([facility]) Calcium Level 9.4 mg/dL 8.8-10.2 [facility] ([facility]) Anion Gap 8 meq/L 8-16 [facility] ([place] [facility] Ast/Sgot 10 U/L 7-37 [facility] ([place] [facility]) Alt/SGPT 7 U/L 12-78 [facility] ([place] [facility]) Alkaline Phosphatase 97 U/L 45-117 [facility] ([facility]) Albumin 3.4 GM/DL 3.2-5.2 [facility] ([place] [facility]) Total Protein 6.3 GM/DL 6.4-8.2 [facility] ([facility]) Bilirubin,Total 0.5 mg/dL 0.2-1.0 [facility] ([facility]) Albumin/Globulin Ratio 1.17 1.00-1.93 [facility] ([facility]) ID Date Data Source [id number] 01/28/2020 01:35:00 PM EDT [facility] ([facility]) Name Value Range Interpretation Code Description Data Chelsea rce(s) Supporting Document(s) Robertson % 9.4 % 0.0-5.0 [facility] ([place] [facility]) Lymph % 14.2 % 24.0-44.0 [facility] [facility] Neutrophils % 73.2 % 36.0-66.0 [facility] ([facility]) Baso % 0.6 % 0.0-1.0 [facility] ([place] [facility]) Eos % 2.5 % 0.0-3.0 [facility] [facility]) Immature Granulocyte % 0.1 % 0-3.0 [facility] ([facility]) Neutrophils # 5.7 10 1.5-8.5 [facility] ([facility]) Robertson # 0.7 10 0.0-0.8 [facility] ([place] [facility]) Lymph # 1.1 10 1.5-5.0 [facility] [facility]) Baso # 0.1 10 0.0-0.2 [facility] [facility]) Eos # 0.2 10 0.0-0.5 [facility] [facility]) ID Date Data Source [id number] 01/28/2020 01:35:00 PM EDT [facility] ([facility]) Name Value Range Interpretation Code Description Data Chelsea rce(s) Supporting Document(s) Red Blood Count 4.43 10 4.00-5.40 [facility] ([facility]) White Blood Count 7.8 10 4.0-10.0 [facility] ([facility]) Mean Corpuscular Hemoglobin 30.9 pg 27.0-33.0 ME DENT ([facility]) Mean Corpuscular Volume 91.4 fl 80.0-96.0 [facility] ([facility]) Hematocrit 40.5 % 36.0-47.0 [facility] [facility] Hemoglobin 13.7 g/dL 12.0-15.5 [facility] [facility] Red Cell Distribution Width 14.7 % 11.5-14.5 ME DENT ([facility]) Mean Corpuscular HGB Conc 33.8 g/dL 32.0-36.5 MEDE NT ([facility]) Platelet Count, Automated 333 10 150-450 MEDE NT ([facility]) Nucleated Red Blood Cell % 0.0 % 0-0 MED ENT ([facility]) ID Date Data Source [id number] 01/28/2020 01:35:00 PM EDT [facility] ([facility] ) Name Value Range Interpretation Code Description Data Chelsea rce(s) Supporting Document(s) Glomerular filtration rate/1.73 sq M.pre dicted [Volume Rate/Area] in Serum or Plasma by Creatinine-based formula (MDRD) 53.4 [facility] ([facility]) ID Date Data Source [id number] 01/28/2020 01:35:00 PM EDT [facility] ([facility]) Name Value Range Interpretation Code Description Data Chelsea rce(s) Supporting Document(s) Creatinine [Mass/volume] in Serum or Plasma 1.04 0.55-1.30 [facility] ([facility]) ID Date Data Source [id number] 01/28/2020 01:35:00 PM EDT [facility] ([facility]) Name Value Range Interpretation Code Description Data Chelsea rce(s) Supporting Document(s) Urea nitrogen [Mass/volume] in Serum or Plasma 23 7-18 [facility] ([facility]) ID Date Data Source [id number] 01/28/2020 01:35:00 PM EDT [facility] ([facility]) Name Value Range Interpretation Code Description Data Chelsea rce(s) Supporting Document(s) Glucose [Mass/volume] in Serum or Plasma 99 70-100 [facility] ([facility]) ID Date Data Source [id number] 01/28/2020 01:35:00 PM EDT [facility] ([facility]) Name Value Range Interpretation Code Description Data Chelsea rce(s) Supporting Document(s) Basophils [#/volume] in Blood by Automated count 0.1 0.0-0.2 [facility] ([facility]) ID Date Data Source [id number] 01/28/2020 01:35:00 PM EDT [facility] ([facility]) Name Value Range Interpretation Code Description Data Chelsea rce(s) Supporting Document(s) Eosinophils [#/volume] in Blood by Automated count 0.2 0.0-0.5 [facility] ([facility]) ID Date Data Source [id number] 01/28/2020 01:35:00 PM EDT [facility] ([facility]) Name Value Range Interpretation Code Description Data Chelsea rce(s) Supporting Document(s) Monocytes [#/volume] in Blood by Automated count 0.7 0.0-0.8 [facility] ([facility]) ID Date Data Source [id number] 01/28/2020 01:35:00 PM EDT [facility] ([facility]) Name Value Range Interpretation Code Description Data Chelsea rce(s) Supporting Document(s) Lymphocytes [#/volume] in Blood by Automated count 1.1 1.5-5.0 [facility] ([facility]) ID Date Data Source [id number] 01/28/2020 01:35:00 PM EDT [facility] ([facility]) Name Value Range Interpretation Code Description Data Chelsea rce(s) Supporting Document(s) Neutrophils [#/volume] in Blood by Automated count 5.7 1.5-8.5 [facility] ([facility]) ID Date Data Source [id number] 01/28/2020 01:35:00 PM EDT [facility] ([facility]) Name Value Range Interpretation Code Description Data Chelsea rce(s) Supporting Document(s) Nucleated erythrocytes/100 leukocytes [Ratio] in Blood by Au tomated count 0.0 0-0 [facility] ([facility]) ID Date Data Source [id number] 01/28/2020 01:35:00 PM EDT [facility] ([facility]) Name Value Range Interpretation Code Description Data Chelsea rce(s) Supporting Document(s) Immature granulocytes/100 leukocytes in Blood by Automated count 0.1 0-3.0 [facility] ([facility]) ID Date Data Source [id number] 01/28/2020 01:35:00 PM EDT [facility] ([facility]) Name Value Range Interpretation Code Description Data Chelsea rce(s) Supporting Document(s) Basophils/100 leukocytes in Blood by Automated count 0.6 0.0-1 .0 [facility] ([facility]) ID Date Data Source [id number] 01/28/2020 01:35:00 PM EDT [facility] ([facility]) Name Value Range Interpretation Code Description Data Chelsea rce(s) Supporting Document(s) Eosinophils/100 leukocytes in Blood by Automated count 2.5 0.0 -3.0 [facility] ([facility]) ID Date Data Source [id number] 01/28/2020 01:35:00 PM EDT [facility] ([facility]) Name Value Range Interpretation Code Description Data Chelsea rce(s) Supporting Document(s) Monocytes/100 leukocytes in Blood by Automated count 9.4 0.0-5 .0 [facility] ([facility]) ID Date Data Source [id number] 01/28/2020 01:35:00 PM EDT [facility] ([facility]) Name Value Range Interpretation Code Description Data Chelsea rce(s) Supporting Document(s) Lymphocytes/100 leukocytes in Blood by Automated count 14.2 24. 0-44.0 [facility] ([facility]) ID Date Data Source [id number] 01/28/2020 01:35:00 PM EDT [facility] ([facility]) Name Value Range Interpretation Code Description Data Chelsea rce(s) Supporting Document(s) Neutrophils [#/volume] in Blood by Automated count 73.2 36.0-66 .0 [facility] ([facility]) ID Date Data Source [id number] 01/28/2020 01:35:00 PM EDT [facility] ([facility]) Name Value Range Interpretation Code Description Data Chelsea rce(s) Supporting Document(s) Platelets [#/volume] in Blood by Automated count 333 150-450 [facility] ([facility]) ID Date Data Source [id number] 01/28/2020 01:35:00 PM EDT [facility] ([facility]) Name Value Range Interpretation Code Description Data Chelsea rce(s) Supporting Document(s) Erythrocyte distribution width [Ratio] by Automated count 14.7 11.5-14.5 [facility] ([facility]) ID Date Data Source [id number] 01/28/2020 01:35:00 PM EDT [facility] ([facility]) Name Value Range Interpretation Code Description Data Chelsea rce(s) Supporting Document(s) Erythrocyte mean corpuscular hemoglobin concentration [Mass/volume] by Automated count 33.8 32.0-36.5 [facility]) ID Date Data Source [id number] 01/28/2020 01:35:00 PM EDT [facility] ([facility]) Name Value Range Interpretation Code Description Data Chelsea rce(s) Supporting Document(s) Erythrocyte mean corpuscular hemoglobin [Entitic mass] by Au tomated count 30.9 27.0-33.0 [facility] ([facility]) ID Date Data Source [id number] 01/28/2020 01:35:00 PM EDT [facility] ([facility]) Name Value Range Interpretation Code Description Data Chelsea rce(s) Supporting Document(s) Erythrocyte mean corpuscular volume [Entitic volume] by Auto mated count 91.4 80.0-96.0 [facility] ([facility]) ID Date Data Source [id number] 01/28/2020 01:35:00 PM EDT [facility] ([facility]) Name Value Range Interpretation Code Description Data Chelsea rce(s) Supporting Document(s) Hematocrit [Volume Fraction] of Blood by Automated count 40.5 3 6.0-47.0 [facility] ([facility]) ID Date Data Source [id number] 01/28/2020 01:35:00 PM EDT [facility] ([facility]) Name Value Range Interpretation Code Description Data Chelsea rce(s) Supporting Document(s) Hemoglobin [Mass/volume] in Blood 13.7 12.0-15.5 [facility] ([facility]) ID Date Data Source [id number] 01/28/2020 01:35:00 PM EDT [facility] ([facility]) Name Value Range Interpretation Code Description Data Chelsea rce(s) Supporting Document(s) Leukocytes [#/volume] in Blood by Automated count 7.8 4.0-10.0 [facility] ([facility]) ID Date Data Source [id number] 01/28/2020 01:35:00 PM EDT [facility] ([facility]) Name Value Range Interpretation Code Description Data Chelsea rce(s) Supporting Document(s) Elxf-8-Kzkwekkbxrwof [Mass/volume] in Serum or Plasma 2.7 0.6- 2.4 [facility] ([facility]) ID Date Data Source [id number] 01/28/2020 01:35:00 PM EDT [facility] ([facility]) Name Value Range Interpretation Code Description Data Chelsea rce(s) Supporting Document(s) Albumin/Globulin [Mass Ratio] in Serum or Plasma 1.17 1.00-1.93 [facility] ([facility]) ID Date Data Source [id number] 01/28/2020 01:35:00 PM EDT [facility] ([facility]) Name Value Range Interpretation Code Description Data Chelsea rce(s) Supporting Document(s) Albumin [Mass/volume] in Serum or Plasma 3.4 3.2-5.2 [facility] ([facility]) ID Date Data Source [id number] 01/28/2020 01:35:00 PM EDT [facility] ([facility]) Name Value Range Interpretation Code Description Data Chelsea rce(s) Supporting Document(s) Protein [Mass/volume] in Serum or Plasma 6.3 6.4-8.2 [facility] ([facility]) ID Date Data Source [id number] 01/28/2020 01:35:00 PM EDT [facility] ([facility]) Name Value Range Interpretation Code Description Data Chelsea rce(s) Supporting Document(s) Bilirubin.total [Mass/volume] in Serum or Plasma 0.5 0.2-1.0 [facility] ([facility]) ID Date Data Source [id number] 01/28/2020 01:35:00 PM EDT [facility] ([facility]) Name Value Range Interpretation Code Description Data Chelsea rce(s) Supporting Document(s) Alkaline phosphatase [Enzymatic activity/volume] in Serum or Sheeba sma 97 45-117 [facility] ([facility]) ID Date Data Source [id number] 01/28/2020 01:35:00 PM EDT [facility] ([facility]) Name Value Range Interpretation Code Description Data Chelsea rce(s) Supporting Document(s) Lactate dehydrogenase [Enzymatic activit y/volume] in Serum or Plasma by Lactate to pyruvate reaction 160 84-246 [facility] ([facility]) ID Date Data Source [id number] 01/28/2020 01:35:00 PM EDT [facility] ([facility]) Name Value Range Interpretation Code Description Data Chelsea rce(s) Supporting Document(s) Alanine aminotransferase [Enzymatic activity/volume] in Seru m or Plasma 7 12-78 [facility] ([facility]) ID Date Data Source [id number] 01/28/2020 01:35:00 PM EDT [facility] ([facility]) Name Value Range Interpretation Code Description Data Chelsea rce(s) Supporting Document(s) Aspartate aminotransferase [Enzymatic activity/volume] in Se rum or Plasma 10 7-37 [facility] ([facility]) ID Date Data Source [id number] 01/28/2020 01:35:00 PM EDT [facility] ([facility]) Name Value Range Interpretation Code Description Data Chelsea rce(s) Supporting Document(s) Calcium [Moles/volume] in Serum or Plasma 9.4 8.8-10.2 [facility] ([facility]) ID Date Data Source [id number] 01/28/2020 01:35:00 PM EDT [facility] ([facility]) Name Value Range Interpretation Code Description Data Chelsea rce(s) Supporting Document(s) Anion gap 3 in Serum or Plasma 8 8-16 [facility] ([facility]) ID Date Data Source [id number] 01/28/2020 01:35:00 PM EDT [facility] ([facility]) Name Value Range Interpretation Code Description Data Chelsea rce(s) Supporting Document(s) Carbon dioxide, total [Moles/volume] in Serum or Plasma 24 21 -32 [facility] ([facility]) ID Date Data Source [id number] 01/28/2020 01:35:00 PM EDT [facility] ([facility]) Name Value Range Interpretation Code Description Data Chelsea rce(s) Supporting Document(s) Chloride [Moles/volume] in Serum or Plasma 104 98-107 [facility] ([facility]) ID Date Data Source [id number] 01/28/2020 01:35:00 PM EDT [facility] ([facility] ) Name Value Range Interpretation Code Description Data Chelsea rce(s) Supporting Document(s) Potassium [Moles/volume] in Serum or Plasma 4.6 3.5-5.1 [facility] ([facility]) ID Date Data Source [id number] 01/28/2020 01:35:00 PM EDT [facility] ([facility]) Name Value Range Interpretation Code Description Data Chelsea rce(s) Supporting Document(s) Sodium [Moles/volume] in Serum or Plasma 136 136-145 [facility] ([facility]) ID Date Data Source [id number] 11/10/2019 12:00:00 AM EST [facility] Isaiah WIGGINS Patient Name: DELMIS FAN [address] Date of : 1930 4 Date of Exam: 11/10/2019TAMIKA Moore [id number]#: Fax: [phone] EXAM: ARTHROCENTESIS RTHIP-ASPIR / INJ STEROID/PAIN MEDSRIGHT HIP INJECTION:The procedure was performed by BRANT Vanegas under the directsupervision of Dr. Lerma.The benefits and risks including, but not limited to pain, infection,bleeding, and anaphylaxis were explained to the patient and informedconsent was obtained.The right femoral neck was localized using fluoroscopic guidance. The skinwas prepped and draped in a sterile fashion. 1% Lidocaine was used as alocal anesthetic. Using fluoroscopic guidance, a #22 gauge spinal needlewas inserted and advanced to the femoral neck. 0.5 cc of Omnipaque 300 wasinjected to verify placement. 6 cc of a solution containing 5 cc of 1%Lidocaine and 1 cc of Kenalog 40 mg was injected into the joint space. Theneedle was then removed.The patient tolerated the procedure well and there were no immediatecomplications.Fluoroscopy time was 2 seconds at 3 pulses/second. This is equal to 0.5seconds continuous fluoroscopy time which is a 75% reduction in radiation.BEVERLY Hinds/Julian you for referring ANDREW FAN to our office. Electronically Signed - JUSTIN LERMA MD 11/12/19 9:34 Name Value Range Interpretation Code Description Data Chelsea rce(s) Supporting Document(s) ID Date Data Source [id number] 11/10/2019 12:00:00 AM [facility] Isaiah WIGGINS Patient Name: DELMIS FAN [facility] Date of : 1930 4 Date of Exam: 11/10/2019TAMIKA Moore [id number]#: Fax: [phone] EXAM: ARTHROCENTESIS RTHIP-ASPIR / INJ STEROID/PAIN MEDSRIGHT HIP INJECTION:The procedure was performed by BRANT Vanegas under the directsupervision of Dr. Lerma.The benefits and risks including, but not limited to pain, infection,bleeding, and anaphylaxis were explained to the patient and informedconsent was obtained.The right femoral neck was localized using fluoroscopic guidance. The skinwas prepped and draped in a sterile fashion. 1% Lidocaine was used as alocal anesthetic. Using fluoroscopic guidance, a #22 gauge spinal needlewas inserted and advanced to the femoral neck. 0.5 cc of Omnipaque 300 wasinjected to verify placement. 6 cc of a solution containing 5 cc of 1%Lidocaine and 1 cc of Kenalog 40 mg was injected into the joint space. Theneedle was then removed.The patient tolerated the procedure well and there were no immediatecomplications.Fluoroscopy time was 2 seconds at 3 pulses/second. This is equal to 0.5seconds continuous fluoroscopy time which is a 75% reduction in radiation.BEVERLY Hinds/Julian you for referring ANDREW FAN to our office. Electronically Signed - JUSTIN LERMA MD 11/12/19 9:34 Name Value Range Interpretation Code Description Data Chelsea rce(s) Supporting Document(s) ID Date Data Source [id number] 11/03/2019 12:00:00 AM EST [facility] Isaiah M Sarah WIGGINS Patient Name: ANDREW [id number] [facility] Date of : 1930 4 Date [facility]: [facility] [id number]#: Fax: [phone] EXAM: ARTHROCENTESIS LTHIP-ASPIR / INJ STEROID/PAIN MEDSLEFT HIP INJECTION:The procedure was performed by BRANT Vanegas under the directsupervision of Dr. Portillo.The benefits and risks including, but not limited to pain, infection,bleeding, and anaphylaxis were explained to the patient and informedconsent was obtained.The left femoral neck was localized using fluoroscopic guidance. The skinwas prepped and draped in a sterile fashion. 1% Lidocaine was used as alocal anesthetic. Using fluoroscopic guidance, a #22 gauge spinal needlewas inserted and advanced to the femoral neck. The patient has a historyof contrast allergy; therefore, no contrast was used. 6 cc of a solutioncontaining 5 cc of 1% Lidocaine and 1 cc of Kenalog 40 mg was injected intothe joint space. The needle was then removed.The patient tolerated the procedure well and there were no immediatecomplications.Fluoroscopy time was 2 seconds at 3 pulses/second. This is equal to 0.5seconds continuous fluoroscopy time which is a 75% reduction in radiation.AKI Beverly/Julian boateng for referring ANDREW FAN to our office. Electronically Signed - JUSTIN PORTILLO MD 11/03/19 16:28 Name Value Range Interpretation Code Description Data Chelsea rce(s) Supporting Document(s) ID Date Data Source [id number] 11/03/2019 12:00:00 AM EST [facility] Isaiah WIGGINS Patient Name: ANDREW [id number] [facility] Date of : 1930 4 Date of Exam: [facility]/2019[facility] [id number]#: Fax: [phone] EXAM: ARTHROCENTESIS LTHIP-ASPIR / INJ STEROID/PAIN MEDSLEFT HIP INJECTION:The procedure was performed by BRANT Vanegas under the directsupervision of Dr. Portillo.The benefits and risks including, but not limited to pain, infection,bleeding, and anaphylaxis were explained to the patient and informedconsent was obtained.The left femoral neck was localized using fluoroscopic guidance. The skinwas prepped and draped in a sterile fashion. 1% Lidocaine was used as alocal anesthetic. Using fluoroscopic guidance, a #22 gauge spinal needlewas inserted and advanced to the femoral neck. The patient has a historyof contrast allergy; therefore, no contrast was used. 6 cc of a solutioncontaining 5 cc of 1% Lidocaine and 1 cc of Kenalog 40 mg was injected intothe joint space. The needle was then removed.The patient tolerated the procedure well and there were no immediatecomplications.Fluoroscopy time was 2 seconds at 3 pulses/second. This is equal to 0.5seconds continuous fluoroscopy time which is a 75% reduction in radiation.Justin Portillo, AKI/Julian you for referring ANDREW FAN to our office. Electronically Signed - JUSTIN PORTILLO MD 11/03/19 16:28 Name Value Range Interpretation Code Description Data Chelsea rce(s) Supporting Document(s) ID Date Data Source [id number] 08/22/2019 01:35:48 PM EST [facility] Name Value Range Interpretation Code Description Data Chelsea rce(s) Supporting Document(s) &PDF [facility] [id number] waW [file] [id number] ID Date Data Source [id number] 08/19/2019 11:15:00 AM EST [facility] ([facility]) Name Value Range Interpretation Code Description Data Chelsea rce(s) Supporting Document(s) Glucose [Mass/volume] in Serum or Plasma 89 mg/dL 74-99 [facility] ([facility]) 100-125 mg/dL PRE-DIABETES/FASTING >126 mg/dL DIABETES/FASTING Sodium [Moles/volume] in Serum or Plasma 138 meq/L 136-145 [facility] ([facility]) Creatinine 1.3 mg/dL 0.6-1.3 [facility] ([facility]) Urea nitrogen [Mass/volume] in Serum or Plasma 24 mg/dL 7-18 [facility] ([facility]) Potassium [Moles/volume] in Serum or Plasma 4.7 meq/L 3.5-5.1 [facility] ([facility]) Carbon dioxide, total [Moles/volume] in Serum or Plasma 32 meq/L 21 -32 [facility] ([facility]) Chloride [Moles/volume] in Serum or Plasma 100 meq/L 98-107 [facility] ([facility]) Glomerular filtration rate/1.73 sq M pre dicted among blacks [Volume Rate/Area] in Serum or Plasma by Creatinine-based formula (MDRD) 47 mL/min [facility] [facility] <content>CHRONIC KIDNEY DISEASE STAGING PER NKF</content>
<content></content>
<content>STAGE I & II GFR >= 60 NORMAL TO MILDLY DECREASED</content>
<content>STAGE III GFR 30-59 MODERATELY DECREASED</content>
<content>STAGE IV GFR 15-29 SEVERELY DECREASED</content>
<content>STAGE V GFR <15 VERY LITTLE GFR LEFT</content>
<content>ESRD GFR <15 ON LEGAL BILLING SPECIALIST</content>
<content></content> Glomerular filtration rate/1.73 sq M pre dicted among non-blacks [Volume Rate/Area] in Serum or Plasma by Creatinine-based formula (MDRD) 39 mL/min [facility] ([facility]) Calcium [Mass/volume] in Serum or Plasma 10.1 mg/dL 8.5-10.1 [facility] ([facility]) NOTE: RESULT VERIFIED. ID Date Data Source [id number] 08/19/2019 11:15:00 AM EST [facility] ([facility]) Name Value Range Interpretation Code Description Data Chelsea rce(s) Supporting Document(s) Erythrocytes [#/volume] in Blood by Automated count 4.94 x10*6/UL 4.2 0-6.30 [facility] ([facility]) Leukocytes [#/volume] in Blood by Automated count 8.9 x10*3/UL 4.1-10 .9 [facility] ([facility]) MCV 88.0 fL 80.0-97.0 [facility] Hemoglobin [Mass/volume] in Blood 14.4 g/dL 12.0-18.0 [facility] ([facility]) Hematocrit [Volume Fraction] of Blood by Automated count 43.5 % 3 7.0-51.0 [facility] ([facility]) MCH 29.1 pg 26.0-32.0 [facility] ([facility]) MCHC 33.1 g/dL 31.0-38.0 [facility] ([facility]) Platelets [#/volume] in Blood by Automated count 376 x10*3/UL 140-440 [facility] ([facility]) Erythrocyte distribution width [Ratio] by Automated count 14.0 % 11.6-13.7 [facility] ([facility]) Lymph % 14.6 % 10.0-58.5 [facility] ([facility]) MPV 8.6 FL 7.8-11.0 [facility] ([facility]) Mid % 4.8 % 1.7-9.3 [facility] ([facility]) Neut % 80.6 % 37.0-92.0 [facility] ([facility]) Mid # 0.5 x10*3/UL 0.1-0.6 [facility] ([facility]) Lymph # 1.3 x10*3/UL 0.6-4.1 [facility] ([facility]) Neut # 7.1 x10*3/UL 2.0-7.8 [facility] ([facility]) ID Date Data Source [id number] 07/31/2019 08:47:00 AM EST [facility] ([facility]) Name Value Range Interpretation Code Description Data Chelsea rce(s) Supporting Document(s) C reactive protein [Mass/volume] in Serum or Plasma by High sensitivity method 1.54 mg/dL 0.00-0.30 [facility] ([facility] ) ID Date Data Source [id number] 07/31/2019 08:46:00 AM EST [facility] ([facility]) Name Value Range Interpretation Code Description Data Chelsea rce(s) Supporting Document(s) Glucose [Mass/volume] in Serum or Plasma 93 mg/dL 74-99 [facility] ([facility]) 100-125 mg/dL PRE-DIABETES/FASTING >126 mg/dL DIABETES/FASTING Urea nitrogen [Mass/volume] in Serum or Plasma 24 mg/dL 7-18 [facility] ([facility]) Sodium [Moles/volume] in Serum or Plasma 138 meq/L 136-145 [facility] ([facility]) Creatinine 1.3 mg/dL 0.6-1.3 [facility] ([facility]) Carbon dioxide, total [Moles/volume] in Serum or Plasma 25 meq/L 21 -32 [facility] ([facility]) Chloride [Moles/volume] in Serum or Plasma 102 meq/L 98-107 [facility] ([facility]) Potassium [Moles/volume] in Serum or Plasma 5.4 meq/L 3.5-5.1 [facility] ([facility]) NOTE: RESULT VERIFIED. NO VISIBLE HEMOLYSIS. Calcium [Mass/volume] in Serum or Plasma 10.1 mg/dL 8.5-10.1 [facility] ([facility]) Glomerular filtration rate/1.73 sq M pre dicted among blacks [Volume Rate/Area] in Serum or Plasma by Creatinine-based formula (MDRD) 47 mL[facility] <content>CHRONIC KIDNEY DISEASE STAGING PER NKF</content>
<content></content>
<content>STAGE I & II GFR >= 60 NORMAL TO MILDLY DECREASED</content>
<content>STAGE III GFR 30-59 MODERATELY DECREASED</content>
<content>STAGE IV GFR 15-29 SEVERELY DECREASED</content>
<content>STAGE V GFR <15 VERY LITTLE GFR LEFT</content>
<content>ESRD GFR <15 ON LEGAL BILLING SPECIALIST</content>
<content></content> Glomerular filtration rate/1.73 sq M pre dicted among non-blacks [Volume Rate/Area] in Serum or Plasma by Creatinine-based formula (MDRD) 39 mL/min [facility] ([facility]) ID Date Data Source [id number] 07/31/2019 08:46:00 AM EST [facility] ([facility]) Name Value Range Interpretation Code Description Data Chelsea rce(s) Supporting Document(s) Erythrocytes [#/volume] in Blood by Automated count 4.46 x10*6/UL 4.2 0-6.30 [facility] ([facility]) Leukocytes [#/volume] in Blood by Automated count 12.4 x10*3/UL 4.1-1 0.9 [facility] ([facility]) MCV 88.3 fL 80.0-97.0 [facility] ([facility]) Hematocrit [Volume Fraction] of Blood by Automated count 39.4 % 3 7.0-51.0 [facility] ([facility]) Hemoglobin [Mass/volume] in Blood 12.9 g/dL 12.0-18.0 [facility] ([facility]) MCHC 32.8 g/dL 31.0-38.0 [facility] ([facility]) MCH 29.0 pg 26.0-32.0 [facility] ([facility]) Erythrocyte distribution width [Ratio] by Automated count 13.2 % 11.6-13.7 [facility] ([facility]) Lymph % 9.4 % 10.0-58.5 [facility] ([facility]) MPV 8.1 FL 7.8-11.0 [facility] ([facility]) Platelets [#/volume] in Blood by Automated count 500 x10*3/UL 140-440 [facility] ([facility]) Neut % 87.9 % 37.0-92.0 [facility] ([facility]) Lymph # 1.1 x10*3/UL 0.6-4.1 [facility] ([facility]) Mid % 2.7 % 1.7-9.3 [facility] [facility]) Neut # 10.9 x10*3/UL 2.0-7.8 [facility] ([facility]) Mid # 0.4 x10*3/UL 0.1-0.6 [facility] ([facility]) Procedure Social History Code Duration Value Status Description Data Source(s ) Alcohol intake 09/24/2019 12:00:00 AM EST No completed [facility] Smoking 09/24/2019 12:00:00 AM EST Former smoker completed Former smoker [facility] Vital Signs ID Date Data Source UNK Name Value Range Interpretation Code Description Data Source(s) Body height 66 [in_i] 66 [in_i] [facility] ([facility] 5'6" Diastolic blood pressure 83 mm[Hg] 83 mm[Hg] [facility] ([facility]) Systolic blood pressure 145 mm[Hg] 145 mm[Hg] M EDENT ([facility]) Body mass index (BMI) [Ratio] 21.8 kg/m2 21.8 k g/m2 [facility] ([facility] ) Body weight 135.00 [lb_av] 135.00 [lb_av] MEDEN T ([facility]) Body height 66 [in_i] 66 [in_i] [facility] ([facility]) 5'6" Body temperature 97.1 [degF] 97.1 [degF] [facility] ([facility] ) Body temperature 97.6 [degF] 97.6 [degF] [facility] ([facility] ) Oxygen saturation in Arterial blood by Pulse oximetry 98 % 98 % [facility] Body mass index (BMI) [Ratio] 22.95 kg/m2 22.95 kg/m2 [facility] Body weight 64.501 kg 64.501 kg [facility] Body height 167.6 cm 167.6 cm [facility] Heart rate 68 /min 68 /min [facility] Diastolic blood pressure 72 mm[Hg] 72 mm[Hg] [facility] Systolic blood pressure 120 mm[Hg] 120 mm[Hg] [facility] Body mass index (BMI) [Ratio] 22.1 kg/m2 22.1 k g/m2 [facility] ([facility]) Oxygen saturation in Arterial blood by Pulse oximetry 97 % 97 % [facility] ([facility]) RM Air Body weight 138.25 [lb_av] 138.25 [lb_av] MEDEN T ([facility]) Body height 66.25 [in_i] 66.25 [in_i] [facility] 5'6.25" Heart rate 70 /min 70 /min [facility] Diastolic blood pressure 58 mm[Hg] 58 mm[Hg] [facility] ([facility]) Systolic blood pressure 116 mm[Hg] 116 [facility] Body mass index (BMI) [Ratio] 22.3 kg/m2 22.3 k g/m2 [facility] ([facility]) Oxygen saturation in Arterial blood by Pulse oximetry 98 % 98 % [facility] ([facility]) RM Air Body weight 139.00 [lb_av] 139.00 [lb_av] MEDEN T ([facility]) Body height 66.25 [in_i] 66.25 [in_i] [facility] 5'6.25" Heart rate 85 /min 85 /min [facility] ([facility]) Diastolic blood pressure 60 mm[Hg] 60 mm[Hg] [facility] ([facility]) Systolic blood pressure 110 mm[Hg] 110 mm[Hg] [facility] ([facility]) Body mass index (BMI) [Ratio] 22.6 kg/m2 22.6 k g/m2 [facility] ([facility]) Body weight 141.00 [lb_av] 141.00 [lb_av] MEDEN T ([facility]) Body height 66.25 [in_i] 66.25 [in_i] [facility] 5'6.25" Heart rate 86 /min 86 /min [facility] ([facility]) Diastolic blood pressure 82 mm[Hg] 82 mm[Hg] [facility] ([facility]) Systolic blood pressure 132 mm[Hg] 132 mm[Hg] M EDENT ([facility]) Oxygen saturation in Arterial blood by Pulse oximetry 96 % 96 % [facility] ([facility]) RM Air Body height 66.25 [in_i] 66.25 [in_i] [facility] ([facility]) 5'6.25" Heart rate 73 /min 73 /min [facility] ([facility]) Diastolic blood pressure 72 mm[Hg] 72 mm[Hg] [facility] ([facility]) Systolic blood pressure 122 mm[Hg] 122 mm[Hg] M EDENT ([facility]) Body mass index (BMI) [Ratio] 22.0 kg/m2 22.0 k g/m2 [facility] ([facility]) Body weight 141.31 [lb_av] 141.31 [lb_av] MED[facility] T ([facility]) Body mass index (BMI) [Ratio] 22.6 kg/m2 22.6 k g/m2 [facility] ([facility]) Oxygen saturation in Arterial blood by Pulse oximetry 99 % 99 % [facility] ([facility]) RM Air Body weight 141.00 [lb_av] 141.00 [lb_av] MEDEN T ([facility]) Body height 66.25 [in_i] 66.25 [in_i] [facility] 5'6.25" Heart rate 68 /min 68 /min [facility] ([facility]) Diastolic blood pressure 80 mm[Hg] 80 mm[Hg] [facility] ([facility]) Systolic blood pressure 120 mm[Hg] 120 mm[Hg] M EDENT ([facility]) Systolic blood pressure 112 mm[Hg] 112 mm[Hg] M EDENT ([facility]) Body mass index (BMI) [Ratio] 22.3 kg/m2 22.3 k g/m2 [facility] ([facility]) Body weight 139.00 [lb_av] 139.00 [lb_av] MEDEN T ([facility]) Body height 66.25 [in_i] 66.25 [in_i] [facility] 5'6.25" Heart rate 78 /min 78 /min [facility] ([facility]) Diastolic blood pressure 70 mm[Hg] 70 mm[Hg] [facility] Body mass index (BMI) [Ratio] 22.1 kg/m2 22.1 k g/m2 [facility] ([facility]) Oxygen saturation in Arterial blood by Pulse oximetry 98 % 98 % [facility] ([facility]) Body weight 138.00 [lb_av] 138.00 [lb_av] MEDEN T ([facility]) Body height 66.25 [in_i] 66.25 [in_i] [facility] 5'6.25" Respiratory rate 20 /min 20 /min [facility] ( [facility]) Body temperature 96.2 [degF] 96.2 [degF] [facility] ([facility]) [facility] 68 /min 68 /[facility] Diastolic blood pressure 68 mm[Hg] 68 mm[Hg] [facility] ([facility]) Systolic blood pressure 122 mm[Hg] 122 [facility]Hg] [facility] Patient Treatment Plan of Care Planned Activity Planned Date Details Description Data Source (s) Nitroglycerin 0.4 MG Sublingual Tablet 07/26/2020 12:00:00 AM EST [facility] Levothyroxine Sodium 0.112 MG Oral Tablet [Synthroid] 07/18/2020 12:00:00 AM EDT [facility] Primidone 50 MG Oral Tablet 06/21/2020 12:00:00 AM EDT [facility] Diltiazem Hydrochloride 60 MG Oral Tablet 04/12/2020 12:00:00 AM ED T [facility] 12 HR ranolazine 500 MG Extended Release Oral Tablet 12:00:00 AM EDT [facility] Furosemide 20 MG Oral Tablet 12/30/2019 12:00:00 AM EDT [facility] Nitroglycerin 0.4 MG Sublingual Tablet 09/25/2019 12:00:00 AM [facility] Carbidopa 25 MG / Levodopa 100 MG Oral Tablet 08/21/2019 12:00:00 A M [facility] Acetaminophen 325 MG Oral Tablet 08/01/2019 12:00:00 AM [facility] 200 ACTUAT Albuterol 0.09 MG/ACTUAT Dry Powder Inhaler [ProAir] 07/31/2019 12:00:00 AM [facility] Levothyroxine Sodium 0.088 MG Oral Tablet [facility]
[2020-09-27] MEDS ORDERED: ISOS120T7 PO (16:44)
[2020-09-27] MEDS ORDERED: ACETAMINOPHEN 500 MG TAB PO SCH (17:30)
[2020-09-27] MEDS ORDERED: ACETAMINOPHEN 500 MG TAB PO ONE (17:45)
[2020-09-27] MEDS ORDERED: traMADol 50 MG TAB PO ONE (17:45)
[2020-09-27 18:10] VITALS: BP 128/85
--- NOTE | 2020-09-27 18:22 | HPEPDOC ---
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 Due to severe pain and inabilty to ambulate, she presented to [facility] where she was splinted. She denied any prodromal sx's such as chest pain, palpitations, dizziness, lightheadedness, and had been in good health w/o changes in weight, appetite, vision, fever, chills, sob, sore throat, diarrhea, n/v/dysuria, urgency frequency, polyuria, polyphagia, PND, orthopnea. Hospitalist was asked to admit for pain control and physical therapy evaluation for home safety. Ortho Dr. Deal was consulted. PAST MEDICAL / SURGERY HISTORY: 1. Coronary artery disease status post KEN in RCA 2. Chronic Hypertension. 3. Dyslipidemia. 4. 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 5. Chronic diastolic congestive heart failure (CHF). 6. NHL 7. Hysterectomy. 8. Tonsillectomy. 9. pneumonia 10. orthostatic hypotension 11. rosacea SOCIAL HISTORY: Quit smoking >5o years ago. 2ppd . no etoh recreational drug use. lives alone, but daughter in law checks in on her.retired FAMILY HISTORY: brain cancer and lung cancer. ALLERGIES: Please see below. HOME MEDICATIONS: Please see below. ROS: per hpi for +findings, otherwise 12point ros negative PHYSICAL EXAMINATION: VITAL SIGNS: see below GENERAL APPEARANCE: aaox 3 no respiratory distress hard of hearing soft spoken appears her age HEENT: rosacea with erythematous cheeks, dry mm no jvd thyromegaly carotid bruits stridor pallor or cyanosis. EOMI. PERRL neck supple full ROM CARDIOVASCULAR: S1S2 RRR pacer LUNGS: CTAB no adventitious breath sounds. AEBE ABDOMEN: +bs soft nt nd norebound or guarding EXTREMITIES: chronic varicosities b/l LE pink in color warm to touch well perfused. trace edema bl right calcaneus tender rom right foot limited due to pain. b/l dorsalis pedis and posterior tibialis pulses noted. LABORATORY DATA: See below. IMAGING: see below MICROBIOLOGY: Please see below. 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 Due to severe pain and inabilty to ambulate, she presented to [facility] where she was splinted. She denied any prodromal sx's such as chest pain, palpitations, dizziness, lightheadedness, and had been in good health w/o changes in weight, appetite, vision, fever, chills, sob, sore throat, diarrhea, n/v/dysuria, urgency frequency, polyuria, polyphagia, PND, orthopnea. Hospitalist was asked to admit for pain control and physical therapy evaluation for home safety. Ortho Dr. Deal was consulted. Right calcaneal fracture -activity per ortho -ortho dr. 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 Vital Signs Vital Signs Date Time Temp Pulse Resp B/P (MAP) Pulse Ox O2 Delivery O2 Flow Rate FiO2 09/27/20 18:05 18 09/27/20 15:05 97.2 67 157/69 (98) 97 Room Air Laboratory Data Labs 24H Laboratory Tests 2 09/27/20 16:30: Coronavirus (COVID-19)(PCR) NEGATIVE Home Medications Scheduled Acetaminophen (Acetaminophen) 325 Mg Tablet, 2 TAB PO Q4HP Albuterol Sulfate (Proair Respiclick) 90 Mcg Aer.pow.ba, 1 PUFF INH QIDP Aspirin (Aspirin EC) 81 Mg Tablet.dr, 81 MG PO DAILY Atorvastatin Calcium (Atorvastatin Calcium) 20 Mg Tab, 20 MG PO DAILY B-Complex with Vitamin C (Super B Complex-Vitamin C) 1 Each Tablet, 1 TAB PO DAILY Carbidopa/Levodopa (Sinemet 25-100 mg Tablet) 1 Each Tablet, 1.5 TAB PO QID 0800, 1100, 1500, 1800 Cyclosporine (Restasis) 0.05 % Emu, 1 DROP OU BID Diltiazem Hcl (Diltiazem HCl) 60 Mg Tablet, 60 MG PO TID 0900, 1600, 2100 Dorzolamide HCl/Timolol Maleat (Dorzolamide-Timolol Eye Drops) 1 Nenita Nenita, 1 DROP OU DAILY Fluticasone Propionate (Flovent Hfa) 110 Mcg/Act Aer.w.adap, 1 PUFF INH BID Furosemide (Furosemide) 20 Mg Tab, 20 MG PO DAILY Hydroxyzine HCl (Hydroxyzine HCl) 50 Mg Tablet, 1 TAB PO TIDP Isosorbide Mononitrate (Isosorbide Mononitrate ER) 120 Mg Tab.er.24h, 120 MG PO DAILY Latanoprostene Bunod (Vyzulta) 0.024% 5ML Drops, 1 DROP OU QHS Levothyroxine Sodium (Levothyroxine Sodium) 112 Mcg Tablet, 112 MCG PO DAILY Nortriptyline Hcl (Pamelor) 25 Mg Cap, 25 MG PO QHS Primidone (Mysoline) 50 Mg Tablet, 50 MG PO BID Ranolazine (Ranexa) 500 Mg Tab.er.12h, 1 TAB PO BID Spironolactone (Spironolactone) 25 Mg Tablet, 12.5 MG PO DAILY Vit C/E/Zn/Coppr/Lutein/Zeaxan (Preservision Areds 2 Softgel) 1 Each Capsule, 1 EACH PO BID Scheduled PRN Nitroglycerin (Nitrostat) 0.4 Mg Subl, 0.4 MG SL NITRO PRN for CHEST PAIN Omeprazole (Omeprazole) 40 Mg Capsule.dr, 40 MG PO DAILY PRN for HEARTBURN Allergies Coded Allergies: Contrast Media (Verified Allergy, Intermediate, HIVES, 05/11/19) ciprofloxacin (Verified Allergy, Intermediate, ERYTHEMA, 05/11/19) gabapentin (Verified Allergy, Intermediate, ERYTHEMA, 05/11/19) ketoconazole (Verified Allergy, Intermediate, 05/11/19) meloxicam (Verified Allergy, Intermediate, ERYTHEMA, 05/11/19) pramipexole (Verified Allergy, Unknown, 05/11/19) amoxicillin (Verified Adverse Reaction, Severe, Renal Failure, 05/11/19) clavulanic acid (Verified Adverse Reaction, Severe, Renal Failure, 05/11/19) clindamycin (Verified Adverse Reaction, Severe, Chest pressure, 05/11/19) ibuprofen (Verified Adverse Reaction, Severe, CT, 05/11/19) A-FIB/CHADSVASC A-FIB History Current/History of A-Fib/PAF?: No Current PO Anticoag Therapy: No Age/Risk Factor Scoring CHADSVASC: CHADSVASC Response (Comments) Value Age Risk Factor Age >/= 75 years old 2 Gender Risk Factor Female 1 Hx of CHF Yes 1 Hx of HTN Yes 1 Hx of Stroke/TIA/or VTE No 0 Hx of Diabetes No 0 Hx of Vascular Disease No 0 Total 5 Treatment Treatment ordered: NONE CHIDI MARTINEZ MD Sep 27, 2020 18:22
[2020-09-27] MEDS: ENOXAPARIN 30MG/0.3ML SYRINGE (J1650 PER 10MG) SC SCH (18:59)
[2020-09-27 20:41] VITALS: BP 130/81
[2020-09-27] MEDS: ACETAMINOPHEN 500 MG TAB PO SCH ×2 (21:00→22:51)
[2020-09-27] MEDS: traMADol 50 MG TAB PO PRN (23:23)
[2020-09-28] MEDS: traMADol 50 MG TAB PO PRN ×5 (02:59→20:53)
[2020-09-28 06:00] VITALS: BP 156/73
[2020-09-28 06:43] LABS: HEMATOCRIT 41.5 % (36.0-47.0); HEMOGLOBIN 13.1 g/dl (12.0-15.5); MEAN CORPUSCULAR HEMOGLOBIN 29.9 pg (27.0-33.0); MEAN CORPUSCULAR HGB CONC 31.6 g/dl (32.0-36.5); MEAN CORPUSCULAR VOLUME 94.7 fl (80.0-96.0); PLATELET COUNT, AUTOMATED 243 10^3/uL (150-450); RED BLOOD COUNT 4.38 10^6/uL (4.00-5.40); WHITE BLOOD COUNT 7.9 10^3/uL (4.0-10.0)
[2020-09-28 07:04] LABS: CALCIUM LEVEL 9.5 MG/DL (8.8-10.2); CREATININE FOR GFR 0.97 MG/DL (0.55-1.30); GLOMERULAR FILTRATION RATE 57.8 (>32); POTASSIUM SERUM 4.3 MEQ/L (3.5-5.1)
[2020-09-28] MEDS: MIRALAX *UNIT DOSE* 17GM PACKET PO SCH (08:31)
[2020-09-28] MEDS: ENOXAPARIN 30MG/0.3ML SYRINGE (J1650 PER 10MG) SC SCH (08:32)
[2020-09-28] MEDS: MOM 30ML SUSPENSION UDC PO SCH (08:32)
[2020-09-28] MEDS: ACETAMINOPHEN 500 MG TAB PO SCH ×4 (08:33→20:54)
--- NOTE | 2020-09-28 09:36 | CR ---
CONSULTATION DATE: 09/27/2020 SERVICE CONSULT: Orthopedic Surgery. PHYSICIAN CONSULTED: EVAN VELASQUEZ MD HISTORY OF PRESENT ILLNESS: This is an 89-year-old female with Parkinson's, coronary artery disease, hypertension, dyslipidemia among other comorbidities listed below who presented to the [facility] Emergency Department after she missed a step in the garage and landed on her right hand and right foot while trying to put salt on the snow and get her mail. Due to pain to the right lower extremity as well as the inability to ambulate, she presented to [facility] where she was splinted by the ER provider. She was admitted by Internal Medicine for management of her medical comorbidities and Orthopedic Surgery was consulted for further evaluation and treatment once the patient was admitted to the floor. PAST MEDICAL HISTORY: 1. Coronary artery disease status post KEN in RCA. 2. Chronic hypertension. 3. Dyslipidemia. 4. Complete arteriovenous block status post pacemaker. 5. Chronic diastolic congestive heart failure. 6. NHL. 7. Hysterectomy. 8. Tonsillectomy. 9. Pneumonia. 10.Orthostatic hypotension. 11.Rosacea. ALLERGIES: Please see Medicine's note. SOCIAL HISTORY: Quit smoking 50 years prior. Social alcohol. No IV drug use. Lives alone. Bsfrnjje-es-vto checks in on her. She is retired. FAMILY HISTORY: Brain cancer, lung cancer. HOME MEDICATIONS: Please see Internal Medicine note. REVIEW OF SYSTEMS: A 12 point review of systems was negative unless otherwise described in the HPI above. PHYSICAL EXAMINATION: Alert to person, time and place. Right lower extremity: The patient had mild edema about the right calcaneus, however there was no obvious deformity. She had a 2+ dorsalis pedis and posterior arterial pulse, under 2 second capillary refill to the digits of her right foot, 5/5 motor strength in the EHL, FHL, tibialis anterior, gastrocnemius soleus complex and peroneal musculature. She has sensation intact to light touch to the deep and superficial peronea, sural saphenous and tibial nerve distributions. She appeared to have full range of motion about the right ankle, the knee, the hip. IMAGING: The patient had a minimally displaced fracture about the right calcaneus which appeared to involve both the posterior facet as well as the plantar aspect with a near anatomic Rae's angle and essentially anatomic angle of Gissane. She appeared to not lose much height of the calcaneus but this fracture is minimally displaced. RADIOGRAPHS: Radiographs and CT scan of the right hip demonstrated no fracture of the femoral neck or intertrochanteric region. Right ankle x-rays demonstrate no osseous abnormalities except osteopenia and osteoporosis. IMPRESSION: This is an 89-year-old female with aforementioned medical comorbidities with a minimally displaced closed right calcaneus fracture. PLAN: The patient's splint was removed bedside. Her skin was checked. There were no breaks in the skin and the patient was placed in a well-padded L and U splint with the right ankle in dorsiflexion. At this point, she will be nonweightbearing to the right lower extremity and be treated non-operatively for the right calcaneus fracture. She will be nonweightbearing for six to eight weeks based on radiographic evaluations as well as clinical evaluation. After her calcaneus is healed, she will be progressively allowed to weight bear likely at the six week lilian. She will be set up for Physical Therapy for range of motion of her right knee, hip and to undergo gait training using a wheelchair. The patient will follow-up with [facility] in two to four weeks for repeat radiographs to include a Goodwin radiograph of the right heel and clinical examination. The patient will be discharged when she passes Physical Therapy evaluation and her medical comorbidities are managed by Internal Medicine. She will be discharged per the Internal Medicine and Pain Management medication recommendations. HILL
[2020-09-28 14:00] VITALS: BP 152/87
[2020-09-28] MEDS: NORTRIPTYLINE 25 MG CAP PO SCH (20:53)
[2020-09-28] MEDS ORDERED: NORTRIPTYLINE 25 MG CAP PO SCH (21:00)
[2020-09-28] MEDS ORDERED: ALBUTEROL 90 MCG/ACT 8GM HFA INHALER INH PRN (21:15)
[2020-09-28] MEDS ORDERED: OMEPRAZOLE 20 MG CAP PO PRN (21:15)
[2020-09-28] MEDS ORDERED: PILL CUTTER 1 EACH XX PRN (21:45)
[2020-09-28 22:00] VITALS: BP 166/91
[2020-09-28] MEDS ORDERED: FLEET ENEMA PR ONE (22:00)
[2020-09-28] MEDS: COSOPT OCUMETER PLUS 10ML (DORZOLAMIDE/TIMOLOL) OU SCH (23:31)
[2020-09-28] MEDS: PRIMIDONE 50 MG TAB PO SCH (23:33)
[2020-09-28] MEDS: RANOLAZINE 500 MG ER TAB PO SCH (23:33)
[2020-09-28] MEDS: hydrOXYzine 50 MG TAB PO PRN (23:33)
--- NOTE | 2020-09-28 23:39 | IPNPDOC ---
Subjective Date Seen The patient was seen on 09/28/20. Subjective Chief Complaint/HPI Mrs. Garcia is an 89 year old female here with right calcaneal fracture. This morning, she denied any fever, chest pain, or dyspnea. Planning for rehab at ARU tomorrow Objective Physical Examination General Exam: Positive: Alert, Cooperative Eye Exam: Positive: PERRLA, EOMI; Negative: Sclera icteric ENT Exam: Positive: Other ENT (erythematous cheeks) Chest Exam: Positive: Clear to auscultation; Negative: Rales, Rhonchi, Wheezing Heart Exam: Positive: Rate Normal, Regular Rhythm Abdomen Exam: Positive: Normal bowel sounds, Soft; Negative: Tenderness Neuro Exam: Positive: Normal Speech Assessment /Plan Assessment Mrs. Garcia is an 89 year old female here with right calcaneal fracture. Planning for ARU tomorrow Plan/VTE VTE Prophylaxis Ordered?: Yes Plan 1. Right calcaneal fracture -Orthopedic surgery consulted, recommendations appreciated -Activity per ortho -Planning for ARU tomorrow 2. Parkinson's disease -Chronic -Continue home medication 3. CAD -Stable -Continue cardiac regimen 4. HTN -Uncontrolled due to pain -Continue pain control regimen and anti-hypertensive medications 5. DVT ppx -Lovenox Disposition: Plan for ARU tomorrow VS, I&O, 24H, Fishbone Vital Signs/I&O Vital Signs Date Time Temp Pulse Resp B/P (MAP) Pulse Ox O2 Delivery O2 Flow Rate FiO2 09/28/20 22:00 98.2 87 18 166/91 (116) 94 Room Air I&O- Last 24 Hours up to 6 AM 09/28/20 06:00 Intake Total 490 ml Output Total 650 ml Balance -160 ml Laboratory Data 24H LABS Laboratory Tests 2 09/28/20 06:11: Nucleated Red Blood Cells % (auto) 0.0, Anion Gap 4L, Glomerular Filtration Rate 57.8, Calcium Level 9.5 CBC/BMP Laboratory Tests 09/28/20 06:11 FADY WATTERS DO Sep 28, 2020 23:39
[2020-09-29] MEDS: LEVOTHYROXINE 112MCG TABLET (0.112MG) PO SCH (05:48)
[2020-09-29] MEDS: hydrOXYzine 50 MG TAB PO PRN (05:48)
[2020-09-29] MEDS: traMADol 50 MG TAB PO PRN ×3 (05:49→21:33)
[2020-09-29 06:00] VITALS: BP 170/91
[2020-09-29] MEDS: MIRALAX *UNIT DOSE* 17GM PACKET PO SCH (07:56)
[2020-09-29] MEDS: MOM 30ML SUSPENSION UDC PO SCH (07:56)
[2020-09-29] MEDS: FLUTICASONE HFA 110 MCG 12 GM INHALER (FLOVENT) INH SCH ×2 (08:05→20:02)
[2020-09-29] MEDS: ACETAMINOPHEN 500 MG TAB PO SCH ×4 (08:21→21:34)
[2020-09-29] MEDS: FUROSEMIDE 20 MG TAB PO SCH (08:22)
[2020-09-29] MEDS: ASPIRIN 81 MG ENTERIC TAB PO SCH (08:22)
[2020-09-29] MEDS: PRIMIDONE 50 MG TAB PO SCH ×2 (08:22→21:34)
[2020-09-29] MEDS: ISOSORBIDE MON. (IMDUR) 60 MG XR TAB PO SCH (08:22)
[2020-09-29] MEDS: RANOLAZINE 500 MG ER TAB PO SCH ×2 (08:22→21:33)
[2020-09-29] MEDS: SPIRONOLACTONE 12.5MG PER 1/2 TABLET PO SCH (08:23)
[2020-09-29] MEDS: SINEMET 25-100 MG TAB PO SCH ×4 (08:23→17:46)
[2020-09-29] MEDS: ENOXAPARIN 30MG/0.3ML SYRINGE (J1650 PER 10MG) SC SCH (08:23)
[2020-09-29] MEDS: ATORVASTATIN 20 MG TAB PO SCH (08:23)
[2020-09-29] MEDS ORDERED: ENTER DRUG NAME HERE (PATIENT'S OWN MED) OU SCH ×2 (09:00→21:00)
[2020-09-29 10:32] LABS: HEMATOCRIT 39.6 % (36.0-47.0); HEMOGLOBIN 12.6 g/dl (12.0-15.5); MEAN CORPUSCULAR HEMOGLOBIN 29.6 pg (27.0-33.0); MEAN CORPUSCULAR HGB CONC 31.8 g/dl (32.0-36.5); PLATELET COUNT, AUTOMATED 226 10^3/uL (150-450); RED BLOOD COUNT 4.26 10^6/uL (4.00-5.40); WHITE BLOOD COUNT 9.9 10^3/uL (4.0-10.0)
[2020-09-29 11:05] LABS: BLOOD UREA NITROGEN 16 MG/DL (7-18); CALCIUM LEVEL 8.9 MG/DL (8.8-10.2); CARBON DIOXIDE LEVEL 28 MEQ/L (21-32); CHLORIDE LEVEL 103 MEQ/L (98-107); CREATININE FOR GFR 0.92 MG/DL (0.55-1.30); GLOMERULAR FILTRATION RATE > 60.0 (>32); GLUCOSE, FASTING 124 MG/DL (70-100); POTASSIUM SERUM 4.3 MEQ/L (3.5-5.1); SODIUM LEVEL 138 MEQ/L (136-145); TROPONIN I 0.02 NG/ML (< 0.10)
[2020-09-29 14:00] VITALS: BP 95/78
[2020-09-29 14:22] VITALS: BP 93/55
[2020-09-29 17:48] VITALS: BP 121/69
[2020-09-29] MEDS ORDERED: SODIUM CHLORIDE 0.9% INJ 10 ML SYR IV PRN (18:15)
--- NOTE | 2020-09-29 19:06 | IPNPDOC ---
Subjective Date Seen The patient was seen on 09/29/20. Subjective Chief Complaint/HPI Mrs. Garcia is an 89 year old female here with right calcaneal fracture. This morning, she had sharp jaw pain. She said she also had it last night as well. She had sublingual nitroglycerin in her purse and took one which helped with the pain. Otherwise denies chest pain or dyspnea. Pending placement in ARU tomorrow. Objective Physical Examination General Exam: Positive: Alert, Cooperative Eye Exam: Positive: PERRLA, EOMI; Negative: Sclera icteric ENT Exam: Positive: Other ENT (erythematous cheeks) Chest Exam: Positive: Clear to auscultation; Negative: Rales, Rhonchi, Wheezing Heart Exam: Positive: Rate Normal, Regular Rhythm Abdomen Exam: Positive: Normal bowel sounds, Soft; Negative: Tenderness Neuro Exam: Positive: Normal Speech Assessment /Plan Assessment Mrs. Garcia is an 89 year old female here with right calcaneal fracture. This morning, she reported jaw pain. Ordered EKG and troponins to re-evaluate. Othe rwise, still anticipating transfer to ARU tomorrow Plan/VTE VTE Prophylaxis Ordered?: Yes Plan 1. Right calcaneal fracture -Orthopedic surgery consulted, recommendations appreciated -Activity per ortho -Planning for ARU tomorrow 2. Parkinson's disease -Chronic -Continue home medication 3. CAD -Stable -Continue cardiac regimen 4. HTN -Uncontrolled due to pain -Continue pain control regimen and anti-hypertensive medications 5. DVT ppx -Lovenox Disposition: Plan for ARU tomorrow VS, I&O, 24H, Fishbone Vital Signs/I&O Vital Signs Date Time Temp Pulse Resp B/P (MAP) Pulse Ox O2 Delivery O2 Flow Rate FiO2 09/29/20 17:48 121/69 (86) 09/29/20 14:22 80 09/29/20 14:00 97.5 16 94 Room Air I&O- Last 24 Hours up to 6 AM 09/29/20 06:00 Intake Total 1250 ml Output Total 1300 ml Balance -50 ml Laboratory Data 24H LABS Laboratory Tests 2 09/29/20 10:07: Nucleated Red Blood Cells % (auto) 0.0, Anion Gap 7L, Glomerular Filtration Rate > 60.0, Calcium Level 8.9, Troponin I 0.02 09/29/20 12:12: Troponin I 0.03# CBC/BMP Laboratory Tests 09/29/20 10:07 FADY WATTERS DO Sep 29, 2020 19:06
[2020-09-29] MEDS ORDERED: LATANOPROST 0.005% OPHTH SOLN 2.5 ML OU SCH (21:00)
[2020-09-29] MEDS: NORTRIPTYLINE 25 MG CAP PO SCH (21:33)
[2020-09-29] MEDS: COSOPT OCUMETER PLUS 10ML (DORZOLAMIDE/TIMOLOL) OU SCH (21:34)
[2020-09-29] MEDS: POLYVINYL ALCOHOL OPHTH SOLN 15 ML(LIQUITEARS) OU SCH (21:34)
[2020-09-29 21:35] VITALS: BP 120/66
[2020-09-29 22:19] LABS: HEMATOCRIT 36.5 % (36.0-47.0); HEMOGLOBIN 11.5 g/dl (12.0-15.5); MEAN CORPUSCULAR HEMOGLOBIN 29.6 pg (27.0-33.0); MEAN CORPUSCULAR HGB CONC 31.5 g/dl (32.0-36.5); MEAN CORPUSCULAR VOLUME 93.8 fl (80.0-96.0); PLATELET COUNT, AUTOMATED 206 10^3/uL (150-450); RED BLOOD COUNT 3.89 10^6/uL (4.00-5.40); WHITE BLOOD COUNT 7.2 10^3/uL (4.0-10.0)
[2020-09-30] MEDS ORDERED: SODIUM CHLORIDE 0.9% INJ 10 ML SYR IV SCH (06:00)
[2020-09-30 06:14] LABS: HEMATOCRIT 37.4 % (36.0-47.0); HEMOGLOBIN 11.9 g/dl (12.0-15.5); MEAN CORPUSCULAR HEMOGLOBIN 29.6 pg (27.0-33.0); MEAN CORPUSCULAR HGB CONC 31.8 g/dl (32.0-36.5); PLATELET COUNT, AUTOMATED 212 10^3/uL (150-450); RED BLOOD COUNT 4.02 10^6/uL (4.00-5.40); WHITE BLOOD COUNT 6.9 10^3/uL (4.0-10.0)
[2020-09-30] MEDS: LEVOTHYROXINE 112MCG TABLET (0.112MG) PO SCH (06:24)
[2020-09-30 06:25] VITALS: BP 168/90
[2020-09-30 06:47] LABS: BLOOD UREA NITROGEN 19 MG/DL (7-18); CALCIUM LEVEL 8.4 MG/DL (8.8-10.2); CARBON DIOXIDE LEVEL 26 MEQ/L (21-32); CHLORIDE LEVEL 107 MEQ/L (98-107); CREATININE FOR GFR 0.91 MG/DL (0.55-1.30); GLOMERULAR FILTRATION RATE > 60.0 (>32); GLUCOSE, FASTING 86 MG/DL (70-100); POTASSIUM SERUM 4.2 MEQ/L (3.5-5.1); SODIUM LEVEL 139 MEQ/L (136-145)
[2020-09-30] MEDS: FLUTICASONE HFA 110 MCG 12 GM INHALER (FLOVENT) INH SCH (07:43)
[2020-09-30 07:57] VITALS: BP 168/90
[2020-09-30] MEDS: PRIMIDONE 50 MG TAB PO SCH (07:57)
[2020-09-30] MEDS: ISOSORBIDE MON. (IMDUR) 60 MG XR TAB PO SCH (07:57)
[2020-09-30] MEDS: MOM 30ML SUSPENSION UDC PO SCH (07:57)
[2020-09-30] MEDS: ASPIRIN 81 MG ENTERIC TAB PO SCH (07:57)
[2020-09-30] MEDS: SINEMET 25-100 MG TAB PO SCH ×2 (07:57→11:08)
[2020-09-30] MEDS: SPIRONOLACTONE 12.5MG PER 1/2 TABLET PO SCH (07:58)
[2020-09-30] MEDS: ENOXAPARIN 30MG/0.3ML SYRINGE (J1650 PER 10MG) SC SCH (07:58)
[2020-09-30] MEDS: ATORVASTATIN 20 MG TAB PO SCH (07:58)
[2020-09-30] MEDS: RANOLAZINE 500 MG ER TAB PO SCH (07:58)
[2020-09-30] MEDS: FUROSEMIDE 20 MG TAB PO SCH (07:58)
[2020-09-30] MEDS: MIRALAX *UNIT DOSE* 17GM PACKET PO SCH (07:59)
[2020-09-30] MEDS: POLYVINYL ALCOHOL OPHTH SOLN 15 ML(LIQUITEARS) OU SCH (07:59)
[2020-09-30] MEDS: ACETAMINOPHEN 500 MG TAB PO SCH ×2 (08:05→11:08)
--- NOTE | 2020-09-30 19:13 | ECGEPIP ---
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
--- NOTE | 2020-09-30 23:53 | DS.PDOC ---
Discharge Summary General Date of Admission Sep 27, 2020 at 16:03 Date of Discharge Sep 30, 2020 Attending Physician: FADY WATTERS DO Specialist/[facility]ultants [facility] surgery, Dr. Deal Discharge Summary PROCEDURES PERFORMED DURING STAY: None ADMITTING DIAGNOSES: 1. Right calcaneal fracture 2. Parkinson's disease 3. Coronary artery disease 4. Hypertension DISCHARGE DIAGNOSES: 1. Right calcaneal fracture 2. Parkinson's disease 3. Coronary artery disease 4. Hypertension COMPLICATIONS/CHIEF COMPLAINT: Calcaneal Fracture. HISTORY OF PRESENT ILLNESS: Mrs. Garcia is an 89-year-old female with Parkinson's disease, CAD status post stent in RCA, diastolic CHF, and hypertension who presents to the ED after a fall. She missed a step in the grouch and landed on her right hand. Due to severe pain and inability to ambulate she came to the ED. In the ED she is under the regular care fracture and she was splinted. Admission was call for and orthopedic surgery was consulted HOSPITAL COURSE: Dr. Deal evaluated the patient. Patient was placed in a well-padded L and U splint with right ankle in dorsiflexion. She will need to be nonweightbearing to the right lower extremity. She will need to be non-weight bearing for 6 to 8 weeks. Patient to follow up with [facility] in 2 to 4 weeks for repeat radiographs to include a Goodwin radiograph of the right heel. Otherwise during hospitalization, she did complain of jaw pain without any chest pain. She took sublingual nitroglycerin which did help with the pain. EKG did not suggest ischemia. Troponins are negative 3. Her daughter brought in Sensodyne which up with the pain. Today she felt well and she was subsequently discharged to ARU DISCHARGE MEDICATIONS: Please see below. ALLERGIES: Please see below. PHYSICAL EXAMINATION ON DISCHARGE: VITAL SIGNS: Please see below. GENERAL: Comfortable, in no apparent distress. HEENT: Head normocephalic/atraumatic, EOMI, sclera clear. NECK: Supple RESPIRATORY: Lungs clear to auscultation bilaterally, no rales, wheeze or rhonchi. CARDIOVASCULAR: Regular rate and rhythm. ABDOMEN: Soft, nontender, no guarding or rebound tenderness. Normal bowel sounds. MUSCLE SKELETAL: Right ankle in cast NEUROLOGICAL: CN 312 grossly intact, no focal deficits noted. PSYCHOLOGICAL: Normal mood and affect LABORATORY DATA: Please see below. IMAGING: Right foot x-ray Acute nondisplaced fracture of the calcaneus with overlying soft tissue swelling. Right ankle x-ray Acute nondisplaced calcaneal fracture. PROGNOSIS: Good ACTIVITY: Nonweightbearing on right leg before 6-8 weeks DIET: 2 g sodium diet DISCHARGE PLAN: ARU for rehab DISPOSITION: 62 D/T Rehab Facility. DISCHARGE INSTRUCTIONS: 1. Follow up with [facility] in 2 to 4 weeks for repeat radiographs to include a Goodwin radiograph of the right heel 2. Follow up with PCP within 1 week of discharge from ARU DISCHARGE CONDITION: Stable. Total time spent on discharge planning, discharge summary, medication reconciliation: 45 minutes Vital Signs/I&Os Vital Signs Date Time Temp Pulse Resp B/P (MAP) Pulse Ox O2 Delivery O2 Flow Rate FiO2 09/30/20 07:57 168/90 09/30/20 06:25 97.5 71 18 96 Room Air I&O- Last 24 Hours up to 6 AM 09/30/20 05:59 Intake Total 920 ml Output Total 1200 ml Balance -280 ml Laboratory Data Labs 24H Laboratory Tests 2 09/30/20 05:19: Nucleated Red Blood Cells % (auto) 0.0, Anion Gap 6L, Glomerular Filtration Rate > 60.0, Calcium Level 8.4L CBC/BMP Laboratory Tests 09/30/20 05:19 Discharge Medications Scheduled Acetaminophen (Acetaminophen) 325 Mg Tablet, 2 TAB PO Q4HP, (Reported) Albuterol Sulfate (Proair Respiclick) 90 Mcg Aer.pow.ba, 1 PUFF INH QIDP, (Reported) Aspirin (Aspirin EC) 81 Mg Tablet.dr, 81 MG PO DAILY, (Reported) Atorvastatin Calcium (Atorvastatin Calcium) 20 Mg Tab, 20 MG PO DAILY, (Reported) B-Complex with Vitamin C (Super B Complex-Vitamin C) 1 Each Tablet, 1 TAB PO DAILY, (Reported) Carbidopa/Levodopa (Sinemet 25-100 mg Tablet) 1 Each Tablet, 1.5 TAB PO QID, (Reported) 0800, 1100, 1500, 1800 Cyclosporine (Restasis) 0.05 % Emu, 1 DROP OU BID, (Reported) Diltiazem Hcl (Diltiazem HCl) 60 Mg Tablet, 60 MG PO TID, (Reported) 0900, 1600, 2100 Dorzolamide HCl/Timolol Maleat (Dorzolamide-Timolol Eye Drops) 1 Nenita Nenita, 1 DROP OU DAILY, (Reported) Fluticasone Propionate (Flovent Hfa) 110 Mcg/Act Aer.w.adap, 1 PUFF INH BID, (Reported) Furosemide (Furosemide) 20 Mg Tab, 20 MG PO DAILY, (Reported) Hydroxyzine HCl (Hydroxyzine HCl) 50 Mg Tablet, 1 TAB PO TIDP, (Reported) Isosorbide Mononitrate (Isosorbide Mononitrate ER) 120 Mg Tab.er.24h, 120 MG PO DAILY, (Reported) Latanoprostene Bunod (Vyzulta) 0.024% 5ML Drops, 1 DROP OU QHS, (Reported) Levothyroxine Sodium (Levothyroxine Sodium) 112 Mcg Tablet, 112 MCG PO DAILY, (Reported) Nortriptyline Hcl (Pamelor) 25 Mg Cap, 25 MG PO QHS, (Reported) Primidone (Mysoline) 50 Mg Tablet, 50 MG PO BID, (Reported) Ranolazine (Ranexa) 500 Mg Tab.er.12h, 1 TAB PO BID, (Reported) Spironolactone (Spironolactone) 25 Mg Tablet, 12.5 MG PO DAILY, (Reported) Vit C/E/Zn/Coppr/Lutein/Zeaxan (Preservision Areds 2 Softgel) 1 Each Capsule, 1 EACH PO BID, (Reported) Scheduled PRN Nitroglycerin (Nitrostat) 0.4 Mg Subl, 0.4 MG SL NITRO PRN for CHEST PAIN, (Reported) Omeprazole (Omeprazole) 40 Mg Capsule.dr, 40 MG PO DAILY PRN for HEARTBURN, (Reported) Allergies Coded Allergies: Contrast Media (Verified Allergy, Intermediate, HIVES, 05/11/19) ciprofloxacin (Verified Allergy, Intermediate, ERYTHEMA, 05/11/19) gabapentin (Verified Allergy, Intermediate, ERYTHEMA, 05/11/19) ketoconazole (Verified Allergy, Intermediate, 05/11/19) meloxicam (Verified Allergy, Intermediate, ERYTHEMA, 05/11/19) pramipexole (Verified Allergy, Unknown, 05/11/19) amoxicillin (Verified Adverse Reaction, Severe, Renal Failure, 05/11/19) clavulanic acid (Verified Adverse Reaction, Severe, Renal Failure, 05/11/19) clindamycin (Verified Adverse Reaction, Severe, Chest pressure, 05/11/19) ibuprofen (Verified Adverse Reaction, Severe, RI, 05/11/19) FADY WATTERS DO Sep 30, 2020 23:53
== END 2020-09-30 13:54 | DRG 563 ==
LOC: M ED 11:56 → M ED INP 16:03 → M MS5PR 18:10
PROVIDERS: ADMIT General Practice; ATTEND Internal Medicine
DX: S92.001A Unspecified fracture of right calcaneus, initial encounter for closed fracture (principal); I50.32 Chronic diastolic (congestive) heart failure; C85.90 Non-Hodgkin lymphoma, unspecified, unspecified site; I11.0 Hypertensive heart disease with heart failure; G20 Parkinson's disease; I25.10 Atherosclerotic heart disease of native coronary artery without angina pectoris; Z95.2 Presence of prosthetic heart valve; W10.9XXA Fall (on) (from) unspecified stairs and steps, initial encounter; Y92.009 Unspecified place in unspecified non-institutional (private) residence as the place of occurrence of the external cause; Z79.899 Other long term (current) drug therapy; Z79.82 Long term (current) use of aspirin; Z91.041 Radiographic dye allergy status; Z88.0 Allergy status to penicillin; Z88.8 Allergy status to other drugs, medicaments and biological substances; E78.5 Hyperlipidemia, unspecified; Z95.0 Presence of cardiac pacemaker

== ENCOUNTER 2020-09-30 11:10 | Inpatient (IN) | payer MEDICARE, OTHER ==
[~2020-09-30] VITALS: Ht 167.6 cm; Wt 63.5 kg
[~2020-09-30 11:10] MED LIST changes: +ISOS120T7 PO; +ISOS1TAB36 PO; -ISOS60TA2 PO; -LISI-538 PO; -LISI-542 PO; +LISI-898 PO; +LISI20TA33 PO; -MAG400TA PO; +MAGN400T35 PO
[2020-09-30 14:00] VITALS: BP 113/59
[2020-09-30] MEDS ORDERED: ONDANSETRON 4 MG TAB PO PRN (14:15)
[2020-09-30] MEDS ORDERED: hydrOXYzine 50 MG TAB PO PRN (14:15)
[2020-09-30] MEDS ORDERED: IPRATROPIUM 0.5MG/ALBUTEROL 2.5MG INH SOL UD 3ML (DUONEB) NEB PRN (14:15)
[2020-09-30] MEDS ORDERED: PILL CUTTER 1 EACH XX PRN (15:00)
[2020-09-30] MEDS: ACETAMINOPHEN 500 MG TAB PO SCH ×2 (18:00→21:24)
[2020-09-30] MEDS: SINEMET 25-100 MG TAB PO SCH (18:00)
[2020-09-30] MEDS: REMEDY PHYTOPLEX Z-GUARD PASTE 113GM TUBE (FROM STOREROOM PRODUCT) TOP SCH ×2 (18:01→19:54)
[2020-09-30] MEDS: POLYVINYL ALCOHOL OPHTH SOLN 15 ML(LIQUITEARS) OU SCH (19:53)
[2020-09-30] MEDS: COSOPT OCUMETER PLUS 10ML (DORZOLAMIDE/TIMOLOL) OU SCH (19:54)
[2020-09-30] MEDS: LATANOPROST 0.005% OPHTH SOLN 2.5 ML OU SCH (19:54)
[2020-09-30] MEDS: RANOLAZINE 500 MG ER TAB PO SCH (19:54)
[2020-09-30] MEDS: DOCUSATE SODIUM 100MG CAPSULE PO SCH (19:55)
[2020-09-30] MEDS: SENNA 8.6 MG TAB (SENOKOT) PO SCH (19:55)
[2020-09-30] MEDS: NORTRIPTYLINE 25 MG CAP PO SCH (19:55)
[2020-09-30] MEDS: PRIMIDONE 50 MG TAB PO SCH (19:55)
[2020-09-30 20:15] VITALS: BP 137/74
[2020-10-01] MEDS: traMADol 50 MG TAB PO PRN ×2 (01:31→21:30)
[2020-10-01 02:20] VITALS: BP 144/68
[2020-10-01] MEDS ORDERED: NITROGLYCERIN 0.4 MG SUBL TABLET SL STA ×2 (02:23→02:35)
[2020-10-01] MEDS ORDERED: RAMELTEON 8 MG TAB (ROZEREM) PO ONE (03:55)
[2020-10-01] MEDS ORDERED: MORPHINE 4 MG/ML 1ML VIAL/SYRINGE (J2270) IV ONE (04:00)
[2020-10-01] MEDS ORDERED: NITROGLYCERIN 2% OINT 1 GM *U/D* PKT TOP ONE (04:00)
[2020-10-01 04:14] LABS: BASO % 0.4 % (0.0-1.0); EOS # 0.4 10^3/uL (0.0-0.5); HEMATOCRIT 40.9 % (36.0-47.0); HEMOGLOBIN 12.6 g/dl (12.0-15.5); LYMPH # 0.7 10^3/uL (1.5-5.0); LYMPH % 8.4 % (24.0-44.0); MEAN CORPUSCULAR HEMOGLOBIN 29.2 pg (27.0-33.0); MEAN CORPUSCULAR HGB CONC 30.8 g/dl (32.0-36.5); MEAN CORPUSCULAR VOLUME 94.7 fl (80.0-96.0); MONO # 0.9 10^3/uL (0.0-0.8); MONO % 10.3 % (0.0-5.0); NEUTROPHILS # 6.3 10^3/uL (1.5-8.5); NEUTROPHILS % 75.5 % (36.0-66.0); PLATELET COUNT, AUTOMATED 243 10^3/uL (150-450); RED BLOOD COUNT 4.32 10^6/uL (4.00-5.40); WHITE BLOOD COUNT 8.4 10^3/uL (4.0-10.0)
[2020-10-01 04:51] LABS: ALBUMIN 2.6 GM/DL (3.2-5.2); BILIRUBIN,TOTAL 0.3 MG/DL (0.2-1.0); CREATININE FOR GFR 1.04 MG/DL (0.55-1.30); GLOMERULAR FILTRATION RATE 53.4 (>32); POTASSIUM SERUM 4.5 MEQ/L (3.5-5.1); TOTAL PROTEIN 5.7 GM/DL (6.4-8.2)
[2020-10-01] MEDS ORDERED: PANTOPRAZOLE 40MG VIAL (C9113 PER 1) IV ONE (05:00)
[2020-10-01] MEDS: LEVOTHYROXINE 112MCG TABLET (0.112MG) PO SCH (05:16)
[2020-10-01 06:19] VITALS: BP 162/80
[2020-10-01] MEDS: ASPIRIN 81 MG ENTERIC TAB PO SCH (08:40)
[2020-10-01] MEDS: DOCUSATE SODIUM 100MG CAPSULE PO SCH ×2 (08:40→21:29)
[2020-10-01] MEDS: SINEMET 25-100 MG TAB PO SCH ×4 (08:40→17:08)
[2020-10-01] MEDS: ISOSORBIDE MON. (IMDUR) 60 MG XR TAB PO SCH (08:40)
[2020-10-01] MEDS: SPIRONOLACTONE 12.5MG PER 1/2 TABLET PO SCH (08:40)
[2020-10-01] MEDS: ACETAMINOPHEN 500 MG TAB PO SCH ×3 (08:41→21:31)
[2020-10-01] MEDS: ATORVASTATIN 20 MG TAB PO SCH (08:41)
[2020-10-01] MEDS: OMEPRAZOLE 20 MG CAP PO SCH (08:41)
[2020-10-01] MEDS: FUROSEMIDE 20 MG TAB PO SCH (08:41)
[2020-10-01] MEDS: REMEDY PHYTOPLEX Z-GUARD PASTE 113GM TUBE (FROM STOREROOM PRODUCT) TOP SCH ×3 (08:41→21:33)
[2020-10-01] MEDS: POLYVINYL ALCOHOL OPHTH SOLN 15 ML(LIQUITEARS) OU SCH ×2 (08:42→21:00)
[2020-10-01] MEDS: ENOXAPARIN 30MG/0.3ML SYRINGE (J1650 PER 10MG) SC SCH (08:42)
[2020-10-01] MEDS: PRIMIDONE 50 MG TAB PO SCH ×2 (08:56→21:32)
[2020-10-01] MEDS: RANOLAZINE 500 MG ER TAB PO SCH ×2 (08:56→21:32)
--- NOTE | 2020-10-01 11:23 | HPEPDOC ---
[employer] Note DATE OF ADMISSION: 09-30-20 DATE OF SERVICE: 09-30-20 TIME OF ADMISSION: Please refer to physician's admission order. 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 Ankle X-ray revealed, "Acute nondisplaced calcaneal fracture" She was evaluated by orthopedics who placed her in and L and U splint, made her NWB for 6-8 weeks and recommended therapy. She had difficulty with pain control and episodes of chest pain with cardiac work-up negative. She was evaluated by therapy, found to have impairments in mobility and ADLs and deemed medically appropriate for discharge to ARU on 09-30-20. REVIEW OF SYSTEMS: The following is a completed review of systems and has been reviewed. Review of systems otherwise unremarkable. PAIN: Patient self reports right ankle pain EYES: No recent vision changes EARS, NOSE, & THROAT: No throat pain, or dysphagia, or rhinorrhea CARDIOVASCULAR: Denies chest pain or palpitations PULMONARY: Denies shortness of breath GASTROINTESTINAL: Denies constipation/diarrhea GENITOURINARY: denies dysuria MUSCULOSKELETAL: right ankle fracture NEUROLOGICAL:+parkinson's HEMATOLOGICAL: denies easy bruising SKIN: +varicose veins and rosacea PSYCHIATRIC: Unremarkable All other review of systems found to be negative. PAST MEDICAL HISTORY: as per HPI PAST SURGICAL HISTORY: hysterectomy, tonsillectomy ALLERGIES: Please see below. MEDICATIONS: Please see below. FAMILY HISTORY: brain and lung cancer SOCIAL HISTORY: former smoker, no etoh/illicit drugs DIET: 2 gram sodium, fluid restrict PHYSICAL EXAMINATION: VITAL SIGNS: Please see below. GENERAL: Pleasant and cooperative. No acute distress. slightly masked facies HEENT: PERRL. Extraocular movements intact. Clear conjunctiva CARDIOVASCULAR: Regular rate and rhythm. No murmurs, rubs, or gallops LUNGS: Clear to auscultation bilaterally. No wheezes. No rhonchi ABDOMEN: Soft, nontender, nondistended. Positive bowel sounds. Normal active bowel sounds NEUROLOGICAL: Alert and oriented times three. Cranial nerves II through XII grossly intact. Sensation grossly intact EXTREMITIES: 5\\5 strength bilateral upper extremities. >3/5 right hip flexors and knee extension, able to wiggle toe (limited exam due to splinting 5/5 stre ngth in left lower extremity. SKIN: LE varicose veins, warm and well perfused LABORATORY DATA: Please see below. IMAGING:Imaging documentation personally reviewed by record FUNCTIONAL STATUS: Premorbid: Modifed Independent with all activities of daily life as well as mobility with RW On Admission: Min assist for mobility from wheelchair level, dressing, toileting, bed mobility GOALS: Mod-I from wheelchair level for mobility, dressing, bathing, toileting, functional transfers ASSESSMENT:89-year-old F with past medical history of parkinsons who presents status post fall with right ankle fracture PLAN: 1. Rehab- PT/OT advance mobility and ADLs, strengthen/stretch/maintain ROM all 4 limbs NWB to RLE 2. Neuro- hx of parkinson's contributing to recent fall and difficulty with mobility- c/u Sinemet -essential tremor c/u primidone 3. 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 Resp- monitor for infection 5. Endo- hx of hypothyroidism, c/u synthroid 6. GI ppx- prilosec 7. DVT ppx- lovenox 8. PAin- tylenol and tramadol prn 9. Ortho- s/p right calcaneal fracture NWB for 6-8 weeks, ortho consulted 10. Dispo- TBD POST ADMISSION PHYSICIAN EVALUATION: Medical and functional status: Description of medical status, medical assessment: As above. Rehabilitation diagnosis and current and prior cold morbid medical conditions as above. Risk of complications and plans to mitigate them as above. Description of functional status current status is as above. Prior status as above. Status compared to preadmission: There are no clinically significant differences between the patient's current status and the information described on the preadmission screening document. Treatment plan anticipated: Treatment plan is as described above. Required disciplines including physical therapy, occupational therapy, others as noted above Intensity of services: 3 hours a day, 6 days a week. Special considerations: There are no specific special or safety considerations that would likely preclude immediate implementation of an intensive rehabilitation program or subsequently influence the plan of care ATTESTATION: Considering all the information above, it is my best judgment that this patient requires intensive rehabilitation therapy as described above and an inpatient hospital environment due to the complexity of nursing, medical, and rehabilitation needs required by the patient. Furthermore, this patient can reasonably be expected to participate in an benefit from an inpatient rehabilitation stay with an interdisciplinary team approach to the delivery of rehabilitation care under the direction and supervision of rehabilitation physician PROGNOSIS: Excellent ESTIMATED LENGTH OF STAY:10-14 days. PROJECTED DISCHARGE DESTINATION: Home with family support and any durable medical equipment required to increase functional safety and mobility TIME SPENT COUNSELING AND COORDINATING INITIAL CARE: Greater than 70 minutes. Vital Signs Vital Sign - Last 24 Hours 09/30/20 09/30/20 10/01/20 10/01/20 14:00 20:15 01:31 02:01 Temp 97.5 99.4 Pulse 82 67 Resp 20 18 18 18 B/P (MAP) 113/59 (77) 137/74 (95) Pulse Ox 95 95 O2 Delivery Room Air Room Air 10/01/20 10/01/20 10/01/20 10/01/20 02:20 02:28 02:40 04:05 Temp 97.2 Pulse 63 Resp 20 18 B/P (MAP) 144/68 (93) 144/68 140/70 Pulse Ox 99 O2 Delivery Room Air 10/01/20 10/01/20 10/01/20 10/01/20 04:15 04:19 06:19 08:40 Temp 98.6 Pulse 67 Resp 18 20 B/P (MAP) 168/90 162/80 (107) 162/80 Pulse Ox 97 O2 Delivery Room Air Laboratory Data CBC/BMP Laboratory Tests 10/01/20 04:07 Labs 24H Laboratory Tests 2 10/01/20 04:07: Immature Granulocyte % (Auto) 0.4, Neutrophils (%) (Auto) 75.5H, Lymphocytes (%) (Auto) 8.4L, Monocytes (%) (Auto) 10.3H, Eosinophils (%) (Auto) 5.0H, Basophils (%) (Auto) 0.4, Neutrophils # (Auto) 6.3, Lymphocytes # (Auto) 0.7L, Monocytes # (Auto) 0.9H, Eosinophils # (Auto) 0.4, Basophils # (Auto) 0.0, Nucleated Red Blood Cells % (auto) 0.0, Anion Gap 5L, Glomerular Filtration Rate 53.4, Calcium Level 9.0, Total Bilirubin 0.3, Aspartate Amino Transf (AST/SGOT) 15, Alanine Aminotransferase (ALT/SGPT) 11L, Alkaline Phosphatase 83, Troponin I < 0.02, Total Protein 5.7L, Albumin 2.6L, Albumin/Globulin Ratio 0.8L 10/01/20 08:00: Troponin I 0.02 Home Medications Scheduled Acetaminophen (Acetaminophen) 325 Mg Tablet, 2 TAB PO Q4HP, (Reported) Albuterol Sulfate (Proair Respiclick) 90 Mcg Aer.pow.ba, 1 PUFF INH QIDP, (Reported) Aspirin (Aspirin EC) 81 Mg Tablet.dr, 81 MG PO DAILY, (Reported) Atorvastatin Calcium (Atorvastatin Calcium) 20 Mg Tab, 20 MG PO DAILY, (Reported) B-Complex with Vitamin C (Super B Complex-Vitamin C) 1 Each Tablet, 1 TAB PO DAILY, (Reported) Carbidopa/Levodopa (Sinemet 25-100 mg Tablet) 1 Each Tablet, 1.5 TAB PO QID, (Reported) 0800, 1100, 1500, 1800 Cyclosporine (Restasis) 0.05 % Emu, 1 DROP OU BID, (Reported) Diltiazem Hcl (Diltiazem HCl) 60 Mg Tablet, 60 MG PO TID, (Reported) 0900, 1600, 2100 Dorzolamide HCl/Timolol Maleat (Dorzolamide-Timolol Eye Drops) 1 Nenita Nenita, 1 DROP OU DAILY, (Reported) Fluticasone Propionate (Flovent Hfa) 110 Mcg/Act Aer.w.adap, 1 PUFF INH BID, (Reported) Furosemide (Furosemide) 20 Mg Tab, 20 MG PO DAILY, (Reported) Hydroxyzine HCl (Hydroxyzine HCl) 50 Mg Tablet, 1 TAB PO TIDP, (Reported) Isosorbide Mononitrate (Isosorbide Mononitrate ER) 120 Mg Tab.er.24h, 120 MG PO DAILY, (Reported) Latanoprostene Bunod (Vyzulta) 0.024% 5ML Drops, 1 DROP OU QHS, (Reported) Levothyroxine Sodium (Levothyroxine Sodium) 112 Mcg Tablet, 112 MCG PO DAILY, (Reported) Nortriptyline Hcl (Pamelor) 25 Mg Cap, 25 MG PO QHS, (Reported) Primidone (Mysoline) 50 Mg Tablet, 50 MG PO BID, (Reported) Ranolazine (Ranexa) 500 Mg Tab.er.12h, 1 TAB PO BID, (Reported) Spironolactone (Spironolactone) 25 Mg Tablet, 12.5 MG PO DAILY, (Reported) Vit C/E/Zn/Coppr/Lutein/Zeaxan (Preservision Areds 2 Softgel) 1 Each Capsule, 1 EACH PO BID, (Reported) Scheduled PRN Nitroglycerin (Nitrostat) 0.4 Mg Subl, 0.4 MG SL NITRO PRN for CHEST PAIN, (Reported) Omeprazole (Omeprazole) 40 Mg Capsule.dr, 40 MG PO DAILY PRN for HEARTBURN, (Reported) Allergies Coded Allergies: Contrast Media (Verified Allergy, Intermediate, HIVES, 05/11/19) ciprofloxacin (Verified Allergy, Intermediate, ERYTHEMA, 05/11/19) gabapentin (Verified Allergy, Intermediate, ERYTHEMA, 05/11/19) ketoconazole (Verified Allergy, Intermediate, 05/11/19) meloxicam (Verified Allergy, Intermediate, ERYTHEMA, 05/11/19) pramipexole (Verified Allergy, Unknown, 05/11/19) amoxicillin (Verified Adverse Reaction, Severe, Renal Failure, 05/11/19) clavulanic acid (Verified Adverse Reaction, Severe, Renal Failure, 05/11/19) clindamycin (Verified Adverse Reaction, Severe, Chest pressure, 05/11/19) ibuprofen (Verified Adverse Reaction, Severe, NE, 05/11/19) A-FIB/CHADSVASC A-FIB History Current/History of A-Fib/PAF?: No Current PO Anticoag Therapy: No MISAEL MCCRARY MD Oct 01, 2020 11:23
--- NOTE | 2020-10-01 11:36 | REP ---
INDICATION: immobility. COMPARISON: None. TECHNIQUE: Multiple ultrasonographic images of the deep venous structures of the bilateral thigh were obtained from the common femoral vein to the popliteal vein along with Doppler interrogation and color flow Doppler images. FINDINGS: There is no abnormal echogenic material seen within any of the visualized deep venous structures that would suggest acute thrombosis. Coaptation is unremarkable throughout. Doppler interrogation shows an expected response to respiratory variability and augmentation. The color flow images show what appears to be a normal vascular pattern throughout. IMPRESSION: There is no ultrasonographic evidence of deep venous thrombosis involving any of the visualized deep venous structures of the bilateral thigh, as described above. <Electronically signed by Christian Queen > 10/01/20 [id number]
[2020-10-01] MEDS: FLUTICASONE HFA 110 MCG 12 GM INHALER (FLOVENT) INH SCH ×2 (11:57→20:29)
[2020-10-01 14:00] VITALS: BP 112/61
--- NOTE | 2020-10-01 19:47 | IPNPDOC ---
Text Note Date of Service The patient was seen on 10/01/20. NOTE Subjective: No any acute events overnight. Patient denies fever, chills, nausea, vomiting, diarrhea or dysuria Objective Physical Examination General Exam: Positive: Alert, Cooperative Eye Exam: Positive: PERRLA, EOMI; Negative: Sclera icteric ENT Exam: Positive: Other ENT (erythematous cheeks) Chest Exam: Positive: Clear to auscultation; Negative: Rales, Rhonchi, Wheezing Heart Exam: Positive: Rate Normal, Regular Rhythm Abdomen Exam: Positive: Normal bowel sounds, Soft; Negative: Tenderness Neuro Exam: Positive: Normal Speech Assessment Mrs. Garcia is an 89 year old female here with right calcaneal fracture. Transferred to acute rehabilitation unit for physical therapy Plan 1. Right calcaneal fracture Continue PT OT 2. Parkinson's disease -Chronic -Continue home medication 3. CAD -Stable -Continue cardiac regimen 4. HTN Added lisinopril 10 mg -Continue pain control regimen VS,Fishbone, I+O VS, Fishbone, I+O Laboratory Tests 10/01/20 04:07 Vital Signs Date Time Temp Pulse Resp B/P (MAP) Pulse Ox O2 Delivery O2 Flow Rate FiO2 10/01/20 14:00 97.5 73 20 112/61 (78) 95 Room Air I&O- Last 24 Hours up to 6 AM 10/01/20 05:59 Intake Total 200 ml Output Total 250 ml Balance -50 ml BRENDEN ACOSTA DO Oct 01, 2020 19:47
[2020-10-01 20:00] VITALS: BP 132/78
[2020-10-01] MEDS: MAALOX 30 ML SUSP *UDC PO PRN (21:29)
[2020-10-01] MEDS: SENNA 8.6 MG TAB (SENOKOT) PO SCH (21:29)
[2020-10-01] MEDS: COSOPT OCUMETER PLUS 10ML (DORZOLAMIDE/TIMOLOL) OU SCH (21:31)
[2020-10-01] MEDS: LATANOPROST 0.005% OPHTH SOLN 2.5 ML OU SCH (21:31)
[2020-10-01] MEDS: NORTRIPTYLINE 25 MG CAP PO SCH (21:32)
[2020-10-02] MEDS: LEVOTHYROXINE 112MCG TABLET (0.112MG) PO SCH (05:16)
[2020-10-02] MEDS: traMADol 50 MG TAB PO PRN ×2 (05:17→20:01)
[2020-10-02] MEDS: ISOSORBIDE MON. (IMDUR) 60 MG XR TAB PO SCH (05:17)
[2020-10-02 05:35] VITALS: BP 170/98
[2020-10-02 07:53] VITALS: BP 153/84
[2020-10-02] MEDS: FLUTICASONE HFA 110 MCG 12 GM INHALER (FLOVENT) INH SCH ×2 (07:57→20:00)
[2020-10-02] MEDS: FLUTICASONE PROP 0.05% NASAL SPRAY 16 GM (FLONASE) NARES SCH ×2 (09:00→21:17)
[2020-10-02] MEDS: ENOXAPARIN 30MG/0.3ML SYRINGE (J1650 PER 10MG) SC SCH (09:14)
[2020-10-02] MEDS: SPIRONOLACTONE 12.5MG PER 1/2 TABLET PO SCH (09:15)
[2020-10-02] MEDS: ATORVASTATIN 20 MG TAB PO SCH (09:16)
[2020-10-02] MEDS: SINEMET 25-100 MG TAB PO SCH ×4 (09:16→17:50)
[2020-10-02] MEDS: PRIMIDONE 50 MG TAB PO SCH ×2 (09:16→21:16)
[2020-10-02] MEDS: ACETAMINOPHEN 500 MG TAB PO SCH ×3 (09:16→21:16)
[2020-10-02] MEDS: ASPIRIN 81 MG ENTERIC TAB PO SCH (09:16)
[2020-10-02] MEDS: OMEPRAZOLE 20 MG CAP PO SCH (09:16)
[2020-10-02] MEDS: POLYVINYL ALCOHOL OPHTH SOLN 15 ML(LIQUITEARS) OU SCH ×2 (09:17→21:18)
[2020-10-02] MEDS: RANOLAZINE 500 MG ER TAB PO SCH ×2 (09:17→21:16)
[2020-10-02] MEDS: DOCUSATE SODIUM 100MG CAPSULE PO SCH ×2 (09:17→21:16)
[2020-10-02] MEDS: REMEDY PHYTOPLEX Z-GUARD PASTE 113GM TUBE (FROM STOREROOM PRODUCT) TOP SCH ×3 (09:17→21:18)
[2020-10-02] MEDS: FUROSEMIDE 20 MG TAB PO SCH (09:17)
--- NOTE | 2020-10-02 13:23 | IPNPDOC ---
PM&R Progress Note DATE OF SERVICE: Oct 02, 2020 Sort Line Progress Note Subjective: Patient reporting she believe she had chest pain yesterday because she does not think she got her Ranexa on the other floor SHe reports her sinuses feel dry and is interested in flonase and saline drops. She denies cough fever chills or sore throat. REVIEW OF SYSTEMS: The following is a completed review of systems and has been reviewed. Review of systems otherwise unremarkable. PAIN: Patient self reports right ankle pain EYES: No recent vision changes EARS, NOSE, & THROAT: No throat pain, or dysphagia, or rhinorrhea CARDIOVASCULAR: Denies chest pain or palpitations PULMONARY: Denies shortness of breath GASTROINTESTINAL: Denies constipation/diarrhea GENITOURINARY: denies dysuria MUSCULOSKELETAL: right ankle fracture NEUROLOGICAL:+parkinson's HEMATOLOGICAL: denies easy bruising SKIN: +varicose veins and rosacea PSYCHIATRIC: Unremarkable All other review of systems found to be negative. PHYSICAL EXAMINATION: VITAL SIGNS: Please see below. GENERAL: Pleasant and cooperative. No acute distress. slightly masked facies HEENT: PERRL. Extraocular movements intact. Clear conjunctiva CARDIOVASCULAR: Regular rate and rhythm. No murmurs, rubs, or gallops LUNGS: Clear to auscultation bilaterally. No wheezes. No rhonchi ABDOMEN: Soft, nontender, nondistended. Positive bowel sounds. Normal active bowel sounds NEUROLOGICAL: Alert and oriented times three. Cranial nerves II through XII grossly intact. Sensation grossly intact EXTREMITIES: 5\5 strength bilateral upper extremities. >3/5 right hip flexors and knee extension, able to wiggle toe (limited exam due to splinting 5/5 strength in left lower extremity. SKIN: LE varicose veins, warm and well perfused ASSESSMENT:89-year-old F with past medical history of parkinsons who presents status post fall with right ankle fracture PLAN: 1. Rehab- PT/OT advance mobility and ADLs, strengthen/stretch/maintain ROM all 4 limbs NWB to RLE 2. Neuro- hx of parkinson's contributing to recent fall and difficulty with mobility- c/u Sinemet -essential tremor c/u primidone 3. 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 Resp- monitor for infection, flonase and NS drops for sinus dryness 5. Endo- hx of hypothyroidism, c/u synthroid 6. GI ppx- prilosec, maalox prn dyspepsia 7. DVT ppx- lovenox -dopplers negative for DVTT 8. PAin- tylenol and tramadol prn 9. Ortho- s/p right calcaneal fracture NWB for 6-8 weeks, ortho consulted 10. Dispo- TBD Allergies Coded Allergies: Contrast Media (Verified Allergy, Intermediate, HIVES, 05/11/19) ciprofloxacin (Verified Allergy, Intermediate, ERYTHEMA, 05/11/19) gabapentin (Verified Allergy, Intermediate, ERYTHEMA, 05/11/19) ketoconazole (Verified Allergy, Intermediate, 05/11/19) meloxicam (Verified Allergy, Intermediate, ERYTHEMA, 05/11/19) pramipexole (Verified Allergy, Unknown, 05/11/19) amoxicillin (Verified Adverse Reaction, Severe, Renal Failure, 05/11/19) clavulanic acid (Verified Adverse Reaction, Severe, Renal Failure, 05/11/19) clindamycin (Verified Adverse Reaction, Severe, Chest pressure, 05/11/19) ibuprofen (Verified Adverse Reaction, Severe, [place], 05/11/19) Vital Signs Vital Signs Date Time Temp Pulse Resp B/P (MAP) Pulse Ox O2 Delivery O2 Flow Rate FiO2 10/02/20 09:16 153/84 10/02/20 07:53 68 10/02/20 05:49 18 Room Air 10/02/20 05:35 97.2 98 Microbiology Microbiology 10/01/20 Respiratory Virus Panel (PCR) (VAUGHN) - Final, Complete Current Medications Current Medications Current Medications Medications (Trade) Dose Ordered Sig/Lázaro Route PRN Reason Start Time Stop Time Status Last Admin Dose Admin Acetaminophen (Tylenol Tab) 1,000 mg TID PO 09/30/20 16:00 10/02/20 09:16 Al Hydrox/Mg Hydrox/Simethicone (Mylanta) 30 ml Q4HP PRN PO HEARTBURN 10/01/20 09:45 10/01/20 21:29 Albuterol/ Ipratropium (Duoneb (Ipr 0.5mg/Alb 2.5mg)) 3 ml Q4HP PRN NEB SOB/WHEEZING 09/30/20 14:15 Artificial Tears (Akwa Tears) 1 drop BID OU 09/30/20 21:00 10/02/20 09:17 Aspirin (Ecotrin) 81 mg DAILY PO 10/01/20 09:00 10/02/20 09:16 Atorvastatin Calcium (Lipitor) 20 mg DAILY PO 10/01/20 09:00 10/02/20 09:16 Carbidopa/Levodopa (Sinemet 25/100) 1.5 tab 0800,1100,1500,1800 PO 09/30/20 18:00 10/02/20 11:47 Docusate Sodium (Colace) 100 mg BID PO 09/30/20 21:00 10/02/20 09:17 Dorzolamide/ Timolol (Cosopt Ocumeter Plus) 1 drop DAILY@2100 OU 09/30/20 21:00 10/01/20 21:31 Enoxaparin Sodium (Lovenox) 30 mg DAILY SC 10/01/20 09:00 10/02/20 09:14 Fluticasone Propionate (Flovent Hfa 110 Mcg) 2 puff RBID INH 09/30/20 20:00 10/02/20 07:57 Furosemide (Lasix) 20 mg DAILY PO 10/01/20 09:00 10/02/20 09:17 Hydroxyzine HCl (Atarax) 50 mg Q6HP PRN PO anxiety 09/30/20 14:15 Isosorbide Mononitrate (Imdur) 30 mg DAILY PO 10/03/20 09:00 Isosorbide Mononitrate (Imdur) 120 mg DAILY PO 10/01/20 09:00 10/02/20 10:29 DC 10/02/20 05:17 Isosorbide Mononitrate (Imdur) 120 mg DAILY PO 10/03/20 09:00 Latanoprost (Xalatan 0.005% Op Soln) 1 drop QHS OU 09/30/20 21:00 10/01/20 21:31 Levothyroxine Sodium (Synthroid) 112 mcg DAILY@06 PO 10/01/20 06:00 10/02/20 05:16 Lisinopril (Prinivil) 10 mg DAILY PO 10/02/20 09:00 10/02/20 09:16 Nitroglycerin (Nitrostat (1/ 150)) 0.4 mg Q5MP PRN SL CHEST PAIN 10/01/20 10:30 Nitroglycerin (Nitrostat (1/ 150)) 0.4 mg STAT STAT SL 10/01/20 02:23 10/01/20 02:25 DC 10/01/20 02:28 Nitroglycerin (Nitrostat (1/ 150)) 0.4 mg STAT STAT SL 10/01/20 02:35 10/01/20 02:36 DC 10/01/20 02:40 Nortriptyline HCl (Pamelor) 25 mg QHS PO 09/30/20 21:00 10/01/20 21:32 Omeprazole (PriLOSEC) 40 mg DAILY PO 10/01/20 09:00 10/02/20 09:16 Ondansetron HCl (Zofran) 4 mg Q6HP PRN PO NAUSEA 09/30/20 14:15 Primidone (Mysoline) 50 mg BID PO 09/30/20 21:00 10/02/20 09:16 Ranolazine (Ranexa) 500 mg BID PO 09/30/20 21:00 10/02/20 09:17 Senna (Senokot) 1 tab QHS PO 09/30/20 21:00 10/01/20 21:29 Spironolactone (Aldactone) 12.5 mg DAILY PO 10/01/20 09:00 10/02/20 09:15 Tramadol HCl (Ultram) 50 mg Q4HP PRN PO MODERATE PAIN (PS 5-7) 09/30/20 14:15 10/02/20 05:17 MISAEL MCCRARY MD Oct 02, 2020 13:23
[2020-10-02 13:45] VITALS: BP 124/63
[2020-10-02] MEDS: SODIUM CHLORIDE NASAL 0.65% SPRAY BTL (OCEAN) SCH ×2 (15:30→21:17)
[2020-10-02] MEDS: NORTRIPTYLINE 25 MG CAP PO SCH (21:16)
[2020-10-02] MEDS: SENNA 8.6 MG TAB (SENOKOT) PO SCH (21:17)
[2020-10-02] MEDS: COSOPT OCUMETER PLUS 10ML (DORZOLAMIDE/TIMOLOL) OU SCH (21:18)
[2020-10-02] MEDS: LATANOPROST 0.005% OPHTH SOLN 2.5 ML OU SCH (21:18)
[2020-10-02 21:45] VITALS: BP 155/69
[2020-10-03] MEDS: LEVOTHYROXINE 112MCG TABLET (0.112MG) PO SCH (06:05)
[2020-10-03] MEDS: traMADol 50 MG TAB PO PRN ×2 (06:06→20:24)
[2020-10-03 06:24] VITALS: BP 135/64
[2020-10-03] MEDS: SINEMET 25-100 MG TAB PO SCH ×4 (07:44→17:34)
[2020-10-03] MEDS: DOCUSATE SODIUM 100MG CAPSULE PO SCH ×2 (07:44→20:24)
[2020-10-03] MEDS: NITROGLYCERIN 0.4 MG SUBL TABLET SL PRN (07:44)
[2020-10-03] MEDS: RANOLAZINE 500 MG ER TAB PO SCH ×2 (07:44→20:23)
[2020-10-03] MEDS: ACETAMINOPHEN 500 MG TAB PO SCH ×3 (07:44→20:23)
[2020-10-03] MEDS: ATORVASTATIN 20 MG TAB PO SCH (07:44)
[2020-10-03 07:45] VITALS: BP 180/79
[2020-10-03] MEDS: FUROSEMIDE 20 MG TAB PO SCH (07:45)
[2020-10-03] MEDS: ASPIRIN 81 MG ENTERIC TAB PO SCH (07:45)
[2020-10-03] MEDS: ISOSORBIDE MON. (IMDUR) 30 MG XR TAB PO SCH (07:45)
[2020-10-03] MEDS: ISOSORBIDE MON. (IMDUR) 60 MG XR TAB PO SCH (07:45)
[2020-10-03] MEDS: OMEPRAZOLE 20 MG CAP PO SCH (07:45)
[2020-10-03] MEDS: PRIMIDONE 50 MG TAB PO SCH ×2 (07:45→20:23)
[2020-10-03] MEDS: ENOXAPARIN 30MG/0.3ML SYRINGE (J1650 PER 10MG) SC SCH (07:46)
[2020-10-03] MEDS: FLUTICASONE PROP 0.05% NASAL SPRAY 16 GM (FLONASE) NARES SCH ×2 (07:46→20:22)
[2020-10-03] MEDS: POLYVINYL ALCOHOL OPHTH SOLN 15 ML(LIQUITEARS) OU SCH ×2 (07:47→20:22)
[2020-10-03] MEDS: SODIUM CHLORIDE NASAL 0.65% SPRAY BTL (OCEAN) SCH ×3 (07:47→20:24)
[2020-10-03] MEDS: REMEDY PHYTOPLEX Z-GUARD PASTE 113GM TUBE (FROM STOREROOM PRODUCT) TOP SCH ×3 (07:47→20:22)
[2020-10-03] MEDS: MAALOX 30 ML SUSP *UDC PO PRN (07:51)
[2020-10-03] MEDS: SPIRONOLACTONE 12.5MG PER 1/2 TABLET PO SCH (07:51)
[2020-10-03 07:52] VITALS: BP 139/77
[2020-10-03] MEDS: FLUTICASONE HFA 110 MCG 12 GM INHALER (FLOVENT) INH SCH ×2 (08:00→19:37)
--- NOTE | 2020-10-03 13:00 | ECGEPIP ---
[facility] Test Date: 2020-10-01 Pat Name: ANDREW FAN Department: Room: [place] [address] Gender: Female [employer]: : [id number] Requested By: GERMÁN Cedillo Order Number: [id number] Reading MD: Tracy Padilla Measurements Intervals [place] Rate: 64 P: 82 NV: 181 QRS: -48 QRSD: 116 T: -69 QT: 409 QTc: 422 Interpretive Statements SINUS RHYTHM LEFT ANTERIOR FASCICULAR BLOCK LEFT VENTRICULAR HYPERTROPHY AND ST-T CHANGE - NON-SPECIFIC COMPARED TO 09/29/20 VENTRICULAR PACING IS NO LONGER PRESENT Electronically Signed on 10-03-2020 12:59:49 EST by Tracy Padilla
[2020-10-03 15:17] VITALS: BP 119/63
[2020-10-03 20:00] VITALS: BP 135/67
[2020-10-03] MEDS: COSOPT OCUMETER PLUS 10ML (DORZOLAMIDE/TIMOLOL) OU SCH (20:22)
[2020-10-03] MEDS: LATANOPROST 0.005% OPHTH SOLN 2.5 ML OU SCH (20:22)
[2020-10-03] MEDS: NORTRIPTYLINE 25 MG CAP PO SCH (20:23)
[2020-10-03] MEDS: SENNA 8.6 MG TAB (SENOKOT) PO SCH (20:24)
[2020-10-04] MEDS: LEVOTHYROXINE 112MCG TABLET (0.112MG) PO SCH (05:52)
[2020-10-04] MEDS: traMADol 50 MG TAB PO PRN ×2 (05:52→13:50)
[2020-10-04 06:00] VITALS: BP 145/72
[2020-10-04] MEDS: FLUTICASONE HFA 110 MCG 12 GM INHALER (FLOVENT) INH SCH ×2 (07:11→20:00)
[2020-10-04 08:03] LABS: BASO # 0.1 10^3/uL (0.0-0.2); BASO % 0.9 % (0.0-1.0); EOS # 0.3 10^3/uL (0.0-0.5); EOS % 4.7 % (0.0-3.0); HEMATOCRIT 42.7 % (36.0-47.0); HEMOGLOBIN 13.3 g/dl (12.0-15.5); MEAN CORPUSCULAR HEMOGLOBIN 29.4 pg (27.0-33.0); MEAN CORPUSCULAR HGB CONC 31.1 g/dl (32.0-36.5); MEAN CORPUSCULAR VOLUME 94.5 fl (80.0-96.0); MONO # 0.8 10^3/uL (0.0-0.8); MONO % 11.9 % (0.0-5.0); NEUTROPHILS # 4.4 10^3/uL (1.5-8.5); NEUTROPHILS % 67.2 % (36.0-66.0); PLATELET COUNT, AUTOMATED 284 10^3/uL (150-450); RED BLOOD COUNT 4.52 10^6/uL (4.00-5.40); WHITE BLOOD COUNT 6.6 10^3/uL (4.0-10.0)
[2020-10-04 08:27] LABS: CALCIUM LEVEL 9.9 MG/DL (8.8-10.2); CREATININE FOR GFR 0.96 MG/DL (0.55-1.30); GLOMERULAR FILTRATION RATE 58.5 (>32); POTASSIUM SERUM 4.1 MEQ/L (3.5-5.1)
[2020-10-04 09:01] VITALS: BP 145/76
[2020-10-04] MEDS: OMEPRAZOLE 20 MG CAP PO SCH (09:05)
[2020-10-04] MEDS: RANOLAZINE 500 MG ER TAB PO SCH ×2 (09:05→20:18)
[2020-10-04] MEDS: ASPIRIN 81 MG ENTERIC TAB PO SCH (09:05)
[2020-10-04] MEDS: DOCUSATE SODIUM 100MG CAPSULE PO SCH ×2 (09:06→20:17)
[2020-10-04] MEDS: SINEMET 25-100 MG TAB PO SCH ×4 (09:06→18:29)
[2020-10-04] MEDS: PRIMIDONE 50 MG TAB PO SCH ×2 (09:06→20:17)
[2020-10-04] MEDS: FUROSEMIDE 20 MG TAB PO SCH (09:07)
[2020-10-04] MEDS: ACETAMINOPHEN 500 MG TAB PO SCH ×3 (09:08→20:22)
[2020-10-04] MEDS: ATORVASTATIN 20 MG TAB PO SCH (09:08)
[2020-10-04] MEDS: SPIRONOLACTONE 12.5MG PER 1/2 TABLET PO SCH (09:09)
[2020-10-04] MEDS: ISOSORBIDE MON. (IMDUR) 30 MG XR TAB PO SCH (09:09)
[2020-10-04] MEDS: ISOSORBIDE MON. (IMDUR) 60 MG XR TAB PO SCH (09:09)
[2020-10-04] MEDS: ENOXAPARIN 30MG/0.3ML SYRINGE (J1650 PER 10MG) SC SCH (09:10)
[2020-10-04] MEDS: NITROGLYCERIN 0.4 MG SUBL TABLET SL PRN (09:17)
[2020-10-04] MEDS: FLUTICASONE PROP 0.05% NASAL SPRAY 16 GM (FLONASE) NARES SCH ×2 (09:19→20:18)
[2020-10-04] MEDS: SODIUM CHLORIDE NASAL 0.65% SPRAY BTL (OCEAN) SCH ×3 (09:19→20:18)
[2020-10-04] MEDS: POLYVINYL ALCOHOL OPHTH SOLN 15 ML(LIQUITEARS) OU SCH ×2 (09:20→20:19)
[2020-10-04] MEDS: REMEDY PHYTOPLEX Z-GUARD PASTE 113GM TUBE (FROM STOREROOM PRODUCT) TOP SCH ×3 (09:20→20:22)
[2020-10-04 09:25] VITALS: BP 119/73
[2020-10-04 14:00] VITALS: BP 126/67
[2020-10-04 20:00] VITALS: BP 114/59
[2020-10-04] MEDS: COSOPT OCUMETER PLUS 10ML (DORZOLAMIDE/TIMOLOL) OU SCH (20:17)
[2020-10-04] MEDS: NORTRIPTYLINE 25 MG CAP PO SCH (20:17)
[2020-10-04] MEDS: LATANOPROST 0.005% OPHTH SOLN 2.5 ML OU SCH (20:17)
[2020-10-04] MEDS: SENNA 8.6 MG TAB (SENOKOT) PO SCH (20:18)
[2020-10-05 05:36] VITALS: BP 141/73
[2020-10-05] MEDS: LEVOTHYROXINE 112MCG TABLET (0.112MG) PO SCH (06:16)
[2020-10-05] MEDS: FLUTICASONE HFA 110 MCG 12 GM INHALER (FLOVENT) INH SCH ×2 (07:31→20:17)
[2020-10-05] MEDS: SPIRONOLACTONE 12.5MG PER 1/2 TABLET PO SCH (08:09)
[2020-10-05] MEDS: ISOSORBIDE MON. (IMDUR) 30 MG XR TAB PO SCH (08:10)
[2020-10-05] MEDS: ISOSORBIDE MON. (IMDUR) 60 MG XR TAB PO SCH (08:10)
[2020-10-05] MEDS: ATORVASTATIN 20 MG TAB PO SCH (08:10)
[2020-10-05] MEDS: DOCUSATE SODIUM 100MG CAPSULE PO SCH ×2 (08:10→21:38)
[2020-10-05] MEDS: ACETAMINOPHEN 500 MG TAB PO SCH ×3 (08:11→21:00)
[2020-10-05] MEDS: OMEPRAZOLE 20 MG CAP PO SCH (08:11)
[2020-10-05] MEDS: RANOLAZINE 500 MG ER TAB PO SCH ×2 (08:11→21:38)
[2020-10-05] MEDS: SINEMET 25-100 MG TAB PO SCH ×4 (08:11→17:33)
[2020-10-05] MEDS: PRIMIDONE 50 MG TAB PO SCH ×2 (08:11→21:38)
[2020-10-05] MEDS: FUROSEMIDE 20 MG TAB PO SCH (08:11)
[2020-10-05] MEDS: REMEDY PHYTOPLEX Z-GUARD PASTE 113GM TUBE (FROM STOREROOM PRODUCT) TOP SCH ×3 (08:12→21:40)
[2020-10-05] MEDS: ENOXAPARIN 30MG/0.3ML SYRINGE (J1650 PER 10MG) SC SCH (08:12)
[2020-10-05] MEDS: ASPIRIN 81 MG ENTERIC TAB PO SCH (08:12)
[2020-10-05] MEDS: SODIUM CHLORIDE NASAL 0.65% SPRAY BTL (OCEAN) SCH ×3 (08:13→21:41)
[2020-10-05] MEDS: FLUTICASONE PROP 0.05% NASAL SPRAY 16 GM (FLONASE) NARES SCH ×2 (08:13→21:41)
[2020-10-05] MEDS: POLYVINYL ALCOHOL OPHTH SOLN 15 ML(LIQUITEARS) OU SCH ×3 (08:13→21:41)
--- NOTE | 2020-10-05 09:52 | IPNPDOC ---
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 REVIEW OF SYSTEMS: The following is a completed review of systems and has been reviewed. Review of systems otherwise unremarkable. PAIN: Patient self reports right ankle pain EYES: No recent vision changes EARS, NOSE, & THROAT: No throat pain, or dysphagia, or rhinorrhea CARDIOVASCULAR: Denies chest pain or palpitations PULMONARY: Denies shortness of breath GASTROINTESTINAL: Denies constipation/diarrhea GENITOURINARY: denies dysuria MUSCULOSKELETAL: right foot fracture NEUROLOGICAL:+parkinson's HEMATOLOGICAL: denies easy bruising SKIN: +varicose veins and rosacea PSYCHIATRIC: Unremarkable All other review of systems found to be negative. PHYSICAL EXAMINATION: VITAL SIGNS: Please see below. GENERAL: Pleasant and cooperative. No acute distress. slightly masked facies HEENT: PERRL. Extraocular movements intact. Clear conjunctiva CARDIOVASCULAR: Regular rate and rhythm. No murmurs, rubs, or gallops LUNGS: Clear to auscultation bilaterally. No wheezes. No rhonchi ABDOMEN: Soft, nontender, nondistended. Positive bowel sounds. Normal active bowel sounds NEUROLOGICAL: Alert and oriented times three. Cranial nerves II through XII grossly intact. Sensation grossly intact EXTREMITIES: 5\5 strength bilateral upper extremities. >3/5 right hip flexors and knee extension, able to wiggle toe (limited exam due to splinting 5/5 strength in left lower extremity. SKIN: LE varicose veins, warm and well perfused ASSESSMENT:89-year-old F with past medical history of parkinsons who presents status post fall with right hind-foot fracture PLAN: 1. Rehab- PT/OT advance mobility and ADLs, strengthen/stretch/maintain ROM all 4 limbs NWB to RLE 2. Neuro- hx of parkinson's contributing to recent fall and difficulty with mobility- c/u Sinemet -essential tremor c/u primidone 3. 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 Resp- monitor for infection, flonase and NS drops for sinus dryness 5. Endo- hx of hypothyroidism, c/u synthroid 6. GI ppx- prilosec, maalox prn dyspepsia 7. DVT ppx- lovenox -dopplers negative for DVT 8. PAin- tylenol and tramadol prn 9. Ortho- s/p right calcaneal fracture NWB for 6-8 weeks, ortho consulted 10. Dispo- TBD Allergies Coded Allergies: Contrast Media (Verified Allergy, Intermediate, HIVES, 05/11/19) ciprofloxacin (Verified Allergy, Intermediate, ERYTHEMA, 05/11/19) gabapentin (Verified Allergy, Intermediate, ERYTHEMA, 05/11/19) ketoconazole (Verified Allergy, Intermediate, 05/11/19) meloxicam (Verified Allergy, Intermediate, ERYTHEMA, 05/11/19) pramipexole (Verified Allergy, Unknown, 05/11/19) amoxicillin (Verified Adverse Reaction, Severe, Renal Failure, 05/11/19) clavulanic acid (Verified Adverse Reaction, Severe, Renal Failure, 05/11/19) clindamycin (Verified Adverse Reaction, Severe, Chest pressure, 05/11/19) ibuprofen (Verified Adverse Reaction, Severe, [place], 05/11/19) Vital Signs Vital Signs Date Time Temp Pulse Resp B/P (MAP) Pulse Ox O2 Delivery O2 Flow Rate FiO2 10/05/20 08:10 143/70 10/05/20 05:36 96.9 66 18 97 Room Air Microbiology Microbiology 10/01/20 Respiratory Virus Panel (PCR) (VAUGHN) - Final, Complete Current Medications Current Medications Current Medications Medications (Trade) Dose Ordered Sig/Lázaro Route PRN Reason Start Time Stop Time Status Last Admin Dose Admin Acetaminophen (Tylenol Tab) 1,000 mg TID PO 09/30/20 16:00 10/05/20 08:11 Al Hydrox/Mg Hydrox/Simethicone (Mylanta) 30 ml Q4HP PRN PO HEARTBURN 10/01/20 09:45 10/03/20 07:51 Albuterol/ Ipratropium (Duoneb (Ipr 0.5mg/Alb 2.5mg)) 3 ml Q4HP PRN NEB SOB/WHEEZING 09/30/20 14:15 Artificial Tears (Akwa Tears) 1 drop BID OU 09/30/20 21:00 10/05/20 08:13 Aspirin (Ecotrin) 81 mg DAILY PO 10/01/20 09:00 10/05/20 08:12 Atorvastatin Calcium (Lipitor) 20 mg DAILY PO 10/01/20 09:00 10/05/20 08:10 Carbidopa/Levodopa (Sinemet 25/100) 1.5 tab 0800,1100,1500,1800 PO 09/30/20 18:00 10/05/20 08:11 Docusate Sodium (Colace) 100 mg BID PO 09/30/20 21:00 10/05/20 08:10 Dorzolamide/ Timolol (Cosopt Ocumeter Plus) 1 drop DAILY@2100 OU 09/30/20 21:00 10/04/20 20:17 Enoxaparin Sodium (Lovenox) 30 mg DAILY SC 10/01/20 09:00 10/05/20 08:12 Fluticasone Propionate (Flonase 0.05% Nasal [place]) 1 spray BID NARES 10/02/20 09:00 10/05/20 08:13 Fluticasone Propionate (Flovent Hfa 110 Mcg) 2 puff RBID INH 09/30/20 20:00 10/05/20 07:31 Furosemide (Lasix) 20 mg DAILY PO 10/01/20 09:00 10/05/20 08:11 Hydroxyzine HCl (Atarax) 50 mg Q6HP PRN PO anxiety 09/30/20 14:15 Isosorbide Mononitrate (Imdur) 30 mg DAILY PO 10/03/20 09:00 10/05/20 08:10 Isosorbide Mononitrate (Imdur) 120 mg DAILY PO 10/01/20 09:00 10/02/20 10:29 DC 10/02/20 05:17 Isosorbide Mononitrate (Imdur) 120 mg DAILY PO 10/03/20 09:00 10/05/20 08:10 Latanoprost (Xalatan 0.005% Op Soln) 1 drop QHS OU 09/30/20 21:00 10/04/20 20:17 Levothyroxine Sodium (Synthroid) 112 mcg DAILY@06 PO 10/01/20 06:00 10/05/20 06:16 Lisinopril (Prinivil) 10 mg DAILY PO 10/02/20 09:00 10/05/20 08:12 Nitroglycerin (Nitrostat (1/ 150)) 0.4 mg Q5MP PRN SL CHEST PAIN 10/01/20 10:30 10/04/20 09:17 Nitroglycerin (Nitrostat (1/ 150)) 0.4 mg STAT STAT SL 10/01/20 02:23 10/01/20 02:25 DC 10/01/20 02:28 Nitroglycerin (Nitrostat (1/ 150)) 0.4 mg STAT STAT SL 10/01/20 02:35 10/01/20 02:36 DC 10/01/20 02:40 Nortriptyline HCl (Pamelor) 25 mg QHS PO 09/30/20 21:00 10/04/20 20:17 Omeprazole (PriLOSEC) 40 mg DAILY PO 10/01/20 09:00 10/05/20 08:11 Ondansetron HCl (Zofran) 4 mg Q6HP PRN PO NAUSEA 09/30/20 14:15 Primidone (Mysoline) 50 mg BID PO 09/30/20 21:00 10/05/20 08:11 Ranolazine (Ranexa) 500 mg BID PO 09/30/20 21:00 10/05/20 08:11 Senna (Senokot) 1 tab QHS PO 09/30/20 21:00 10/04/20 20:18 Sodium Chloride ([place] Nasal [place]) 2 spray TID NA 10/02/20 16:00 10/05/20 08:13 Spironolactone (Aldactone) 12.5 mg DAILY PO 10/01/20 09:00 10/05/20 08:09 Tramadol HCl (Ultram) 50 mg Q4HP PRN PO MODERATE PAIN (PS 5-7) 09/30/20 14:15 10/04/20 13:50 MISAEL MCCRARY MD Oct 05, 2020 09:52
[2020-10-05 14:00] VITALS: BP 119/63
[2020-10-05 20:00] VITALS: BP 117/62
[2020-10-05] MEDS: NORTRIPTYLINE 25 MG CAP PO SCH (21:38)
[2020-10-05] MEDS: SENNA 8.6 MG TAB (SENOKOT) PO SCH (21:38)
[2020-10-05] MEDS: traMADol 50 MG TAB PO PRN (21:39)
[2020-10-05] MEDS: LATANOPROST 0.005% OPHTH SOLN 2.5 ML OU SCH (21:41)
[2020-10-05] MEDS: COSOPT OCUMETER PLUS 10ML (DORZOLAMIDE/TIMOLOL) OU SCH (21:41)
[2020-10-06 05:37] VITALS: BP 149/79
[2020-10-06] MEDS: LEVOTHYROXINE 112MCG TABLET (0.112MG) PO SCH (05:58)
[2020-10-06 07:29] LABS: BASO % 0.5 % (0.0-1.0); EOS # 0.3 10^3/uL (0.0-0.5); EOS % 3.2 % (0.0-3.0); HEMATOCRIT 41.7 % (36.0-47.0); HEMOGLOBIN 13.3 g/dl (12.0-15.5); LYMPH % 11.6 % (24.0-44.0); MEAN CORPUSCULAR HEMOGLOBIN 29.4 pg (27.0-33.0); MEAN CORPUSCULAR HGB CONC 31.9 g/dl (32.0-36.5); MEAN CORPUSCULAR VOLUME 92.1 fl (80.0-96.0); MONO % 11.6 % (0.0-5.0); NEUTROPHILS # 6.1 10^3/uL (1.5-8.5); NEUTROPHILS % 72.7 % (36.0-66.0); PLATELET COUNT, AUTOMATED 312 10^3/uL (150-450); RED BLOOD COUNT 4.53 10^6/uL (4.00-5.40); WHITE BLOOD COUNT 8.4 10^3/uL (4.0-10.0)
[2020-10-06] MEDS: FLUTICASONE HFA 110 MCG 12 GM INHALER (FLOVENT) INH SCH ×2 (07:41→20:37)
[2020-10-06 07:51] LABS: CALCIUM LEVEL 9.7 MG/DL (8.8-10.2); CREATININE FOR GFR 0.99 MG/DL (0.55-1.30); GLOMERULAR FILTRATION RATE 56.5 (>32); POTASSIUM SERUM 4.2 MEQ/L (3.5-5.1)
[2020-10-06] MEDS: SPIRONOLACTONE 12.5MG PER 1/2 TABLET PO SCH (07:51)
[2020-10-06] MEDS: ATORVASTATIN 20 MG TAB PO SCH (07:51)
[2020-10-06] MEDS: OMEPRAZOLE 20 MG CAP PO SCH (07:51)
[2020-10-06] MEDS: PRIMIDONE 50 MG TAB PO SCH ×2 (07:51→20:25)
[2020-10-06] MEDS: ACETAMINOPHEN 500 MG TAB PO SCH ×3 (07:51→20:25)
[2020-10-06] MEDS: ISOSORBIDE MON. (IMDUR) 30 MG XR TAB PO SCH (07:52)
[2020-10-06] MEDS: DOCUSATE SODIUM 100MG CAPSULE PO SCH ×2 (07:52→20:24)
[2020-10-06] MEDS: ASPIRIN 81 MG ENTERIC TAB PO SCH (07:52)
[2020-10-06] MEDS: ISOSORBIDE MON. (IMDUR) 60 MG XR TAB PO SCH (07:52)
[2020-10-06] MEDS: SINEMET 25-100 MG TAB PO SCH ×4 (07:53→17:06)
[2020-10-06] MEDS: FUROSEMIDE 20 MG TAB PO SCH (07:53)
[2020-10-06] MEDS: ENOXAPARIN 30MG/0.3ML SYRINGE (J1650 PER 10MG) SC SCH (07:54)
[2020-10-06] MEDS: REMEDY PHYTOPLEX Z-GUARD PASTE 113GM TUBE (FROM STOREROOM PRODUCT) TOP SCH ×3 (08:39→20:29)
[2020-10-06] MEDS: RANOLAZINE 500 MG ER TAB PO SCH ×2 (08:39→20:25)
[2020-10-06] MEDS: SODIUM CHLORIDE NASAL 0.65% SPRAY BTL (OCEAN) SCH ×3 (08:39→20:26)
[2020-10-06] MEDS: FLUTICASONE PROP 0.05% NASAL SPRAY 16 GM (FLONASE) NARES SCH ×2 (08:39→20:26)
[2020-10-06] MEDS: POLYVINYL ALCOHOL OPHTH SOLN 15 ML(LIQUITEARS) OU SCH ×2 (08:39→20:27)
[2020-10-06] MEDS: traMADol 50 MG TAB PO PRN ×2 (10:21→20:26)
--- NOTE | 2020-10-06 10:37 | IPNPDOC ---
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 REVIEW OF SYSTEMS: The following is a completed review of systems and has been reviewed. Review of systems otherwise unremarkable. PAIN: Patient self reports right ankle pain EYES: No recent vision changes EARS, NOSE, & THROAT: No throat pain, or dysphagia, or rhinorrhea CARDIOVASCULAR: Denies chest pain or palpitations PULMONARY: Denies shortness of breath GASTROINTESTINAL: Denies constipation/diarrhea GENITOURINARY: denies dysuria MUSCULOSKELETAL: right foot fracture NEUROLOGICAL:+parkinson's HEMATOLOGICAL: denies easy bruising SKIN: +varicose veins and rosacea PSYCHIATRIC: Unremarkable All other review of systems found to be negative. PHYSICAL EXAMINATION: VITAL SIGNS: Please see below. GENERAL: Pleasant and cooperative. No acute distress. slightly masked facies HEENT: PERRL. Extraocular movements intact. Clear conjunctiva CARDIOVASCULAR: Regular rate and rhythm. No murmurs, rubs, or gallops LUNGS: Clear to auscultation bilaterally. No wheezes. No rhonchi ABDOMEN: Soft, nontender, nondistended. Positive bowel sounds. Normal active bowel sounds NEUROLOGICAL: Alert and oriented times three. Cranial nerves II through XII grossly intact. Sensation grossly intact EXTREMITIES: 5\5 strength bilateral upper extremities. >3/5 right hip flexors and knee extension, able to wiggle toe (limited exam due to splinting 5/5 strength in left lower extremity. SKIN: LE varicose veins, warm and well perfused ASSESSMENT:89-year-old F with past medical history of parkinsons who presents status post fall with right hind-foot fracture PLAN: 1. Rehab- PT/OT advance mobility and ADLs, strengthen/stretch/maintain ROM all 4 limbs NWB to RLE, advancing with wheelchair mobility 2. Neuro- hx of parkinson's contributing to recent fall and difficulty with mobility- c/u Sinemet -essential tremor c/u primidone 3. 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 Resp- monitor for infection, flonase and NS drops for sinus dryness 5. Endo- hx of hypothyroidism, c/u synthroid 6. GI ppx- prilosec, Maalox prn dyspepsia 7. DVT ppx- lovenox -dopplers negative for DVT 8. PAin- tylenol and tramadol prn 9. Ortho- s/p right calcaneal fracture NWB for 6-8 weeks, ortho consulted 10. Dispo- TBD Allergies Coded Allergies: Contrast Media (Verified Allergy, Intermediate, HIVES, 05/11/19) ciprofloxacin (Verified Allergy, Intermediate, ERYTHEMA, 05/11/19) gabapentin (Verified Allergy, Intermediate, ERYTHEMA, 05/11/19) ketoconazole (Verified Allergy, Intermediate, 05/11/19) meloxicam (Verified Allergy, Intermediate, ERYTHEMA, 05/11/19) pramipexole (Verified Allergy, Unknown, 05/11/19) amoxicillin (Verified Adverse Reaction, Severe, Renal Failure, 05/11/19) clavulanic acid (Verified Adverse Reaction, Severe, Renal Failure, 05/11/19) clindamycin (Verified Adverse Reaction, Severe, Chest pressure, 05/11/19) ibuprofen (Verified Adverse Reaction, Severe, MD, 05/11/19) Vital Signs Vital Signs Date Time Temp Pulse Resp B/P (MAP) Pulse Ox O2 Delivery O2 Flow Rate FiO2 10/06/20 10:21 16 10/06/20 07:52 149/79 10/06/20 05:37 96.9 69 100 Room Air Laboratory Data CBC/BMP Laboratory Tests 10/06/20 06:46 Labs 24H Laboratory Tests 2 10/06/20 06:46: Immature Granulocyte % (Auto) 0.4, Neutrophils (%) (Auto) 72.7H, Lymphocytes (%) (Auto) 11.6L, Monocytes (%) (Auto) 11.6H, Eosinophils (%) (Auto) 3.2H, Basophils (%) (Auto) 0.5, Neutrophils # (Auto) 6.1, Lymphocytes # (Auto) 1.0L, Monocytes # (Auto) 1.0H, Eosinophils # (Auto) 0.3, Basophils # (Auto) 0.0, Nucleated Red Blood Cells % (auto) 0.0, Anion Gap 5L, Glomerular Filtration Rate 56.5, Calcium Level 9.7 Microbiology Microbiology 10/01/20 Respiratory Virus Panel (PCR) (VAUGHN) - Final, Complete Current Medications Current Medications Current Medications Medications (Trade) Dose Ordered Sig/Lázaro Route PRN Reason Start Time Stop Time Status Last Admin Dose Admin Acetaminophen (Tylenol Tab) 1,000 mg TID PO 09/30/20 16:00 10/06/20 07:51 Al Hydrox/Mg Hydrox/Simethicone (Mylanta) 30 ml Q4HP PRN PO HEARTBURN 10/01/20 09:45 10/03/20 07:51 Albuterol/ Ipratropium (Duoneb (Ipr 0.5mg/Alb 2.5mg)) 3 ml Q4HP PRN NEB SOB/WHEEZING 09/30/20 14:15 Artificial Tears (Akwa Tears) 1 drop BID OU 09/30/20 21:00 10/06/20 08:39 Aspirin (Ecotrin) 81 mg DAILY PO 10/01/20 09:00 10/06/20 07:52 Atorvastatin Calcium (Lipitor) 20 mg DAILY PO 10/01/20 09:00 10/06/20 07:51 Carbidopa/Levodopa (Sinemet 25/100) 1.5 tab 0800,1100,1500,1800 PO 09/30/20 18:00 10/06/20 10:21 Docusate Sodium (Colace) 100 mg BID PO 09/30/20 21:00 10/06/20 07:52 Dorzolamide/ Timolol (Cosopt Ocumeter Plus) 1 drop DAILY@2100 OU 09/30/20 21:00 10/05/20 21:41 Enoxaparin Sodium (Lovenox) 30 mg DAILY SC 10/01/20 09:00 10/06/20 07:54 Fluticasone Propionate (Flonase 0.05% Nasal [place]) 1 spray BID NARES 10/02/20 09:00 10/06/20 08:39 Fluticasone Propionate (Flovent Hfa 110 Mcg) 2 puff RBID INH 09/30/20 20:00 10/06/20 07:41 Furosemide (Lasix) 20 mg DAILY PO 10/01/20 09:00 10/06/20 07:53 Hydroxyzine HCl (Atarax) 50 mg Q6HP PRN PO anxiety 09/30/20 14:15 10/05/20 21:38 Isosorbide Mononitrate (Imdur) 30 mg DAILY PO 10/03/20 09:00 10/06/20 07:52 Isosorbide Mononitrate (Imdur) 120 mg DAILY PO 10/01/20 09:00 10/02/20 10:29 DC 10/02/20 05:17 Isosorbide Mononitrate (Imdur) 120 mg DAILY PO 10/03/20 09:00 10/06/20 07:52 Latanoprost (Xalatan 0.005% Op Soln) 1 drop QHS OU 09/30/20 21:00 10/05/20 21:41 Levothyroxine Sodium (Synthroid) 112 mcg DAILY@06 PO 10/01/20 06:00 10/06/20 05:58 Lisinopril (Prinivil) 10 mg DAILY PO 10/02/20 09:00 10/06/20 07:52 Nitroglycerin (Nitrostat (1/ 150)) 0.4 mg Q5MP PRN SL CHEST PAIN 10/01/20 10:30 10/04/20 09:17 Nitroglycerin (Nitrostat (1/ 150)) 0.4 mg STAT STAT SL 10/01/20 02:23 10/01/20 02:25 DC 10/01/20 02:28 Nitroglycerin (Nitrostat (1/ 150)) 0.4 mg STAT STAT SL 10/01/20 02:35 10/01/20 02:36 DC 10/01/20 02:40 Nortriptyline HCl (Pamelor) 25 mg QHS PO 09/30/20 21:00 10/05/20 21:38 Omeprazole (PriLOSEC) 40 mg DAILY PO 10/01/20 09:00 10/06/20 07:51 Ondansetron HCl (Zofran) 4 mg Q6HP PRN PO NAUSEA 09/30/20 14:15 Primidone (Mysoline) 50 mg BID PO 09/30/20 21:00 10/06/20 07:51 Ranolazine (Ranexa) 500 mg BID PO 09/30/20 21:00 10/06/20 08:39 Senna (Senokot) 1 tab QHS PO 09/30/20 21:00 10/05/20 21:38 Sodium Chloride ([place] Nasal [place]) 2 spray TID NA 10/02/20 16:00 10/06/20 08:39 Spironolactone (Aldactone) 12.5 mg DAILY PO 10/01/20 09:00 10/06/20 07:51 Tramadol HCl (Ultram) 50 mg Q4HP PRN PO MODERATE PAIN (PS 5-7) 09/30/20 14:15 10/06/20 10:21 MISAEL MCCRARY MD Oct 06, 2020 10:37
[2020-10-06 14:00] VITALS: BP 116/60
[2020-10-06 20:00] VITALS: BP 115/59
[2020-10-06] MEDS: NORTRIPTYLINE 25 MG CAP PO SCH (20:24)
[2020-10-06] MEDS: SENNA 8.6 MG TAB (SENOKOT) PO SCH (20:24)
[2020-10-06] MEDS: COSOPT OCUMETER PLUS 10ML (DORZOLAMIDE/TIMOLOL) OU SCH (20:26)
[2020-10-06] MEDS: LATANOPROST 0.005% OPHTH SOLN 2.5 ML OU SCH (20:26)
[2020-10-07] MEDS: LEVOTHYROXINE 112MCG TABLET (0.112MG) PO SCH (05:26)
[2020-10-07 06:00] VITALS: BP 131/66
[2020-10-07] MEDS: FLUTICASONE HFA 110 MCG 12 GM INHALER (FLOVENT) INH SCH ×2 (07:33→20:00)
[2020-10-07] MEDS: FLUTICASONE PROP 0.05% NASAL SPRAY 16 GM (FLONASE) NARES SCH ×2 (07:56→20:15)
[2020-10-07] MEDS: SODIUM CHLORIDE NASAL 0.65% SPRAY BTL (OCEAN) SCH ×3 (07:56→20:15)
[2020-10-07] MEDS: SPIRONOLACTONE 12.5MG PER 1/2 TABLET PO SCH (07:57)
[2020-10-07] MEDS: COSOPT OCUMETER PLUS 10ML (DORZOLAMIDE/TIMOLOL) OU SCH ×2 (07:57→20:15)
[2020-10-07] MEDS: OMEPRAZOLE 20 MG CAP PO SCH (07:57)
[2020-10-07] MEDS: RANOLAZINE 500 MG ER TAB PO SCH ×2 (07:57→20:12)
[2020-10-07] MEDS: PRIMIDONE 50 MG TAB PO SCH ×2 (07:57→20:12)
[2020-10-07] MEDS: ATORVASTATIN 20 MG TAB PO SCH (07:57)
[2020-10-07] MEDS: ASPIRIN 81 MG ENTERIC TAB PO SCH (07:57)
[2020-10-07] MEDS: SINEMET 25-100 MG TAB PO SCH ×4 (07:58→17:38)
[2020-10-07] MEDS: ISOSORBIDE MON. (IMDUR) 30 MG XR TAB PO SCH (07:58)
[2020-10-07] MEDS: FUROSEMIDE 20 MG TAB PO SCH (07:59)
[2020-10-07] MEDS: DOCUSATE SODIUM 100MG CAPSULE PO SCH ×2 (07:59→20:12)
[2020-10-07] MEDS: ISOSORBIDE MON. (IMDUR) 60 MG XR TAB PO SCH (07:59)
[2020-10-07] MEDS: ACETAMINOPHEN 500 MG TAB PO SCH ×3 (07:59→20:13)
[2020-10-07] MEDS: REMEDY PHYTOPLEX Z-GUARD PASTE 113GM TUBE (FROM STOREROOM PRODUCT) TOP SCH ×3 (08:00→20:16)
[2020-10-07] MEDS: POLYVINYL ALCOHOL OPHTH SOLN 15 ML(LIQUITEARS) OU SCH ×2 (08:00→20:15)
[2020-10-07] MEDS: ENOXAPARIN 30MG/0.3ML SYRINGE (J1650 PER 10MG) SC SCH (08:00)
[2020-10-07 14:00] VITALS: BP 100/59
[2020-10-07] MEDS: NORTRIPTYLINE 25 MG CAP PO SCH (20:12)
[2020-10-07] MEDS: SENNA 8.6 MG TAB (SENOKOT) PO SCH (20:12)
[2020-10-07] MEDS: traMADol 50 MG TAB PO PRN (20:13)
[2020-10-07] MEDS: LATANOPROST 0.005% OPHTH SOLN 2.5 ML OU SCH (20:15)
[2020-10-07 22:31] VITALS: BP 109/68
[2020-10-08] MEDS: LEVOTHYROXINE 112MCG TABLET (0.112MG) PO SCH (05:57)
[2020-10-08 06:00] VITALS: BP 127/69
[2020-10-08 06:52] LABS: BASO # 0.1 10^3/uL (0.0-0.2); BASO % 0.6 % (0.0-1.0); EOS # 0.3 10^3/uL (0.0-0.5); EOS % 3.6 % (0.0-3.0); HEMATOCRIT 39.8 % (36.0-47.0); HEMOGLOBIN 12.8 g/dl (12.0-15.5); LYMPH % 13.4 % (24.0-44.0); MEAN CORPUSCULAR HEMOGLOBIN 29.5 pg (27.0-33.0); MEAN CORPUSCULAR HGB CONC 32.2 g/dl (32.0-36.5); MEAN CORPUSCULAR VOLUME 91.7 fl (80.0-96.0); MONO % 12.2 % (0.0-5.0); NEUTROPHILS # 5.4 10^3/uL (1.5-8.5); NEUTROPHILS % 69.8 % (36.0-66.0); PLATELET COUNT, AUTOMATED 323 10^3/uL (150-450); RED BLOOD COUNT 4.34 10^6/uL (4.00-5.40); WHITE BLOOD COUNT 7.8 10^3/uL (4.0-10.0)
[2020-10-08] MEDS: FLUTICASONE HFA 110 MCG 12 GM INHALER (FLOVENT) INH SCH ×2 (07:10→18:20)
[2020-10-08 07:17] LABS: CALCIUM LEVEL 9.2 MG/DL (8.8-10.2); CREATININE FOR GFR 1.03 MG/DL (0.55-1.30); POTASSIUM SERUM 4.7 MEQ/L (3.5-5.1)
[2020-10-08] MEDS: PRIMIDONE 50 MG TAB PO SCH ×2 (08:25→21:06)
[2020-10-08] MEDS: ASPIRIN 81 MG ENTERIC TAB PO SCH (08:25)
[2020-10-08] MEDS: ISOSORBIDE MON. (IMDUR) 60 MG XR TAB PO SCH (08:26)
[2020-10-08] MEDS: REMEDY PHYTOPLEX Z-GUARD PASTE 113GM TUBE (FROM STOREROOM PRODUCT) TOP SCH ×3 (08:27→21:05)
[2020-10-08] MEDS: POLYVINYL ALCOHOL OPHTH SOLN 15 ML(LIQUITEARS) OU SCH ×2 (08:27→21:04)
[2020-10-08] MEDS: FLUTICASONE PROP 0.05% NASAL SPRAY 16 GM (FLONASE) NARES SCH ×2 (08:27→21:04)
[2020-10-08] MEDS: ENOXAPARIN 30MG/0.3ML SYRINGE (J1650 PER 10MG) SC SCH (08:28)
[2020-10-08] MEDS: SODIUM CHLORIDE NASAL 0.65% SPRAY BTL (OCEAN) SCH ×3 (08:28→21:04)
[2020-10-08] MEDS: RANOLAZINE 500 MG ER TAB PO SCH ×2 (08:29→21:06)
[2020-10-08] MEDS: DOCUSATE SODIUM 100MG CAPSULE PO SCH ×2 (08:29→21:05)
[2020-10-08] MEDS: SINEMET 25-100 MG TAB PO SCH ×4 (08:29→17:26)
[2020-10-08] MEDS: ATORVASTATIN 20 MG TAB PO SCH (08:29)
[2020-10-08] MEDS: SPIRONOLACTONE 12.5MG PER 1/2 TABLET PO SCH (08:29)
[2020-10-08] MEDS: FUROSEMIDE 20 MG TAB PO SCH (08:29)
[2020-10-08] MEDS: ACETAMINOPHEN 500 MG TAB PO SCH ×3 (08:29→21:05)
[2020-10-08] MEDS: ISOSORBIDE MON. (IMDUR) 30 MG XR TAB PO SCH (08:30)
[2020-10-08] MEDS: OMEPRAZOLE 20 MG CAP PO SCH (08:30)
[2020-10-08] MEDS: SUCRALFATE 1 GM TAB PO SCH ×3 (12:00→21:06)
[2020-10-08] MEDS: MAALOX 30 ML SUSP *UDC PO PRN (13:49)
--- NOTE | 2020-10-08 13:50 | IPNPDOC ---
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 She is moving her bowels ok. REVIEW OF SYSTEMS: The following is a completed review of systems and has been reviewed. Review of systems otherwise unremarkable. PAIN: Patient self reports right ankle pain EYES: No recent vision changes EARS, NOSE, & THROAT: No throat pain, or dysphagia, or rhinorrhea CARDIOVASCULAR: Denies chest pain or palpitations PULMONARY: Denies shortness of breath GASTROINTESTINAL: Denies constipation/diarrhea GENITOURINARY: denies dysuria MUSCULOSKELETAL: right foot fracture NEUROLOGICAL:+parkinson's HEMATOLOGICAL: denies easy bruising SKIN: +varicose veins and rosacea PSYCHIATRIC: Unremarkable All other review of systems found to be negative. PHYSICAL EXAMINATION: VITAL SIGNS: Please see below. GENERAL: Pleasant and cooperative. No acute distress. slightly masked facies HEENT: PERRL. Extraocular movements intact. Clear conjunctiva CARDIOVASCULAR: Regular rate and rhythm. No murmurs, rubs, or gallops LUNGS: Clear to auscultation bilaterally. No wheezes. No rhonchi ABDOMEN: Soft, nontender, nondistended. Positive bowel sounds. Normal active bowel sounds NEUROLOGICAL: Alert and oriented times three. Cranial nerves II through XII grossly intact. Sensation grossly intact EXTREMITIES: 5\5 strength bilateral upper extremities. >3/5 right hip flexors and knee extension, able to wiggle toe (limited exam due to splinting 5/5 strength in left lower extremity. SKIN: LE varicose veins, warm and well perfused ASSESSMENT:89-year-old F with past medical history of parkinsons who presents status post fall with right hind-foot fracture PLAN: 1. Rehab- PT/OT advance mobility and ADLs, strengthen/stretch/maintain ROM all 4 limbs NWB to RLE, advancing with wheelchair mobility 2. Neuro- hx of parkinson's contributing to recent fall and difficulty with mobility- c/u Sinemet -essential tremor c/u primidone 3. 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 Resp- monitor for infection, flonase and NS drops for sinus dryness 5. Endo- hx of hypothyroidism, c/u synthroid 6. GI ppx- prilosec, sucralfate, and Maalox prn dyspepsia 7. DVT ppx- lovenox -dopplers negative for DVT 8. PAin- tylenol and tramadol prn 9. Ortho- s/p right calcaneal fracture NWB for 6-8 weeks, ortho consulted 10. Dispo- TBD Allergies Coded Allergies: Contrast Media (Verified Allergy, Intermediate, HIVES, 05/11/19) ciprofloxacin (Verified Allergy, Intermediate, ERYTHEMA, 05/11/19) gabapentin (Verified Allergy, Intermediate, ERYTHEMA, 05/11/19) ketoconazole (Verified Allergy, Intermediate, 05/11/19) meloxicam (Verified Allergy, Intermediate, ERYTHEMA, 05/11/19) pramipexole (Verified Allergy, Unknown, 05/11/19) amoxicillin (Verified Adverse Reaction, Severe, Renal Failure, 05/11/19) clavulanic acid (Verified Adverse Reaction, Severe, Renal Failure, 05/11/19) clindamycin (Verified Adverse Reaction, Severe, Chest pressure, 05/11/19) ibuprofen (Verified Adverse Reaction, Severe, SC, 05/11/19) Vital Signs Vital Signs Date Time Temp Pulse Resp B/P (MAP) Pulse Ox O2 Delivery O2 Flow Rate FiO2 10/08/20 08:26 120/69 10/08/20 06:00 97.1 65 18 96 Room Air Laboratory Data CBC/BMP Laboratory Tests 10/08/20 06:40 Labs 24H Laboratory Tests 2 10/08/20 06:40: Immature Granulocyte % (Auto) 0.4, Neutrophils (%) (Auto) 69.8H, Lymphocytes (%) (Auto) 13.4L, Monocytes (%) (Auto) 12.2H, Eosinophils (%) (Auto) 3.6H, Basophils (%) (Auto) 0.6, Neutrophils # (Auto) 5.4, Lymphocytes # (Auto) 1.0L, Monocytes # (Auto) 1.0H, Eosinophils # (Auto) 0.3, Basophils # (Auto) 0.1, Nucleated Red Blood Cells % (auto) 0.0, Anion Gap 5L, Glomerular Filtration Rate 54.0, Calcium Level 9.2 Microbiology Microbiology 10/01/20 Respiratory Virus Panel (PCR) ([facility]AUGHN) - Final, Complete Current Medications Current Medications Current Medications Medications (Trade) Dose Ordered Sig/Lázaro Route PRN Reason Start Time Stop Time Status Last Admin Dose Admin Acetaminophen (Tylenol Tab) 1,000 mg TID PO 09/30/20 16:00 10/08/20 08:29 Al Hydrox/Mg Hydrox/Simethicone (Mylanta) 30 ml Q4HP PRN PO HEARTBURN 10/01/20 09:45 10/08/20 13:49 Albuterol/ Ipratropium (Duoneb (Ipr 0.5mg/Alb 2.5mg)) 3 ml Q4HP PRN NEB SOB/WHEEZING 09/30/20 14:15 Artificial Tears (Akwa Tears) 1 drop BID OU 09/30/20 21:00 10/08/20 08:27 Aspirin (Ecotrin) 81 mg DAILY PO 10/01/20 09:00 10/08/20 08:25 Atorvastatin Calcium (Lipitor) 20 mg DAILY PO 10/01/20 09:00 10/08/20 08:29 Carbidopa/Levodopa (Sinemet 25/100) 1.5 tab 0800,1100,1500,1800 PO 09/30/20 18:00 10/08/20 11:00 Docusate Sodium (Colace) 100 mg BID PO 09/30/20 21:00 10/08/20 08:29 Dorzolamide/ Timolol (Cosopt Ocumeter Plus) 1 drop DAILY@2100 OU 09/30/20 21:00 10/07/20 20:15 Enoxaparin Sodium (Lovenox) 30 mg DAILY SC 10/01/20 09:00 10/08/20 08:28 Fluticasone Propionate (Flonase 0.05% Nasal [place]) 1 spray BID NARES 10/02/20 09:00 10/08/20 08:27 Fluticasone Propionate (Flovent Hfa 110 Mcg) 2 puff RBID INH 09/30/20 20:00 10/08/20 07:10 Furosemide (Lasix) 20 mg DAILY PO 10/01/20 09:00 10/08/20 08:29 Hydroxyzine HCl (Atarax) 50 mg Q6HP PRN PO anxiety 09/30/20 14:15 10/05/20 21:38 Isosorbide Mononitrate (Imdur) 30 mg DAILY PO 10/03/20 09:00 10/08/20 08:30 Isosorbide Mononitrate (Imdur) 120 mg DAILY PO 10/01/20 09:00 10/02/20 10:29 DC 10/02/20 05:17 Isosorbide Mononitrate (Imdur) 120 mg DAILY PO 10/03/20 09:00 10/08/20 08:26 Latanoprost (Xalatan 0.005% Op Soln) 1 drop QHS OU 09/30/20 21:00 10/07/20 20:15 Levothyroxine Sodium (Synthroid) 112 mcg DAILY@06 PO 10/01/20 06:00 10/08/20 05:57 Lisinopril (Prinivil) 10 mg DAILY PO 10/02/20 09:00 10/08/20 08:29 Nitroglycerin (Nitrostat (1/ 150)) 0.4 mg Q5MP PRN SL CHEST PAIN 10/01/20 10:30 10/04/20 09:17 Nitroglycerin (Nitrostat (1/ 150)) 0.4 mg STAT STAT SL 10/01/20 02:23 10/01/20 02:25 DC 10/01/20 02:28 Nitroglycerin (Nitrostat (1/ 150)) 0.4 mg STAT STAT SL 10/01/20 02:35 10/01/20 02:36 DC 10/01/20 02:40 Nortriptyline HCl (Pamelor) 25 mg QHS PO 09/30/20 21:00 10/07/20 20:12 Omeprazole (PriLOSEC) 40 mg DAILY PO 10/01/20 09:00 10/08/20 08:30 Ondansetron HCl (Zofran) 4 mg Q6HP PRN PO NAUSEA 09/30/20 14:15 Primidone (Mysoline) 50 mg BID PO 09/30/20 21:00 10/08/20 08:25 Ranolazine (Ranexa) 500 mg BID PO 09/30/20 21:00 10/08/20 08:29 Senna (Senokot) 1 tab QHS PO 09/30/20 21:00 10/07/20 20:12 Sodium Chloride ([place]y Nasal [place]) 2 spray TID NA 10/02/20 16:00 10/08/20 08:28 Spironolactone (Aldactone) 12.5 mg DAILY PO 10/01/20 09:00 10/08/20 08:29 Tramadol HCl (Ultram) 50 mg Q4HP PRN PO MODERATE PAIN (PS 5-7) 09/30/20 14:15 10/07/20 20:13 MISAEL MCCRARY MD Oct 08, 2020 13:50
[2020-10-08 14:00] VITALS: BP 118/70
[2020-10-08 20:14] VITALS: BP 136/85
[2020-10-08] MEDS: LATANOPROST 0.005% OPHTH SOLN 2.5 ML OU SCH (21:04)
[2020-10-08] MEDS: COSOPT OCUMETER PLUS 10ML (DORZOLAMIDE/TIMOLOL) OU SCH (21:04)
[2020-10-08] MEDS: SENNA 8.6 MG TAB (SENOKOT) PO SCH (21:05)
[2020-10-08] MEDS: NORTRIPTYLINE 25 MG CAP PO SCH (21:05)
[2020-10-09 05:00] VITALS: BP 142/71
[2020-10-09] MEDS: LEVOTHYROXINE 112MCG TABLET (0.112MG) PO SCH (05:45)
[2020-10-09] MEDS: FLUTICASONE HFA 110 MCG 12 GM INHALER (FLOVENT) INH SCH ×2 (07:41→19:38)
[2020-10-09] MEDS: DOCUSATE SODIUM 100MG CAPSULE PO SCH ×2 (08:30→20:47)
[2020-10-09] MEDS: SINEMET 25-100 MG TAB PO SCH ×4 (08:30→17:29)
[2020-10-09] MEDS: SUCRALFATE 1 GM TAB PO SCH ×4 (08:30→20:46)
[2020-10-09] MEDS: OMEPRAZOLE 20 MG CAP PO SCH (08:31)
[2020-10-09] MEDS: ATORVASTATIN 20 MG TAB PO SCH (08:31)
[2020-10-09] MEDS: FUROSEMIDE 20 MG TAB PO SCH (08:31)
[2020-10-09] MEDS: RANOLAZINE 500 MG ER TAB PO SCH ×2 (08:31→20:46)
[2020-10-09] MEDS: ACETAMINOPHEN 500 MG TAB PO SCH ×3 (08:31→20:47)
[2020-10-09] MEDS: ASPIRIN 81 MG ENTERIC TAB PO SCH (08:32)
[2020-10-09] MEDS: ISOSORBIDE MON. (IMDUR) 60 MG XR TAB PO SCH (08:32)
[2020-10-09] MEDS: SPIRONOLACTONE 12.5MG PER 1/2 TABLET PO SCH (08:32)
[2020-10-09] MEDS: ENOXAPARIN 30MG/0.3ML SYRINGE (J1650 PER 10MG) SC SCH (08:32)
[2020-10-09] MEDS: REMEDY PHYTOPLEX Z-GUARD PASTE 113GM TUBE (FROM STOREROOM PRODUCT) TOP SCH ×3 (08:33→20:48)
[2020-10-09] MEDS: ISOSORBIDE MON. (IMDUR) 30 MG XR TAB PO SCH (08:33)
[2020-10-09] MEDS: PRIMIDONE 50 MG TAB PO SCH ×2 (08:33→20:46)
[2020-10-09] MEDS: SODIUM CHLORIDE NASAL 0.65% SPRAY BTL (OCEAN) SCH ×3 (08:34→20:47)
[2020-10-09] MEDS: POLYVINYL ALCOHOL OPHTH SOLN 15 ML(LIQUITEARS) OU SCH ×2 (08:34→20:47)
[2020-10-09] MEDS: FLUTICASONE PROP 0.05% NASAL SPRAY 16 GM (FLONASE) NARES SCH ×2 (08:34→20:47)
[2020-10-09 14:00] VITALS: BP 104/67
[2020-10-09 20:00] VITALS: BP 130/70
[2020-10-09] MEDS: NORTRIPTYLINE 25 MG CAP PO SCH (20:46)
[2020-10-09] MEDS: SENNA 8.6 MG TAB (SENOKOT) PO SCH (20:46)
[2020-10-09] MEDS: COSOPT OCUMETER PLUS 10ML (DORZOLAMIDE/TIMOLOL) OU SCH (20:47)
[2020-10-09] MEDS: LATANOPROST 0.005% OPHTH SOLN 2.5 ML OU SCH (20:47)
[2020-10-10] MEDS: NITROGLYCERIN 0.4 MG SUBL TABLET SL PRN ×2 (03:57→08:50)
[2020-10-10] MEDS: LEVOTHYROXINE 112MCG TABLET (0.112MG) PO SCH (05:36)
[2020-10-10 05:47] VITALS: BP 142/62
[2020-10-10] MEDS: FLUTICASONE HFA 110 MCG 12 GM INHALER (FLOVENT) INH SCH ×2 (07:46→20:19)
[2020-10-10] MEDS: SUCRALFATE 1 GM TAB PO SCH ×4 (07:49→20:06)
[2020-10-10] MEDS: SINEMET 25-100 MG TAB PO SCH ×4 (07:49→17:47)
[2020-10-10] MEDS: ACETAMINOPHEN 500 MG TAB PO SCH ×3 (07:51→20:07)
[2020-10-10] MEDS: FLUTICASONE PROP 0.05% NASAL SPRAY 16 GM (FLONASE) NARES SCH ×2 (08:50→20:06)
[2020-10-10] MEDS: POLYVINYL ALCOHOL OPHTH SOLN 15 ML(LIQUITEARS) OU SCH ×2 (08:51→20:06)
[2020-10-10] MEDS: ISOSORBIDE MON. (IMDUR) 30 MG XR TAB PO SCH (08:51)
[2020-10-10] MEDS: ISOSORBIDE MON. (IMDUR) 60 MG XR TAB PO SCH (08:51)
[2020-10-10] MEDS: SODIUM CHLORIDE NASAL 0.65% SPRAY BTL (OCEAN) SCH ×3 (08:51→20:06)
[2020-10-10] MEDS: RANOLAZINE 500 MG ER TAB PO SCH ×2 (08:52→20:06)
[2020-10-10] MEDS: FUROSEMIDE 20 MG TAB PO SCH (08:52)
[2020-10-10] MEDS: DOCUSATE SODIUM 100MG CAPSULE PO SCH ×2 (08:52→20:07)
[2020-10-10] MEDS: OMEPRAZOLE 20 MG CAP PO SCH (08:52)
[2020-10-10] MEDS: ATORVASTATIN 20 MG TAB PO SCH (08:52)
[2020-10-10] MEDS: ASPIRIN 81 MG ENTERIC TAB PO SCH (08:52)
[2020-10-10] MEDS: PRIMIDONE 50 MG TAB PO SCH ×2 (08:52→20:07)
[2020-10-10] MEDS: SPIRONOLACTONE 12.5MG PER 1/2 TABLET PO SCH (08:53)
[2020-10-10] MEDS: REMEDY PHYTOPLEX Z-GUARD PASTE 113GM TUBE (FROM STOREROOM PRODUCT) TOP SCH ×3 (08:54→20:06)
[2020-10-10] MEDS: ENOXAPARIN 30MG/0.3ML SYRINGE (J1650 PER 10MG) SC SCH (08:54)
[2020-10-10 14:00] VITALS: BP 122/61
[2020-10-10] MEDS: MOM 30ML SUSPENSION UDC PO PRN (17:47)
[2020-10-10 19:58] VITALS: BP 118/66
[2020-10-10] MEDS: COSOPT OCUMETER PLUS 10ML (DORZOLAMIDE/TIMOLOL) OU SCH (20:06)
[2020-10-10] MEDS: LATANOPROST 0.005% OPHTH SOLN 2.5 ML OU SCH (20:06)
[2020-10-10] MEDS: SENNA 8.6 MG TAB (SENOKOT) PO SCH (20:07)
[2020-10-10] MEDS: NORTRIPTYLINE 25 MG CAP PO SCH (20:07)
[2020-10-11] MEDS: LEVOTHYROXINE 112MCG TABLET (0.112MG) PO SCH (05:58)
[2020-10-11 06:00] VITALS: BP 142/82
[2020-10-11] MEDS: FLUTICASONE HFA 110 MCG 12 GM INHALER (FLOVENT) INH SCH ×2 (07:13→19:40)
[2020-10-11 07:23] LABS: BASO # 0.1 10^3/uL (0.0-0.2); BASO % 0.7 % (0.0-1.0); EOS # 0.2 10^3/uL (0.0-0.5); EOS % 3.3 % (0.0-3.0); HEMATOCRIT 43.1 % (36.0-47.0); HEMOGLOBIN 13.6 g/dl (12.0-15.5); LYMPH # 1.1 10^3/uL (1.5-5.0); LYMPH % 14.5 % (24.0-44.0); MEAN CORPUSCULAR HEMOGLOBIN 29.3 pg (27.0-33.0); MEAN CORPUSCULAR HGB CONC 31.6 g/dl (32.0-36.5); MEAN CORPUSCULAR VOLUME 92.9 fl (80.0-96.0); MONO # 0.7 10^3/uL (0.0-0.8); NEUTROPHILS # 5.1 10^3/uL (1.5-8.5); NEUTROPHILS % 71.1 % (36.0-66.0); PLATELET COUNT, AUTOMATED 387 10^3/uL (150-450); RED BLOOD COUNT 4.64 10^6/uL (4.00-5.40); WHITE BLOOD COUNT 7.2 10^3/uL (4.0-10.0)
[2020-10-11] MEDS: SUCRALFATE 1 GM TAB PO SCH ×4 (07:30→20:21)
[2020-10-11 07:51] LABS: CALCIUM LEVEL 9.7 MG/DL (8.8-10.2); CREATININE FOR GFR 1.05 MG/DL (0.55-1.30); GLOMERULAR FILTRATION RATE 52.8 (>32); POTASSIUM SERUM 4.6 MEQ/L (3.5-5.1)
[2020-10-11] MEDS: SPIRONOLACTONE 12.5MG PER 1/2 TABLET PO SCH (09:06)
[2020-10-11] MEDS: ASPIRIN 81 MG ENTERIC TAB PO SCH (09:06)
[2020-10-11] MEDS: OMEPRAZOLE 20 MG CAP PO SCH (09:07)
[2020-10-11] MEDS: RANOLAZINE 500 MG ER TAB PO SCH ×2 (09:07→20:21)
[2020-10-11] MEDS: ISOSORBIDE MON. (IMDUR) 60 MG XR TAB PO SCH (09:08)
[2020-10-11] MEDS: ISOSORBIDE MON. (IMDUR) 30 MG XR TAB PO SCH (09:08)
[2020-10-11] MEDS: SINEMET 25-100 MG TAB PO SCH ×4 (09:09→19:02)
[2020-10-11] MEDS: ACETAMINOPHEN 500 MG TAB PO SCH ×3 (09:10→20:21)
[2020-10-11] MEDS: FUROSEMIDE 20 MG TAB PO SCH (09:11)
[2020-10-11] MEDS: ATORVASTATIN 20 MG TAB PO SCH (09:11)
[2020-10-11] MEDS: PRIMIDONE 50 MG TAB PO SCH ×2 (09:11→20:21)
[2020-10-11] MEDS: DOCUSATE SODIUM 100MG CAPSULE PO SCH ×2 (09:11→20:21)
[2020-10-11] MEDS: ENOXAPARIN 30MG/0.3ML SYRINGE (J1650 PER 10MG) SC SCH (09:15)
[2020-10-11] MEDS: FLUTICASONE PROP 0.05% NASAL SPRAY 16 GM (FLONASE) NARES SCH ×2 (09:19→20:22)
[2020-10-11] MEDS: REMEDY PHYTOPLEX Z-GUARD PASTE 113GM TUBE (FROM STOREROOM PRODUCT) TOP SCH ×3 (09:19→20:23)
[2020-10-11] MEDS: POLYVINYL ALCOHOL OPHTH SOLN 15 ML(LIQUITEARS) OU SCH ×2 (09:20→20:23)
[2020-10-11] MEDS: SODIUM CHLORIDE NASAL 0.65% SPRAY BTL (OCEAN) SCH ×3 (09:20→20:22)
[2020-10-11] MEDS ORDERED: LISI10TA22 PO (09:49)
[2020-10-11] MEDS ORDERED: DORZ2SOL5 OU (09:49)
[2020-10-11] MEDS ORDERED: NITR4TASL SL (09:49)
[2020-10-11] MEDS ORDERED: FURO20TA2 PO (09:49)
[2020-10-11] MEDS ORDERED: MOM30SS2 PO (09:49)
[2020-10-11] MEDS ORDERED: MYLASSUD PO (09:49)
[2020-10-11] MEDS ORDERED: CARB25TA9 PO (09:49)
[2020-10-11] MEDS ORDERED: FLUT11IN INH (09:49)
[2020-10-11] MEDS ORDERED: Latanoprost 0.005% Op Soln OU (09:49)
[2020-10-11] MEDS ORDERED: LOVE1INJ2 SC (09:49)
[2020-10-11] MEDS ORDERED: ISOS1TAB35 PO (09:49)
[2020-10-11] MEDS ORDERED: ISOS1TAB36 PO (09:49)
[2020-10-11] MEDS ORDERED: ASPI81TAEC PO (09:49)
[2020-10-11] MEDS ORDERED: NORT25CA2 PO (09:49)
[2020-10-11] MEDS ORDERED: OMEP-218 PO (09:49)
[2020-10-11] MEDS ORDERED: ACET-683 PO (09:49)
[2020-10-11] MEDS ORDERED: SYNT112T2 PO (09:49)
[2020-10-11] MEDS ORDERED: DOK1CAP7 PO (09:49)
[2020-10-11] MEDS ORDERED: FLUTISP NARES (09:49)
[2020-10-11] MEDS ORDERED: ATOR1TAB21 PO (09:49)
[2020-10-11] MEDS ORDERED: HYDR50TA70 PO (09:49)
[2020-10-11] MEDS ORDERED: ALDA25TA2 PO (09:50)
[2020-10-11] MEDS ORDERED: MYSO50TA5 PO (09:50)
[2020-10-11] MEDS ORDERED: ONDA-83 PO (09:50)
[2020-10-11] MEDS ORDERED: Sodium Chloride Nasal Spray (09:50)
[2020-10-11] MEDS ORDERED: SUCR1TA PO (09:50)
[2020-10-11] MEDS ORDERED: RANO500T7 PO (09:50)
[2020-10-11] MEDS ORDERED: Zinc Oxide/Petrolatum,White TOP (09:50)
[2020-10-11] MEDS ORDERED: SENN18TA PO (09:50)
[2020-10-11] MEDS ORDERED: POLYOPD OU (09:50)
[2020-10-11] MEDS ORDERED: TRAM50TA2 PO (09:50)
[2020-10-11 14:00] VITALS: BP 130/65
[2020-10-11 20:00] VITALS: BP 91/53
[2020-10-11] MEDS: traMADol 50 MG TAB PO PRN (20:20)
[2020-10-11] MEDS: MOM 30ML SUSPENSION UDC PO PRN (20:20)
[2020-10-11] MEDS: SENNA 8.6 MG TAB (SENOKOT) PO SCH (20:21)
[2020-10-11] MEDS: NORTRIPTYLINE 25 MG CAP PO SCH (20:21)
[2020-10-11] MEDS: LATANOPROST 0.005% OPHTH SOLN 2.5 ML OU SCH (20:22)
[2020-10-11] MEDS: COSOPT OCUMETER PLUS 10ML (DORZOLAMIDE/TIMOLOL) OU SCH (20:23)
[2020-10-12] MEDS: LEVOTHYROXINE 112MCG TABLET (0.112MG) PO SCH (05:06)
[2020-10-12 05:57] VITALS: BP 128/65
[2020-10-12] MEDS: FLUTICASONE HFA 110 MCG 12 GM INHALER (FLOVENT) INH SCH ×2 (09:08→21:05)
--- NOTE | 2020-10-12 09:10 | IPNPDOC ---
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 REVIEW OF SYSTEMS: The following is a completed review of systems and has been reviewed. Review of systems otherwise unremarkable. PAIN: Patient self reports right ankle pain EYES: No recent vision changes EARS, NOSE, & THROAT: No throat pain, or dysphagia, or rhinorrhea CARDIOVASCULAR: Denies chest pain or palpitations PULMONARY: Denies shortness of breath GASTROINTESTINAL: Denies constipation/diarrhea GENITOURINARY: denies dysuria MUSCULOSKELETAL: right foot fracture NEUROLOGICAL:+parkinson's HEMATOLOGICAL: denies easy bruising SKIN: +varicose veins and rosacea PSYCHIATRIC: Unremarkable All other review of systems found to be negative. PHYSICAL EXAMINATION: VITAL SIGNS: Please see below. GENERAL: Pleasant and cooperative. No acute distress. slightly masked facies HEENT: PERRL. Extraocular movements intact. Clear conjunctiva CARDIOVASCULAR: Regular rate and rhythm. No murmurs, rubs, or gallops LUNGS: Clear to auscultation bilaterally. No wheezes. No rhonchi ABDOMEN: Soft, nontender, nondistended. Positive bowel sounds. Normal active bowel sounds NEUROLOGICAL: Alert and oriented times three. Cranial nerves II through XII grossly intact. Sensation grossly intact EXTREMITIES: 5\5 strength bilateral upper extremities. >3/5 right hip flexors and knee extension, able to wiggle toe (limited exam due to splinting 5/5 strength in left lower extremity. SKIN: LE varicose veins, warm and well perfused ASSESSMENT:89-year-old F with past medical history of parkinsons who presents status post fall with right hind-foot fracture PLAN: 1. Rehab- PT/OT advance mobility and ADLs, strengthen/stretch/maintain ROM all 4 limbs NWB to RLE, advancing with wheelchair mobility 2. Neuro- hx of parkinson's contributing to recent fall and difficulty with mobility- c/u Sinemet -essential tremor c/u primidone 3. 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 Resp- monitor for infection, flonase and NS drops for sinus dryness 5. Endo- hx of hypothyroidism, c/u synthroid 6. GI ppx- prilosec, sucralfate, and Maalox prn dyspepsia 7. DVT ppx- lovenox -dopplers negative for DVT 8. PAin- tylenol and tramadol prn 9. Ortho- s/p right calcaneal fracture NWB for 6-8 weeks, ortho consulted, will obtain f/u xray-s 10. Dispo- TBD Allergies Coded Allergies: Contrast Media (Verified Allergy, Intermediate, HIVES, 05/11/19) ciprofloxacin (Verified Allergy, Intermediate, ERYTHEMA, 05/11/19) gabapentin (Verified Allergy, Intermediate, ERYTHEMA, 05/11/19) ketoconazole (Verified Allergy, Intermediate, 05/11/19) meloxicam (Verified Allergy, Intermediate, ERYTHEMA, 05/11/19) pramipexole (Verified Allergy, Unknown, 05/11/19) amoxicillin (Verified Adverse Reaction, Severe, Renal Failure, 05/11/19) clavulanic acid (Verified Adverse Reaction, Severe, Renal Failure, 05/11/19) clindamycin (Verified Adverse Reaction, Severe, Chest pressure, 05/11/19) ibuprofen (Verified Adverse Reaction, Severe, [place], 05/11/19) Vital Signs Vital Signs Date Time Temp Pulse Resp B/P (MAP) Pulse Ox O2 Delivery O2 Flow Rate FiO2 10/12/20 05:57 97.1 64 17 128/65 (86) 96 Room Air Current Medications Current Medications Current Medications Medications (Trade) Dose Ordered Sig/Lázaro Route PRN Reason Start Time Stop Time Status Last Admin Dose Admin Acetaminophen (Tylenol Tab) 1,000 mg TID PO 09/30/20 16:00 10/11/20 20:21 Al Hydrox/Mg Hydrox/Simethicone (Mylanta) 30 ml Q4HP PRN PO HEARTBURN 10/01/20 09:45 10/08/20 13:49 Albuterol/ Ipratropium (Duoneb (Ipr 0.5mg/Alb 2.5mg)) 3 ml Q4HP PRN NEB SOB/WHEEZING 09/30/20 14:15 Artificial Tears (Akwa Tears) 1 drop BID OU 09/30/20 21:00 10/11/20 20:23 Aspirin (Ecotrin) 81 mg DAILY PO 10/01/20 09:00 10/11/20 09:06 Atorvastatin Calcium (Lipitor) 20 mg DAILY PO 10/01/20 09:00 10/11/20 09:11 Carbidopa/Levodopa (Sinemet 25/100) 1.5 tab 0800,1100,1500,1800 PO 09/30/20 18:00 10/11/20 19:02 Docusate Sodium (Colace) 100 mg BID PO 09/30/20 21:00 10/11/20 20:21 Dorzolamide/ Timolol (Cosopt Ocumeter Plus) 1 drop DAILY@2100 OU 09/30/20 21:00 10/11/20 20:23 Enoxaparin Sodium (Lovenox) 30 mg DAILY SC 10/01/20 09:00 10/11/20 09:15 Fluticasone Propionate (Flonase 0.05% Nasal [place]) 1 spray BID NARES 10/02/20 09:00 10/11/20 20:22 Fluticasone Propionate (Flovent Hfa 110 Mcg) 2 puff RBID INH 09/30/20 20:00 10/12/20 09:08 Furosemide (Lasix) 20 mg DAILY PO 10/01/20 09:00 10/11/20 09:11 Hydroxyzine HCl (Atarax) 50 mg Q6HP PRN PO anxiety 09/30/20 14:15 10/05/20 21:38 Isosorbide Mononitrate (Imdur) 30 mg DAILY PO 10/03/20 09:00 10/11/20 09:08 Isosorbide Mononitrate (Imdur) 120 mg DAILY PO 10/01/20 09:00 10/02/20 10:29 DC 10/02/20 05:17 Isosorbide Mononitrate (Imdur) 120 mg DAILY PO 10/03/20 09:00 10/11/20 09:08 Latanoprost (Xalatan 0.005% Op Soln) 1 drop QHS OU 09/30/20 21:00 10/11/20 20:22 Levothyroxine Sodium (Synthroid) 112 mcg DAILY@06 PO 10/01/20 06:00 10/12/20 05:06 Lisinopril (Prinivil) 10 mg DAILY PO 10/02/20 09:00 10/11/20 09:11 Magnesium Hydroxide (Milk Of Magnesia) 30 ml DAILYPRN PRN PO CONSTIPATION 10/10/20 16:00 10/11/20 20:20 Nitroglycerin (Nitrostat (1/ 150)) 0.4 mg Q5MP PRN SL CHEST PAIN 10/01/20 10:30 10/10/20 08:50 Nitroglycerin (Nitrostat (1/ 150)) 0.4 mg STAT STAT SL 10/01/20 02:23 10/01/20 02:25 DC 10/01/20 02:28 Nitroglycerin (Nitrostat (1/ 150)) 0.4 mg STAT STAT SL 10/01/20 02:35 10/01/20 02:36 DC 10/01/20 02:40 Nortriptyline HCl (Pamelor) 25 mg QHS PO 09/30/20 21:00 10/11/20 20:21 Omeprazole (PriLOSEC) 40 mg DAILY PO 10/01/20 09:00 10/11/20 09:07 Ondansetron HCl (Zofran) 4 mg Q6HP PRN PO NAUSEA 09/30/20 14:15 Primidone (Mysoline) 50 mg BID PO 09/30/20 21:00 10/11/20 20:21 Ranolazine (Ranexa) 500 mg BID PO 09/30/20 21:00 10/11/20 20:21 Senna (Senokot) 1 tab QHS PO 09/30/20 21:00 10/11/20 20:21 Sodium Chloride ([place] Nasal [place]) 2 spray TID NA 10/02/20 16:00 10/11/20 20:22 Spironolactone (Aldactone) 12.5 mg DAILY PO 10/01/20 09:00 10/11/20 09:06 Sucralfate (Carafate) 1 gm ACHS PO 10/08/20 12:00 10/11/20 20:21 Tramadol HCl (Ultram) 50 mg Q4HP PRN PO MODERATE PAIN (PS 5-7) 09/30/20 14:15 10/11/20 20:20 MISAEL MCCRARY MD Oct 12, 2020 09:10
--- NOTE | 2020-10-12 09:13 | IPNPDOC ---
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 REVIEW OF SYSTEMS: The following is a completed review of systems and has been reviewed. Review of systems otherwise unremarkable. PAIN: Patient self reports right ankle pain EYES: No recent vision changes EARS, NOSE, & THROAT: No throat pain, or dysphagia, or rhinorrhea CARDIOVASCULAR: Denies chest pain or palpitations PULMONARY: Denies shortness of breath GASTROINTESTINAL: Denies constipation/diarrhea GENITOURINARY: denies dysuria MUSCULOSKELETAL: right foot fracture NEUROLOGICAL:+parkinson's HEMATOLOGICAL: denies easy bruising SKIN: +varicose veins and rosacea PSYCHIATRIC: Unremarkable All other review of systems found to be negative. PHYSICAL EXAMINATION: VITAL SIGNS: Please see below. GENERAL: Pleasant and cooperative. No acute distress. slightly masked facies HEENT: PERRL. Extraocular movements intact. Clear conjunctiva CARDIOVASCULAR: Regular rate and rhythm. No murmurs, rubs, or gallops LUNGS: Clear to auscultation bilaterally. No wheezes. No rhonchi ABDOMEN: Soft, nontender, nondistended. Positive bowel sounds. Normal active bowel sounds NEUROLOGICAL: Alert and oriented times three. Cranial nerves II through XII grossly intact. Sensation grossly intact EXTREMITIES: 5\5 strength bilateral upper extremities. >3/5 right hip flexors and knee extension, able to wiggle toe (limited exam due to splinting 5/5 strength in left lower extremity. SKIN: bilat LE varicose veins, warm and well perfused, patient has dependent purple feet that resolves with elevation ASSESSMENT:89-year-old F with past medical history of parkinsons who presents status post fall with right hind-foot fracture PLAN: 1. Rehab- PT/OT advance mobility and ADLs, strengthen/stretch/maintain ROM all 4 limbs NWB to RLE, advancing with wheelchair mobility 2. Neuro- hx of parkinson's contributing to recent fall and difficulty with mobility- c/u Sinemet -essential tremor c/u primidone 3. 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 Resp- monitor for infection, flonase and NS drops for sinus dryness 5. Endo- hx of hypothyroidism, c/u synthroid 6. GI ppx- prilosec, sucralfate, and Maalox prn dyspepsia, c/u MOM for constipation which is improving 7. DVT ppx- lovenox -dopplers negative for DVT 8. PAin- tylenol and tramadol prn 9. Vasc- patient has a telemedicine appointment today that had been scheduled by Dr. Vivar prior to her admission for dependent bilat leg swelling and discoloration 9. Ortho- s/p right calcaneal fracture NWB for 6-8 weeks, ortho consulted, will obtain f/u xray-s right ankle with norris view and ask ortho to review 10. Dispo- 10-07-20 to [facility] for STR Allergies Coded Allergies: Contrast Media (Verified Allergy, Intermediate, HIVES, 05/11/19) ciprofloxacin (Verified Allergy, Intermediate, ERYTHEMA, 05/11/19) gabapentin (Verified Allergy, Intermediate, ERYTHEMA, 05/11/19) ketoconazole (Verified Allergy, Intermediate, 05/11/19) meloxicam (Verified Allergy, Intermediate, ERYTHEMA, 05/11/19) pramipexole (Verified Allergy, Unknown, 05/11/19) amoxicillin (Verified Adverse Reaction, Severe, Renal Failure, 05/11/19) clavulanic acid (Verified Adverse Reaction, Severe, Renal Failure, 05/11/19) clindamycin (Verified Adverse Reaction, Severe, Chest pressure, 05/11/19) ibuprofen (Verified Adverse Reaction, Severe, CT, 05/11/19) Vital Signs Vital Signs Date Time Temp Pulse Resp B/P (MAP) Pulse Ox O2 Delivery O2 Flow Rate FiO2 10/12/20 05:57 97.1 64 17 128/65 (86) 96 Room Air Current Medications Current Medications Current Medications Medications (Trade) Dose Ordered Sig/Lázaro Route PRN Reason Start Time Stop Time Status Last Admin Dose Admin Acetaminophen (Tylenol Tab) 1,000 mg TID PO 09/30/20 16:00 10/11/20 20:21 Al Hydrox/Mg Hydrox/Simethicone (Mylanta) 30 ml Q4HP PRN PO HEARTBURN 10/01/20 09:45 10/08/20 13:49 Albuterol/ Ipratropium (Duoneb (Ipr 0.5mg/Alb 2.5mg)) 3 ml Q4HP PRN NEB SOB/WHEEZING 09/30/20 14:15 Artificial Tears (Akwa Tears) 1 drop BID OU 09/30/20 21:00 10/11/20 20:23 Aspirin (Ecotrin) 81 mg DAILY PO 10/01/20 09:00 10/11/20 09:06 Atorvastatin Calcium (Lipitor) 20 mg DAILY PO 10/01/20 09:00 10/11/20 09:11 Carbidopa/Levodopa (Sinemet 25/100) 1.5 tab 0800,1100,1500,1800 PO 09/30/20 18:00 10/11/20 19:02 Docusate Sodium (Colace) 100 mg BID PO 09/30/20 21:00 10/11/20 20:21 Dorzolamide/ Timolol (Cosopt Ocumeter Plus) 1 drop DAILY@2100 OU 09/30/20 21:00 10/11/20 20:23 Enoxaparin Sodium (Lovenox) 30 mg DAILY SC 10/01/20 09:00 10/11/20 09:15 Fluticasone Propionate (Flonase 0.05% Nasal [place]) 1 spray BID NARES 10/02/20 09:00 10/11/20 20:22 Fluticasone Propionate (Flovent Hfa 110 Mcg) 2 puff RBID INH 09/30/20 20:00 10/12/20 09:08 Furosemide (Lasix) 20 mg DAILY PO 10/01/20 09:00 10/11/20 09:11 Hydroxyzine HCl (Atarax) 50 mg Q6HP PRN PO anxiety 09/30/20 14:15 10/05/20 21:38 Isosorbide Mononitrate (Imdur) 30 mg DAILY PO 10/03/20 09:00 10/11/20 09:08 Isosorbide Mononitrate (Imdur) 120 mg DAILY PO 10/01/20 09:00 10/02/20 10:29 DC 10/02/20 05:17 Isosorbide Mononitrate (Imdur) 120 mg DAILY PO 10/03/20 09:00 10/11/20 09:08 Latanoprost (Xalatan 0.005% Op Soln) 1 drop QHS OU 09/30/20 21:00 10/11/20 20:22 Levothyroxine Sodium (Synthroid) 112 mcg DAILY@06 PO 10/01/20 06:00 10/12/20 05:06 Lisinopril (Prinivil) 10 mg DAILY PO 10/02/20 09:00 10/11/20 09:11 Magnesium Hydroxide (Milk Of Magnesia) 30 ml DAILYPRN PRN PO CONSTIPATION 10/10/20 16:00 10/11/20 20:20 Nitroglycerin (Nitrostat (1/ 150)) 0.4 mg Q5MP PRN SL CHEST PAIN 10/01/20 10:30 10/10/20 08:50 Nitroglycerin (Nitrostat (1/ 150)) 0.4 mg STAT STAT SL 10/01/20 02:23 10/01/20 02:25 DC 10/01/20 02:28 Nitroglycerin (Nitrostat (1/ 150)) 0.4 mg STAT STAT SL 10/01/20 02:35 10/01/20 02:36 DC 10/01/20 02:40 Nortriptyline HCl (Pamelor) 25 mg QHS PO 09/30/20 21:00 10/11/20 20:21 Omeprazole (PriLOSEC) 40 mg DAILY PO 10/01/20 09:00 10/11/20 09:07 Ondansetron HCl (Zofran) 4 mg Q6HP PRN PO NAUSEA 09/30/20 14:15 Primidone (Mysoline) 50 mg BID PO 09/30/20 21:00 10/11/20 20:21 Ranolazine (Ranexa) 500 mg BID PO 09/30/20 21:00 10/11/20 20:21 Senna (Senokot) 1 tab QHS PO 09/30/20 21:00 10/11/20 20:21 Sodium Chloride ([place] Nasal [place]) 2 spray TID NA 10/02/20 16:00 10/11/20 20:22 Spironolactone (Aldactone) 12.5 mg DAILY PO 10/01/20 09:00 10/11/20 09:06 Sucralfate (Carafate) 1 gm ACHS PO 10/08/20 12:00 10/11/20 20:21 Tramadol HCl (Ultram) 50 mg Q4HP PRN PO MODERATE PAIN (PS 5-7) 09/30/20 14:15 10/11/20 20:20 MISAEL MCCRARY MD Oct 12, 2020 09:13
[2020-10-12] MEDS: ATORVASTATIN 20 MG TAB PO SCH (09:18)
[2020-10-12] MEDS: ASPIRIN 81 MG ENTERIC TAB PO SCH (09:18)
[2020-10-12] MEDS: SUCRALFATE 1 GM TAB PO SCH ×4 (09:18→20:09)
[2020-10-12] MEDS: DOCUSATE SODIUM 100MG CAPSULE PO SCH ×2 (09:18→20:09)
[2020-10-12] MEDS: RANOLAZINE 500 MG ER TAB PO SCH ×2 (09:18→20:09)
[2020-10-12] MEDS: OMEPRAZOLE 20 MG CAP PO SCH (09:19)
[2020-10-12] MEDS: FUROSEMIDE 20 MG TAB PO SCH (09:19)
[2020-10-12] MEDS: ACETAMINOPHEN 500 MG TAB PO SCH ×3 (09:19→20:10)
[2020-10-12] MEDS: ISOSORBIDE MON. (IMDUR) 60 MG XR TAB PO SCH (09:20)
[2020-10-12] MEDS: ENOXAPARIN 30MG/0.3ML SYRINGE (J1650 PER 10MG) SC SCH (09:20)
[2020-10-12] MEDS: ISOSORBIDE MON. (IMDUR) 30 MG XR TAB PO SCH (09:20)
[2020-10-12] MEDS: SPIRONOLACTONE 12.5MG PER 1/2 TABLET PO SCH (09:20)
[2020-10-12] MEDS: PRIMIDONE 50 MG TAB PO SCH ×2 (09:20→20:09)
[2020-10-12] MEDS: SODIUM CHLORIDE NASAL 0.65% SPRAY BTL (OCEAN) SCH ×3 (09:21→20:10)
[2020-10-12] MEDS: POLYVINYL ALCOHOL OPHTH SOLN 15 ML(LIQUITEARS) OU SCH ×2 (09:21→20:11)
[2020-10-12] MEDS: FLUTICASONE PROP 0.05% NASAL SPRAY 16 GM (FLONASE) NARES SCH ×2 (09:21→20:10)
[2020-10-12] MEDS: REMEDY PHYTOPLEX Z-GUARD PASTE 113GM TUBE (FROM STOREROOM PRODUCT) TOP SCH ×3 (09:22→20:11)
[2020-10-12] MEDS: SINEMET 25-100 MG TAB PO SCH ×4 (09:26→17:05)
--- NOTE | 2020-10-12 10:14 | REP ---
INDICATION: include norris view COMPARISON: None. TECHNIQUE: AP, lateral, bilateral oblique and Adelfo views right foot. FINDINGS: Evaluation is markedly limited due to overlying cast material. Patient's known nondisplaced calcaneal fracture is identified but poorly evaluated. IMPRESSION: Limited by overlying cast material. Known calcaneus fracture.. <Electronically signed by Arie Briones > 10/12/20 [id number]
[2020-10-12 14:00] VITALS: BP 114/64
[2020-10-12 20:00] VITALS: BP 122/70
[2020-10-12] MEDS: SENNA 8.6 MG TAB (SENOKOT) PO SCH (20:09)
[2020-10-12] MEDS: NORTRIPTYLINE 25 MG CAP PO SCH (20:09)
[2020-10-12] MEDS: traMADol 50 MG TAB PO PRN (20:10)
[2020-10-12] MEDS: COSOPT OCUMETER PLUS 10ML (DORZOLAMIDE/TIMOLOL) OU SCH (20:10)
[2020-10-12] MEDS: LATANOPROST 0.005% OPHTH SOLN 2.5 ML OU SCH (20:10)
[2020-10-13] MEDS: LEVOTHYROXINE 112MCG TABLET (0.112MG) PO SCH (05:16)
[2020-10-13 06:00] VITALS: BP 136/67
[2020-10-13] MEDS: FLUTICASONE HFA 110 MCG 12 GM INHALER (FLOVENT) INH SCH (07:27)
[2020-10-13] MEDS: RANOLAZINE 500 MG ER TAB PO SCH (08:36)
[2020-10-13] MEDS: ASPIRIN 81 MG ENTERIC TAB PO SCH (08:36)
[2020-10-13] MEDS: ENOXAPARIN 30MG/0.3ML SYRINGE (J1650 PER 10MG) SC SCH (08:36)
[2020-10-13] MEDS: ACETAMINOPHEN 500 MG TAB PO SCH (08:36)
[2020-10-13] MEDS: OMEPRAZOLE 20 MG CAP PO SCH (08:37)
[2020-10-13] MEDS: SINEMET 25-100 MG TAB PO SCH (08:37)
[2020-10-13] MEDS: SPIRONOLACTONE 12.5MG PER 1/2 TABLET PO SCH (08:37)
[2020-10-13] MEDS: DOCUSATE SODIUM 100MG CAPSULE PO SCH (08:37)
[2020-10-13] MEDS: FUROSEMIDE 20 MG TAB PO SCH (08:38)
[2020-10-13] MEDS: PRIMIDONE 50 MG TAB PO SCH (08:38)
[2020-10-13 08:39] VITALS: BP 136/67
[2020-10-13] MEDS: ISOSORBIDE MON. (IMDUR) 60 MG XR TAB PO SCH (08:39)
[2020-10-13] MEDS: ISOSORBIDE MON. (IMDUR) 30 MG XR TAB PO SCH (08:39)
[2020-10-13] MEDS: ATORVASTATIN 20 MG TAB PO SCH (08:39)
--- NOTE | 2020-10-13 08:40 | PMRDS ---
NAME: ANDREW FAN [facility] WT ID#: [id number] : [id number] JOB: [id number] NICOL: 10/04/2020 ACCT: [id number] DOCTOR: MISAEL MCCRARY MD PMR DISCHARGE SUMMARY DATE OF ADMISSION: 09/30/2020 DATE OF DISCHARGE: 10/13/2020 CHIEF COMPLAINT/DISCHARGE DIAGNOSIS: Right calcaneal fracture in the setting of Parkinson's. HISTORY OF PRESENT ILLNESS: This is an 89-year-old female with a past medical history of Parkinson's, essential tremor, third degree AV block with pacemaker, CAD with KEN in RCA, hypertension, hyperlipidemia, chronic diastolic congestive heart failure, non-Hodgkin's lymphoma, rosacea, who fell at home and presented to [facility] ED on 09/27/2020 with difficulty walking. Ankle x-ray revealed "acute nondisplaced calcaneal fracture." She was evaluated by orthopedics who placed her in an L and U splint, nonweightbearing for six to eight weeks and recommended therapy. She had difficulty with pain control and episodes of chest pain with cardiac workup negative. She was evaluated by therapy, found to have impairments in mobility and ADLs and deemed medically appropriate for discharge to ARU. PAST MEDICAL HISTORY: As per HPI. HOSPITAL COURSE: The patient was admitted and enrolled in a comprehensive PT/OT program. She received 24 hour nursing supervision and weekly team meetings were held to discuss her progress. The patient remained on Tylenol and tramadol p.r.n. for her calcaneal fracture. She had episodes of chest pain which were relived with the reinstitution of her Ranexa and Maalox. Cardiac workup was negative for OR. She was maintained on a fluid restriction with daily weights for a history of chronic diastolic CHF and her Sinemet dosing was continued for her Parkinson's. She made slow and steady gains in therapy and was deemed medically functionally stable for further rehab at a short-term rehab setting. DISCHARGE MEDICATIONS: As per instructions. FUNCTIONAL HISTORY: On discharge, the patient was contact guard to min assist for functional transfers and ADLs. Thank you for this referral.
[2020-10-13] MEDS: SUCRALFATE 1 GM TAB PO SCH (08:41)
[2020-10-13] MEDS: SODIUM CHLORIDE NASAL 0.65% SPRAY BTL (OCEAN) SCH (08:42)
[2020-10-13] MEDS: FLUTICASONE PROP 0.05% NASAL SPRAY 16 GM (FLONASE) NARES SCH (08:42)
[2020-10-13] MEDS: REMEDY PHYTOPLEX Z-GUARD PASTE 113GM TUBE (FROM STOREROOM PRODUCT) TOP SCH (08:42)
[2020-10-13] MEDS: POLYVINYL ALCOHOL OPHTH SOLN 15 ML(LIQUITEARS) OU SCH (08:42)
== END 2020-10-13 09:53 | DRG 560 ==
LOC: M PM&R 13:55 → UNDODISIN 14:00
PROVIDERS: ADMIT Physical Medicine & Rehabilitation; ATTEND Physical Medicine & Rehabilitation
DX: S92.001D Unspecified fracture of right calcaneus, subsequent encounter for fracture with routine healing (principal); I50.32 Chronic diastolic (congestive) heart failure; I44.2 Atrioventricular block, complete; G20 Parkinson's disease; I25.10 Atherosclerotic heart disease of native coronary artery without angina pectoris; I11.0 Hypertensive heart disease with heart failure; E78.5 Hyperlipidemia, unspecified; L71.9 Rosacea, unspecified; Z95.0 Presence of cardiac pacemaker; Z74.09 Other reduced mobility; Z74.1 Need for assistance with personal care; I83.90 Asymptomatic varicose veins of unspecified lower extremity; Z87.891 Personal history of nicotine dependence; E03.9 Hypothyroidism, unspecified; Z85.79 Personal history of other malignant neoplasms of lymphoid, hematopoietic and related tissues; Z79.82 Long term (current) use of aspirin; Z79.899 Other long term (current) drug therapy; Z88.0 Allergy status to penicillin; Z88.1 Allergy status to other antibiotic agents; Z88.6 Allergy status to analgesic agent; Z88.8 Allergy status to other drugs, medicaments and biological substances; Z91.041 Radiographic dye allergy status; W18.30XD Fall on same level, unspecified, subsequent encounter; Y92.009 Unspecified place in unspecified non-institutional (private) residence as the place of occurrence of the external cause

== ENCOUNTER → 2020-10-12 | Outpatient (POV) | payer MEDICARE, OTHER ==
[~2020-10-12] MED LIST changes: +ACET-683 PO; +ALDA25TA2 PO; +ASPI81TAEC PO; +CARB25TA9 PO; +DOK1CAP7 PO; +FLUTISP NARES; +ISOS1TAB35 PO; +LISI10TA22 PO; +LOVE1INJ2 SC; +Latanoprost 0.005% Op Soln OU; +MOM30SS2 PO; +MYLASSUD PO; +NORT25CA2 PO; +OMEP-218 PO; +ONDA-83 PO; +POLYOPD OU; +SENN18TA PO; +SUCR1TA PO; +SYNT112T2 PO; +Sodium Chloride Nasal Spray; +TRAM50TA2 PO; +Zinc Oxide/Petrolatum,White TOP
--- NOTE | 2020-10-14 08:44 | IRCOV ---
[facility] IR Consult Office Visit IR Consult Office Visit DATE: Oct 12, 2020 Patient agreed to this telephone consultation. I spent 30 minutes reviewing patient's records, imaging and talking to the patient. REASON FOR CONSULTATION/CHIEF COMPLAINT: Abnormal arterial ultrasound. HISTORY OF PRESENT ILLNESS: 89-year-old female with Parkinson's, coronary artery disease, hypertension and dyslipidemia, [facility]. She was diagnosed with a minimally displaced fracture of the right calcaneus which is currently being managed with a cast. There are no associated skin breaks reported. Patient is due to go to rehabilitation tomorrow. Patient denies prior history of intermittent claudication with ambulation. Patient denies pain in the legs with leg elevation. Patient does describe mild swelling and varicose veins in the left leg. Patient denies chest pain, shortness of breath, paroxysmal nocturnal dyspnea or orthopnea. She does have a history of coronary stenting and pacemaker placement. She's an ex-smoker and quit 50 years ago. ALLERGIES: Please see below. HOME MEDICATIONS: Please see below. PAST MEDICAL HISTORY: Coronary artery disease Chronic hypertension dyslipidemia AV block CHF NHL Hysterectomy Tonsillectomy Pneumonia Orthostatic hypotension Rosacea PAST SURGICAL HISTORY: Coronary stents Pacemaker FAMILY HISTORY: Noncontributory SOCIAL HISTORY: Ex-smoker quit 50 years ago. Denies alcohol or drugs. REVIEW OF SYSTEMS: Otherwise negative. PHYSICAL EXAMINATION: No video on patient side. LABORATORY DATA: 10/11/2020 hemoglobin 13.6 hematocrit 43.1 WBC 7.2 platelets 387 sodium 139 potassium 4.6 BUN 23 creatinine 1.05 fasting glucose 92 Imaging: I personally reviewed the bilateral lower extremity arterial ultrasound performed in June 2020. There is bilateral atherosclerotic disease above and below the knee. I personally reviewed the DVT study performed September 2020. There is no lower extremity DVT. No venous reflux study available. ASSESSMENT/PLAN: 89-year-old female with multiple coronary risk factors with bilateral lower extremity atherosclerotic disease. Patient currently does not have intermittent claudication, rest pain or any open wounds. She does have left lower swelling and varicose veins. I will order a left bilateral lower extremity venous reflux study to assess for venous incompetency as a cause for the swelling. I will follow her up in 2 months after her rehabilitation and reevaluate for arterial symptoms. Thank you for this referral. Cc Dr. ascencio Allergies Coded Allergies: Contrast Media (Verified Allergy, Intermediate, HIVES, 05/11/19) ciprofloxacin (Verified Allergy, Intermediate, ERYTHEMA, 05/11/19) gabapentin (Verified Allergy, Intermediate, ERYTHEMA, 05/11/19) ketoconazole (Verified Allergy, Intermediate, 05/11/19) meloxicam (Verified Allergy, Intermediate, ERYTHEMA, 05/11/19) pramipexole (Verified Allergy, Unknown, 05/11/19) amoxicillin (Verified Adverse Reaction, Severe, Renal Failure, 05/11/19) clavulanic acid (Verified Adverse Reaction, Severe, Renal Failure, 05/11/19) clindamycin (Verified Adverse Reaction, Severe, Chest pressure, 05/11/19) ibuprofen (Verified Adverse Reaction, Severe, ID, 05/11/19) Home Medications Scheduled Acetaminophen (Acetaminophen), 1,000 MG PO TID Aspirin (Aspirin EC), 81 MG PO DAILY, (Reported) Aspirin (Aspirin EC), 81 MG PO DAILY Atorvastatin Calcium (Atorvastatin Calcium), 20 MG PO DAILY, (Reported) Atorvastatin Calcium (Atorvastatin Calcium), 20 MG PO DAILY B-Complex with Vitamin C (Super B Complex-Vitamin C), 1 TAB PO DAILY, (Reported) Carbidopa/Levodopa (Sinemet 25-100 mg Tablet), 1.5 TAB PO QID, (Reported) Carbidopa/Levodopa (Carbidopa-Levodopa 25-100 Tab), 1.5 TAB PO 0800,1100,1500,1800 Cyclosporine (Restasis), 1 DROP OU BID, (Reported) Docusate Sodium (Dok), 100 MG PO BID Dorzolamide HCl/Timolol Maleat (Dorzolamide-Timolol Eye Drops), 1 DROP OU DAILY, (Reported) Dorzolamide HCl/Timolol Maleat (Dorzolamide-Timolol Eye Drops), 1 DROP OU DAILY@2100 Enoxaparin Sodium (Lovenox), 30 MG SC DAILY Fluticasone Propionate (Flovent Hfa), 1 PUFF INH BID, (Reported) Fluticasone Propionate (Flovent Hfa), 2 PUFF INH RBID Fluticasone Propionate (Fluticasone Propionate), 1 SPRAY NARES BID Furosemide (Furosemide), 20 MG PO DAILY, (Reported) Furosemide (Furosemide), 20 MG PO DAILY Hydroxyzine HCl (Hydroxyzine HCl), 1 TAB PO TIDP, (Reported) Isosorbide Mononitrate (Isosorbide Mononitrate ER), 120 MG PO DAILY Isosorbide Mononitrate (Isosorbide Mononitrate ER), 30 MG PO DAILY Latanoprostene Bunod (Vyzulta), 1 DROP OU QHS, (Reported) Levothyroxine Sodium (Levothyroxine Sodium), 112 MCG PO DAILY, (Reported) Levothyroxine Sodium (Synthroid), 112 MCG PO DAILY@06 Lisinopril (Lisinopril), 10 MG PO DAILY Nortriptyline HCl (Nortriptyline HCl), 25 MG PO QHS Nortriptyline Hcl (Pamelor), 25 MG PO QHS, (Reported) Omeprazole (Omeprazole), 40 MG PO DAILY Polyvinyl Alcohol (Artificial Tears), 1 DROP OU BID Primidone (Mysoline), 50 MG PO BID, (Reported) Primidone (Mysoline), 50 MG PO BID Ranolazine (Ranexa), 1 TAB PO BID, (Reported) Ranolazine (Ranexa), 500 MG PO BID Senna (Senna Lax), 1 TAB PO QHS Spironolactone (Spironolactone), 12.5 MG PO DAILY, (Reported) Spironolactone (Aldactone), 12.5 MG PO DAILY Sucralfate (Sucralfate), 1 GM PO ACHS Vit C/E/Zn/Coppr/Lutein/Zeaxan (Preservision Areds 2 Softgel), 1 EACH PO BID, (Reported) [Latanoprost 0.005% Op Soln], 1 DROP OU QHS [Sodium Chloride Nasal Brilliant], 2 SPRAY NA TID [Zinc Oxide/Petrolatum,White], 0 DOSE TOP TID Scheduled PRN Aluminum/Magnesium/Simeth (Mag-Al Plus Suspension), 30 ML PO Q4HP PRN for HEARTBURN Hydroxyzine HCl (Hydroxyzine HCl), 50 MG PO Q6HP PRN for anxiety Magnesium Hydroxide (Milk of Magnesia), 30 ML PO DAILYPRN PRN for CONSTIPATION Nitroglycerin (Nitrostat), 0.4 MG SL NITRO PRN for CHEST PAIN, (Reported) Nitroglycerin (Nitrostat), 0.4 MG SL Q5MP PRN for CHEST PAIN Ondansetron HCl (Ondansetron HCl), 4 MG PO Q6HP PRN for NAUSEA Tramadol HCl (Tramadol HCl), 50 MG PO Q4HP PRN for MODERATE PAIN (PS 5-7) Discontinued Medications Acetaminophen (Acetaminophen), 2 TAB PO Q4HP, (Reported) Albuterol Sulfate (Proair Respiclick), 1 PUFF INH QIDP, (Reported) Diltiazem Hcl (Diltiazem HCl), 60 MG PO TID, (Reported) Isosorbide Mononitrate (Isosorbide Mononitrate ER), 120 MG PO DAILY, (Reported) Omeprazole (Omeprazole), 40 MG PO DAILY PRN for HEARTBURN, (Reported) BONNIE QUILES MD Oct 14, 2020 08:44
== END ==
LOC: M TMIRPOV 14:02
PROVIDERS: ATTEND Radiology Diagnostic Radiology
DX: I70.203 Unspecified atherosclerosis of native arteries of extremities, bilateral legs (principal); G20 Parkinson's disease; I25.10 Atherosclerotic heart disease of native coronary artery without angina pectoris; I11.0 Hypertensive heart disease with heart failure; I50.9 Heart failure, unspecified; E78.5 Hyperlipidemia, unspecified; S92.011D Displaced fracture of body of right calcaneus, subsequent encounter for fracture with routine healing; X58.XXXD Exposure to other specified factors, subsequent encounter; Z79.899 Other long term (current) drug therapy; Z87.891 Personal history of nicotine dependence; Z90.710 Acquired absence of both cervix and uterus; Z95.1 Presence of aortocoronary bypass graft

== ENCOUNTER → 2020-10-18 | Outpatient (REF) ==
[~2020-10-18] MED LIST changes: -ISOS1TAB35 PO; -ISOS1TAB36 PO; +ISOS30TA4 PO; +ISOS60TA2 PO; +LISI-538 PO; +LISI-542 PO; -LISI-898 PO; -LISI10TA22 PO; +LISI10TA4 PO; -LISI20TA33 PO; +MAG400TA PO; -MAGN400T35 PO
--- NOTE | 2020-10-18 09:33 | REP ---
INDICATION: AGINA/RECURRENT CHEST PAIN COMPARISON: 05/03/2020 TECHNIQUE: Portable AP view of the chest FINDINGS: The mediastinum and cardiac silhouette are stable and within normal limits for portable technique. Pacemaker in stable position. The lung carlton demonstrate diffuse chronic appearing changes. Subtle airspace disease involving the left mid to lower lung zone cannot be excluded. No effusion. No pneumothorax. Skeletal structures stable. IMPRESSION: Relatively chronic stable changes. Cannot exclude subtle airspace disease in the left mid lung zone. <Electronically signed by Arie Briones > 10/18/20 [id number]
[2020-10-18 09:54] LABS: HEMATOCRIT 43.6 % (36.0-47.0); HEMOGLOBIN 14.1 g/dl (12.0-15.5); MEAN CORPUSCULAR HEMOGLOBIN 30.3 pg (27.0-33.0); MEAN CORPUSCULAR HGB CONC 32.3 g/dl (32.0-36.5); MEAN CORPUSCULAR VOLUME 93.8 fl (80.0-96.0); PLATELET COUNT, AUTOMATED 380 10^3/uL (150-450); RED BLOOD COUNT 4.65 10^6/uL (4.00-5.40); WHITE BLOOD COUNT 8.7 10^3/uL (4.0-10.0)
[2020-10-18 10:29] LABS: BLOOD UREA NITROGEN 22 MG/DL (7-18); CARBON DIOXIDE LEVEL 32 MEQ/L (21-32); CHLORIDE LEVEL 106 MEQ/L (98-107); CK-MB VALUE MASS < 1.0 NG/ML (<3.6); CPK CREATINE PHOSPHOKINASE 21 U/L (26-192); CREATININE FOR GFR 1.13 MG/DL (0.55-1.30); GLOMERULAR FILTRATION RATE 48.5 (>32); GLUCOSE, FASTING 90 MG/DL (70-100); MB/CK RELATIVE INDEX 4.76 (< OR =4); POTASSIUM SERUM 4.4 MEQ/L (3.5-5.1); SODIUM LEVEL 141 MEQ/L (136-145); TROPONIN I < 0.02 NG/ML (< 0.10)
--- NOTE | 2020-10-19 15:38 | ECGEPIP ---
[facility] Test Date: 2020-10-18 Pat Name: ANDREW FAN Department: Room: - Gender: Female Pediatric Lpn: DEDRA : 1930 Requested By: ANGELICA PUENTES [facility] Order Number: [id number] Reading MD: Alex Adams Measurements Intervals [place] Rate: 60 P: SD: 204 QRS: -56 QRSD: 118 T: -51 QT: 434 QTc: 434 Interpretive Statements Atrial-paced rhythm Left anterior fascicular block Left ventricular hypertrophy with QRS widening ( R in aVL , Axel product , Romhilt-Millard ) Nonspecific ST and T wave abnormality Electronically Signed on 10-19-2020 15:38:53 EST by Alex Adams
== END ==
LOC: SKLAB2 09:00
DX: J98.4 Other disorders of lung (principal); I44.4 Left anterior fascicular block; Z95.0 Presence of cardiac pacemaker

== ENCOUNTER → 2020-10-20 | Outpatient (REF) | LOC: SKLAB7 14:00 | PROVIDERS: ATTEND Internal Medicine | DX: Z20.822 Contact with and (suspected) exposure to COVID-19 (principal) ==

== ENCOUNTER → 2020-10-26 | Outpatient (REF) ==
[~2020-10-26] MED LIST changes: +ISOS1TAB35 PO; +ISOS1TAB36 PO; -ISOS30TA4 PO; -ISOS60TA2 PO; -LISI-538 PO; -LISI-542 PO; +LISI-898 PO; +LISI10TA22 PO; -LISI10TA4 PO; +LISI20TA33 PO; -MAG400TA PO; +MAGN400T35 PO
== END ==
LOC: SKLAB7 07:00
PROVIDERS: ATTEND Internal Medicine
DX: Z20.822 Contact with and (suspected) exposure to COVID-19 (principal); Z53.9 Procedure and treatment not carried out, unspecified reason

== ENCOUNTER → 2020-10-27 | Outpatient (REF) | LOC: SKLAB7 11:17 | PROVIDERS: ATTEND Internal Medicine | DX: Z20.822 Contact with and (suspected) exposure to COVID-19 (principal) ==

== ENCOUNTER → 2020-11-01 | Outpatient (REF) ==
[2020-10-28 09:46] LABS: HEMATOCRIT 49.2 % (36.0-47.0); HEMOGLOBIN 15.4 g/dl (12.0-15.5); MEAN CORPUSCULAR HEMOGLOBIN 29.4 pg (27.0-33.0); MEAN CORPUSCULAR HGB CONC 31.3 g/dl (32.0-36.5); MEAN CORPUSCULAR VOLUME 94.1 fl (80.0-96.0); PLATELET COUNT, AUTOMATED 283 10^3/uL (150-450); RED BLOOD COUNT 5.23 10^6/uL (4.00-5.40); WHITE BLOOD COUNT 7.9 10^3/uL (4.0-10.0)
[2020-10-28 10:09] LABS: CALCIUM LEVEL 9.8 MG/DL (8.8-10.2); CREATININE FOR GFR 1.08 MG/DL (0.55-1.30); GLOMERULAR FILTRATION RATE 51.1 (>32); POTASSIUM SERUM 4.9 MEQ/L (3.5-5.1)
== END ==
LOC: SKLAB7 07:00
DX: I50.9 Heart failure, unspecified (principal); Z79.01 Long term (current) use of anticoagulants

== ENCOUNTER → 2020-11-03 | Outpatient (REF) | LOC: SKLAB7 09:15 | PROVIDERS: ATTEND Internal Medicine | DX: Z20.822 Contact with and (suspected) exposure to COVID-19 (principal) ==

== ENCOUNTER → 2020-11-04 | Outpatient (REF) | payer MEDICARE, OTHER ==
[2020-11-04 09:21] LABS: HEMATOCRIT 45.8 % (36.0-47.0); HEMOGLOBIN 14.2 g/dl (12.0-15.5); MEAN CORPUSCULAR VOLUME 93.5 fl (80.0-96.0); PLATELET COUNT, AUTOMATED 257 10^3/uL (150-450); WHITE BLOOD COUNT 6.9 10^3/uL (4.0-10.0)
[2020-11-04 09:50] LABS: CALCIUM LEVEL 9.6 MG/DL (8.8-10.2); CREATININE FOR GFR 1.1 MG/DL (0.55-1.30); POTASSIUM SERUM 3.9 MEQ/L (3.5-5.1)
== END ==
LOC: SKLAB7 08:00
DX: I50.9 Heart failure, unspecified (principal); I11.0 Hypertensive heart disease with heart failure; Z79.01 Long term (current) use of anticoagulants

== ENCOUNTER → 2020-11-10 | Outpatient (REF) | LOC: SKLAB7 14:41 | PROVIDERS: ATTEND Internal Medicine | DX: Z20.822 Contact with and (suspected) exposure to COVID-19 (principal) ==

== ENCOUNTER → 2020-11-18 | Outpatient (REF) | payer MEDICARE, OTHER ==
[~2020-11-18] MED LIST changes: +ASPI-569 PO; -ASPI81TAEC PO
[2020-11-18 08:52] LABS: HEMATOCRIT 44.1 % (36.0-47.0); HEMOGLOBIN 13.8 g/dl (12.0-15.5); MEAN CORPUSCULAR HEMOGLOBIN 29.4 pg (27.0-33.0); MEAN CORPUSCULAR HGB CONC 31.3 g/dl (32.0-36.5); MEAN CORPUSCULAR VOLUME 93.8 fl (80.0-96.0); PLATELET COUNT, AUTOMATED 278 10^3/uL (150-450); WHITE BLOOD COUNT 7.2 10^3/uL (4.0-10.0)
[2020-11-18 09:12] LABS: CALCIUM LEVEL 9.3 MG/DL (8.8-10.2); CREATININE FOR GFR 0.94 MG/DL (0.55-1.30); POTASSIUM SERUM 4.5 MEQ/L (3.5-5.1)
== END ==
LOC: SKLAB7 07:00
DX: I11.0 Hypertensive heart disease with heart failure (principal); I50.9 Heart failure, unspecified

== ENCOUNTER → 2020-11-24 | Outpatient (REF) | payer MEDICARE, OTHER | LOC: SKLAB7 10:32 | PROVIDERS: ATTEND Internal Medicine | DX: Z20.822 Contact with and (suspected) exposure to COVID-19 (principal) ==

== ENCOUNTER → 2020-11-25 | Outpatient (REF) | payer MEDICARE, OTHER ==
[2020-11-25 09:04] LABS: HEMOGLOBIN 13.4 g/dl (12.0-15.5); MEAN CORPUSCULAR HEMOGLOBIN 29.5 pg (27.0-33.0); MEAN CORPUSCULAR HGB CONC 31.9 g/dl (32.0-36.5); MEAN CORPUSCULAR VOLUME 92.5 fl (80.0-96.0); PLATELET COUNT, AUTOMATED 276 10^3/uL (150-450); RED BLOOD COUNT 4.54 10^6/uL (4.00-5.40); WHITE BLOOD COUNT 7.2 10^3/uL (4.0-10.0)
[2020-11-25 09:39] LABS: BLOOD UREA NITROGEN 24 MG/DL (7-18); CALCIUM LEVEL 9.3 MG/DL (8.8-10.2); CARBON DIOXIDE LEVEL 28 MEQ/L (21-32); CHLORIDE LEVEL 106 MEQ/L (98-107); CREATININE FOR GFR 0.88 MG/DL (0.55-1.30); GLOMERULAR FILTRATION RATE > 60.0 (>32); GLUCOSE, FASTING 87 MG/DL (70-100); POTASSIUM SERUM 4.6 MEQ/L (3.5-5.1); SODIUM LEVEL 139 MEQ/L (136-145)
== END ==
LOC: SKLAB7 08:00
DX: E03.9 Hypothyroidism, unspecified (principal); I11.0 Hypertensive heart disease with heart failure; I50.9 Heart failure, unspecified; Z79.01 Long term (current) use of anticoagulants

== ENCOUNTER → 2020-12-01 | Outpatient (REF) | payer MEDICARE, OTHER | LOC: SKLAB7 12:36 | PROVIDERS: ATTEND Internal Medicine | DX: Z20.822 Contact with and (suspected) exposure to COVID-19 (principal) ==

== ENCOUNTER → 2020-12-14 | Outpatient (POV) | payer MEDICARE, OTHER ==
--- NOTE | 2020-12-17 11:54 | IRPN ---
[facility] IR Progress Note IR Progress Note DATE: Dec 14, 2020 Patient agreed to this telephone follow up. I spent 10 minutes talking to the patient. FOLLOW-UP: Patient with right calcaneal fracture now status post long hospital and rehab stay. She is still not ambulatory. She reports her right leg is still in a cast. She was initially referred for arterial evaluation due to stenosis on arterial US. She denies any open wounds or rest pain with leg elevation. She is not keen to undergo any intervention until she's back on her feet. IMPRESSION: 89 female recovering from right calcaneal fracture with protracted course in rehab. Still not ambulatory. No open wounds and no rest pain. I'm happy to evaluate the patient with angiogram once she is able and willing. Thank you for this referral Allergies Coded Allergies: Contrast Media (Verified Allergy, Intermediate, HIVES, 05/11/19) ciprofloxacin (Verified Allergy, Intermediate, ERYTHEMA, 05/11/19) gabapentin (Verified Allergy, Intermediate, ERYTHEMA, 05/11/19) ketoconazole (Verified Allergy, Intermediate, 05/11/19) meloxicam (Verified Allergy, Intermediate, ERYTHEMA, 05/11/19) pramipexole (Verified Allergy, Unknown, 05/11/19) amoxicillin (Verified Adverse Reaction, Severe, Renal Failure, 05/11/19) clavulanic acid (Verified Adverse Reaction, Severe, Renal Failure, 05/11/19) clindamycin (Verified Adverse Reaction, Severe, Chest pressure, 05/11/19) ibuprofen (Verified Adverse Reaction, Severe, DC, 05/11/19) BONNIE QUILES MD Dec 17, 2020 11:54
== END ==
LOC: M TMIRPOV 13:42
PROVIDERS: ATTEND Radiology Diagnostic Radiology
DX: R93.6 Abnormal findings on diagnostic imaging of limbs (principal); Z88.1 Allergy status to other antibiotic agents; Z88.6 Allergy status to analgesic agent; Z88.8 Allergy status to other drugs, medicaments and biological substances; Z91.041 Radiographic dye allergy status

== ENCOUNTER → 2020-12-17 | Outpatient (REF) | payer MEDICARE, OTHER | LOC: SKLAB7 20:00 | PROVIDERS: ATTEND Internal Medicine | DX: Z20.822 Contact with and (suspected) exposure to COVID-19 (principal) ==

== ENCOUNTER → 2021-04-04 | Outpatient (CLI) | payer MEDICARE, OTHER ==
[~2021-04-04] MED LIST changes: +ATOR80TA59 PO; +CALCTAB38 PO; +CARB-89 PO; +METO25TA4 PO; +NORV2TAB PO; +PLAV1TAB2 PO; +PROL60SO SC; -SINE25TA5 PO; +ZOLO50TA PO
[2021-04-04 15:37] LABS: FREE THYROXINE INDEX 2.8 % (1.3-4.8); THYROID STIMULATING HORMONE 6.19 uIU/ML (0.358-3.740); THYROXINE (T4) 7.9 UG/DL (4.5-12.0); TOTAL T3 75.3 NG/DL (60.0-181.0)
== END ==
LOC: M LAB 12:55
PROVIDERS: ATTEND Ophthalmology
DX: H16.223 Keratoconjunctivitis sicca, not specified as Sjogren's, bilateral (principal)

== ENCOUNTER → 2021-04-22 | Outpatient (CLI) | payer MEDICARE, OTHER ==
--- NOTE | 2021-04-22 18:23 | REPVR ---
PROCEDURE INFORMATION: Exam: CT Lumbar Spine Without Contrast Exam date and time: 04/22/2021 5:21 PM Age: 89 years old Clinical indication: Condition or disease; Stenosis, spinal; Lumbar region; Additional info: Spinal stenosis TECHNIQUE: Imaging protocol: Computed tomography images of the lumbar spine without contrast. Radiation optimization: All CT scans at this facility use at least one of these dose optimization techniques: automated exposure control; mA and/or kV adjustment per patient size (includes targeted exams where dose is matched to clinical indication); or iterative reconstruction. COMPARISON: MRI-LS SPINE W/O FOLL WITH CON 11/21/2017 11:06 AM FINDINGS: Vertebrae: Bone mineralization is decreased, suggestive of osteoporosis. There is 5 mm of retrolisthesis of L1 with respect to L2. There is 4 mm of anterolisthesis of L3 on L4 and 6 mm of anterolisthesis of L4 on L5. No acute fracture is identified. 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 Vacuum disc phenomenon is noted at the all levels of the lumbar spine. Severe facet arthropathy is noted in the mid to lower lumbar spine. There is mild spinal canal stenosis and mild bilateral neural foraminal narrowing at L1-L2. There is mild spinal canal stenosis and moderate bilateral neural foraminal narrowing at L2-L3. There is moderate/severe spinal canal stenosis and mild bilateral neural foraminal narrowing at L3-L4. There is severe spinal canal stenosis and mild bilateral neural foraminal narrowing at L4-L5. There is mild bilateral neural foraminal narrowing at L5-S1. No significant canal stenosis is present at L5-S1. Liver: A 3.3 cm cyst is present in the medial right hepatic lobe. Vasculature: Atherosclerotic calcifications are noted within the aorta and its branches. The distal descending thoracic aorta is aneurysmal, measuring up to 4.4 cm in diameter. The infrarenal aorta is also aneurysmal, measuring 4.7 cm in diameter. Soft tissues: Unremarkable. IMPRESSION: 1. 4.7 cm infrarenal abdominal aortic aneurysm and 4.4 cm distal descending thoracic aortic aneurysm 2. 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
== END ==
LOC: M RAD 17:06
PROVIDERS: ATTEND Physician Assistant
DX: M48.061 Spinal stenosis, lumbar region without neurogenic claudication (principal); M51.36 Other intervertebral disc degeneration, lumbar region; I71.4 Abdominal aortic aneurysm, without rupture; I71.2 Thoracic aortic aneurysm, without rupture; I70.0 Atherosclerosis of aorta

== ENCOUNTER 2021-08-11 14:12 | Inpatient (IN) | payer MEDICARE, OTHER ==
[~2021-08-11] VITALS: Ht 167.6 cm; Wt 76.6 kg
[~2021-08-11 14:12] MED LIST changes: -CEFD1CAP8 PO; +CEFD300C41 PO; +DOK1CAP4 PO; -DOK1CAP7 PO; -FLUC150T PO; +FLUC150T9 PO; -LISI-898 PO; +LISI5TAB11 PO; +OMEP-173 PO; -OMEP-218 PO; -OMEP-221 PO; +OMEP40CA5 PO; +TORS10TA3 PO
[2021-08-11] MEDS ORDERED: ACETAMINOPHEN 325 MG TAB PO ONE (16:50)
[2021-08-11 17:29] LABS: BASO % 0.4 % (0.0-1.0); EOS # 0.1 10^3/uL (0.0-0.5); EOS % 1.8 % (0.0-3.0); HEMATOCRIT 39.9 % (36.0-47.0); HEMOGLOBIN 12.6 g/dl (12.0-15.5); LYMPH # 1.1 10^3/uL (1.5-5.0); LYMPH % 14.5 % (24.0-44.0); MEAN CORPUSCULAR HEMOGLOBIN 29.4 pg (27.0-33.0); MEAN CORPUSCULAR HGB CONC 31.6 g/dl (32.0-36.5); MONO % 12.8 % (2.0-8.0); NEUTROPHILS # 5.4 10^3/uL (1.5-8.5); NEUTROPHILS % 70.2 % (36.0-66.0); PLATELET COUNT, AUTOMATED 276 10^3/uL (150-450); RED BLOOD COUNT 4.29 10^6/uL (4.00-5.40); WHITE BLOOD COUNT 7.7 10^3/uL (4.0-10.0)
[2021-08-11 17:52] LABS: ERYTHROCYTE SEDIMENTATION RATE 22 mm/hr (0-30)
[2021-08-11 17:57] LABS: ALBUMIN 3.1 GM/DL (3.2-5.2); BILIRUBIN,TOTAL 0.3 MG/DL (0.2-1.0); C REACTIVE PROTEIN QUANTITATIV 0.3 MG/DL (0.00-0.30); CALCIUM LEVEL 9.8 MG/DL (8.8-10.2); CREATININE FOR GFR 1.48 MG/DL (0.55-1.30); GLOMERULAR FILTRATION RATE 35.4 (>32); POTASSIUM SERUM 3.8 MEQ/L (3.5-5.1); TOTAL PROTEIN 6.3 GM/DL (6.4-8.2)
[2021-08-11] MEDS ORDERED: NS 500 ML IV ONE ×2 (18:20→21:10)
[2021-08-11 20:42] LABS: CK-MB VALUE MASS < 1.0 NG/ML (<3.6); CPK CREATINE PHOSPHOKINASE 36 U/L (26-192); MB/CK RELATIVE INDEX 2.78 (< OR =4)
[2021-08-11] MEDS: NORTRIPTYLINE 25 MG CAP PO SCH (21:00)
[2021-08-11] MEDS: RANOLAZINE 500 MG ER TAB PO SCH (21:00)
[2021-08-11] MEDS ORDERED: MOM 30ML SUSPENSION UDC PO PRN (21:40)
[2021-08-11] MEDS ORDERED: MAALOX 30 ML SUSP *UDC PO PRN (21:40)
[2021-08-11] MEDS ORDERED: MORPHINE 2 MG/ML 1ML VIAL (J2270) IV PRN (21:45)
[2021-08-11 22:06] LABS: RSV AMPLIFICATION NEGATIVE (NEGATIVE)
[2021-08-11 22:16] LABS: INR 1.06; PROTHROMBIN TIME 14.2 SECONDS (12.7-14.5)
[2021-08-11 22:17] LABS: PARTIAL THROMBOPLASTIN TIME 31.9 SECONDS (25.9-37.0)
[2021-08-11] MEDS ORDERED: ATOR80TA59 PO (22:55)
[2021-08-11] MEDS ORDERED: OMEP40CA5 PO (22:55)
[2021-08-11] MEDS ORDERED: POLYOPD OU (22:55)
[2021-08-11] MEDS ORDERED: RANO500T7 PO (22:55)
[2021-08-11] MEDS ORDERED: META28.32 PO (22:55)
[2021-08-11] MEDS ORDERED: TORS10TA3 PO (22:55)
[2021-08-11] MEDS ORDERED: ACET-907 PO (22:55)
[2021-08-11] MEDS ORDERED: OMEP-173 PO (22:55)
[2021-08-11] MEDS ORDERED: ISOS120T7 PO (23:00)
[2021-08-11] MEDS ORDERED: SYNT112T2 PO (23:00)
[2021-08-11] MEDS ORDERED: methylPREDNISolone 40MG 1ML VIAL IV ONE (23:00)
[2021-08-11] MEDS ORDERED: DOCU100C16 PO (23:00)
[2021-08-11] MEDS ORDERED: OYST500T91 PO (23:00)
[2021-08-11] MEDS ORDERED: B-COTAB4 PO (23:00)
[2021-08-11] MEDS ORDERED: METO25TA4 PO (23:00)
[2021-08-11] MEDS ORDERED: FINA15GE EXT (23:02)
[2021-08-11] MEDS ORDERED: CLOB0.057 TOP (23:02)
[2021-08-11] MEDS ORDERED: HOME MED LIST COMPLETE! XX SCH (23:05)
[2021-08-11] MEDS ORDERED: NITROGLYCERIN 0.4 MG SUBL TABLET SL PRN (23:25)
[2021-08-11] MEDS ORDERED: POLYVINYL ALCOHOL OPHTH SOLN 15 ML(LIQUITEARS) OU PRN (23:25)
[2021-08-11] MEDS ORDERED: FLUTICASONE HFA 110 MCG 12 GM INHALER (FLOVENT) INH PRN (23:25)
[2021-08-12] MEDS: NS 1,000 ML IV SCH ×2 (01:55→12:00)
[2021-08-12] MEDS: METOPROLOL TART 25 MG TABLET PO SCH ×3 (04:47→20:33)
[2021-08-12] MEDS: LEVOTHYROXINE 112MCG TABLET (0.112MG) PO SCH (06:00)
[2021-08-12] MEDS ORDERED: methylPREDNISolone 40MG 1ML VIAL IV SCH (09:00)
[2021-08-12] MEDS: RANOLAZINE 500 MG ER TAB PO SCH ×2 (09:00→20:33)
[2021-08-12 09:06] LABS: HEMATOCRIT 39.8 % (36.0-47.0); HEMOGLOBIN 12.5 g/dl (12.0-15.5); MEAN CORPUSCULAR HEMOGLOBIN 29.6 pg (27.0-33.0); MEAN CORPUSCULAR HGB CONC 31.4 g/dl (32.0-36.5); MEAN CORPUSCULAR VOLUME 94.3 fl (80.0-96.0); PLATELET COUNT, AUTOMATED 251 10^3/uL (150-450); RED BLOOD COUNT 4.22 10^6/uL (4.00-5.40); WHITE BLOOD COUNT 6.7 10^3/uL (4.0-10.0)
[2021-08-12 09:31] LABS: CALCIUM LEVEL 8.8 MG/DL (8.8-10.2); GLOMERULAR FILTRATION RATE 55.7 (>32); MAGNESIUM LEVEL 2.1 MG/DL (1.8-2.4); PHOSPHORUS LEVEL 2.7 MG/DL (2.5-4.9)
[2021-08-12] MEDS: ATORVASTATIN 20 MG TAB PO SCH (11:03)
[2021-08-12] MEDS: DOCUSATE SODIUM 100MG CAPSULE PO SCH ×2 (11:04→20:32)
[2021-08-12] MEDS: HEPARIN SOD (PORCINE) 5000UNITS/ML 1ML VIAL/SYRINGE SC SCH ×2 (11:04→20:32)
[2021-08-12] MEDS: ISOSORBIDE MON. (IMDUR) 60 MG XR TAB PO SCH (11:06)
[2021-08-12] MEDS: OMEPRAZOLE 20MG CAP PO SCH (11:07)
[2021-08-12] MEDS: ASPIRIN 81MG ENTERIC TABLET PO SCH (11:09)
[2021-08-12] MEDS: COSOPT OCUMETER PLUS 10ML (DORZOLAMIDE/TIMOLOL) OU SCH (11:09)
[2021-08-12] MEDS ORDERED: COLCHICINE 0.6 MG TABLET PO ONE ×2 (11:10→13:00)
[2021-08-12] MEDS ORDERED: LIDOCAINE 1% MDV 20ML VIAL As Ordered ONE (11:56)
[2021-08-12] MEDS ORDERED: methylPREDNISolone SUSP 40MG/ML 1ML VIAL (DEPO MEDROL) IM ONE (12:00)
[2021-08-12 14:00] VITALS: BP 105/52
[2021-08-12 17:44] LABS: CREATININE,RANDOM URINE 90.5 MG/DL; TOTAL PROTEIN,RANDOM URINE 14.1 MG/DL (0.0-12.0)
[2021-08-12 20:33] VITALS: BP 124/70
[2021-08-12] MEDS: ACETAMINOPHEN TAB 650MG DOSE (2X325MG) PO PRN (20:33)
[2021-08-12] MEDS: NORTRIPTYLINE 25 MG CAP PO SCH (20:34)
[2021-08-12 20:53] VITALS: BP 147/72
[2021-08-12] MEDS ORDERED: RESTASIS 0.05% OU SCH (21:00)
[2021-08-13 04:24] VITALS: BP 162/80
[2021-08-13] MEDS: ACETAMINOPHEN TAB 650MG DOSE (2X325MG) PO PRN (05:05)
[2021-08-13] MEDS: LEVOTHYROXINE 112MCG TABLET (0.112MG) PO SCH (05:06)
[2021-08-13 06:46] LABS: BASO % 0.6 % (0.0-1.0); EOS # 0.1 10^3/uL (0.0-0.5); EOS % 1.1 % (0.0-3.0); HEMATOCRIT 35.7 % (36.0-47.0); LYMPH # 1.5 10^3/uL (1.5-5.0); LYMPH % 20.3 % (24.0-44.0); MEAN CORPUSCULAR HEMOGLOBIN 29.3 pg (27.0-33.0); MEAN CORPUSCULAR HGB CONC 30.8 g/dl (32.0-36.5); MEAN CORPUSCULAR VOLUME 94.9 fl (80.0-96.0); MONO # 0.8 10^3/uL (0.0-0.8); MONO % 10.9 % (2.0-8.0); NEUTROPHILS # 4.8 10^3/uL (1.5-8.5); NEUTROPHILS % 66.5 % (36.0-66.0); PLATELET COUNT, AUTOMATED 261 10^3/uL (150-450); RED BLOOD COUNT 3.76 10^6/uL (4.00-5.40); WHITE BLOOD COUNT 7.2 10^3/uL (4.0-10.0)
[2021-08-13 07:09] LABS: ALBUMIN 2.6 GM/DL (3.2-5.2); ALT/SGPT 13 U/L (12-78); BILIRUBIN,TOTAL 0.3 MG/DL (0.2-1.0); BLOOD UREA NITROGEN 24 MG/DL (7-18); CARBON DIOXIDE LEVEL 29 MEQ/L (21-32); CHLORIDE LEVEL 111 MEQ/L (98-107); CREATININE FOR GFR 0.84 MG/DL (0.55-1.30); GLOMERULAR FILTRATION RATE > 60.0 (>32); GLUCOSE, FASTING 88 MG/DL (70-100); POTASSIUM SERUM 4.2 MEQ/L (3.5-5.1); SODIUM LEVEL 144 MEQ/L (136-145); TOTAL PROTEIN 5.6 GM/DL (6.4-8.2)
[2021-08-13 07:21] LABS: ERYTHROCYTE SEDIMENTATION RATE 17 mm/hr (0-30)
[2021-08-13] MEDS ORDERED: COLCHICINE 0.6 MG TABLET PO SCH (09:00)
[2021-08-13] MEDS ORDERED: predniSONE 20 MG TAB PO SCH (09:00)
[2021-08-13] MEDS: DOCUSATE SODIUM 100MG CAPSULE PO SCH (09:00)
[2021-08-13] MEDS ORDERED: FLUBLOK(EGG FREE)(QUAD)INFLUENZA VACC 0.5ML SYRINGE 18YRS & OLDER IM ONE (09:00)
[2021-08-13] MEDS: ATORVASTATIN 20 MG TAB PO SCH (09:39)
[2021-08-13] MEDS: METOPROLOL TART 25 MG TABLET PO SCH (09:39)
[2021-08-13] MEDS: ASPIRIN 81MG ENTERIC TABLET PO SCH (09:40)
[2021-08-13] MEDS: ISOSORBIDE MON. (IMDUR) 60 MG XR TAB PO SCH (09:40)
[2021-08-13] MEDS: OMEPRAZOLE 20MG CAP PO SCH (09:40)
[2021-08-13] MEDS: HEPARIN SOD (PORCINE) 5000UNITS/ML 1ML VIAL/SYRINGE SC SCH (09:40)
[2021-08-13] MEDS: COSOPT OCUMETER PLUS 10ML (DORZOLAMIDE/TIMOLOL) OU SCH (09:45)
[2021-08-13] MEDS ORDERED: TRAM50TA2 PO (10:17)
[2021-08-13] MEDS ORDERED: ACET-907 PO (10:17)
[2021-08-13] MEDS ORDERED: DICL20GE TP (10:22)
[2021-08-13] MEDS: RANOLAZINE 500 MG ER TAB PO SCH (11:37)
[2021-08-13 16:07] LABS: Lyme Disease IgG/IgM Antibodie <0.91 ISR (0.00-0.90); Lyme Disease IgM Ab Quantitati <0.80 index (0.00-0.79)
== END 2021-08-13 14:30 | disposition home health service (06) | DRG 554 ==
LOC: M ED 14:12 → M ED INP 21:38 → ENRESERV 08-12 07:44 → M MS5PR 08-12 09:40
PROVIDERS: ADMIT Internal Medicine; ATTEND Internal Medicine
DX: M19.071 Primary osteoarthritis, right ankle and foot (principal); N17.9 Acute kidney failure, unspecified; I13.0 Hypertensive heart and chronic kidney disease with heart failure and stage 1 through stage 4 chronic kidney disease, or unspecified chronic kidney disease; I50.9 Heart failure, unspecified; I25.10 Atherosclerotic heart disease of native coronary artery without angina pectoris; E78.5 Hyperlipidemia, unspecified; H40.9 Unspecified glaucoma; K21.9 Gastro-esophageal reflux disease without esophagitis; E03.9 Hypothyroidism, unspecified; Z20.822 Contact with and (suspected) exposure to COVID-19; Z79.82 Long term (current) use of aspirin; Z79.899 Other long term (current) drug therapy; Z88.1 Allergy status to other antibiotic agents; Z88.5 Allergy status to narcotic agent; Z88.8 Allergy status to other drugs, medicaments and biological substances; Z91.041 Radiographic dye allergy status; Z66 Do not resuscitate; Z98.41 Cataract extraction status, right eye; Z98.42 Cataract extraction status, left eye; Z90.49 Acquired absence of other specified parts of digestive tract; Z95.0 Presence of cardiac pacemaker; Z95.5 Presence of coronary angioplasty implant and graft; Z90.79 Acquired absence of other genital organ(s); Z85.828 Personal history of other malignant neoplasm of skin; G20 Parkinson's disease; I71.2 Thoracic aortic aneurysm, without rupture; I07.1 Rheumatic tricuspid insufficiency; N18.30 Chronic kidney disease, stage 3 unspecified; K76.89 Other specified diseases of liver

== ENCOUNTER → 2021-08-22 | Outpatient (REF) | payer MEDICARE, OTHER ==
[~2021-08-22] MED LIST changes: +ACET-907 PO; +B-COTAB4 PO; +CEFD1CAP8 PO; -CEFD300C41 PO; +CLOB0.057 TOP; +DICL20GE TP; +DOCU100C16 PO; +FINA15GE EXT; +FLUC150T PO; -FLUC150T9 PO; +LISI-898 PO; -LISI5TAB11 PO; +META28.32 PO; -OMEP-173 PO; +OMEP-218 PO; +OMEP-221 PO; -OMEP40CA5 PO; +OYST500T91 PO
== END ==
LOC: M LAB REF 17:29
PROVIDERS: ATTEND Internal Medicine Nephrology
DX: I50.32 Chronic diastolic (congestive) heart failure (principal)

== ENCOUNTER → 2021-12-20 | Outpatient (REF) | payer MEDICARE, OTHER ==
[~2021-12-20] MED LIST changes: -CEFD1CAP8 PO; +CEFD300C41 PO; -FLUC150T PO; +FLUC150T9 PO; -LISI-898 PO; +LISI5TAB11 PO; +OMEP-173 PO; -OMEP-218 PO; -OMEP-221 PO; +OMEP40CA5 PO; +ULTR1TAB PO; -ULTR37.54 PO
== END ==
LOC: M LAB REF 16:48
PROVIDERS: ATTEND Internal Medicine Nephrology
DX: I50.32 Chronic diastolic (congestive) heart failure (principal)

== ENCOUNTER → 2022-03-28 | Outpatient (REF) | payer MEDICARE, OTHER ==
[~2022-03-28] MED LIST changes: +BACL10TA8 PO
[2022-03-28 21:10] LABS: POTASSIUM SERUM 3.8 MEQ/L (3.5-5.1)
== END ==
LOC: M LAB REF 17:33
PROVIDERS: ATTEND Internal Medicine Nephrology
DX: I12.9 Hypertensive chronic kidney disease with stage 1 through stage 4 chronic kidney disease, or unspecified chronic kidney disease (principal); I50.32 Chronic diastolic (congestive) heart failure

== ENCOUNTER → 2022-07-25 | Outpatient (CLI) | payer MEDICARE, OTHER ==
[~2022-07-25] MED LIST changes: +CLOP75TA99 PO; -DOXY-350 PO; +DOXY-444 PO; -PLAV1TAB2 PO
== END ==
LOC: M RAD 08:08
PROVIDERS: ATTEND Physician Assistant
DX: I71.43 Infrarenal abdominal aortic aneurysm, without rupture (principal)

== ENCOUNTER → 2022-08-03 | Outpatient (CLI) | payer MEDICARE, OTHER ==
[2022-08-03 21:24] LABS: CREATININE FOR GFR 1.42 MG/DL (0.55-1.30); GLOMERULAR FILTRATION RATE 37.1 (>32)
== END ==
LOC: M LAB 16:44
PROVIDERS: ATTEND Surgery Vascular Surgery
DX: I71.40 Abdominal aortic aneurysm, without rupture, unspecified (principal)

== ENCOUNTER → 2022-08-08 | Outpatient (CLI) | payer MEDICARE, OTHER ==
[~2022-08-08] MED LIST changes: +CARB25TA18 PO; +FINA0.05 TOP; +ISOVUE-370 76% 100ML VIAL As Ordered ONE
== END ==
LOC: M RAD 15:35
PROVIDERS: ATTEND Surgery Vascular Surgery
DX: I71.40 Abdominal aortic aneurysm, without rupture, unspecified (principal); Z95.0 Presence of cardiac pacemaker; R91.8 Other nonspecific abnormal finding of lung field; I70.0 Atherosclerosis of aorta; I77.4 Celiac artery compression syndrome; I70.1 Atherosclerosis of renal artery; K76.89 Other specified diseases of liver; E27.8 Other specified disorders of adrenal gland; I73.9 Peripheral vascular disease, unspecified
CPT/HCPCS: 74174; Q9967

== ENCOUNTER 2022-08-14 17:09 | Emergency (ER) | payer MEDICARE, OTHER ==
[~2022-08-14] VITALS: Ht 167.6 cm; Wt 64.1 kg
[~2022-08-14 17:09] MED LIST changes: -ISOVUE-370 76% 100ML VIAL As Ordered ONE
[2022-08-14] MEDS ORDERED: ACETAMINOPHEN 325 MG TAB PO ONE (23:05)
[2022-08-14] MEDS ORDERED: NS 500 ML IV ONE (23:05)
[2022-08-15 01:11] LABS: BASO # 0.1 10^3/uL (0.0-0.2); BASO % 0.6 % (0.0-1.0); EOS # 0.2 10^3/uL (0.0-0.5); EOS % 1.9 % (0.0-3.0); HEMATOCRIT 43.4 % (36.0-47.0); HEMOGLOBIN 14.3 g/dl (12.0-15.5); LYMPH # 1.4 10^3/uL (1.5-5.0); LYMPH % 16.6 % (24.0-44.0); MEAN CORPUSCULAR HGB CONC 32.9 g/dl (32.0-36.5); MONO # 0.8 10^3/uL (0.0-0.8); MONO % 9.6 % (2.0-8.0); NEUTROPHILS % 71.1 % (36.0-66.0); PLATELET COUNT, AUTOMATED 285 10^3/uL (150-450); RED BLOOD COUNT 4.93 10^6/uL (4.00-5.40); WHITE BLOOD COUNT 8.4 10^3/uL (4.0-10.0)
[2022-08-15 01:30] LABS: CHLORIDE LEVEL 94 MMOL/L (98-107); POTASSIUM SERUM 3.5 MMOL/L (3.5-5.1); SODIUM LEVEL 135 MMOL/L (136-145)
[2022-08-15 01:31] LABS: CARBON DIOXIDE LEVEL 32 MMOL/L (20-31)
[2022-08-15 01:36] LABS: ALKALINE PHOSPHATASE 89 U/L (46-116); BLOOD UREA NITROGEN 24 MG/DL (9-23); CALCIUM LEVEL 10.3 MG/DL (8.3-10.6); GLUCOSE, FASTING 96 MG/DL (74-106)
[2022-08-15 01:38] LABS: AST/SGOT 14 U/L (<34); BILIRUBIN,TOTAL 0.6 MG/DL (0.3-1.2); CREATININE FOR GFR 1.17 MG/DL (0.55-1.30); GLOMERULAR FILTRATION RATE 46.4 (>32); TOTAL PROTEIN 6.6 G/DL (5.7-8.2)
[2022-08-15 01:44] LABS: ALT/SGPT < 9 U/L (7.0-40); CPK CREATINE PHOSPHOKINASE 41 U/L (34-145)
[2022-08-15] MEDS ORDERED: traMADol 50 MG TAB PO ONE (02:00)
[2022-08-15] MEDS ORDERED: TRAM50TA2 PO (02:37)
[2022-08-15 02:39] VITALS: BP 136/67
== END 2022-08-15 02:42 | disposition home or self-care (01) ==
LOC: M ED 17:09
DX: M54.9 Dorsalgia, unspecified (principal); M25.559 Pain in unspecified hip; M79.606 Pain in leg, unspecified; Z79.82 Long term (current) use of aspirin; Z79.899 Other long term (current) drug therapy; Z91.041 Radiographic dye allergy status; Z88.0 Allergy status to penicillin; Z88.1 Allergy status to other antibiotic agents; Z88.6 Allergy status to analgesic agent; Z88.8 Allergy status to other drugs, medicaments and biological substances

== ENCOUNTER 2022-08-22 17:36 | Inpatient (IN) | payer MEDICARE, OTHER ==
[~2022-08-22] VITALS: Ht 167.6 cm; Wt 65.6 kg
[2022-08-22 19:44] LABS: BASO # 0.1 10^3/uL (0.0-0.2); BASO % 0.6 % (0.0-1.0); EOS # 0.1 10^3/uL (0.0-0.5); EOS % 1.7 % (0.0-3.0); HEMATOCRIT 41.6 % (36.0-47.0); HEMOGLOBIN 13.3 g/dl (12.0-15.5); LYMPH # 1.3 10^3/uL (1.5-5.0); MEAN CORPUSCULAR HEMOGLOBIN 28.5 pg (27.0-33.0); MEAN CORPUSCULAR VOLUME 89.1 fl (80.0-96.0); MONO # 0.8 10^3/uL (0.0-0.8); MONO % 9.9 % (2.0-8.0); NEUTROPHILS % 71.4 % (36.0-66.0); PLATELET COUNT, AUTOMATED 293 10^3/uL (150-450); RED BLOOD COUNT 4.67 10^6/uL (4.00-5.40); WHITE BLOOD COUNT 8.4 10^3/uL (4.0-10.0)
[2022-08-22 20:19] LABS: RSV AMPLIFICATION NEGATIVE (NEGATIVE)
[2022-08-22 20:20] LABS: LIPASE 57 U/L (12-53)
[2022-08-22 20:22] LABS: BILIRUBIN,DIRECT < 0.1 MG/DL (<0.4)
[2022-08-22 20:26] LABS: FREE T4 1.31 NG/DL (0.89-1.76); THYROID STIMULATING HORMONE 9.211 uIU/ML (0.55-4.78)
[2022-08-22 20:28] LABS: ALBUMIN 3.4 G/DL (3.2-5.2); ALKALINE PHOSPHATASE 77 U/L (46-116); ALT/SGPT < 9 U/L (7.0-40); AST/SGOT 10 U/L (<34); BILIRUBIN,TOTAL 0.4 MG/DL (0.3-1.2); BLOOD UREA NITROGEN 31 MG/DL (9-23); CALCIUM LEVEL 9.1 MG/DL (8.3-10.6); CARBON DIOXIDE LEVEL 30 MMOL/L (20-31); CHLORIDE LEVEL 98 MMOL/L (98-107); CREATININE FOR GFR 1.52 MG/DL (0.55-1.30); GLOMERULAR FILTRATION RATE 34.3 (>32); GLUCOSE, FASTING 101 MG/DL (74-106); POTASSIUM SERUM 3.5 MMOL/L (3.5-5.1); SODIUM LEVEL 137 MMOL/L (136-145); TOTAL PROTEIN 5.9 G/DL (5.7-8.2)
[2022-08-22] MEDS ORDERED: NS 1,870 ML in IV 1 EA IV ONE (20:45)
[2022-08-22] MEDS ORDERED: SODIUM CHLORIDE 0.9% INJ 10 ML SYR IV PRN (23:20)
[2022-08-22] MEDS ORDERED: MOM 30ML SUSPENSION UDC PO PRN (23:20)
[2022-08-22] MEDS ORDERED: ACET-907 PO (23:37)
[2022-08-22] MEDS ORDERED: TRAM50TA2 PO (23:48)
[2022-08-22] MEDS ORDERED: SENN-23 PO (23:48)
[2022-08-22] MEDS ORDERED: TORS100T PO (23:48)
[2022-08-22] MEDS ORDERED: PRIM50TA6 PO (23:48)
[2022-08-22] MEDS ORDERED: AMMO12LO TOP (23:50)
[2022-08-22] MEDS ORDERED: FEXO-117 PO (23:50)
[2022-08-22] MEDS ORDERED: CARB-89 PO (23:54)
[2022-08-23] MEDS: LR 1,000 ML IV SCH ×2 (00:32→09:38)
[2022-08-23] MEDS ORDERED: POLYVINYL ALCOHOL OPHTH SOLN 15 ML(LIQUITEARS) OU PRN (00:45)
[2022-08-23] MEDS ORDERED: traMADol 50 MG TAB PO PRN (00:45)
[2022-08-23] MEDS ORDERED: FLUTICASONE HFA 110MCG 12GM INHALER (FLOVENT) INH PRN (00:45)
[2022-08-23] MEDS ORDERED: CARB-89 PO (01:16)
[2022-08-23] MEDS: HEPARIN SOD (PORCINE) 5000UNITS/ML 1ML VIAL/SYRINGE SC SCH ×3 (06:50→20:10)
[2022-08-23] MEDS: SODIUM CHLORIDE 0.9% INJ 10 ML SYR IV SCH ×3 (06:51→20:09)
[2022-08-23 06:57] LABS: HEMOGLOBIN 12.2 g/dl (12.0-15.5); MEAN CORPUSCULAR HEMOGLOBIN 28.6 pg (27.0-33.0); MEAN CORPUSCULAR HGB CONC 32.1 g/dl (32.0-36.5); PLATELET COUNT, AUTOMATED 254 10^3/uL (150-450); RED BLOOD COUNT 4.27 10^6/uL (4.00-5.40); WHITE BLOOD COUNT 8.8 10^3/uL (4.0-10.0)
[2022-08-23 07:06] LABS: INR 1.07; PARTIAL THROMBOPLASTIN TIME 26.6 SECONDS (24.8-34.2); PROTHROMBIN TIME 14.1 SECONDS (12.5-14.5)
[2022-08-23] MEDS ORDERED: HOME MED LIST COMPLETE! XX SCH (07:10)
[2022-08-23 07:39] LABS: MAGNESIUM LEVEL 1.7 MG/DL (1.8-2.4)
[2022-08-23 08:02] LABS: CALCIUM LEVEL 8.6 MG/DL (8.3-10.6); CREATININE FOR GFR 1.08 MG/DL (0.55-1.30); GLOMERULAR FILTRATION RATE 50.9 (>32); POTASSIUM SERUM 3.1 MMOL/L (3.5-5.1)
[2022-08-23] MEDS ORDERED: MAGNESIUM OXIDE 400MG TAB (MAG-OX) PO ONE (08:10)
[2022-08-23] MEDS ORDERED: POTASSIUM CHLORIDE 10MEQ SR TABLET PO ONE (08:10)
[2022-08-23] MEDS: COSOPT OCUMETER PLUS 10ML (DORZOLAMIDE/TIMOLOL) OU SCH (09:00)
[2022-08-23] MEDS: FEXOFENADINE 60MG TAB PO SCH (09:33)
[2022-08-23] MEDS: PRIMIDONE 50MG TAB PO SCH ×2 (09:33→20:11)
[2022-08-23] MEDS: LEVOTHYROXINE 112MCG TABLET (0.112MG) PO SCH (09:34)
[2022-08-23] MEDS: ATORVASTATIN 20 MG TAB PO SCH (09:35)
[2022-08-23] MEDS: SENOKOT S TAB PO SCH ×2 (09:35→20:12)
[2022-08-23] MEDS: OMEPRAZOLE 20MG CAP PO SCH (09:36)
[2022-08-23] MEDS: ASPIRIN 81MG ENTERIC TABLET PO SCH (09:36)
[2022-08-23] MEDS: METOPROLOL TART 25 MG TABLET PO SCH ×2 (09:36→20:14)
[2022-08-23] MEDS: DOCUSATE SODIUM 100MG CAPSULE PO SCH ×2 (09:36→20:11)
[2022-08-23] MEDS: ISOSORBIDE MON. (IMDUR) 60MG XR TAB PO SCH (09:37)
[2022-08-23] MEDS: RANOLAZINE 500MG ER TAB PO SCH ×2 (09:46→20:11)
[2022-08-23] MEDS ORDERED: PILL CUTTER 1 EACH XX PRN (11:30)
[2022-08-23 12:28] LABS: FOLATE 9.79 NG/ML (>5.4)
[2022-08-23] MEDS: TORSEMIDE (DEMADEX) 50 MG PER 1/2 TAB PO SCH (12:29)
[2022-08-23] MEDS: ACETAMINOPHEN TAB 650MG DOSE (2X325MG) PO PRN ×2 (12:29→20:11)
[2022-08-23] MEDS: SINEMET 25-100 MG TAB PO SCH ×3 (13:56→20:10)
[2022-08-23 16:00] VITALS: BP 112/60
[2022-08-23] MEDS: CYANOCOBALAMIN 500 MCG TAB PO SCH (16:56)
[2022-08-23] MEDS: LATANOPROST 0.005% OPHTH SOLN 2.5 ML OU SCH (20:10)
[2022-08-23] MEDS: NORTRIPTYLINE 25 MG CAP PO SCH (20:11)
[2022-08-23 22:00] VITALS: BP 115/60
[2022-08-24 05:06] VITALS: BP 125/66
[2022-08-24] MEDS: SINEMET 25-100 MG TAB PO SCH ×5 (05:17→21:09)
[2022-08-24] MEDS: SODIUM CHLORIDE 0.9% INJ 10 ML SYR IV SCH ×3 (05:18→21:13)
[2022-08-24] MEDS: HEPARIN SOD (PORCINE) 5000UNITS/ML 1ML VIAL/SYRINGE SC SCH ×3 (05:18→21:12)
[2022-08-24] MEDS: LEVOTHYROXINE 112MCG TABLET (0.112MG) PO SCH (05:21)
[2022-08-24 06:16] LABS: HEMATOCRIT 37.1 % (36.0-47.0); MEAN CORPUSCULAR HEMOGLOBIN 28.8 pg (27.0-33.0); MEAN CORPUSCULAR HGB CONC 32.3 g/dl (32.0-36.5); PLATELET COUNT, AUTOMATED 249 10^3/uL (150-450); RED BLOOD COUNT 4.17 10^6/uL (4.00-5.40); WHITE BLOOD COUNT 6.9 10^3/uL (4.0-10.0)
[2022-08-24 06:36] LABS: MAGNESIUM LEVEL 1.8 MG/DL (1.8-2.4)
[2022-08-24 06:37] LABS: BLOOD UREA NITROGEN 17 MG/DL (9-23); CALCIUM LEVEL 8.8 MG/DL (8.3-10.6); CARBON DIOXIDE LEVEL 31 MMOL/L (20-31); CHLORIDE LEVEL 103 MMOL/L (98-107); CREATININE FOR GFR 0.89 MG/DL (0.55-1.30); GLOMERULAR FILTRATION RATE > 60.0 (>32); GLUCOSE, FASTING 84 MG/DL (74-106); POTASSIUM SERUM 3.7 MMOL/L (3.5-5.1); SODIUM LEVEL 139 MMOL/L (136-145)
[2022-08-24] MEDS ORDERED: UNRESOLVED CLARIFICATION ENTRY XX SCH (09:00)
[2022-08-24] MEDS: TORSEMIDE (DEMADEX) 50 MG PER 1/2 TAB PO SCH (09:30)
[2022-08-24] MEDS: PRIMIDONE 50MG TAB PO SCH ×2 (09:37→21:09)
[2022-08-24] MEDS: RANOLAZINE 500MG ER TAB PO SCH ×2 (09:38→21:09)
[2022-08-24] MEDS: ATORVASTATIN 20 MG TAB PO SCH (09:38)
[2022-08-24] MEDS: ASPIRIN 81MG ENTERIC TABLET PO SCH (09:39)
[2022-08-24] MEDS: ISOSORBIDE MON. (IMDUR) 60MG XR TAB PO SCH (09:40)
[2022-08-24] MEDS: FEXOFENADINE 60MG TAB PO SCH (09:40)
[2022-08-24] MEDS: OMEPRAZOLE 20MG CAP PO SCH (09:41)
[2022-08-24] MEDS: METOPROLOL TART 25 MG TABLET PO SCH ×2 (09:41→21:12)
[2022-08-24] MEDS: SENOKOT S TAB PO SCH ×2 (09:42→21:09)
[2022-08-24] MEDS: CYANOCOBALAMIN 500 MCG TAB PO SCH (09:43)
[2022-08-24] MEDS: COSOPT OCUMETER PLUS 10ML (DORZOLAMIDE/TIMOLOL) OU SCH (09:43)
[2022-08-24] MEDS: DOCUSATE SODIUM 100MG CAPSULE PO SCH ×2 (09:46→21:09)
[2022-08-24] MEDS: ACETAMINOPHEN TAB 650MG DOSE (2X325MG) PO PRN (18:29)
[2022-08-24] MEDS ORDERED: BISACODYL 10 MG SUPP PR ONE (19:25)
[2022-08-24] MEDS: LATANOPROST 0.005% OPHTH SOLN 2.5 ML OU SCH (21:12)
[2022-08-24] MEDS: NORTRIPTYLINE 25 MG CAP PO SCH (21:12)
[2022-08-25] MEDS: HEPARIN SOD (PORCINE) 5000UNITS/ML 1ML VIAL/SYRINGE SC SCH ×2 (06:00→14:00)
[2022-08-25 06:22] VITALS: BP 113/56
[2022-08-25] MEDS: SINEMET 25-100 MG TAB PO SCH ×3 (06:25→13:28)
[2022-08-25] MEDS: LEVOTHYROXINE 112MCG TABLET (0.112MG) PO SCH (06:25)
[2022-08-25] MEDS: SODIUM CHLORIDE 0.9% INJ 10 ML SYR IV SCH ×2 (06:26→14:00)
[2022-08-25] MEDS: COSOPT OCUMETER PLUS 10ML (DORZOLAMIDE/TIMOLOL) OU SCH (08:52)
[2022-08-25] MEDS: FEXOFENADINE 60MG TAB PO SCH (08:53)
[2022-08-25] MEDS: ATORVASTATIN 20 MG TAB PO SCH (08:54)
[2022-08-25] MEDS: ASPIRIN 81MG ENTERIC TABLET PO SCH (08:55)
[2022-08-25] MEDS: SENOKOT S TAB PO SCH (08:55)
[2022-08-25] MEDS: ISOSORBIDE MON. (IMDUR) 60MG XR TAB PO SCH ×2 (08:56→09:00)
[2022-08-25] MEDS: TORSEMIDE (DEMADEX) 50 MG PER 1/2 TAB PO SCH (08:58)
[2022-08-25] MEDS: OMEPRAZOLE 20MG CAP PO SCH (08:59)
[2022-08-25] MEDS: DOCUSATE SODIUM 100MG CAPSULE PO SCH (08:59)
[2022-08-25] MEDS: PRIMIDONE 50MG TAB PO SCH (08:59)
[2022-08-25] MEDS: CYANOCOBALAMIN 500 MCG TAB PO SCH (09:00)
[2022-08-25] MEDS: RANOLAZINE 500MG ER TAB PO SCH (09:00)
[2022-08-25 10:48] VITALS: BP 113/59
[2022-08-25] MEDS: METOPROLOL TART 25 MG TABLET PO SCH (10:48)
[2022-08-25] MEDS ORDERED: PREVNAR-20 VACCINE 0.5ML SYRINGE IM.IMMUN ONE (11:00)
== END 2022-08-25 16:30 | disposition home or self-care (01) | DRG 683 ==
LOC: M ED 17:36 → EDBD 17:36 → EEVIPCON 23:17 → M ED INP 23:17 → ENRESERV 08-23 14:38 → M MS5PR 08-23 15:50
PROVIDERS: ADMIT Internal Medicine; ATTEND Family Medicine
DX: N17.9 Acute kidney failure, unspecified (principal); I13.0 Hypertensive heart and chronic kidney disease with heart failure and stage 1 through stage 4 chronic kidney disease, or unspecified chronic kidney disease; C85.90 Non-Hodgkin lymphoma, unspecified, unspecified site; I50.32 Chronic diastolic (congestive) heart failure; E46 Unspecified protein-calorie malnutrition; G20 Parkinson's disease; I25.10 Atherosclerotic heart disease of native coronary artery without angina pectoris; Z95.5 Presence of coronary angioplasty implant and graft; I71.40 Abdominal aortic aneurysm, without rupture, unspecified; I71.20 Thoracic aortic aneurysm, without rupture, unspecified; I36.1 Nonrheumatic tricuspid (valve) insufficiency; I44.1 Atrioventricular block, second degree; Z95.0 Presence of cardiac pacemaker; E78.5 Hyperlipidemia, unspecified; N18.30 Chronic kidney disease, stage 3 unspecified; E03.9 Hypothyroidism, unspecified; Z98.41 Cataract extraction status, right eye; Z98.42 Cataract extraction status, left eye; Z90.49 Acquired absence of other specified parts of digestive tract; Z90.79 Acquired absence of other genital organ(s); H40.9 Unspecified glaucoma; Z79.890 Hormone replacement therapy; Z79.82 Long term (current) use of aspirin; Z79.899 Other long term (current) drug therapy; Z88.1 Allergy status to other antibiotic agents; Z88.6 Allergy status to analgesic agent; Z88.8 Allergy status to other drugs, medicaments and biological substances; Z91.041 Radiographic dye allergy status

== ENCOUNTER 2022-09-18 14:24 | Emergency (ER) | payer MEDICARE, OTHER ==
[~2022-09-18] VITALS: Ht 167.6 cm; Wt 63.6 kg
[~2022-09-18 14:24] MED LIST changes: +AMMO12LO TOP; +CARB-113 PO; -CARB-89 PO; +FEXO-117 PO; +PRIM50TA6 PO; +SENN-23 PO; +TORS100T PO
[2022-09-18] MEDS ORDERED: DOXYCYCLINE HYCLATE 100MG TABLET PO ONE (16:05)
[2022-09-18 16:08] VITALS: BP 126/62
[2022-09-18] MEDS ORDERED: DOXY-443 PO (16:16)
== END 2022-09-18 16:23 | disposition home or self-care (01) ==
LOC: M ED 15:38
DX: S81.811A Laceration without foreign body, right lower leg, initial encounter (principal); S80.12XA Contusion of left lower leg, initial encounter; W50.1XXA Accidental kick by another person, initial encounter; N18.30 Chronic kidney disease, stage 3 unspecified; F41.9 Anxiety disorder, unspecified; Z79.891 Long term (current) use of opiate analgesic; Z88.0 Allergy status to penicillin; Z88.1 Allergy status to other antibiotic agents; Z88.8 Allergy status to other drugs, medicaments and biological substances; Z91.041 Radiographic dye allergy status; Z79.82 Long term (current) use of aspirin; Z79.84 Long term (current) use of oral hypoglycemic drugs; Z79.899 Other long term (current) drug therapy

== ENCOUNTER 2022-09-25 16:56 | Inpatient (IN) | payer MEDICARE, OTHER ==
[~2022-09-25] VITALS: Ht 167.6 cm; Wt 63.6 kg
[~2022-09-25 16:56] MED LIST changes: +DOXY-443 PO
[2022-09-25 18:54] LABS: BASO # 0.1 10^3/uL (0.0-0.2); BASO % 0.6 % (0.0-1.0); EOS # 0.1 10^3/uL (0.0-0.5); HEMATOCRIT 34.2 % (36.0-47.0); HEMOGLOBIN 11.2 g/dl (12.0-15.5); LYMPH % 11.7 % (24.0-44.0); MEAN CORPUSCULAR HEMOGLOBIN 26.8 pg (27.0-33.0); MEAN CORPUSCULAR HGB CONC 32.7 g/dl (32.0-36.5); MEAN CORPUSCULAR VOLUME 81.8 fl (80.0-96.0); MONO % 11.3 % (2.0-8.0); NEUTROPHILS # 6.5 10^3/uL (1.5-8.5); NEUTROPHILS % 74.9 % (36.0-66.0); PLATELET COUNT, AUTOMATED 334 10^3/uL (150-450); RED BLOOD COUNT 4.18 10^6/uL (4.00-5.40); WHITE BLOOD COUNT 8.7 10^3/uL (4.0-10.0)
[2022-09-25 19:04] LABS: BLOOD UREA NITROGEN 32 MG/DL (9-23); CALCIUM LEVEL 9.7 MG/DL (8.3-10.6); CARBON DIOXIDE LEVEL 32 MMOL/L (20-31); CHLORIDE LEVEL 99 MMOL/L (98-107); CPK CREATINE PHOSPHOKINASE 25 U/L (34-145); CREATININE FOR GFR 1.41 MG/DL (0.55-1.30); GLOMERULAR FILTRATION RATE 37.4 (>32); GLUCOSE, FASTING 103 MG/DL (74-106); POTASSIUM SERUM 3.8 MMOL/L (3.5-5.1); SODIUM LEVEL 139 MMOL/L (136-145)
[2022-09-25 19:05] LABS: CK-MB VALUE MASS < 1.0 NG/ML (<3.6)
[2022-09-25 19:09] LABS: THYROID STIMULATING HORMONE 4.393 uIU/ML (0.55-4.78)
[2022-09-25 19:32] LABS: RSV AMPLIFICATION NEGATIVE (NEGATIVE)
[2022-09-25] MEDS ORDERED: NS 500 ML IV ONE (20:45)
[2022-09-25] MEDS ORDERED: ONDA4TAB6 PO (22:55)
[2022-09-25] MEDS ORDERED: DOXY-443 PO (22:55)
[2022-09-25] MEDS ORDERED: HOME MED LIST COMPLETE! XX SCH (23:00)
[2022-09-25] MEDS ORDERED: SINEMET 25-100 MG TAB PO ONE (23:00)
[2022-09-25] MEDS ORDERED: ONDANSETRON 4MG ORAL DISINTEGRATING TAB PO PRN (23:25)
[2022-09-26] MEDS ORDERED: FOSFOMYCIN TROMETHAMINE 3 GM POWDER PACKET (MONUROL) PO ONE
[2022-09-26] MEDS: COSOPT OCUMETER PLUS 10ML (DORZOLAMIDE/TIMOLOL) OU SCH ×3 (00:36→22:17)
[2022-09-26] MEDS: NORTRIPTYLINE 25 MG CAP PO SCH ×2 (00:36→23:14)
[2022-09-26] MEDS: LEVOTHYROXINE 112MCG TABLET (0.112MG) PO SCH (05:56)
[2022-09-26 06:53] LABS: CALCIUM LEVEL 9.1 MG/DL (8.3-10.6); CREATININE FOR GFR 1.07 MG/DL (0.55-1.30); GLOMERULAR FILTRATION RATE 51.4 (>32); POTASSIUM SERUM 3.6 MMOL/L (3.5-5.1)
[2022-09-26] MEDS: ACETAMINOPHEN TAB 650MG DOSE (2X325MG) PO PRN ×2 (07:43→22:17)
[2022-09-26] MEDS: HEPARIN SOD (PORCINE) 5000UNITS/ML 1ML VIAL/SYRINGE SC SCH ×2 (08:58→22:16)
[2022-09-26] MEDS ORDERED: POLYVINYL ALCOHOL OPHTH SOLN 15ML (LIQUITEARS) OU PRN (09:40)
[2022-09-26] MEDS ORDERED: PILL CUTTER 1 EACH XX PRN (09:55)
[2022-09-26] MEDS: METOPROLOL TART 25 MG TABLET PO SCH ×2 (10:22→22:16)
[2022-09-26] MEDS: ISOSORBIDE MON. (IMDUR) 60MG XR TAB PO SCH (10:22)
[2022-09-26] MEDS: OMEPRAZOLE 20MG CAP PO SCH (10:23)
[2022-09-26] MEDS: ASPIRIN 81MG ENTERIC TABLET PO SCH (10:23)
[2022-09-26] MEDS: ATORVASTATIN 20 MG TAB PO SCH (10:23)
[2022-09-26] MEDS: FLUTICASONE HFA 110MCG 12GM INHALER (FLOVENT) INH SCH ×2 (11:09→20:11)
[2022-09-26] MEDS: FEXOFENADINE 60MG TAB PO SCH (11:36)
[2022-09-26] MEDS: RANOLAZINE 500MG ER TAB PO SCH ×2 (11:37→23:14)
[2022-09-26] MEDS: PRIMIDONE 50MG TAB PO SCH ×2 (11:37→23:14)
[2022-09-26] MEDS: SINEMET 25-100 MG TAB PO SCH ×4 (11:37→23:14)
[2022-09-26] MEDS: traMADol 50 MG TAB PO PRN (15:00)
[2022-09-26] MEDS: LATANOPROST 0.005% OPHTH SOLN 2.5 ML OU SCH (23:14)
[2022-09-27] MEDS: LEVOTHYROXINE 112MCG TABLET (0.112MG) PO SCH (05:49)
[2022-09-27] MEDS: FLUTICASONE HFA 110MCG 12GM INHALER (FLOVENT) INH SCH ×2 (08:00→19:37)
[2022-09-27 08:06] LABS: MAGNESIUM LEVEL 1.7 MG/DL (1.8-2.4)
[2022-09-27 08:08] LABS: BLOOD UREA NITROGEN 17 MG/DL (9-23); CALCIUM LEVEL 8.7 MG/DL (8.3-10.6); CARBON DIOXIDE LEVEL 28 MMOL/L (20-31); CHLORIDE LEVEL 102 MMOL/L (98-107); CREATININE FOR GFR 0.87 MG/DL (0.55-1.30); GLOMERULAR FILTRATION RATE > 60.0 (>32); GLUCOSE, FASTING 86 MG/DL (74-106); POTASSIUM SERUM 4.2 MMOL/L (3.5-5.1); SODIUM LEVEL 136 MMOL/L (136-145)
[2022-09-27] MEDS: PRIMIDONE 50MG TAB PO SCH ×2 (08:48→20:56)
[2022-09-27] MEDS: FEXOFENADINE 60MG TAB PO SCH (08:48)
[2022-09-27] MEDS: OMEPRAZOLE 20MG CAP PO SCH (08:49)
[2022-09-27] MEDS: ISOSORBIDE MON. (IMDUR) 60MG XR TAB PO SCH (08:49)
[2022-09-27] MEDS: HEPARIN SOD (PORCINE) 5000UNITS/ML 1ML VIAL/SYRINGE SC SCH ×2 (08:50→20:55)
[2022-09-27] MEDS: METOPROLOL TART 25 MG TABLET PO SCH ×2 (08:50→20:56)
[2022-09-27] MEDS: ASPIRIN 81MG ENTERIC TABLET PO SCH (08:50)
[2022-09-27] MEDS: ATORVASTATIN 20 MG TAB PO SCH (08:50)
[2022-09-27] MEDS: RANOLAZINE 500MG ER TAB PO SCH ×2 (08:50→20:55)
[2022-09-27] MEDS: COSOPT OCUMETER PLUS 10ML (DORZOLAMIDE/TIMOLOL) OU SCH ×2 (08:51→20:57)
[2022-09-27 10:13] LABS: BASO # 0.1 10^3/uL (0.0-0.2); BASO % 0.8 % (0.0-1.0); EOS # 0.2 10^3/uL (0.0-0.5); HEMOGLOBIN 11.3 g/dl (12.0-15.5); LYMPH % 14.9 % (24.0-44.0); MEAN CORPUSCULAR HEMOGLOBIN 26.1 pg (27.0-33.0); MEAN CORPUSCULAR HGB CONC 31.4 g/dl (32.0-36.5); MEAN CORPUSCULAR VOLUME 83.1 fl (80.0-96.0); MONO # 0.8 10^3/uL (0.0-0.8); MONO % 11.7 % (2.0-8.0); NEUTROPHILS # 4.6 10^3/uL (1.5-8.5); NEUTROPHILS % 69.3 % (36.0-66.0); PLATELET COUNT, AUTOMATED 313 10^3/uL (150-450); RED BLOOD COUNT 4.33 10^6/uL (4.00-5.40); WHITE BLOOD COUNT 6.6 10^3/uL (4.0-10.0)
[2022-09-27] MEDS: SINEMET 25-100 MG TAB PO SCH ×5 (10:28→20:55)
[2022-09-27 14:30] VITALS: BP 130/69
[2022-09-27] MEDS ORDERED: MAG SULF 1GM/100ML (MAG RUN) 1 GM in IV 1 EA IV ONE (16:45)
[2022-09-27 20:13] VITALS: BP 103/59
[2022-09-27] MEDS: NORTRIPTYLINE 25 MG CAP PO SCH (20:56)
[2022-09-27] MEDS: LATANOPROST 0.005% OPHTH SOLN 2.5 ML OU SCH (20:57)
[2022-09-27] MEDS: ACETAMINOPHEN TAB 650MG DOSE (2X325MG) PO PRN (20:57)
[2022-09-28] MEDS ORDERED: SENOKOT S TAB PO PRN (03:45)
[2022-09-28] MEDS ORDERED: GI COCKTAIL 50ML BTL(HYOSCYAMINE/MAALOX/LIDOCAINE VISCOUS)(1:3:1) PO ONE (05:00)
[2022-09-28 05:24] VITALS: BP 135/72
[2022-09-28] MEDS: LEVOTHYROXINE 112MCG TABLET (0.112MG) PO SCH (05:46)
[2022-09-28 07:19] LABS: BASO % 0.4 % (0.0-1.0); EOS # 0.2 10^3/uL (0.0-0.5); EOS % 1.8 % (0.0-3.0); HEMATOCRIT 31.9 % (36.0-47.0); HEMOGLOBIN 10.3 g/dl (12.0-15.5); LYMPH # 0.9 10^3/uL (1.5-5.0); LYMPH % 9.3 % (24.0-44.0); MEAN CORPUSCULAR HEMOGLOBIN 26.7 pg (27.0-33.0); MEAN CORPUSCULAR HGB CONC 32.3 g/dl (32.0-36.5); MEAN CORPUSCULAR VOLUME 82.6 fl (80.0-96.0); MONO # 1.1 10^3/uL (0.0-0.8); MONO % 10.6 % (2.0-8.0); NEUTROPHILS # 7.8 10^3/uL (1.5-8.5); NEUTROPHILS % 77.5 % (36.0-66.0); PLATELET COUNT, AUTOMATED 304 10^3/uL (150-450); RED BLOOD COUNT 3.86 10^6/uL (4.00-5.40)
[2022-09-28 07:40] LABS: MAGNESIUM LEVEL 2.1 MG/DL (1.8-2.4)
[2022-09-28 07:41] LABS: CALCIUM LEVEL 9.1 MG/DL (8.3-10.6); CREATININE FOR GFR 1.01 MG/DL (0.55-1.30); GLOMERULAR FILTRATION RATE 54.9 (>32); POTASSIUM SERUM 3.9 MMOL/L (3.5-5.1)
[2022-09-28] MEDS: FLUTICASONE HFA 110MCG 12GM INHALER (FLOVENT) INH SCH ×2 (08:28→20:40)
[2022-09-28] MEDS ORDERED: TORSEMIDE 10 MG TABLET PO SCH (09:00)
[2022-09-28] MEDS: RANOLAZINE 500MG ER TAB PO SCH ×2 (09:03→21:01)
[2022-09-28] MEDS: SINEMET 25-100 MG TAB PO SCH ×5 (09:03→21:01)
[2022-09-28] MEDS: FEXOFENADINE 60MG TAB PO SCH (09:03)
[2022-09-28] MEDS: OMEPRAZOLE 20MG CAP PO SCH (09:03)
[2022-09-28] MEDS: ASPIRIN 81MG ENTERIC TABLET PO SCH (09:04)
[2022-09-28] MEDS: ATORVASTATIN 20 MG TAB PO SCH (09:04)
[2022-09-28] MEDS: PRIMIDONE 50MG TAB PO SCH ×2 (09:04→21:01)
[2022-09-28] MEDS: HEPARIN SOD (PORCINE) 5000UNITS/ML 1ML VIAL/SYRINGE SC SCH ×2 (09:05→21:02)
[2022-09-28] MEDS: COSOPT OCUMETER PLUS 10ML (DORZOLAMIDE/TIMOLOL) OU SCH ×2 (09:05→21:01)
[2022-09-28] MEDS: ISOSORBIDE MON. (IMDUR) 60MG XR TAB PO SCH (09:09)
[2022-09-28] MEDS: METOPROLOL TART 25 MG TABLET PO SCH ×2 (09:09→20:56)
[2022-09-28 14:00] VITALS: BP 93/51
[2022-09-28 15:15] VITALS: BP 93/52
[2022-09-28] MEDS ORDERED: MOM 30ML SUSPENSION UDC PO PRN (18:05)
[2022-09-28] MEDS: LACTOBACILLUS ACIDOPHILUS CAP (BACID) PO SCH (18:35)
[2022-09-28 18:39] VITALS: BP 102/56
[2022-09-28 20:53] VITALS: BP 90/46
[2022-09-28] MEDS: LATANOPROST 0.005% OPHTH SOLN 2.5 ML OU SCH (21:01)
[2022-09-28] MEDS: NORTRIPTYLINE 25 MG CAP PO SCH (21:01)
[2022-09-28] MEDS ORDERED: NS 500 ML IV ONE ×2 (21:05→22:15)
[2022-09-28] MEDS: ACETAMINOPHEN TAB 650MG DOSE (2X325MG) PO PRN (21:36)
[2022-09-28 22:11] VITALS: BP 90/46
[2022-09-28] MEDS ORDERED: SODIUM CHLORIDE 0.9% 1000ML IV ONE (22:20)
[2022-09-29 05:04] VITALS: BP 121/68
[2022-09-29] MEDS: LEVOTHYROXINE 112MCG TABLET (0.112MG) PO SCH (06:03)
[2022-09-29 06:15] LABS: BASO % 0.5 % (0.0-1.0); EOS # 0.2 10^3/uL (0.0-0.5); HEMATOCRIT 29.4 % (36.0-47.0); HEMOGLOBIN 9.3 g/dl (12.0-15.5); LYMPH # 1.2 10^3/uL (1.5-5.0); LYMPH % 20.8 % (24.0-44.0); MEAN CORPUSCULAR HEMOGLOBIN 25.9 pg (27.0-33.0); MEAN CORPUSCULAR HGB CONC 31.6 g/dl (32.0-36.5); MEAN CORPUSCULAR VOLUME 81.9 fl (80.0-96.0); MONO # 0.6 10^3/uL (0.0-0.8); MONO % 11.1 % (2.0-8.0); NEUTROPHILS # 3.6 10^3/uL (1.5-8.5); NEUTROPHILS % 64.1 % (36.0-66.0); PLATELET COUNT, AUTOMATED 254 10^3/uL (150-450); RED BLOOD COUNT 3.59 10^6/uL (4.00-5.40); WHITE BLOOD COUNT 5.7 10^3/uL (4.0-10.0)
[2022-09-29 06:36] LABS: MAGNESIUM LEVEL 1.9 MG/DL (1.8-2.4)
[2022-09-29 06:37] LABS: CALCIUM LEVEL 8.5 MG/DL (8.3-10.6); CREATININE FOR GFR 0.94 MG/DL (0.55-1.30); GLOMERULAR FILTRATION RATE 59.7 (>32); POTASSIUM SERUM 3.9 MMOL/L (3.5-5.1)
[2022-09-29] MEDS: FLUTICASONE HFA 110MCG 12GM INHALER (FLOVENT) INH SCH ×2 (08:32→19:44)
[2022-09-29] MEDS: ISOSORBIDE MON. (IMDUR) 60MG XR TAB PO SCH (08:37)
[2022-09-29] MEDS: ASPIRIN 81MG ENTERIC TABLET PO SCH (08:44)
[2022-09-29] MEDS: RANOLAZINE 500MG ER TAB PO SCH ×2 (08:45→21:07)
[2022-09-29] MEDS: METOPROLOL TART 25 MG TABLET PO SCH ×2 (08:45→21:09)
[2022-09-29] MEDS: FEXOFENADINE 60MG TAB PO SCH (08:45)
[2022-09-29] MEDS: PRIMIDONE 50MG TAB PO SCH ×2 (08:45→21:09)
[2022-09-29] MEDS: OMEPRAZOLE 20MG CAP PO SCH (08:45)
[2022-09-29] MEDS: LACTOBACILLUS ACIDOPHILUS CAP (BACID) PO SCH ×2 (08:45→17:57)
[2022-09-29] MEDS: ATORVASTATIN 20 MG TAB PO SCH (08:45)
[2022-09-29] MEDS: SINEMET 25-100 MG TAB PO SCH ×5 (08:45→21:07)
[2022-09-29] MEDS: COSOPT OCUMETER PLUS 10ML (DORZOLAMIDE/TIMOLOL) OU SCH ×2 (08:46→21:07)
[2022-09-29] MEDS: HEPARIN SOD (PORCINE) 5000UNITS/ML 1ML VIAL/SYRINGE SC SCH ×2 (08:46→21:07)
[2022-09-29] MEDS: LATANOPROST 0.005% OPHTH SOLN 2.5 ML OU SCH (21:07)
[2022-09-29] MEDS: NORTRIPTYLINE 25 MG CAP PO SCH (21:08)
[2022-09-30 05:00] VITALS: BP 127/65
[2022-09-30] MEDS: LEVOTHYROXINE 112MCG TABLET (0.112MG) PO SCH (06:07)
[2022-09-30 07:13] LABS: BASO # 0.1 10^3/uL (0.0-0.2); BASO % 0.8 % (0.0-1.0); EOS # 0.2 10^3/uL (0.0-0.5); HEMATOCRIT 32.6 % (36.0-47.0); HEMOGLOBIN 10.1 g/dl (12.0-15.5); LYMPH # 1.3 10^3/uL (1.5-5.0); LYMPH % 19.8 % (24.0-44.0); MEAN CORPUSCULAR HEMOGLOBIN 25.6 pg (27.0-33.0); MEAN CORPUSCULAR VOLUME 82.5 fl (80.0-96.0); MONO # 0.8 10^3/uL (0.0-0.8); MONO % 12.3 % (2.0-8.0); NEUTROPHILS % 62.9 % (36.0-66.0); PLATELET COUNT, AUTOMATED 319 10^3/uL (150-450); RED BLOOD COUNT 3.95 10^6/uL (4.00-5.40); WHITE BLOOD COUNT 6.4 10^3/uL (4.0-10.0)
[2022-09-30 07:36] LABS: BLOOD UREA NITROGEN 18 MG/DL (9-23); CALCIUM LEVEL 9.1 MG/DL (8.3-10.6); CARBON DIOXIDE LEVEL 27 MMOL/L (20-31); CHLORIDE LEVEL 103 MMOL/L (98-107); CREATININE FOR GFR 0.78 MG/DL (0.55-1.30); GLOMERULAR FILTRATION RATE > 60.0 (>32); GLUCOSE, FASTING 88 MG/DL (74-106); POTASSIUM SERUM 4.5 MMOL/L (3.5-5.1); SODIUM LEVEL 137 MMOL/L (136-145)
[2022-09-30] MEDS: FLUTICASONE HFA 110MCG 12GM INHALER (FLOVENT) INH SCH ×2 (08:21→20:00)
[2022-09-30 08:22] VITALS: O2SAT 97
[2022-09-30] MEDS: ISOSORBIDE MON. (IMDUR) 60MG XR TAB PO SCH (09:00)
[2022-09-30] MEDS: OMEPRAZOLE 20MG CAP PO SCH (10:19)
[2022-09-30] MEDS: ASPIRIN 81MG ENTERIC TABLET PO SCH (10:20)
[2022-09-30] MEDS: ATORVASTATIN 20 MG TAB PO SCH (10:20)
[2022-09-30] MEDS: FEXOFENADINE 60MG TAB PO SCH (10:20)
[2022-09-30] MEDS: METOPROLOL TART 25 MG TABLET PO SCH ×2 (10:21→20:24)
[2022-09-30] MEDS: PRIMIDONE 50MG TAB PO SCH ×2 (10:21→20:23)
[2022-09-30] MEDS: RANOLAZINE 500MG ER TAB PO SCH ×2 (10:21→20:23)
[2022-09-30] MEDS: COSOPT OCUMETER PLUS 10ML (DORZOLAMIDE/TIMOLOL) OU SCH ×2 (10:22→20:24)
[2022-09-30] MEDS: SINEMET 25-100 MG TAB PO SCH ×5 (10:22→20:23)
[2022-09-30] MEDS: HEPARIN SOD (PORCINE) 5000UNITS/ML 1ML VIAL/SYRINGE SC SCH ×2 (10:22→20:23)
[2022-09-30] MEDS: LACTOBACILLUS ACIDOPHILUS CAP (BACID) PO SCH ×2 (10:24→18:30)
[2022-09-30] MEDS: NORTRIPTYLINE 25 MG CAP PO SCH (20:23)
[2022-09-30] MEDS: LATANOPROST 0.005% OPHTH SOLN 2.5 ML OU SCH (20:24)
[2022-10-01] MEDS: ACETAMINOPHEN TAB 650MG DOSE (2X325MG) PO PRN ×3 (01:07→21:05)
[2022-10-01 01:30] VITALS: BP 124/62
[2022-10-01 02:27] LABS: BASO % 0.5 % (0.0-1.0); EOS # 0.2 10^3/uL (0.0-0.5); EOS % 2.5 % (0.0-3.0); HEMATOCRIT 30.6 % (36.0-47.0); HEMOGLOBIN 9.6 g/dl (12.0-15.5); LYMPH # 1.2 10^3/uL (1.5-5.0); MEAN CORPUSCULAR HEMOGLOBIN 26.1 pg (27.0-33.0); MEAN CORPUSCULAR HGB CONC 31.4 g/dl (32.0-36.5); MEAN CORPUSCULAR VOLUME 83.2 fl (80.0-96.0); MONO % 11.9 % (2.0-8.0); NEUTROPHILS # 5.7 10^3/uL (1.5-8.5); PLATELET COUNT, AUTOMATED 302 10^3/uL (150-450); RED BLOOD COUNT 3.68 10^6/uL (4.00-5.40); WHITE BLOOD COUNT 8.3 10^3/uL (4.0-10.0)
[2022-10-01 02:49] LABS: CK-MB VALUE MASS < 1.0 NG/ML (<3.6)
[2022-10-01 02:50] LABS: MAGNESIUM LEVEL 1.9 MG/DL (1.8-2.4)
[2022-10-01 02:51] LABS: CPK CREATINE PHOSPHOKINASE 18 U/L (34-145); MB/CK RELATIVE INDEX 5.55 (< OR =4)
[2022-10-01 02:52] LABS: BLOOD UREA NITROGEN 18 MG/DL (9-23); CALCIUM LEVEL 8.7 MG/DL (8.3-10.6); CARBON DIOXIDE LEVEL 24 MMOL/L (20-31); CHLORIDE LEVEL 104 MMOL/L (98-107); CREATININE FOR GFR 0.83 MG/DL (0.55-1.30); GLOMERULAR FILTRATION RATE > 60.0 (>32); GLUCOSE, FASTING 96 MG/DL (74-106); POTASSIUM SERUM 4.8 MMOL/L (3.5-5.1); SODIUM LEVEL 134 MMOL/L (136-145)
[2022-10-01 04:50] VITALS: BP 120/69
[2022-10-01] MEDS: LEVOTHYROXINE 112MCG TABLET (0.112MG) PO SCH (05:26)
[2022-10-01] MEDS: FLUTICASONE HFA 110MCG 12GM INHALER (FLOVENT) INH SCH ×2 (08:23→19:47)
[2022-10-01 08:32] VITALS: BP 125/69
[2022-10-01] MEDS: ISOSORBIDE MON. (IMDUR) 60MG XR TAB PO SCH (08:40)
[2022-10-01] MEDS: METOPROLOL TART 25 MG TABLET PO SCH ×2 (08:41→21:03)
[2022-10-01] MEDS: OMEPRAZOLE 20MG CAP PO SCH (08:48)
[2022-10-01] MEDS: traMADol 50 MG TAB PO PRN (08:48)
[2022-10-01] MEDS: LACTOBACILLUS ACIDOPHILUS CAP (BACID) PO SCH ×2 (08:48→18:58)
[2022-10-01] MEDS: ATORVASTATIN 20 MG TAB PO SCH (08:48)
[2022-10-01] MEDS: ASPIRIN 81MG ENTERIC TABLET PO SCH (08:49)
[2022-10-01] MEDS: COSOPT OCUMETER PLUS 10ML (DORZOLAMIDE/TIMOLOL) OU SCH ×2 (08:49→21:06)
[2022-10-01] MEDS: HEPARIN SOD (PORCINE) 5000UNITS/ML 1ML VIAL/SYRINGE SC SCH ×2 (08:49→21:04)
[2022-10-01] MEDS: FEXOFENADINE 60MG TAB PO SCH (08:49)
[2022-10-01] MEDS: RANOLAZINE 500MG ER TAB PO SCH ×2 (08:49→21:02)
[2022-10-01] MEDS: PRIMIDONE 50MG TAB PO SCH ×2 (08:49→21:02)
[2022-10-01] MEDS: SINEMET 25-100 MG TAB PO SCH ×5 (08:49→21:03)
[2022-10-01 09:44] LABS: CK-MB VALUE MASS < 1.0 NG/ML (<3.6)
[2022-10-01 09:50] LABS: CPK CREATINE PHOSPHOKINASE 18 U/L (34-145); MB/CK RELATIVE INDEX 5.55 (< OR =4)
[2022-10-01 12:28] LABS: CK-MB VALUE MASS < 1.0 NG/ML (<3.6)
[2022-10-01 12:33] LABS: CPK CREATINE PHOSPHOKINASE 16 U/L (34-145); MB/CK RELATIVE INDEX 6.25 (< OR =4)
[2022-10-01] MEDS: NORTRIPTYLINE 25 MG CAP PO SCH (21:03)
[2022-10-01] MEDS: LATANOPROST 0.005% OPHTH SOLN 2.5 ML OU SCH (21:06)
[2022-10-02] MEDS: traMADol 50 MG TAB PO PRN (00:14)
[2022-10-02] MEDS: ACETAMINOPHEN TAB 650MG DOSE (2X325MG) PO PRN (01:05)
[2022-10-02] MEDS ORDERED: NORCO, ANEXSIA 5/325MG TABLET (HYDROcodone/ACETAMINOPHEN) PO ONE (03:00)
[2022-10-02 06:00] VITALS: BP 121/65
[2022-10-02] MEDS: LEVOTHYROXINE 112MCG TABLET (0.112MG) PO SCH (06:09)
[2022-10-02 06:27] LABS: BASO % 0.4 % (0.0-1.0); EOS # 0.2 10^3/uL (0.0-0.5); EOS % 2.7 % (0.0-3.0); HEMATOCRIT 32.2 % (36.0-47.0); HEMOGLOBIN 9.9 g/dl (12.0-15.5); LYMPH % 12.7 % (24.0-44.0); MEAN CORPUSCULAR HGB CONC 30.7 g/dl (32.0-36.5); MEAN CORPUSCULAR VOLUME 84.5 fl (80.0-96.0); MONO % 11.8 % (2.0-8.0); NEUTROPHILS # 5.8 10^3/uL (1.5-8.5); NEUTROPHILS % 71.2 % (36.0-66.0); PLATELET COUNT, AUTOMATED 297 10^3/uL (150-450); RED BLOOD COUNT 3.81 10^6/uL (4.00-5.40); WHITE BLOOD COUNT 8.2 10^3/uL (4.0-10.0)
[2022-10-02 06:43] LABS: MAGNESIUM LEVEL 1.9 MG/DL (1.8-2.4)
[2022-10-02 06:45] LABS: BLOOD UREA NITROGEN 18 MG/DL (9-23); CALCIUM LEVEL 8.7 MG/DL (8.3-10.6); CARBON DIOXIDE LEVEL 25 MMOL/L (20-31); CHLORIDE LEVEL 105 MMOL/L (98-107); CREATININE FOR GFR 0.81 MG/DL (0.55-1.30); GLOMERULAR FILTRATION RATE > 60.0 (>32); GLUCOSE, FASTING 88 MG/DL (74-106); POTASSIUM SERUM 4.9 MMOL/L (3.5-5.1); SODIUM LEVEL 136 MMOL/L (136-145)
[2022-10-02] MEDS: HEPARIN SOD (PORCINE) 5000UNITS/ML 1ML VIAL/SYRINGE SC SCH (08:57)
[2022-10-02] MEDS: ISOSORBIDE MON. (IMDUR) 60MG XR TAB PO SCH (08:57)
[2022-10-02] MEDS: COSOPT OCUMETER PLUS 10ML (DORZOLAMIDE/TIMOLOL) OU SCH (08:57)
[2022-10-02] MEDS: SINEMET 25-100 MG TAB PO SCH ×3 (08:57→14:46)
[2022-10-02] MEDS: FEXOFENADINE 60MG TAB PO SCH (08:57)
[2022-10-02] MEDS: ASPIRIN 81MG ENTERIC TABLET PO SCH (08:58)
[2022-10-02] MEDS: LACTOBACILLUS ACIDOPHILUS CAP (BACID) PO SCH (08:58)
[2022-10-02] MEDS: OMEPRAZOLE 20MG CAP PO SCH (08:58)
[2022-10-02] MEDS: PRIMIDONE 50MG TAB PO SCH (08:58)
[2022-10-02] MEDS: ATORVASTATIN 20 MG TAB PO SCH (08:58)
[2022-10-02] MEDS: RANOLAZINE 500MG ER TAB PO SCH (08:58)
[2022-10-02 08:59] VITALS: BP 121/65
[2022-10-02] MEDS: METOPROLOL TART 25 MG TABLET PO SCH (08:59)
== END 2022-10-02 17:12 | disposition home health service (06) | DRG 683 ==
LOC: M ED 16:56 → M ED INP 22:51 → OBSVTOIN 09-26 06:56 → ENRESERV 09-27 12:20 → M MSPAV 09-27 14:16
PROVIDERS: ADMIT Internal Medicine; ATTEND Internal Medicine
DX: N17.9 Acute kidney failure, unspecified (principal); I50.32 Chronic diastolic (congestive) heart failure; N39.0 Urinary tract infection, site not specified; G20 Parkinson's disease; E03.9 Hypothyroidism, unspecified; E78.00 Pure hypercholesterolemia, unspecified; I25.10 Atherosclerotic heart disease of native coronary artery without angina pectoris; K21.9 Gastro-esophageal reflux disease without esophagitis; H40.9 Unspecified glaucoma; Z90.79 Acquired absence of other genital organ(s); Z95.0 Presence of cardiac pacemaker; Z87.891 Personal history of nicotine dependence; Z79.890 Hormone replacement therapy; Z20.822 Contact with and (suspected) exposure to COVID-19; Z66 Do not resuscitate; Z79.82 Long term (current) use of aspirin; Z79.899 Other long term (current) drug therapy; Z88.1 Allergy status to other antibiotic agents; Z88.6 Allergy status to analgesic agent; Z88.8 Allergy status to other drugs, medicaments and biological substances; Z91.041 Radiographic dye allergy status; M79.604 Pain in right leg; M79.605 Pain in left leg; G89.29 Other chronic pain